=== PATIENT | female | born 1990 | race Caucasian/White ===

== ENCOUNTER 2017-12-31 00:40 | Emergency (ER) | payer MEDICARE, OTHER ==
[~2017-12-31] VITALS: Ht 160 cm; Wt 108.9 kg
[2017-12-31] MEDS ORDERED: birthcontrol PO (00:51)
[2017-12-31] MEDS ORDERED: ZOFRAN ODT4 MG PO (03:52)
== END 2017-12-31 04:09 | disposition home or self-care (01) ==
LOC: ED 00:40
DX: R10.9 Unspecified abdominal pain (principal); Z91.018 Allergy to other foods; Z91.038 Other insect allergy status; Z88.0 Allergy status to penicillin; Z88.5 Allergy status to narcotic agent; Z88.8 Allergy status to other drugs, medicaments and biological substances; Z91.030 Bee allergy status
CPT/HCPCS: 74177; 80053; 81001; 83690; 84703; 85025; 96374; 96375; 96376; 99284; J1170; J2405; J2550; J7030; Q9967

== ENCOUNTER 2018-06-17 20:59 | Emergency (ER) | payer OTHER, MEDICARE ==
[~2018-06-17] VITALS: Ht 160 cm; Wt 108.9 kg
[~2018-06-17 20:59] MED LIST: ZOFRAN ODT4 MG PO; birthcontrol PO
--- OUTSIDE RECORDS SUMMARY | 2018-06-17 21:02 | XMS ---
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 Care History Medical/Surgical 12/31/2017 [facility] - CHW HELPED PATIENT ESTABLISH WITH PCP DR SMITH APT IS 01/04/2018 @ 11:30. - Patient is currently established with [facility]. If patient is seen in the ED during business hours. Please contact CHWs at [facility]. - Care Recommendation: This patient has had 5 or more Emergency Department visits in the last 12 months.\T\nbsp; Patient requires education on the scope and purpose of the ED as an acute care provider not a Primary Care Provider and should not be utilized for chronic conditions.\T\nbsp; These are guidelines and the provider should exercise clinical judgment when providing care. E.D. VISIT COUNT (12 MO.) 3 K[facility] Buchanan TOTAL 3 NOTE: Visits indicate total known visits. ED/UCC VISIT TRACKING (12 MO.) 06/17/2018 20:59 [facility] Marcial [place] TYPE: Emergency COMPLAINT: - [facility] Urgent Care DIAGNOSES: - Lower abdominal pain, unspecified - Nausea - Overweight - Other fatigue 12/31/2017 00:41 [facility]cial [place] TYPE: Emergency COMPLAINT: - ABD PAIN DIAGNOSES: - Allergy status to other drugs, medicaments and biological substances status - Allergy status to penicillin - Bee allergy status - Allergy to other foods - Unspecified abdominal pain - Allergy status to narcotic agent status - Other insect allergy status 12/10/2017 09:40 [facility]cial [place] TYPE: Emergency COMPLAINT: - R KNEE PAIN/NO INJURY DIAGNOSES: - Pain in right knee INPATIENT VISIT TRACKING (12 MO.) No inpatient visits to display in this time frame [email or web address]
[2018-06-17] MEDS ORDERED: METFORMIN HCL1000 MG PO (21:11)
[2018-06-17] MEDS ORDERED: NORCO 5-325 TA1 EACH PO (22:23)
== END 2018-06-17 22:40 | disposition home or self-care (01) ==
LOC: ED 20:59
DX: F07.81 Postconcussional syndrome (principal); S16.1XXA Strain of muscle, fascia and tendon at neck level, initial encounter; E04.1 Nontoxic single thyroid nodule; J45.909 Unspecified asthma, uncomplicated; F43.10 Post-traumatic stress disorder, unspecified; F41.9 Anxiety disorder, unspecified; Z91.018 Allergy to other foods; Z88.0 Allergy status to penicillin; Z88.5 Allergy status to narcotic agent; Z91.038 Other insect allergy status; Z88.8 Allergy status to other drugs, medicaments and biological substances; Z79.899 Other long term (current) drug therapy; V47.5XXA Car driver injured in collision with fixed or stationary object in traffic accident, initial encounter
CPT/HCPCS: 70450; 72125; 90471; 90715; 99284-25

== ENCOUNTER 2019-02-10 18:27 | Emergency (ER) | payer MEDICARE, OTHER ==
[~2019-02-10] VITALS: Ht 160 cm; Wt 108.9 kg
--- OUTSIDE RECORDS SUMMARY | ~2019-02-10 | XMS | Encounter Summary ---
Demographics + + + | Address | [address] | | | [place] [address] | + + + | Home Phone | | + + + | Preferred Language | Unknown | + + + | Marital Status | Single | + + + | Mandaeism Affiliation | 1013 | + + + | Race | Unknown | + + + | Ethnic Group | Unknown | + + + Author + + + | Author | [facility] | | | and Attilaana | + + + | Organization | [facility] | [...] Team Providers + +------+ + | Care Quarry Supervisor Name | Role | Phone | + +------+ + | Hari Garcia MD | PCP | | + +------+ + Reason for Visit + + + | Reason | Comments | + + + | Blurred Vision | | + + + Encounter Details +--------+ + + + + | Date | Type | Department | Care Team | Description | +--------+ + + + + | 11/28/ | Telephone | [facility] | Hari Garcia MD | Blurred Vision | | 2019 | | MEDICINE [place] | [address] | | | | | [address] | [place] | | | | | [place] | [address] | | | | | [address] | | | | | | [phone] | | | +--------+ + + + [...] [place]AB[place] | | | | | | [id number] | | | | | | | | +--------+---------+ + + + documented as of this encounter Visit Diagnoses Not on filedocumented in this encounter"
--- OUTSIDE RECORDS SUMMARY | ~2019-02-10 | XMS | Encounter Summary ---
Demographics + + + | Address | [address] | | | [place] [address] | + + + | Home Phone | | + + + | Preferred Language | Unknown | + + + | Marital Status | Single | + + + | Mu-Ism Affiliation | 1013 | + + + | Race | Unknown | + + + | Ethnic Group | Unknown | + + + Author + + + | Author | [facility] | | | and Attilaana | + + + | Organization | [facility] | | | and Attilaana [...] Team Providers + +------+ + | Care Programmer Business Name | Role | Phone | + [...] | 01/10/ | Office | [facility] [place] [facility] | Hari Garcia MD | Psoriasis (Primary | | 2019 | Visit | MEDICINE [place] | [address] | Dx); Migraine | | | | [address] | [place] | without aura and | | | | [place] | [address] | without status | | | | [address] | | migrainosus, not | | | | [phone] | | intractable; Stress; | | | [...] Blood Pressure | - | - | + + + + | Pulse | 74 | 01/10/20191636 PDT | + + + [...] 110 kg (242 lb 8.1 | 01/10/2019 1637 PDT | | | oz) | | + + + + | Height | 162.6 cm (5' 4") | 01/10/2019 1637 PDT | + + + + | Body Mass Index | 41.63 | 01/10/2019 1637 PDT | + + + + documented in this encounter Patient Instructions Patient Instructions Hari Garcia MD - 01/10/2019 16:00 PDT Managing Psoriasis Take baths in warm water [...] unaffected s kin, but avoid sunburns. Use frcc-tyx-bwjaqdm hydrocortisone cream for itching to reduce scaling [...] symptoms can be managed. Date Last Reviewed: 06/10/201619992406-3824 [employer]. [address] [place] [address]. All righ ts reserved. This information is not intended as a substitute for professional medical care. Always follow your healthcare professional's instructions. documented in this encounter Progress Notes Hari Garcia MD - 01/10/2019 1600 PDT Chief Complaint: Migraine (Blurry vision, ) [...] obesity with BMI of 40.0-44.9, adult (HCC) Follow-up: Return in about 1 month (around 02/09/2019) for FP - f/u psoriasis. Hari Garcia MD 01/10/2019 Total time today is 25 minutes, >75% of which is in counseling and coordination of care reg arding the above issue(s). This note is dictated using [employer] voice recognition software. This note was dictated but not proofread. It may contain some grammatical errors. documented in this encoun ter Plan of Treatment +--------+---------+ + + + | Date | Type | Specialty | Care Team | Description | +--------+---------+ + + + | 02/24/ | Office | Family Medicine | Hari Garcia MD | | | 2018 | Visit | | [address] | | | | | | [place] | | | | | | [address] | | | | | | | | +--------+---------+ + + + documented as of this encounter Results Hemoglobin A1C (01/10/2019 17:22 PDT) + +-------+ [...] [address] | [place] | [phone] | | [facility] | | [address] | | | - LABORATORY | | [...] + + + | [facility] | [address] | Jenae Emanuel [place] | [phone] | | [facility] | | [address] | | | [facility] | | [...] | mL/min/1.73m2 | [facility] | | | MAURITIAN | RATE,ESTIMATED mL/min | | MEDICAL | | | | /1.78v8Rvjo than 60 | | PARK | | [address] | [place] | [phone] | | [facility] | | [address] | | | [facility] | | [...]
--- OUTSIDE RECORDS SUMMARY | ~2019-02-10 | XMS | Encounter Summary ---
Demographics + + + | Address | [address] | | | [place] [address] | + + + | Home Phone [...] + + + | Author | [facility] | | | and Attilaana | + + + | Organization | [facility] | | | and [...] Team Providers + +------+ + | Care Channel Executive Name | Role | Phone | + [...] obesity with | [address] [place] | [address] | | | | | body mass | [place], [place] | [place], | | | | | index (BMI) | [address] | [place] [address] | | | | | of 40.0 to | Phone: | Phone: | | | | | 44.9 in | [phone] | [phone] | | | | | adult, | Fax: | Fax: | | | | | unspecified | [phone] | [phone] | | | | | obesity | [...] + + | 12/13/ | Hospital | [facility] | Hari Garcia MD | Morbid obesity with | | 2019 | Encounter | MED CTR NUTRITION | [address] | BMI of 40.0-44.9, | | | | SERVICES [address] | [place] | adult (HCC) (Primary | | | | [address], | [id number] | Dx) | | | | [place] [address] | | | | | | [phone] | Yasmin Hernandez | | | | [...] 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 She is working on [employer] easing her smoking and increasing her activity. [...] 233#. BMI: 40.15 Estimated needs (wt. 106.1kg) 9352-3928 kcals/day (MSJ - 20/kg) 54-84 gm pro/day [...] [place]AB[place] | | | | | | [id number] | | | | | | | [...]
--- OUTSIDE RECORDS SUMMARY | ~2019-02-10 | XMS | Encounter Summary ---
Demographics + + + | Address | [address] | | | [place] [address] | + + + | Home Phone | | + + + | Preferred Language | Unknown | + + + | Marital Status | Single | + + + | Christianity Affiliation | 1013 | + + + | Race | Unknown | + + + | Ethnic Group | Unknown | + + + Author + + + | Author | [facility] | | | and Attilaana | + + + | Organization | [facility] | | [...] Team Providers + +------+ + | Care Data Miner Name | Role | Phone | + [...] | | | 2019 | | MEDICINE [place] | [address] | | | | | [address] | [place] | | | | | [place] | [address] | | | | | [address] | | | | | | [phone] | | | +--------+ + + + [...] 2019 | Visit | | [address] | | | | | | [place] | | | | | | [address] | | | | | | | | +--------+---------+ + + + documented as of this encounter Procedures + +--------+ + + + | Procedure Name | Priori | Date/Time | Associated Diagnosis | Comments | | | ty | | | | + +--------+ + + + | EXTERNAL LAB: PAP | Routin | 08/25/2018 | | Results [...]
--- OUTSIDE RECORDS SUMMARY | ~2019-02-10 | XMS | Encounter Summary ---
Demographics + + + | Address | [address] | | | [place] [address] | + + + | Home Phone [...] + | Organization | [facility] | | | and Attilaana [...] Team Providers + +------+ + | Care Seo Engineer Name | Role | Phone | + +------+ + | Hari Garcia MD | PCP | | + +------+ + Encounter Details +--------+ + + + + | Date | Type | Department | Care Team | Description | +--------+ + + + + | 02/09/ | Hospital | [facility] | Hari Garcia MD | Thyroid nodule | | 2019 | Encounter | MED CTR ULTRASOUND | [address] | | | | | [address] [place] | [place] | | | | | [place] | [address] | | | | | [address] | | | | | | [phone] | | | +--------+ + + + [...] [place] | | | | | | [address] | | | | | | | [...]
--- OUTSIDE RECORDS SUMMARY | ~2019-02-10 | XMS | Encounter Summary ---
Demographics + + + | Address | [address] | | | [place] [address] | + + + | Home Phone [...] | Organization | [facility] | | | and Attilaana [...] Team Providers + +------+ + | Care Water Taxi Captain Name | Role | Phone | + [...] | 11/28/ | Telephone | [facility] [place] [facility] | Hari Garcia MD | Blurred Vision | | 2019 | | MEDICINE [place] | [address] | | | | | [address] | [place] | | | | | [place] | [address] | | | | | [address] | | | | | | [phone] | | | +--------+ + + + [...] [place] | | | | | | [address] | | | | | | | | +--------+---------+ + + + documented as of this encounter Visit Diagnoses Not on filedocumented in this encounter"
--- OUTSIDE RECORDS SUMMARY | ~2019-02-10 | XMS | Encounter Summary ---
Demographics + + + | Address | [address] | | | [place] [address] | + + + | Home Phone | | + + + | Preferred Language | Unknown | + + + | Marital Status | Single | + + + | Jainism Affiliation | 1013 | + + + | Race | Unknown | + + + | Ethnic Group | Unknown | + + + Author + + + | Author | [facility] | | | and Attilaana | + + + | Organization | [facility] | | | and Attilaana [...] Team Providers + +------+ + | Care Kettle Loader Name | Role | Phone | + +------+ + | Hari Garcia MD | PCP | | + +------+ + Encounter Details +--------+ + + + + | Date | Type | Department | Care Team | Description | +--------+ + + + + | 02/09/ | Hospital | [facility] | Hari Garcia MD | Thyroid nodule | | 2019 | Encounter | MED CTR ULTRASOUND | [address] | | | | | [address] [place] | [place] | | | | | [place] | [address] | | | | | [address] | | | | | | [phone] | | | +--------+ + + + [...] [place]AB[place] | | | | | | [address] | | | | | | | [...]
--- OUTSIDE RECORDS SUMMARY | ~2019-02-10 | XMS | Encounter Summary ---
Demographics + + + | Address | [address] | | | [place] [address] | + + + | Home Phone | | + + + | Preferred Language | Unknown | + + + | Marital Status | Single | + + + | Nondenominational Affiliation | 1013 | + + + | Race | Unknown | + + + | Ethnic Group | Unknown | + + + Author + + + | Author | [facility] | | | and Attilaana | + + + | Organization | [facility] | | [...] Team Providers + +------+ + | Care Au Pair Name | Role | Phone | + [...] + | 09// | Telephone | [facility] | Hari Garcia MD | Medication | | 2019 | | MEDICINE [place] | [address] | Management | | | | [address] | [place] | | | | | [place] | [address] | | | | | [address] | | | | | | [phone] | | | +--------+ + + + [...] [place] | | | | | | [address] | | | | | | | | +--------+---------+ + + + documented as of this encounter Visit Diagnoses Not on filedocumented in this encounter"
--- OUTSIDE RECORDS SUMMARY | ~2019-02-10 | XMS | Clinical Summary ---
Demographics + + + | Address | [address] | | | [place] [address] | + + + | Home Phone | | + + + | Preferred Language | Unknown | + + + | Marital Status | Single | + + + | Hinduism Affiliation | 1013 | + + + | Race | Unknown | + + + | Ethnic Group | Unknown | + + + Author + + + | Author | [facility] | | | and Attilaana | + + + | Organization | [facility] | | | and [...] Team Providers + +------+ + | Care Stage Technician Name | Role | Phone | [...] + + + + + + | Meno | Hives | Low | 04/11/20 | [...] + + | 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 [place] | + + + [...] adult | | | | | | ([facility]) | +--------+ + + + + | 12/13/ | Hospital | Nutrition | Hari Garcia MD | Morbid obesity with | | 2018 | Encounter | | David, | BMI of 40.0-44.9, | | | | | Yasmin Branch RDN | adult ([facility]) (Primary | | | | | | [...] [place] | | | | | | [address] | | | | | | | [...] + + | [facility] | [address] | [place] | [phone] | | [facility] | | [address] | | | [facility] | | [...] + + + | [facility] | [address] | [place] | [phone] | | [facility] | | [address] | | | [facility] | | [...] [address] | [place] | [phone] | | [facility] | | [address] | | | - LABORATORY | | [...] | | | | | mg/dL | [facility] | | | | | | MEDICAL | | | | | | [facility]ARK | | | | | | LABORATORY | | + + + + + + | eGFR if not | >60Comment: GLOMERULAR | >=60 | [facility] | | | | FILTRATION | mL/min/1.73m2 | [facility] | | | TRINIDADIAN | RATE,ESTIMATED mL/min | | MEDICAL | | | | /1.95r7Nzph than 60 | | PARK | | [...] | | | | | mg/dL | [facility] | | | | | | [...] + + + | [facility] | [address] | [place] | [phone] | | [facility] | | [address] | | | [facility] CONTRERAS | | [...] +--------+ +---------+--------+ | MEDICARE | [employer] | [id number] | 05/10/19 | [phone] | | Medica | | | RE | | 16-Pre | 5 | | re | | | PART A | | sent | | | | | | AND B | | | | | | + +--------+ +--------+ +---------+--------+ | [employer] | MODA | [id number] | | [phone] | | Medica | [...] | 1990 | [id number] | [place] [address] | | | flaca | | | 1 (Home) | | + +--------+ +--------+ + + Advance Directives Patient has advance care planning documents on file. For more information, please contact:[facility] [place] [address]
--- OUTSIDE RECORDS SUMMARY | ~2019-02-10 | XMS | Encounter Summary ---
Demographics + + + | Address | [address] | | | [place] [address] | + + + | Home Phone [...] + + + | Author | [facility] | | | and Attilaana | + + + | Organization | [facility] | | | and [...] Team Providers + +------+ + | Care Counselor Supervisor Name | Role | Phone | [...] | 01/10/ | Office | [facility] | Hari Garcia MD | Psoriasis (Primary | | 2019 | Visit | MEDICINE [place] | [address] | Dx); Migraine | | | | [address] | [place] | without aura and | | | | [place] | [address] | without status | | | | [address] | | migrainosus, not | | | | [phone] | | intractable; Stress; | | | [...] unaffected s kin, but avoid sunburns. Use svho-poi-hlxxntc hydrocortisone cream for itching to reduce scaling [...] symptoms can be managed. Date Last Reviewed: 06/10/201619995638-4569 [employer]. [address] [place] [address]. All righ ts reserved. This information is [...] above issue(s). This note is dictated using [employer] voice recognition software. This note was dictated [...] [place]AB[place] | | | | | | [address] | | | | | | | [...] [address] | [place] | [phone] | | [facility] | | [address] | | | - LABORATORY | | [...] + + + | [facility] | [address] | Jenae Emanuel [place] | [phone] | | [facility] | | [address] | | | [facility] | | [...] | mL/min/1.73m2 | [facility] | | | BHUTANESE | RATE,ESTIMATED mL/min | | MEDICAL | | | | /1.03y8Nbzd than 60 | | PARK | | [address] | [place] | [phone] | | [facility] | | [address] | | | [facility] | | [...]
--- OUTSIDE RECORDS SUMMARY | ~2019-02-10 | XMS | Clinical Summary ---
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 [place] | + + + [...] | | | | | ([facility]) | +--------+ + + + + | 12/13/ | Hospital | Nutrition | Hari Garcia MD | Morbid obesity with | | 2018 | Encounter | | David, | BMI of 40.0-44.9, | | | | | Yasmin Branch RDN | adult ([facility]) (Primary | | | | | | [...] [place] | | | | | | [address] | | | | | | | [...] + + | [facility] | [address] | [place] | [phone] | | [facility] | | [address] | | | [facility] | | [...] + + + | [facility] | [address] | [place] | [phone] | | [facility] | | [address] | | | [facility] | | [...] [address] | [place] | [phone] | | [facility] | | [address] | | | - LABORATORY | | [...] | | | | | mg/dL | [facility] | | | | | | MEDICAL | | | | | | PARK | | | | | | LABORATORY | | + + + + + + | eGFR if not | >60Comment: GLOMERULAR | >=60 | [facility] | | | | FILTRATION | mL/min/1.73m2 | [facility] | | | URUGUAYAN | RATE,ESTIMATED mL/min | | MEDICAL | | | | /1.69p6Rbyk than 60 | | PARK | | [...] | | | | | mg/dL | [facility] | | | | | | [...] + + + | [facility] | [address] | [place] | [phone] | | [facility] | | [address] | | | [facility] | | [...] +--------+ +---------+--------+ | MEDICARE | MEDICA | [id number] | 05/10/19 | [phone] | | Medica | | | RE | | 16-Pre | 5 | | re | | | PART A | | sent | | | | | | AND B | | | | | | + +--------+ +--------+ +---------+--------+ | [employer] | MODA | [id number] | | [phone] | | Medica | [...] | 1990 | [id number] | [place] [address] | | | flaca | | | 1 (Home) | | + +--------+ +--------+ + + Advance Directives Patient has advance care planning documents on file. For more information, please contact:[facility] [place] [address]
--- OUTSIDE RECORDS SUMMARY | ~2019-02-10 | XMS | Encounter Summary ---
Demographics + + + | Address | [address] | | | [place] [address] | + + + | Home Phone [...] + + | Author | [facility] | | | and Attilaana | + + + | Organization | [facility] | | [...] Team Providers + +------+ + | Care Hot Car Charger Name | Role | Phone | + [...] | | | 2019 | | MEDICINE [place] | [address] | | | | | [address] | [place] | | | | | [place] | [address] | | | | | [address] | | | | | | [phone] | | | +--------+ + + + [...] 2019 | Visit | | [address] | | | | | | [place] | | | | | | [address] | | | | | | | [...]
--- OUTSIDE RECORDS SUMMARY | ~2019-02-10 | XMS | Encounter Summary ---
Demographics + + + | Address | [address] | | | [place] [address] | + + + | Home Phone [...] + + | Author | [facility] | | | and Attilaana | + + + | Organization | [facility] [...] Team Providers + +------+ + | Care Communication Center Coordinator Name | Role | Phone | [...] + | 09// | Telephone | [facility] | Hari Garcia MD | Medication | | 2019 | | [facility]IC[facility] [place] | [address] | Management | | | | [address] | [place] | | | | | [place] | [address] | | | | | [address] | | | | | | [phone] | | | +--------+ + + + [...] [place] | | | | | | [address] | | | | | | | | +--------+---------+ + + + documented as of this encounter Visit Diagnoses Not on filedocumented in this encounter"
--- OUTSIDE RECORDS SUMMARY | ~2019-02-10 | XMS | Encounter Summary ---
Demographics + + + | Address | [address] | | | [place] [address] | + + + | Home Phone [...] | Author | [facility] | | | and Attilaana | + + + | Organization | [facility] | [...] Team Providers + +------+ + | Care Procurement Engineer Name | Role | Phone | [...] obesity with | [address] [place] | [address] | | | | | body mass | [place], [place] | [place], | | | | | index (BMI) | [address] | [place] [address] | | | | | of 40.0 to | Phone: | Phone: | | | | | 44.9 in | [phone] | [phone] | | | | | adult, | Fax: | Fax: | | | | | unspecified | [phone] | [phone] | | | | | obesity | [...] + + | 12/13/ | Hospital | [facility] | Hari Garcia MD | Morbid obesity with | | 2019 | Encounter | MED CTR NUTRITION | [address] | BMI of 40.0-44.9, | | | | SERVICES [address] | [place] | adult (HCC) (Primary | | | | [address] [place], | [phone] | Dx) | | | | [place] [address] | | | | | | [phone] | Yasmin Hernandez | | | | [...] 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 She is working on [employer] easing her smoking and increasing her activity. [...] 233#. BMI: 40.15 Estimated needs (wt. 106.1kg) 6703-6013 kcals/day (MSJ - 20/kg) 54-84 gm pro/day [...] [place]AB[place] | | | | | | [id number] | | | | | | | [...]
[~2019-02-10 18:27] MED LIST changes: +CITALOPRAM HBR20 MG PO; +MAXALT10 MG PO; +METFORMIN HCL1000 MG PO; +NORCO 5-325 TA1 EACH PO; +ZOFRAN4 MG PO
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
[2019-02-10] MEDS ORDERED: VENTOLIN HFA18 GM INH (18:40)
[2019-02-10] MEDS ORDERED: IPRAT-ALBUT 0.5-3 ML INH (19:58)
[2019-02-10] MEDS ORDERED: TRUNEB NEBULIZ1 EACH INH (19:59)
== END 2019-02-10 20:27 | disposition home or self-care (01) ==
LOC: ED 18:27
DX: J98.8 Other specified respiratory disorders (principal); B97.89 Other viral agents as the cause of diseases classified elsewhere; J45.909 Unspecified asthma, uncomplicated; F43.10 Post-traumatic stress disorder, unspecified; F41.9 Anxiety disorder, unspecified; F17.200 Nicotine dependence, unspecified, uncomplicated; Z91.018 Allergy to other foods; Z91.030 Bee allergy status; Z88.5 Allergy status to narcotic agent; Z79.899 Other long term (current) drug therapy; Z79.84 Long term (current) use of oral hypoglycemic drugs
CPT/HCPCS: 94664; 99283

== ENCOUNTER 2019-02-14 12:57 | Emergency (ER) | payer MEDICARE, OTHER ==
[~2019-02-14] VITALS: Ht 160 cm; Wt 108.9 kg
--- OUTSIDE RECORDS SUMMARY | ~2019-02-14 | XMS | Encounter Summary ---
Demographics + + + | Address | [address] | | | [place] [address] | + + + | Home Phone | | + + + | Preferred Language | Unknown | + + + | Marital Status | Single | + + + | Congregation Affiliation | 1013 | + + + | Race | Unknown | + + + | Ethnic Group | Unknown | + + + Author + + + | Author | [facility] | | | and Attilaana | + + + | Organization | [facility] | | | and Attilaana | [...] Team Providers + +------+ + | Care Salesperson Sewing Machines Name | Role | Phone | + +------+ + | Hari Garcia MD | PCP | | + +------+ + Encounter Details +--------+ + + + + | Date | Type | Department | Care Team | Description | +--------+ + + + + | 02/09/ | Hospital | [facility] | Hari Garcia MD | Thyroid nodule | | 2019 | Encounter | MED CTR ULTRASOUND | [address] | | | | | [address] [place] | [place] | | | | | [place] | [address] | | | | | [address] | | | | | | [phone] | | | +--------+ + + + [...] + +---------+ + | Alcohol Use | Drinks/We | oz/Week | Comments | | | ek | | | + + +---------+ + | No | | | | + + +---------+ + + + + | Sex Assigned at | Date Recorded | | | | + + + | Female | 09/16/2018 1119 PDT | + + + + + [...] tablet by | 30 | 5 | 07/26/19 | | | (CELEXA) 20 mg | mouth Daily. | tablet | | 19 | | | tabletIndications: | | | [...] TABLET BY | 90 | 1 | 08/05/19 | | | (GLUCOPHAGE-XR) 500 | MOUTH ONCE DAILY | tablet | | 19 | | | mg 24 hr tablet | | | | | | + + + +---------+ + + | vitamin | Take 1 tablet by | | 0 | 09/22/19 | | | w/ferrous | mouth Daily. | | | 19 | | | fumarate-folic acid | | | | | | | ( PLUS) 27-1 | | | | | | | mg | | | | | | | tabletIndications: | | | | | | | , | | | | | | | unspecified | | | | | | | gestational age | | | | | | + + + +---------+ + + | topiramate | Take 1 tablet by | 60 | 0 | 01/11/20 | | | (TOPAMAX) 25 mg | mouth 2 times daily. | tablet | | 19 | | | tablet | | | | [...] Description | +--------+---------+ + + + | 02/24/ | Office | Family Medicine | Hari Garcia MD | | | 2018 | Visit | | [address] | | | | | | [place] | | | | | | [address] | | | | | | | | +--------+---------+ + + + documented as of this encounter Procedures + +--------+ + + + | Procedure Name | Priori | Date/Time | Associated Diagnosis | Comments | | | ty | | | | + +--------+ + + + | US HEAD NECK SOFT | Routin | 02/09/2019 | Thyroid nodule | Results for this | | TISSUE | e | 15:22 PDT | | procedure are in the | | | | | | results section. | + +--------+ + + + documented in this encounter Results US Head Neck Soft Tissue (02/09/2019 15:22 PDT) + + | Specimen | + [...] x 2.2 cm. No significant change in | | | size or morphology of the right thyroid nodule. It measures about | | | 3 x 2 x 1.8 cm. There are hyperechoic foci within. These may be | | | calcifications or colloid particles. Left: 4.1 x 1.1 x 0.9 | | | cm. No mass or significant hypervascularity. Isthmus: | | | Unremarkable. IMPRESSION - Stable right thyroid nodule. | | | TI-RADS Level = TR4 Recommendations: Moderately Suspicious: FNA | | | if ? 1.5 cm; Follow if ? 1 cm. In the setting of a negative FNA | | | consider follow-up. Dictated and Signed by: Alfredo Hagen MD | | | Electronically signed: 02/09/2019 5:55 PM | | + + + + + | Procedure Note | + + | Nash, Rad Results In - 02/09/2019 1758 PDT EXAM:US HEAD NECK SOFT TISSUE dated [...]
--- OUTSIDE RECORDS SUMMARY | ~2019-02-14 | XMS | Clinical Summary ---
Demographics + + + | Address | [address] | | | [place] [address] | + + + | Home Phone | | + + + | Preferred Language | Unknown | + + + | Marital Status | Single | + + + | Pentecostalism Affiliation | 1013 | + + + | Race | Unknown | + + + | Ethnic Group | Unknown | + + + Author + + + | Author | [facility] | | | and Attilaana | + + + | Organization | [facility] | | | and [...] Team Providers + +------+ + | Care Magnetic Tape Winder Name | Role | Phone | + [...] + + + + + + | [place] | Hives | Low | 04/11/20 | [...] | 30 | 5 | 03/1 | | Activ | | (CELEXA) 20 mg | mouth Daily. | tablet | | 8/20 | | e | | tabletIndications: | | | | 19 | | | | Acute stress | [...] | 90 | 1 | 03/2 | | Activ | | (GLUCOPHAGE-XR) 500 | MOUTH ONCE DAILY | tablet | | 8/20 | | e | | mg 24 hr tablet | | | | 19 | | | + + + +---------+------+------+-------+ | albuterol 90 | Inhale 2 puffs into | 1 | 0 | 04/1 | | Activ | | mcg/puff | the lungs every 6 | Inhaler | | 1/20 | | e | | inhalerIndications: | [...] w/ferrous | mouth Daily. | | | 09/26 | | e | | fumarate-folic acid [...] | | + + + +---------+------+------+-------+ | topiramate | Take 1 tablet by | 60 | 0 | 09/0 | | Activ | | (TOPAMAX) 25 mg | mouth 2 times daily. 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 [place] | + + + [...] adult | | | | | | ([facility]) | +--------+ + + + + | 12/13/ | Hospital | Nutrition | Hari Garcia MD | Morbid obesity with | | 2018 | Encounter | | David, | BMI of 40.0-44.9, | | | | | Yasmin Branch RDN | adult ([facility]) (Primary | | | | | | Dx) | +--------+ + + + + | 12/09/ | Abstract | Family Medicine | Hari Garcia MD | | | 2018 | | | | | +--------+ + + + + | 11/28/ | Telephone | Family Medicine | Hari Garcia MD | Blurred Vision | | 2018 | | | | | +--------+ + + + + from [...] Filed Vital Signs + + + + | Vital Sign | Reading | Time Taken | + + + + | Blood Pressure | 110/76 | 08/18/2018 1407 PDT | + + + + | Pulse | 74 | 01/10/2019 1637 PDT | + + + + | Temperature | 36.3 C (97.3 F) | 01/10/20191636 PDT | + + + + | Respiratory Rate | 16 | 01/10/20191636 PDT | + + + + | Oxygen Saturation | 98% | 01/10/20191636 PDT | + + + + | Inhaled Oxygen | - | - | | Concentration | | | + + + + | Weight | 110 kg (242 lb 8.1 | 01/10/20191636 PDT | | | oz) | | + + + + | Height | 162.6 cm (5' 4") | 01/10/20191636 PDT | + + + + | Body Mass Index | 41.63 | 01/10/2019 1637 PDT | + + + + Plan of Treatment +--------+---------+ + + + | Date | Type | Specialty | Care Team | Description | +--------+---------+ + + + | 02/24/ | Office | Family Medicine | Hari Garcia MD | | | 2018 | Visit | | [address] | | | | | | [place] | | | | | | [address] | | | | | | | | +--------+---------+ + + + + + + + + | Health Maintenance | Due Date | Last Done | Comments | + + + + + | Vaccine: | | | | | Pneumococcal 19-64 | 9 | | | | (PPSV23 only) Medium | | | | | Risk (1 of 1 - | | | | | PPSV23) | | | | + + [...] for this | | | e | 17:22 PDT | | procedure are in the | | | | | | results section. | + +--------+ + + + | CBC NO DIFFERENTIAL | Routin | 01/10/2019 | Fatigue, | Results for this | | | e | 17:22 PDT | unspecified type | procedure are in the | | | | | | results section. | + +--------+ + + + | COMPREHENSIVE | Routin | 01/10/2019 | PCOS (polycystic | Results for this | | METABOLIC PANEL | e | 17:22 PDT | ovarian syndrome) | procedure are in the | | | | | Prediabetes | results section. | | | | | Fatigue, unspecified | | | | | | type | | + +--------+ + + + | LIPID PANEL | Routin | 01/10/2019 | Class 3 severe | Results for this | | | e | 17:22 PDT | obesity with body | procedure are in the | | | | | mass index (BMI) of | results [...] + +---------+ + + Lipid Panel (01/10/2019 17:22 PDT) + +---------+ + + + | [...] + + | [facility] | [address] | [place] | [phone] | | [facility] | | [address] | | | [facility] | | | | + + + + + CBC no Differential (01/10/2019 17:22 PDT) + + + + + + [...] + + + | [facility] | [address] | [place] | [phone] | | [facility] | | [address] | | | [facility] | | | | + + + + + Hemoglobin A1C (01/10/2019 17:22 PDT) + +-------+ + + + | [...] + | [address] [facility] | [address] | [place] | [phone] | | [facility] | | [address] | | | - LABORATORY | | | | + + + + + Comprehensive Metabolic Panel (01/10/2019 17:22 PDT) + + + + + + [...] | | | | | mg/dL | [facility] | | | | | | MEDICAL | | | | | | [facility] | | | | | | LABORATORY | | + + + + + + | eGFR if not | >60Comment: GLOMERULAR | >=60 | [facility] | | | | FILTRATION | mL/min/1.73m2 | [facility] | | | [place] | RATE,ESTIMATED mL/min | | MEDICAL | | | | /1.06e5Hsrq than 60 | | PARK | | | | Chronic kidney | | LABORATORY | | | | disease,if found over a | | | | | | 3-month period.Less than | | | | | | 15 Kidney | | | | | | failureFor | | | | | | Americans,multiply the | | | | | | calculated GFR by 1.21. | | | | | | | | | | + + + + + + | Calcium | 9.0 | 8.5 - 10.1 | [facility] | | | | | mg/dL | [facility] | | | | | | MEDICAL [...] + + + | [facility] | [address] | [place] | [phone] | | [facility] | | [address] | | | [facility] | | | | + + [...] +--------+ +---------+--------+ | MEDICARE | MEDICA | [id number] | 05/10/19 | [phone] | | Medica | | | RE | | 16-Pre | 5 | | re | | | PART A | | sent | | | | | | AND B | | | | | | + +--------+ +--------+ +---------+--------+ | [employer] | MODA | [id number] | | [phone] | | Medica | | MEDICAID HMO [...] | Self | [birth year] | | [address] | | | al/Fam | | 1990 | [id number] | [place] [address] | | | flaca | | | 1 (Home) | | + +--------+ +--------+ + + Advance Directives Patient has advance care planning documents on file. For more information, please contact:[facility] [place] [address]
--- OUTSIDE RECORDS SUMMARY | ~2019-02-14 | XMS | Encounter Summary ---
Demographics + + + | Address | [address] | | | [place] [address] | + + + | Home Phone | | + + + | Preferred Language | Unknown | + + + | Marital Status | Single | + + + | Bahai Affiliation | 1013 | + + + | Race | Unknown | + + + | Ethnic Group | Unknown | + + + Author + + + | Author | [facility] | | | and Attilaana | + + + | Organization | [facility] | | | and [...] Team Providers + +------+ + | Care Doctor Of Optometry Name | Role | Phone | + +------+ + | Hari Garcia MD | PCP | | + +------+ + Reason for Visit + + + | Reason | Comments | + + + | Nutrition Counseling | | + + + Evaluate & Treat (Routine) +--------+ + + + + + | Status | Reason | Specialty | Diagnoses / | Referred By | Referred To | | | | | Procedures | Contact | Contact | +--------+ + + + + + | Closed | Specialty | Nutrition | Diagnoses | [place], | [facility] | | | Services | | Class 3 | MD Hari | Nutrition | | | Required | | severe | [address] | [address] | | | | | obesity with | [address] [place] | [address] | | | | | body mass | [place], [place] | [place], | | | | | index (BMI) | [address] | [place] [address] | | | | | of 40.0 to | Phone: | Phone: | | | | | 44.9 in | [phone] | [phone] | | | | | adult, | Fax: | Fax: | | | | | unspecified | [phone] | [phone] | | | | | obesity | | | | | | | type, | | | | | | | unspecified | | | | | | | whether | | | | | | | serious | | | | | | | comorbidity | | | | | | | present | | | | | | | (HCC) | | | +--------+ + + + + + Encounter Details +--------+ + + + + | Date | Type | Department | Care Team | Description | +--------+ + + + + | 12/13/ | Hospital | [facility] | Hari Garcia MD | Morbid obesity with | | 2019 | Encounter | MED CTR NUTRITION | [address] | BMI of 40.0-44.9, | | | | SERVICES [address] | [place] | adult (HCC) (Primary | | | | [place], | [id number] | Dx) | | | | [place] [address] | | | | | | [phone] | Yasmin Hernandez | | | | | | N, RDN | | +--------+ + + + + [...] 1 tablet by | | 0 | / | | | w/ferrous | mouth Daily. [...] documented as of this encounter Progress Notes Yasmin Hernandez, RDN - 12/13/2018 1609 PDT Medical Nutrition Note SUBJECTIVE: Patient states she has PCOS and would like to have another baby. She states she lost weight and got in the past. Her lifestyle is different now and she is trying to lose weight again. 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 She is working on [employer] easing her smoking and increasing her activity. She would like to meal prep and take lunches to work. Encouraged patient to eat consistent meals that include protein, energy, and plant s. Patient plans to take leftovers from supper for meal at work the next day on most days to save money and eat healthier food that fast food for lunch. She is going to work on increas ing vegetable/fruit intake and choosing lean proteins as well. Patient is very busy and feel overwhelmed with her personal goals. So we broke her goals down into realistic steps. She i s going to reevaluate her goals and update as needed with tips from handouts when she is joselin dy for taking another step to take care of herself. OBJECTIVE: Diet: General Wt Readings from Last 3 Encounters: 08/18/18 106.1 kg (233 lb 14.5 oz) 06/29/18 106.1 kg (233 lb 14.5 oz) 06/22/18 104.3 kg (230 lb) Ht Readings from Last 1 Encounters: 08/18/18 1.626 m (5' 4") There is no height or weight on file to calculate BMI. No height and weight on file for th is encounter. Labs: No results found for: POCGLU, Lab Results Component Value Date HBA1C 5.7 06/15/2018 , Lab Results Component Value Date HBA1C 5.7 06/15/2018 HBA1C 5.8 (A) 01/31/2018 No results found for: GLUF, CREATININE, Ht: 1/626 m (5'4"). Wt: 233#. BMI: 40.15 Estimated needs (wt. 106.1kg) 1214-1636 kcals/day (MSJ - 20/kg) 54-84 gm pro/day (1/kg IBW-.8/kg) Medications: metformin ASSESSMENT/PLAN: Nutrition Diagnosis: Nutrition knowledge deficit related to weight management as evidenced by elevated BMI of 40.15, questions from patient. Interventions: 1. Provided nutrition therapy related to weight management for patient with PCOS and elevat ed BMI> 2. Provided education and handouts: What is pre-diabetes/tips, Steve food guide, weight ma nagement, Healthy breakfasts/lunches/dinners/Snacks, Eat right with MyPlate, Weight manageme nt cooking tips, weight loss tips. Nutrition guide for women, Eating well during pr egnancy. Nutrition Goals: 1. Continue to drink adequate fluids (8 cups water/day) 2. Increase daily activity to 60 minutes per day as tolerated. 3. Choose 3 meals per day with protein, energy, and plants. Monitor: 1. Further patient questions related to balanced diet for weight management, PCOS, pre-martha l Time spent: 60 minutes Thank you for the referral, Yasmin Hernandez RDN 12/13/2018 16:16 documented in thi s encounter Plan of Treatment +--------+---------+ + + + | Date | Type | Specialty | Care Team | Description | +--------+---------+ + + + | 02/24/ | Office | Family Medicine | Hari Garcia MD | | | 2019 | Visit | | [address] | | | | | | [place] | | | | | | [id number] | | | | | | | | +--------+---------+ + + + documented as of this encounter Procedures + +--------+ + + + | Procedure Name | Priori | Date/Time | Associated Diagnosis | Comments | | | ty | | | | + +--------+ + + + | PATHOLOGY - EXTERNAL | | 08/25/2018 | | Results for this | | SCAN | | 0:00 PDT | | procedure are in the | | | | | | results section. | + +--------+ + + + documented in this encounter Results PATHOLOGY - EXTERNAL SCAN (08/25/2018 0:00 PDT) + + + | Narrative | Performed At | + + + | Ordered by an | | | unspecified provider. | | + + + documented in this encounter Visit Diagnoses + + | Diagnosis | + + | Morbid obesity with BMI of 40.0-44.9, adult (HCC) - Primary | + + documented in this encounter
--- OUTSIDE RECORDS SUMMARY | ~2019-02-14 | XMS | Encounter Summary ---
Demographics + + + | Address | [address] | | | [place] [address] | + + + | Home Phone | | + + + | Preferred Language | Unknown | + + + | Marital Status | Single | + + + | Congregation Affiliation | 1013 | + + + | Race | Unknown | + + + | Ethnic Group | Unknown | + + + Author + + + | Author | [facility] | | | and Attilaana | + + + | Organization | [facility] [...] Team Providers + +------+ + | Care Helminthologist Name | Role | Phone | + [...] | 01/10/ | Office | [facility] | Hari Garcia MD | Psoriasis (Primary | | 2019 | Visit | MEDICINE BREWSTER | [address] | Dx); Migraine | | | | [address] | [place] | without aura and | | | | [place] | [address] | without status | | | | [address] | | migrainosus, not | | | | [phone] | | intractable; Stress; | | | [...] unaffected s kin, but avoid sunburns. Use xbch-pym-bxyqanx hydrocortisone cream for itching to reduce scaling [...] symptoms can be managed. Date Last Reviewed: 06/10/201619995272-4176 [employer]. [address] [place] [address]. All righ ts reserved. This information is [...] above issue(s). This note is dictated using [employer] voice recognition software. This note was dictated [...] [place] | | | | | | [address] | | | | | | | [...] [address] | [place] | [phone] | | [facility] | | [address] | | | - LABORATORY | | [...] + + + | [facility] | [address] | [place] | [phone] | | [facility] | | [address] | | | [facility] | | [...] | mL/min/1.73m2 | [facility] | | | SAO TOMEAN | RATE,ESTIMATED mL/min | | MEDICAL | | | | /1.00r7Nxor than 60 | | PARK | | [address] | [place] | [phone] | | [facility] | | [address] | | | [facility] | | [...]
--- OUTSIDE RECORDS SUMMARY | ~2019-02-14 | XMS | Encounter Summary ---
Demographics + + + | Address | [address] | | | [place] [address] | + + + | Home Phone [...] + | Organization | [facility] | | | and [...] Team Providers + +------+ + | Care Frozen Food Department Manager Name | Role | Phone | [...] | 01/10/ | Office | [facility] | Hari Garcia MD | Psoriasis (Primary | | 2019 | Visit | MEDICINE [place] | [address] | Dx); Migraine | | | | [address] | [place] | without aura and | | | | [place] | [address] | without status | | | | [address] | | migrainosus, not | | | | [phone] | | intractable; Stress; | | | [...] unaffected s kin, but avoid sunburns. Use nhoa-fbv-jxdwazg hydrocortisone cream for itching to reduce scaling [...] symptoms can be managed. Date Last Reviewed: 06/10/201619991269-2859 [employer]. [address] [place] [id number]. All righ ts reserved. This information is [...] above issue(s). This note is dictated using [employer] voice recognition software. This note was dictated [...] [place] | | | | | | [address] | | | | | | | [...] [address] | [place] | [phone] | | [facility] | | [address] | | | - LABORATORY | | [...] + + + | [facility] | [address] | [place] | [phone] | | [facility] | | [address] | | | [facility] | | [...] | mL/min/1.73m2 | [facility] | | | [place] | RATE,ESTIMATED mL/min | | MEDICAL | | | | /1.74w7Ndxk than 60 | | PARK | | [address] | [place] | [phone] | | [facility] | | [address] | | | [facility] | | [...]
--- OUTSIDE RECORDS SUMMARY | ~2019-02-14 | XMS | Encounter Summary ---
Demographics + + + | Address | [address] | | | [place] [address] | + + + | Home Phone [...] | [facility] | | | and [...] Team Providers + +------+ + | Care Research Lab Assistant Name | Role | Phone | [...] | 11/28/ | Telephone | [facility] [place] [facility] | Hari Garcia MD | Blurred Vision | | 2019 | | MEDICINE [place] | [address] | | | | | [address] | [place] | | | | | [place] | [address] | | | | | [address] | | | | | | [phone] | | | +--------+ + + + [...] [place] | | | | | | [id number] | | | | | | | | +--------+---------+ + + + documented as of this encounter Visit Diagnoses Not on filedocumented in this encounter"
--- OUTSIDE RECORDS SUMMARY | ~2019-02-14 | XMS | Encounter Summary ---
Demographics + + + | Address | [address] | | | [place] [address] | + + + | Home Phone [...] Author + + + | Author | [facility] | | | and [place] | + + + | Organization | [facility] | | | and [...] Team Providers + +------+ + | Care Insurance Loss Assessor Name | Role | Phone | + [...] + | 09// | Telephone | [facility] | Hari Garcia MD | Medication | | 2019 | | MEDICINE [place] | [address] | Management | | | | [address] | [place] | | | | | [place] | [address] | | | | | [address] | | | | | | [phone] | | | +--------+ + + + [...] [place] | | | | | | [address] | | | | | | | | +--------+---------+ + + + documented as of this encounter Visit Diagnoses Not on filedocumented in this encounter"
--- OUTSIDE RECORDS SUMMARY | ~2019-02-14 | XMS | Encounter Summary ---
Demographics + + + | Address | [address] | | | [place] [address] | + + + | Home Phone [...] + | Author | [facility] | | | and Attilaana | + + + | Organization | [facility] | | [...] Team Providers + +------+ + | Care Warehouse Distribution Specialist Name | Role | Phone | [...] + | 09// | Telephone | [facility] | Hari Garcia MD | Medication | | 2019 | | MEDICINE [place] | [address] | Management | | | | [address] | [place] | | | | | [place] | [address] | | | | | [address] | | | | | | [phone] | | | +--------+ + + + [...] [place] | | | | | | [address] | | | | | | | | +--------+---------+ + + + documented as of this encounter Visit Diagnoses Not on filedocumented in this encounter"
--- OUTSIDE RECORDS SUMMARY | ~2019-02-14 | XMS | Encounter Summary ---
Demographics + + + | Address | [address] | | | [place] [address] | + + + | Home Phone | | + + + | Preferred Language | Unknown | + + + | Marital Status | Single | + + + | Advent Affiliation | 1013 | + + + | Race | Unknown | + + + | Ethnic Group | Unknown | + + + Author + + + | Author | [facility] | | | and [place] | + + + | Organization | [facility] | | | [...] Team Providers + +------+ + | Care Chucking Lathe Operator Name | Role | Phone | [...] | | | 2019 | | MEDICINE [place] | [address] | | | | | [address] | [place] | | | | | [place] | [address] | | | | | [address] | | | | | | [phone] | | | +--------+ + + + [...] 2019 | Visit | | [address] | | | | | | [place] | | | | | | [address] | | | | | | | [...]
--- OUTSIDE RECORDS SUMMARY | ~2019-02-14 | XMS | Clinical Summary ---
Demographics + + + | Address | [address] | | | [place] [address] | + + + | Home Phone | | + + + | Preferred Language | Unknown | + + + | Marital Status | Single | + + + | Muslim Affiliation | 1013 | + + + | Race | Unknown | + + + | Ethnic Group | Unknown | + + + Author + + + | Author | [facility] | | | and Attilaana | + + + | Organization | 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) | +--------+ + + + + | 12/13/ | Hospital | Nutrition | Hari Garcia MD | Morbid obesity with | | 2018 | Encounter | | David, | BMI of 40.0-44.9, | | | | | Yasmin Branch RDN | adult ([facility]) (Primary | | | | | | [...] [place] | | | | | | [address] | | | | | | | [...] + + | [facility] | [address] | [place] | [phone] | | [facility] | | [address] | | | [facility] | | [...] + + + | [facility] | [address] | [place] | [phone] | | [facility] | | [address] | | | [facility] | | [...] [address] | [place] | [phone] | | [facility] | | [address] | | | - LABORATORY | | [...] | | | | | mg/dL | [facility] | | | | | | MEDICAL | | | | | | PARK | | | | | | LABORATORY | | + + + + + + | eGFR if not | >60Comment: GLOMERULAR | >=60 | [facility] | | | | FILTRATION | mL/min/1.73m2 | [facility] | | | [place] | RATE,ESTIMATED mL/min | | MEDICAL | | | | /1.40w8Arif than 60 | | PARK | | [...] | | | | | mg/dL | [facility] | | | | | | MEDICAL [...] + + + | [facility] | [address] | [place] | [phone] | | [facility] | | [address] | | | VICKEY CONTRERAS | | [...] +--------+ +---------+--------+ | MEDICARE | MEDICA | [id number] | 05/10/19 | [phone] | | Medica | | | RE | | 16-Pre | 5 | | re | | | PART A | | sent | | | | | | AND B | | | | | | + +--------+ +--------+ +---------+--------+ | [employer] | MODA | [id number] | | [phone] | | Medica | [...] | 1990 | [id number] | [place] [address] | | | flaca | | | 1 (Home) | | + +--------+ +--------+ + + Advance Directives Patient has advance care planning documents on file. For more information, please contact:[facility] [place] [address]
--- OUTSIDE RECORDS SUMMARY | ~2019-02-14 | XMS | Encounter Summary ---
Demographics + + + | Address | [address] | | | [place] [address] | + + + | Home Phone [...] [facility] | | | and At[place]aana | + + + | Organization | [facility] | | [...] Providers + +------+ + | Care Radiology Tech Name | Role | Phone | [...] Vision | | 2019 | | MEDICINE [place] | [address] | | | | | [address] | [place] | | | | | [place] | [address] | | | | | [address] | | | | | | [phone] | | | +--------+ + + + [...] [place] | | | | | | [address] | | | | | | | | +--------+---------+ + + + documented as of this encounter Visit Diagnoses Not on filedocumented in this encounter"
--- OUTSIDE RECORDS SUMMARY | ~2019-02-14 | XMS | Encounter Summary ---
Demographics + + + | Address | [address] | | | [place] [address] | + + + | Home Phone | | + + + | Preferred Language | Unknown | + + + | Marital Status | Single | + + + | Sabianism Affiliation | 1013 | + + + | Race | Unknown | + + + | Ethnic Group | Unknown | + + + Author + + + | Author | [facility] | | | and Attilaana | + + + | Organization | [facility] | [...] Team Providers + +------+ + | Care Blueprint Duplicator Name | Role | Phone | + +------+ + | Hari Garcia MD | PCP | | + +------+ + Encounter Details +--------+ + + + + | Date | Type | Department | Care Team | Description | +--------+ + + + + | 02/09/ | Hospital | [facility] | Hari Garcia MD | Thyroid nodule | | 2019 | Encounter | MED CTR ULTRASOUND | [address] | | | | | [address] | [place] | | | | | [place] | [address] | | | | | [address] | | | | | | [phone] | | | +--------+ + + + [...] [place] | | | | | | [address] | | | | | | | [...]
--- OUTSIDE RECORDS SUMMARY | ~2019-02-14 | XMS | Encounter Summary ---
Demographics + + + | Address | [address] | | | [place] [address] | + + + | Home Phone [...] | [facility] | [...] Providers + +------+ + | Care Electrical Design Technologist Name | Role | Phone | [...] | | | 2019 | | MEDICINE [place] | [address] | | | | | [address] | [place] | | | | | [place] | [address] | | | | | [address] | | | | | | [phone] | | | +--------+ + + + [...] 2019 | Visit | | [address] | | | | | | [place] | | | | | | [id number] | | | | | | | [...]
--- OUTSIDE RECORDS SUMMARY | ~2019-02-14 | XMS | Encounter Summary ---
Demographics + + + | Address | [address] | | | [place] [address] | + + + | Home Phone [...] | [facility] | | | and [...] Team Providers + +------+ + | Care Wedding Cake Designer Name | Role | Phone | + [...] obesity with | AVE [place] | [address] | | | | | body mass | [place], [place] | [place], | | | | | index (BMI) | [address] | [place] [address] | | | | | of 40.0 to | Phone: | Phone: | | | | | 44.9 in | [phone] | [phone] | | | | | adult, | Fax: | Fax: | | | | | unspecified | [phone] | [phone] | | | | | obesity | [...] + + | 12/13/ | Hospital | [facility] | Hari Garcia MD | Morbid obesity with | | 2019 | Encounter | MED CTR NUTRITION | [address] | BMI of 40.0-44.9, | | | | SERVICES [address] | [place] | adult (HCC) (Primary | | | | [place], | [id number] | Dx) | | | | [place] [address] | | | | | | [phone] | Yasmin Hernandez | | | | [...] has 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 She is working on [employer] easing her smoking and increasing her activity. [...] 233#. BMI: 40.15 Estimated needs (wt. 106.1kg) 2419-4774 kcals/day (MSJ - 20/kg) 54-84 gm pro/day [...] [place] | | | | | | [id number] | | | | | | | [...]
[~2019-02-14 12:57] MED LIST changes: +IPRAT-ALBUT 0.5-3 ML INH; +TRUNEB NEBULIZ1 EACH INH; +VENTOLIN HFA18 GM INH
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
[2019-02-14] MEDS ORDERED: TESSALON PERLE100 MG PO (14:05)
== END 2019-02-14 14:40 | disposition home or self-care (01) ==
LOC: ED 12:57
DX: J45.909 Unspecified asthma, uncomplicated (principal); J06.9 Acute upper respiratory infection, unspecified; F17.200 Nicotine dependence, unspecified, uncomplicated; F41.9 Anxiety disorder, unspecified; Z91.018 Allergy to other foods; Z91.030 Bee allergy status; Z88.0 Allergy status to penicillin; Z88.5 Allergy status to narcotic agent; Z88.8 Allergy status to other drugs, medicaments and biological substances; Z79.899 Other long term (current) drug therapy
CPT/HCPCS: 99283; 99406; J1100

== ENCOUNTER 2019-03-21 11:38 | Emergency (ER) | payer MEDICARE, OTHER ==
[~2019-03-21] VITALS: Ht 160 cm; Wt 108.9 kg
--- OUTSIDE RECORDS SUMMARY | ~2019-03-21 | XMS | Encounter Summary ---
Demographics + + + | Address | [address] | | | [place] [address] | + + + | Home Phone | | + + + | Preferred Language | Unknown | + + + | Marital Status | Single | + + + | Latter Day Affiliation | 1013 | + + + | Race | Unknown | + + + | Ethnic Group | Unknown | + + + Author + + + | Author | [facility] | | | and Attilaana | + + + | Organization | [facility] | | | and [...] Team Providers + +------+ + | Care Proofreader Name | Role | Phone | + +------+ + | Colton Singer DO | PCP | | + +------+ + Reason for Visit +--------+ + | Reason | Comments | +--------+ + | Other | Patient states she was talking with someone to schedule her | | | ultrasound and she was disconnected, please advise. | +--------+ + Encounter Details +--------+ + + + + | Date | Type | Department | Care Team | Description | +--------+ + + + + | 01/20/ | Telephone | [facility] [place] [facility] | Promise Cerna | Other (Patient | | 2018 | | CARE [address] | Chi Odonnell MD | states she was | | | | [place] | [address] | talking with someone | | | | [address] | [place] | to schedule her | | | | [phone] | [address] | ultrasound and she | | | | | | was disconnected, | | | | | | please advise.) | +--------+ + + + + Social History + + + +--------+ + | Tobacco Use | Types | Packs/Day | Years | Date | | | | | Used | | + + + +--------+ + | Former Smoker | Cigarettes | | 14 | Quit: 11/07/2016 | + + + +--------+ + + +---+---+---+ | Smokeless Tobacco: | | | | | Never Used | | | | + +---+---+---+ + + +---------+ + | Alcohol Use | Drinks/Week | oz/Week | Comments | + + +---------+ + | Yes | 2 Glasses of wine | 2.0 | | + + +---------+ + + + + | Sex Assigned at | Date Recorded | | | | + + + | Female | | + + + + + + + | Job Start Date | Occupation | Industry | + + + + | Not on file | Not on file | Not on file | + + + + + + + + | Travel History | Travel Start | Travel End | + + + + + + | No recent travel history available. | + + documented as of this encounter Plan of Treatment +--------+---------+ + + + | Date | Type | Specialty | Care Team | Description | +--------+---------+ + + + | 03/27/ | Office | Family Medicine | Sonia Lozoya, | | | 2018 | Visit | | FEDERAL JUDICIAL LAW CLERK [address] | | | | | | [place] | | | | | | [id number] | | | | | | | | +--------+---------+ + + + | 03/30/ | Office | Otolaryngology | Hari Garcia MD | | | 2018 | Visit | | [address] | | | | | | [place] | | | | | | [id number] | | | | | | | | | | | | Matthias Wiley MD | | | | | | [address] | | | | | | [address] [place] | | | | | | [address] | | | | | | | | +--------+---------+ + + + documented as of this encounter Visit Diagnoses Not on filedocumented in this encounter"
--- OUTSIDE RECORDS SUMMARY | ~2019-03-21 | XMS | Encounter Summary ---
Demographics + + + | Address | [address] | | | [place] [address] | + + + | Home Phone | | + + + | Preferred Language | Unknown | + + + | Marital Status | Single | + + + | Restorationism Affiliation | 1013 | + + + | Race | Unknown | + + + | Ethnic Group | Unknown | + + + Author + + + | Author | [facility] | | | and Attilaana | + + + | Organization | [facility] | | | and [...] Team Providers + +------+ + | Care Online Journalist Name | Role | Phone | + +------+ + | Hari Garcia MD | PCP | | + +------+ + Reason for Visit + + + | Reason | Comments | + + + | Medication Question | | + + + Encounter Details +--------+ + + + + | Date | Type | Department | Care Team | Description | +--------+ + + + + | 07/18/ | Telephone | [facility] | Hari Garcia MD | Medication Question | | 2019 | | MEDICINE [place] | [address] | | | | | [address] | [place] | | | | | [place] | [address] | | | | | [address] | | | | | | [phone] | | | +--------+ + + + [...] Medicine | Sonia Lozoya, | | | 2019 | Visit | | [place] [address] | | | | | | [place] | | | | | | [address] | | | | | | | | +--------+---------+ + + + | 03/30/ | Office | Otolaryngology | Hari Garcia MD | | | 2019 | Visit | | [address] | | | | | | [place] | | | | | | [address] | | | | | | | | | | | | Matthias Wiley MD | | | | | | [address] [place] | | | | | | [address] [place] | | | | | | [id number] | | | | | | | | +--------+---------+ + + + documented as of this encounter Visit Diagnoses + + | Diagnosis | + + | 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
--- OUTSIDE RECORDS SUMMARY | ~2019-03-21 | XMS | Encounter Summary ---
Demographics + + + | Address | [address] | | | [place] [address] | + + + | Home Phone | | + + + | Preferred Language | Unknown | + + + | Marital Status | Single | + + + | Jehovah'S Witness Affiliation | 1013 | + + + | Race | Unknown | + + + | Ethnic Group | Unknown | + + + Author + + + | Author | [facility] | | | and Attilaana | + + + | Organization | [facility] | | | and Attilaana | [...] Team Providers + +------+ + | Care Enterprise Mobility Architect Name | Role | Phone | + +------+ + | Hari Garcia MD | PCP | | + +------+ + Reason for Visit + + + | Reason | Comments | + + + | Female Problem | | + + + Encounter Details +--------+ + + + + | Date | Type | Department | Care Team | Description | +--------+ + + + + | 04/29/ | Telephone | [facility] [place] [facility] | Hari Garcia MD | Female Problem | | 2018 | | MEDICINE [place] | [address] | | | | | [address] | [place] | | | | | [place] | [address] | | | | | [address] | | | | | | [phone] | | | +--------+ + + + [...] [place]AB[place] | | | | | | [address] | | | | | | | [...]
--- OUTSIDE RECORDS SUMMARY | ~2019-03-21 | XMS | Encounter Summary ---
Demographics + + + | Address | [address] | | | [place] [address] | + + + | Home Phone | | + + + | Preferred Language | Unknown | + + + | Marital Status | Single | + + + | Anglican Affiliation | 1013 | + + + | Race | Unknown | + + + | Ethnic Group | Unknown | + + + Author + + + | Author | [facility] | | | and Attilaana | + + + | Organization | [facility] | | | and Attilaana [...] Team Providers + +------+ + | Care Enamel Machine Operator Name | Role | Phone | + +------+ + | Hari Garcia MD | PCP | | + +------+ + Reason for Visit + + + | Reason | Comments | + + + | Medication | | | Management | | + + + Encounter Details +--------+ + + + + | Date | Type | Department | Care Team | Description | +--------+ + + + + | 09// | Telephone | [facility] | Hari Garcia MD | Medication | | 2019 | | MEDICINE [place] | [address] | Management | | | | [address] | [place] | | | | | [place] | [address] | | | | | [address] | | | | | | [phone] | | | +--------+ + + + [...] 11:19 AM PDT | + + + + + + [...] [place]AB[place] | | | | | | [id number] | | | | | | | | +--------+---------+ + + + | 03/30/ | Office | Otolaryngology | Hari Garcia MD | | | 2019 | Visit | | [address] | | | | | | [place] | | | | | | [id number] | | | | | | | [...]
--- OUTSIDE RECORDS SUMMARY | ~2019-03-21 | XMS | Encounter Summary ---
Demographics + + + | Address | [address] | | | [place] [address] | + + + | Home Phone | | + + + | Preferred Language | Unknown | + + + | Marital Status | Single | + + + | Scientologist Affiliation | [id number] | + + + | Race | Unknown | + + + | Ethnic Group | Unknown | + + + Author + + + | Author | [facility] | | | and [place] | + + + | Organization | [facility] | | | and [place] [...] Team Providers + +------+ + | Care Mobility Engineer Name | Role | Phone | + +------+ + | Hari Garcia MD | PCP | | + +------+ + Reason for Visit +--------+ + | Reason | Comments | +--------+ + | Nausea | Follow Up | +--------+ + Encounter Details +--------+---------+ + + + | Date | Type | Department | Care Team | Description | +--------+---------+ + + + | 02/15/ | Office | [facility] | Hari Garcia MD | PCOS (polycystic | | 2018 | Visit | [facility] | [address] | ovarian syndrome) | | | | [address] | [place] | (Primary Dx); | | | | [place] | [id number] | Non-intractable | | | | [phone] | | cyclical vomiting | | | | [phone] | | with nausea; | | | | | | Prediabetes | +--------+---------+ + + + Social History [...] + + + | Blood Pressure | 110/68 | 02/15/2018 1:32 PM | | | | | PDT | | + + + + + | Pulse | 81 | 02/15/2018 1:32 PM | | | | | PDT | | + + + + + | Temperature | 36.9 C (98.4 F) | 02/15/2018 1:32 PM | | | | | PDT | | + + + + + | Respiratory Rate | - | - | | + + + + + | Oxygen Saturation | 98% | 02/15/2018 1:32 PM | | | | | PDT | | + + + + + | Inhaled Oxygen | - | - | | | Concentration | | | | + + + + + | Weight | 108 kg (238 lb) | 02/15/2018 1:32 PM | | | | | PDT | | + + + + + | Height | - | - | | + + + + + | Body Mass Index | 42.16 | 01/31/2018 2:08 PM | | | | | PDT | | + + + + + documented in this encounter Patient Instructions Patient Instructions Hari Garcia MD - 02/15/2018 2:08 PM PDTFormatting of this note mi ght be different from the original. Prediabetes You have been diagnosed with prediabetes. This means that the level of sugar (glucose) in y our blood is too high. If you have prediabetes, you are at risk for developing type 2 diabet es. Type 2 diabetes is diagnosed when the level of glucose in the blood reaches a certain hi gh level. With prediabetes, it hasn t reached this point yet, but it is higher than normal . It is vital to make lifestyle changes to lower your blood sugar, improve your health, and prevent diabetes. This sheet will tell you more. Why worry about prediabetes? Prediabetes is a disease where the body s cells have trouble using glucose in the blood f or energy. As a result, too much glucose stays in the blood and can affect how your heart an d blood vessels work. Without changes in diet and lifestyle, the problem can get worse. Once you have type 2 diabetes, it is chronic (ongoing) and needs to be managed for the rest of y our life. Diabetes can harm the body and your health by damaging organs, such as your eyes a nd kidneys. It makes you more likely to have heart disease. And it can damage nerves and blo od vessels. Who is a risk forprediabetes? The exact cause of prediabetes is not clear. But certain risk factors make a person more li rony to have it. These include: A family history of type 2 diabetes Being overweight Being over age 45 Have hypertension or elevated cholesterol Having had gestational diabetes Not being physically active Being , [place], , , , or [facility] Diagnosing prediabetes Prediabetes may have no symptoms or you may have some of the symptoms of diabetes. The diag nosis is made with a blood test. You may have one or more of these blood tests: Fasting glucose test. Blood is taken and tested after you have fasted (not eaten) for at least 8 hours. A normal test result is 99 milligrams per deciliter (mg/dL) or lower. Predia betes is 100 mg/dL to 125 mg/dL. Diabetes is 126 mg/dLor higher. Glucose tolerance test. Your blood sugar is measured before and after you drink a very s ugary liquid. A normal test result is 139 milligrams per deciliter (mg/dL) or lower. Prediab etes is 140 mg/dL to 199 mg/dL. Diabetes is 200 mg/dLor higher. Hemoglobin A1c (HbA1c). Your HbA1c is normal if it is below 5.7%. Prediabetes is 5.7%t o 6.4%. Diabetes is 6.5% or higher. Treating prediabetes The best way to treat prediabetes is to loseat least 5% to 7% of your current weight and be more physically active by getting at least 150 minutes a week of physical activity. When sitting for long periods of time, get up for short sessions of light activity every 30 minut es. These changes help the body s cells use blood sugar better. Even a small amount of stephan ght loss can help. Work with your healthcare provider to make a plan to eat well and be more active. Keep in mind that small changes can add up. Other changes in your lifestyle (or osmin n taking certain medicines, such as metformin) may make you less likely to develop diabetes. Your healthcare provider can talk with you about these. Follow-up If it is untreated, prediabetes can turn into diabetes. This is a serious health condition. Take steps to stop this from happening. Follow the treatment plan you have been given. You may have your blood glucose tested again in about 12 to 18 months. Symptoms of diabetes Let your healthcare provider know if you have any of the following: Always feel very tired Feel very thirsty or hungry much of the time Have to urinate often Lose weight for no reason Feel numbness or tingling in your fingers or toes Have cuts or bruises that don t seem to heal Have blurry vision Date Last Reviewed: 09/08/201519999141-6374 [employer]. [address] [place] [address], [place] [address]. All righ ts reserved. This information is not intended as a substitute for professional medical care. Always follow your healthcare professional's instructions. documented in this encounter Progress Notes Hari Garcia MD - 02/15/2018 1:30 PM PDT Chief Complaint: Nausea (Follow Up) History: Rashmi Holcomb is a 27 y.o. female Who is here for follow up of recent history of nausea. Has 2 month history of severe stomach pain, vomiting and nausea up to twice daily without s ignificant hematemesis in the quality of yellow bile. It is associated with hot and cold ch ills while she is vomiting. Patient was previously given a gastroenterology referral [facility] and was evaluated last week with scheduled endoscopy for tomorrow. With patient' s history of polycystic ovarian syndrome they were also on board with trial of metformin. P atmelissa has been trying pattie as well as peppermint tea in the Pattie caps she was recommend ed previously and this has helped somewhat with her nausea. Following visit with GI last we ek she reported decrease in her overall nausea vomiting symptoms. Anxiety regarding her y sical health has decreased knowing its being addressed. Patient with no vomiting 48 hours . Patient with consideration for gallbladder dyskinesia per GI consult. Reviewed the results of her hemoglobin A1c from the last visit with prediabetes. Patient r eports that she has not ever checked her glucose and is unaware of prior elevated A1c. She is however per prior visit and reiterated today having very irregular periods. Last LMP was end of December. Patient Active Problem List Diagnosis Abdominal pain, unspecified abdominal location Nausea Anxiety BMI 40.0-44.9, adult PCOS (polycystic ovarian syndrome) H/O section H/O Anesthesia Modification - Required Higher Dose Nausea with vomiting Esophagitis determined by biopsy Outpatient Medications Prior to Visit Medication Sig Dispense Refill Pattie 500 MG CAPS Take 500 mg by mouth 3 times daily as needed (nausea). (Patient not taking: Reported on 02/16/2018) 30 each 1 levonorgestrel-ethinyl estradiol (AVIANE) 0.1-20 MG-MCG per tablet Take 1 tablet by breanna th Daily. 28 tablet 11 pantoprazole (PROTONIX) 40 mg tablet Take 1 tablet by mouth every morning (before break fast). 90 tablet 3 No facility-administered medications prior to visit. Review of Systems Constitutional: Positive for fatigue and unexpected weight change. HENT: Negative for congestion. Respiratory: Negative for cough and shortness of breath. Cardiovascular: Negative for chest pain and palpitations. Gastrointestinal: Positive for abdominal distention, abdominal pain, constipation and nause a. Negative for blood in stool and vomiting. Genitourinary: Negative for dysuria. Musculoskeletal: Positive for back pain. Negative for arthralgias and myalgias. Neurological: Negative for headaches. Psychiatric/Behavioral: Positive for dysphoric mood. The patient is nervous/anxious. Results for orders placed or performed in visit on 02/09/18 , Urine, Qual Result Value Ref Range HCG SCREEN, URINE Negative Negative Health Maintenance Topics with due status: Overdue Topic Date Due Vaccine: Dtap/Tdap/Td 2008 Cervical Cancer Screening (Pap) 2010 Vaccine: Influenza 01/08/2018 Physical Examination: BP 110/68 | Pulse 81 | Temp 36.9 C (98.4 F) (Temporal) | Wt 108 kg (238 lb) | SpO2 98% | BMI 42.16 kg/m Physical Exam Constitutional: She is oriented to person, place, and time. She appears well-developed and well-nourished. HENT: Head: Normocephalic and atraumatic. Nose: Nose normal. Mouth/Throat: Oropharynx is clear and moist. Eyes: Conjunctivae are normal. Right eye exhibits no discharge. Left eye exhibits no discha rge. Neck: Neck supple. Cardiovascular: Normal rate, regular rhythm and intact distal pulses. No murmur heard. Pulmonary/Chest: Effort normal and breath sounds normal. No respiratory distress. Abdominal: Soft. Bowel sounds are normal. She exhibits no distension. There is tenderness ( Epigastric). Neurological: She is alert and oriented to person, place, and time. Skin: Skin is warm and dry. Psychiatric: She has a normal mood and affect. Vitals reviewed. Assessment/Plan: 1. PCOS (polycystic ovarian syndrome) In the setting of both PCOS and prediabetes, patient would benefit from trial of metformin. I discussed with the patient the likelihood that if her periods become more regular and we treat her PCOS and as her insulin resistance improves she may become for a trial again. We discussed the implications for possibility of becoming . Additionally, we discusse d side effects of metformin as well as hypoglycemia management and symptoms to look out for. - metFORMIN (GLUCOPHAGE-XR) 500 mg 24 hr tablet; Take 1 tablet by mouth Daily. Dispense: 3 0 tablet; Refill: 2 2. Non-intractable cyclical vomiting with nausea Patient with improvement in her nausea and vomiting is currently being managed by GI with e ndoscopy planned for tomorrow. 3. Prediabetes - metFORMIN (GLUCOPHAGE-XR) 500 mg 24 hr tablet; Take 1 tablet by mouth Daily. Dispense: 3 0 tablet; Refill: 2 Follow-up: Return in about 2 months (around 04/17/2018). Hari Garcia MD 02/16/2018 This note is dictated using [employer] voice recognition software. This note was dictated but not proofread. It may contain some grammatical errors. documented in this enc ounter Plan of Treatment +--------+---------+ + + + | Date | Type | Specialty | Care Team | Description | +--------+---------+ + + + | 03/27/ | Office | Family Medicine | Darell Sonia Adams, | | | 2018 | Visit | | [facility] [address] | | | | | | [place] | | | | | | [id number] | | | | | | | | +--------+---------+ + + + | 03/30/ | Office | Otolaryngology | Hari Garcia MD | | | 2018 | Visit | | [address] | | | | | | [place] | | | | | | [address] | | | | | | | | | | | | Matthias Wiley MD | | | | | | [address] [place] | | | | | | [address] [place] | | | | | | [address] | | | | | | | | +--------+---------+ + + + documented as of this encounter Visit Diagnoses + + | Diagnosis | + + | PCOS (polycystic ovarian syndrome) - Primary Polycystic ovaries | + + | Non-intractable cyclical vomiting with nausea | + + | Prediabetes Other abnormal glucose | + + documented in this encounter"
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
--- OUTSIDE RECORDS SUMMARY | ~2019-03-21 | XMS | Encounter Summary ---
Demographics + + + | Address | [address] | | | [place] [address] | + + + | Home Phone | | + + + | Preferred Language | Unknown | + + + | Marital Status | Single | + + + | Temple Affiliation | 1013 | + + + | Race | Unknown | + + + | Ethnic Group | Unknown | + + + Author + + + | Author | Merged With [facility] | | | and [place] | + + + | Organization | Merged With [facility] | | | and [place] [...] Team Providers + +------+ + | Care Car Rental Agency Manager Name | Role | Phone | + +------+ + | Hari Garcia MD | PCP | | + +------+ + Reason for Visit +---------+ + | Reason | Comments | +---------+ + | Results | | +---------+ + Encounter Details +--------+ + + + + | Date | Type | Department | Care Team | Description | +--------+ + + + + | 07/28/ | Telephone | [facility] [place] [facility] | Hari Garcia MD | Results | | 2019 | | [facility] [place] | [address] | | | | | [address] | [place] | | | | | [place] | [address] | | | | | [address] | | | | | | [phone] | | | +--------+ + + + [...] [place] | | | | | | [id number] | | | | | | | | +--------+---------+ + + + | 03/30/ | Office | Otolaryngology | Hari Garcia MD | | | 2018 | Visit | | [address] | | | | | | [place] | | | | | | [address] | | | | | | | | | | | | Matthias Wiley MD | | | | | | [address] [place] | | | | | | [address] [place] | | | | | | [address] | | | | | | | | +--------+---------+ + + + documented as of this encounter Results US Head Neck Soft Tissue (02/09/2019 3:22 PM PDT) + + | Specimen | + + | | + + + + + | Narrative | Performed At | + + + | EXAM:US HEAD NECK SOFT TISSUE dated 02/09/2019 2:49 PM. | [facility] | | HISTORY:Follow up on thyroid nodule. Comparison: 07/13/2018 | | | TECHNIQUE: Ultrasound imaging of the thyroid was performed. | | | FINDINGS: Right: 5 x 2 x 2.2 cm. No significant change in size | | | or morphology of the right thyroid nodule. It measures about 3 x 2 | | | x 1.8 cm. There are hyperechoic foci within. These may be | | | calcifications or colloid particles. Left: 4.1 x 1.1 x 0.9 cm. | | | No mass or significant hypervascularity. Isthmus: Unremarkable. | | | IMPRESSION - Stable right thyroid nodule. TI-RADS Level | | | = TR4 Recommendations: Moderately Suspicious: FNA if ? 1.5 cm; | | | Follow if ? 1 cm. In the setting of a negative FNA consider | | | follow-up. Dictated and Signed by: Alfredo Hagen MD | | | Electronically signed: 02/09/2019 5:55 PM | | + + + + + | Procedure Note | + + | Nash, Rad Results In - 02/09/2019 5:58 PM PDT EXAM:US HEAD NECK SOFT TISSUE dated | | 02/09/2019 2:49 PM.HISTORY:Follow up on thyroid nodule.Comparison: 07/13/2018TECHNIQUE: | | Ultrasound imaging of the thyroid was performed.FINDINGS:Right: 5 x 2 x 2.2 cm. No | | significant change in size or morphology of theright thyroid nodule. It measures about | | 3 x 2 x 1.8 cm. There are hyperechoicfoci within. These may be calcifications or | | colloid particles.Left: 4.1 x 1.1 x 0.9 cm. No mass or significant | | hypervascularity.Isthmus: Unremarkable. IMPRESSION -Stable right thyroid nodule.TI-RADS | | Level = TR4 Recommendations: Moderately Suspicious: FNA if ? 1.5 cm; Follow if ? 1 cm. | | Inthe setting of a negative FNA consider follow-up.Dictated and Signed by: Alfredo Adams | | MD Xiao Electronically signed: 02/09/2019 5:55 PM | |Right: 5 x 2 x 2.2 cm. No significant change in size or morphology of the | |right thyroid nodule. It measures about 3 x 2 x 1.8 cm. There are hyperechoic | |foci within. These may be calcifications or colloid particles. | | | |Left: 4.1 x 1.1 x 0.9 cm. No mass or significant hypervascularity. | | | |Isthmus: Unremarkable. | | | |IMPRESSION - | | | |Stable right thyroid nodule. | | | |TI-RADS Level = TR4 | | | |Recommendations: Moderately Suspicious: FNA if ? 1.5 cm; Follow if ? 1 cm. In | |the setting of a negative FNA consider follow-up. | | | |Dictated and Signed by: Alfredo Hagen MD | | Electronically signed: 02/09/2019 5:55 PM | + + + +---------+ + [...]
--- OUTSIDE RECORDS SUMMARY | ~2019-03-21 | XMS | Encounter Summary ---
Demographics + + + | Address | [address] | | | [place] [address] | + + + | Home Phone | | + + + | Preferred Language | Unknown | + + + | Marital Status | Single | + + + | Quaker Affiliation | 1013 | + + + | Race | Unknown | + + + | Ethnic Group | Unknown | + + + Author + + + | Author | and [facility] | | | and [place] | + + + | Organization | and [facility] | | | and [...] Team Providers + +------+ + | Care Pad Assembler Name | Role | Phone | + +------+ + | Hari Garcia MD | PCP | | + +------+ + Encounter Details +--------+ + + + + | Date | Type | Department | Care Team | Description | +--------+ + + + + | 02/10/ | Episode | [facility] [place] | Elsa Lai, | | | 2017 | Changes | GASTROENTEROLOGY | RN | | | | | [address] [place] | | | | | | [address] [place] | | | | | | [address] | | | | | | [phone] | | | +--------+ + + + [...] | | 2018 | Visit | | TOLL SERVICE OBSERVER [address] | | | | | | [place] | | | | | | [id number] | | | | | | | | +--------+---------+ + + + | 03/30/ | Office | Otolaryngology | Hari Garcia MD | | | 2018 | Visit | | [address] | | | | | | [place] | | | | | | [address] | | | | | | | | | | | | Matthias Wiley MD | | | | | | [address] [place] | | | | | | [address] [place] | | | | | | [address] | | | | | | | | +--------+---------+ + + + documented as of this encounter Visit Diagnoses Not on filedocumented in this encounter"
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
--- OUTSIDE RECORDS SUMMARY | ~2019-03-21 | XMS | Encounter Summary ---
Demographics + + + | Address | [address] | | | [place] [address] | + + + | Home Phone | | + + + | Preferred Language | Unknown | + + + | Marital Status | Single | + + + | Restorationist Affiliation | 1013 | + + + | Race | Unknown | + + + | Ethnic Group | Unknown | + + + Author + + + | Author | [facility] | | | and [place] | + + + | Organization | [facility] | | | and [...] Team Providers + +------+ + | Care Electronic News Gathering Camera Person Name | Role | Phone | + [...] + + | Closed | Specialty | Gastroenterol | Diagnoses | Nehemiah, | Alexsandra, | | | Services | ogy | Abdominal | Lysle | Alfredo Anand MD | | | Required | | pain, | Chi Odonnell, | [address], | | | | | unspecified | [address] | | | | | abdominal | [address] | [place], | | | | | location | [place], | [place] [address] | | | | | | [place] [address] | Phone: | | | | | | Phone: | [phone] | | | | | | [phone] | Fax: | | | | | | Fax: | [phone] | | | | | | [phone] | | +--------+ + + + + + Reason for Visit +---------+ + | Reason | Comments | +---------+ + | Results | | +---------+ + Encounter Details +--------+ + + + + | Date | Type | Department | Care Team | Description | +--------+ + + + + | 01/24/ | Telephone | [facility] | Promise Cerna | Results | | 2018 | | CARE [address] | Chi Odonnell MD | | | | | [place], [place] | [address] | | | | | [address] | [place] | | | | | [phone] | [address] | | | | | | | | +--------+ + + + [...] | | 2019 | Visit | | NITRIC ACID CONCENTRATOR OPERATOR [address] | | | | | | [place] | | | | | | [address] | | | | | | | | +--------+---------+ + + + | 03/30/ | Office | Otolaryngology | Hari Garcia MD | | | 2019 | Visit | | [address] | | | | | | [place] | | | | | | [address] | | | | | | | | | | | | Matthias Wiley MD | | | | | | [address] [place] | | | | | | [address] [place] | | | | | | [address] | | | | | | | | +--------+---------+ + + + + + +--------+ + + | Name | Type | Priori | Associated Diagnoses | Order Schedule | | | | ty | | | + + +--------+ + + | cynthia anthony | Outpatient | Routin | Abdominal pain, | Ordered: 01/27/2018 | | | Referral | e | unspecified | | | | | | abdominal location | | + + +--------+ + + documented as of this encounter Visit Diagnoses + + | Diagnosis | + + | Abdominal pain, unspecified abdominal location - Primary | + + documented in this encounter"
--- OUTSIDE RECORDS SUMMARY | ~2019-03-21 | XMS | Encounter Summary ---
Demographics + + + | Address | [address] | | | [place] [address] | + + + | Home Phone | | + + + | Preferred Language | Unknown | + + + | Marital Status | Single | + + + | Pentecostal Affiliation | 1013 | + + + | Race | Unknown | + + + | Ethnic Group | Unknown | + + + Author + + + | Author | [facility] | | | and [place] | + + + | Organization | [facility] | | | and [place] | [...] Team Providers + +------+ + | Care Moisture Machine Tender Name | Role | Phone | + +------+ + | Hari Garcia MD | PCP | | + +------+ + Reason for Visit + + + | Reason | Comments | + + + | Appointment | Needle Biopsy | + + + Encounter Details +--------+ + + + + | Date | Type | Department | Care Team | Description | +--------+ + + + + | 07/15/ | Telephone | [facility] | Hari Garcia MD | Appointment (Needle | | 2019 | | [facility] [place] | [address] | Biopsy) | | | | [address] | [place] | | | | | [place] | [address] | | | | | [address] | | | | | | [phone] | | | +--------+ + + + [...] [place] | | | | | | [id number] | | | | | | | | +--------+---------+ + + + | 03/30/ | Office | Otolaryngology | Hari Garcia MD | | | 2019 | Visit | | [address] | | | | | | [place] | | | | | | [phone] | | | | | | | [...]
--- OUTSIDE RECORDS SUMMARY | ~2019-03-21 | XMS | Encounter Summary ---
Demographics + + + | Address | [address] | | | [place] [address] | + + + | Home Phone | | + + + | Preferred Language | Unknown | + + + | Marital Status | Single | + + + | Sabianism Affiliation | 1013 | + + + | Race | Unknown | + + + | Ethnic Group | Unknown | + + + Author + + + | Author | [facility] | | | and [place] | + + + | Organization | [facility] | | | and [...] Team Providers + +------+ + | Care Munitions Handler Name | Role | Phone | + +------+ + | Hari Garcia MD | PCP | | + +------+ + Encounter Details +--------+ + + + + | Date | Type | Department | Care Team | Description | +--------+ + + + + | 12/09/ | Abstract | [facility] [place] [facility] | Hari Garcia MD | | | 2019 | | MEDICINE [place] | [address] | | | | | [address] | [place] | | | | | [place] | [address] | | | | | [address] | | | | | | [phone] | | | +--------+ + + + [...] | | 2018 | Visit | | [place] [address] | | | | | | [place] | | | | | | [address] | | | | | | | | +--------+---------+ + + + | 03/30/ | Office | Otolaryngology | Hari Garcia MD | | | 2019 | Visit | | [address] | | | | | | [place] | | | | | | [address] | | | | | | | | | | | | Matthias Wiley MD | | | | | | [address] [place] | | | | | | [address] [place] | | | | | | [address] | | | | | | | | +--------+---------+ + + + documented as of this encounter Procedures + +--------+ + + + | Procedure Name | Priori | Date/Time | Associated Diagnosis | Comments | | | ty | | | | + +--------+ + + + | EXTERNAL LAB: [facility] | Routin | 08/25/2018 | | Results for this | | SMEAR | e | | | procedure are in the | | | | | | results section. | + +--------+ + + + documented in this encounter Results External Lab: PAP Smear (08/25/2018) + + + + + + | Component | Value | Ref Range | Performed | Pathologist | | | | | At | Signature | + + + + + + | Pap Smear, | No evidence of | | | | | External | intraepithelial lesion | | | | | | or malignancy | | | | + + + + + + documented in this encounter Visit Diagnoses Not on filedocumented in this encounter"
--- OUTSIDE RECORDS SUMMARY | ~2019-03-21 | XMS | Encounter Summary ---
Demographics + + + | Address | [address] | | | [place] [address] | + + + | Home Phone | | + + + | Preferred Language | Unknown | + + + | Marital Status | Single | + + + | Muslim Affiliation | 1013 | + + + | Race | Unknown | + + + | Ethnic Group | Unknown | + + + Author + + + | Author | [facility] | | | and [place] | + + + | Organization | [facility] | | | and [place]aana [...] Team Providers + +------+ + | Care Head Start Coordinator Name | Role | Phone | + [...] | | | | | encounter | [address] | [place] | | | | | | Phone: | [address] Phone: | | | | | | [phone] | [phone] | | | | | | Fax: | Fax: | | | | | | [phone] | [phone] | +--------+ + + + + + [...] obesity with | [address] | [address] | | | | | body mass | [place], [place] | [place], | | | | | index (BMI) | [address] | [place] [address] | | | | | of 40.0 to | Phone: | Phone: | | | | | 44.9 in | [phone] | [phone] | | | | | adult, | Fax: | Fax: | | | | | unspecified | [phone] | [phone] | | | | | obesity | | | | | | | type, | | | | | | | unspecified | | | | | | | whether | | | | | | | serious | | | | | | | comorbidity | | | | | | | present | | | | | | | ([facility]) | | | +--------+ + + + + + Reason for Visit + + + | Reason | Comments | + + + | Contraception | Ready to try | + + + Encounter Details +--------+---------+ + + + | Date | Type | Department | Care Team | Description | +--------+---------+ + + + | 08/18/ | Office | [facility] | Hari Garcia MD | PCOS (polycystic | | 2019 | Visit | [facility] [place] | [address] | ovarian syndrome) | | | | [address] | [place] | (Primary Dx); | | | | [place] | [address] | Tobacco use; Strain | | | | [address] | | of lumbar region, | | | | [phone] | | subsequent | | | | [...] - 1-2 cups coffee/caffeine limit daily - General Sales Manager visit with your casting and locker room servicer re: pelvic/papElectronically signed by Hari Garcia MD [...] is to transition out of her job [employer] at [employer] over next month and a half. In [...] encounter - * [facility] [place] [facility] Physical Therapy- AMB Referral 4. Anxiety 5. Prediabetes - Lipid Panel; Future 6. Class 3 severe obesity with body mass index (BMI) of 40.0 to 44.9 in adult, unspecified obesity type, unspecified whether serious comorbidity present (HCC) - * [facility] Nutrition Services - AMB Referral - Lipid [...] - 1-2 cups coffee/caffeine limit daily - General Sales Manager visit with your casting and locker room servicer re: pelvic/pap Follow-up: Return in about 6 weeks (around 09/29/2018) for FP- f/u lumbar pain, smoking cess ation. Hari Garcia MD 08/18/2018 Total time today is 35 minutes, >75% of which is in counseling and coordination of care reg arding the above issue(s). This note is dictated using Easy[employer]asa voice recognition software. This note was dictated but not proofread. It may contain some grammatical errors. documented in this enc ounter Plan of Treatment +--------+---------+ + + + | Date | Type | Specialty | Care Team | Description | +--------+---------+ + + + | 03/27/ | Office | Family Medicine | Sonia Lozoya, | | | 2018 | Visit | | CEMENT TRUCK DRIVER [address] | | | [...] [place] | | | | | | [address] | | | | | | | [...] + + + | [facility] | [address] | [place], [place] | [phone] | | [facility] | | [address] | | | [facility] | | [...]
--- OUTSIDE RECORDS SUMMARY | ~2019-03-21 | XMS | Encounter Summary ---
Demographics + + + | Address | [address] | | | [place] [address] | + + + | Home Phone [...] + | Author | [facility] | | | and [place] | + + + | Organization | [facility] | | | and [...] Team Providers + +------+ + | Care Python Engineer Name | Role | Phone | + +------+ + | Colton Singer DO | PCP | | + +------+ + Encounter Details +--------+ + + + + | Date | Type | Department | Care Team | Description | +--------+ + + + + | 01/25/ | [facility] | [facility] | Promise Cerna | | | 2018 | Encounter | MED CTR ULTRASOUND | Chi Odonnell MD | | | | | [address] | [address] | | | | | [place] | [place] | | | | | [address] | [address] | | | | | [phone] | | | +--------+ + + + [...] 03/27/ | Office | Family Medicine | Sharifana Sonia Adams, | | | 2018 | Visit | | [facility] [address] | | | | | | [place] | | | | | | [address] | | | | | | | | +--------+---------+ + + + | 03/30/ | Office | Otolaryngology | Hari Garcia MD | | | 2018 | Visit | | [address] | | | | | | [place] | | | | | | [address] | | | | | | | | | | | | Matthias Wiley MD | | | | | | [address] [place] | | | | | | [address] [place] | | | | | | [address] | | | | | | | | +--------+---------+ + + + documented as of this encounter Procedures + +--------+ + + + | Procedure Name | Priori | Date/Time | Associated Diagnosis | Comments | | | ty | | | | + +--------+ + + + | US PELVIS W | Routin | 01/25/2018 | Continuous | Results for this | | TRANSVAGINAL | e | 9:57 AM | hypogastric pain | procedure are in the | | | | PDT | | results section. | + +--------+ + + + documented in this encounter Results US Pelvis W Transvaginal (01/25/2018 9:57 AM PDT) + + | Specimen | + + | | + + + + + | Narrative | Performed At | + + + | US PELVIS W TRANSVAGINAL 01/25/2018 9:02 AM HISTORY: Pelvic | [facility] | | pain. COMPARISON: Multiple priors. PROTOCOL: Maradiaga scale and | | | Doppler images of the pelvis with transabdominal and transvaginal | | | imaging. FINDINGS: Uterus: There are no focal lesions. Size of | | | the uterus is 10.1 x 3.9 x 3.3 cm. Endometrium is 3.5 mm, which is | | | normal. Small simple fluid is noted within the endometrial canal. | | | Right ovary: The parenchyma is normal. The size of the ovary is 3.1 x | | | 1.9 x 3.3 cm. There is normal Doppler flow. Left ovary: The | | | parenchyma is normal. The size of the ovary is 2.8 x 2.8 x 2.1 cm. | | | There is normal Doppler flow. Adnexa: Normal. Cul-de-sac: | | | Normal. IMPRESSION - No acute findings. Dictated and Signed | | | by: Jamin Bentley MD Electronically signed: 01/25/2018 12:21 PM | | + + + + + | Procedure Note | + + | Nash, Rad Results In - 01/25/2018 12:24 PM PDT US PELVIS W TRANSVAGINAL 01/25/2018 9:02 | | AM HISTORY: Pelvic pain.COMPARISON: Multiple priors.PROTOCOL: Maradiaga scale and Doppler | | images of the pelvis with transabdominal andtransvaginal imaging.FINDINGS:Uterus: There | | are no focal lesions. Size of the uterus is 10.1 x 3.9 x 3.3 cm.Endometrium is 3.5 mm, | | which is normal. Small simple fluid is noted within theendometrial canal.Right ovary: | | The parenchyma is normal. The size of the ovary is 3.1 x 1.9 x 3.3cm. There is normal | | Doppler flow.Left ovary: The parenchyma is normal. The size of the ovary is 2.8 x 2.8 x | | 2.1cm. There is normal Doppler flow.Adnexa: Normal.Cul-de-sac: Normal.IMPRESSION -No | | acute findings.Dictated and Signed by: Jamin Bentley MD Electronically signed: 01/25/2018 | | 12:21 PM | |Uterus: There are no focal lesions. Size of the uterus is 10.1 x 3.9 x 3.3 cm. | |Endometrium is 3.5 mm, which is normal. Small simple fluid is noted within the | |endometrial canal. | | | |Right ovary: The parenchyma is normal. The size of the ovary is 3.1 x 1.9 x 3.3 | |cm. There is normal Doppler flow. | | | |Left ovary: The parenchyma is normal. The size of the ovary is 2.8 x 2.8 x 2.1 | |cm. There is normal Doppler flow. | | | |Adnexa: Normal. | | | |Cul-de-sac: Normal. | | | |IMPRESSION - | |No acute findings. | | | |Dictated and Signed by: Jamin Bentley MD | | Electronically signed: 01/25/2018 12:21 PM | + + + +---------+ + + | Performing | Address | City/State/Zipcode | Phone Number | | Organization | | | | + +---------+ + + | [facility] | | | | + +---------+ + + documented in this encounter Visit Diagnoses Not on filedocumented in this encounter
--- OUTSIDE RECORDS SUMMARY | ~2019-03-21 | XMS | Encounter Summary ---
Demographics + + + | Address | [address] | | | [place] [address] | + + + | Home Phone | | + + + | Preferred Language | Unknown | + + + | Marital Status | Single | + + + | Sikh Affiliation | 1013 | + + + | Race | Unknown | + + + | Ethnic Group | Unknown | + + + Author + + + | Author | [facility] | | | and [place] | + + + | Organization | [facility] | | | and [place] [...] Team Providers + +------+ + | Care Technology Applications Consultant Name | Role | Phone | + +------+ + | Colton Singer DO | PCP | | + +------+ + Encounter Details +--------+---------+ + + + | Date | Type | Department | Care Team | Description | +--------+---------+ + + + | 04/16/ | Office | [facility] | Promise Cerna | Patient left after | | 2017 | Visit | CARE [address] | Chi Odonnell MD | triage (Primary Dx) | | | | [place] | [address] | | | | | [address] | [place] | | | | | [phone] | [address] | | | | | | | [...] + + documented as of this encounter Progress Kayleigh Sevilla RN - 04/16/2017 4:15 PM PSTPatient triaged to ER per Dr. Amezcua's re quest. See triage form. P M PSTdocumented in this encounter Plan of Treatment +--------+---------+ + + + | Date | Type | Specialty | Care Team | Description | +--------+---------+ + + + | 03/27/ | Office | Family Medicine | Sonia Lozoya, | | | 2018 | Visit | | [facility] [address] | | | [...] [place] | | | | | | [address] | | | | | | | | | | | | Matthias Wiley MD | | | | | | [address] [place] | | | | | | [address] [place] | | | | | | [address] | | | | | | | | +--------+---------+ + + + documented as of this encounter Visit Diagnoses + + | Diagnosis | + + | Patient left after triage - Primary | + + documented in this encounter"
--- OUTSIDE RECORDS SUMMARY | ~2019-03-21 | XMS | Encounter Summary ---
Demographics + + + | Address | [address] | | | [place] [address] | + + + | Home Phone | | + + + | Preferred Language | Unknown | + + + | Marital Status | Single | + + + | Methodist Affiliation | 1013 | + + + | Race | Unknown | + + + | Ethnic Group | Unknown | + + + Author + + + | Author | [facility] | | | and Attilaana | + + + | Organization | [facility] | | | and [...] Team Providers + +------+ + | Care Rn Acls Name | Role | Phone | + +------+ + | Hari Garcia MD | PCP | | + +------+ + Encounter Details +--------+---------+ + + + | Date | Type | Department | Care Team | Description | +--------+---------+ + + + | 02/16/ | Surgery | [facility] | Horace Carlos MD | EGD | | 2018 | | [facility] | [address] | | | | | [address] | [place] | | | | | [place] | [address] | | | | | [address] | [phone] | | | | | [phone] | | | +--------+---------+ + + + [...] + + + | Blood Pressure | 95/69 | 02/16/2018 4:15 PM | | | | | PDT | | + + + + + | Pulse | 61 | 02/16/2018 4:15 PM | | | | | PDT | | + + + + + | Temperature | 36.4 C (97.5 F) | 02/16/2018 3:50 PM | | | | | PDT | | + + + + + | Respiratory Rate | 16 | 02/16/2018 4:15 PM | | | | | PDT | | + + + + + | Oxygen Saturation | 100% | 02/16/2018 4:15 PM | | | | | PDT | | + + + + + | Inhaled Oxygen | - | - | | | Concentration | | | | + + + + + | Weight | 109.7 kg (241 lb | 02/16/2018 2:20 PM | | | | 13.5 oz) | PDT | | + + + + + | Height | 162.6 cm (5' 4") | 02/16/2018 2:20 PM | | | | | PDT | | + + + + + | Body Mass Index | 41.51 | 02/16/2018 2:20 PM | | | | | PDT | | + + + + + documented in this encounter Discharge Instructions Instructions Adamaris Pavon RN - 02/16/2018Formatting of this note might be different fro m the original. Upper GI Endoscopy During endoscopy, a long, flexible tube is used to view the inside of your upper GI tract. Upper GI endoscopy allows your healthcare provider to look directly into the beginning of y our gastrointestinal (GI) tract. The esophagus, stomach, and duodenum (the first part of the small intestine) make up the upper GI tract. Before the exam Follow these and any other instructions you are given before your endoscopy. If you don t follow the healthcare provider s instructions carefully, the test may need to be canceled or done over: Don't eat or drink anything after midnight the night before your exam. If your exam is i n the afternoon, drink only clear liquids in the morning. Don't eat or drink anything for8 hours before the exam. In some cases, you may be able to take medicines with sips of water until 2 hours before the procedure. Speak with your healthcare provider about this. Bring your X-rays and any other test results you have. Because you will be sedated, arrange for an adult to drive you home after the exam. Tell your healthcare provider before the exam if you are taking any medicines or have an y medical problems. The procedure Here is what to expect: You will lie on the endoscopy table. Usually patients lie on the left side. You will be monitored and given oxygen. Your throat may be numbed with a spray or gargle. You are given medicine through an intr avenous (IV) line that will help you relax and remain comfortable. You may be awake or aslee p during the procedure. The healthcare provider will put the endoscope in your mouth and down your esophagus.I tis thinner than most pieces of food that you swallow. It will not affect your breathing. The medicine helps keep you from gagging. Air is put into your GI tract to expand it. It can make you burp. During the procedure, the healthcare provider can take biopsies (tissue samples), remove abnormalities, such as polyps, or treat abnormalities through a variety of devices placed t hrough the endoscope. You will not feel this. The endoscope carries images of your upper GI tract to a video screen. If you are awake, you may be able to look at the images. After the procedure is done, you will rest for a time. An adult must drive you home. When to call your healthcare provider Contact your healthcare provider if you have: Black or tarry stools, or blood in your stool Fever Pain in your belly that does not go away Nausea and vomiting, or vomiting blood Date Last Reviewed: 11/08/201519996022-8488 [employer]. [address] [place] [address]. All righ ts reserved. This information is not intended as a substitute for professional medical care. Always follow your healthcare professional's instructions. documented in this encounter Medications at Time of Discharge + + + +---------+ + + | Medication | Sig | Dispensed | Refills | Start | End Date | | | | | | Date | | + + + +---------+ + + | Aparna 500 MG | Take 500 mg by mouth | 30 each | 1 | 02/01/20 | | | CAPSIndications: | 3 times daily as | | | 18 | 8 | | Non-intractable | needed (nausea). | | | | | | cyclical vomiting | | | | | | | with nausea | | | | | | + [...] metFORMIN | Take 1 tablet by | 30 | 2 | 02/16/20 | | | (GLUCOPHAGE-XR) 500 | mouth Daily. | tablet | | 18 | 8 | | mg 24 hr | | | | | | | tabletIndications: | | | | | | | PCOS (polycystic | | | | | | | ovarian syndrome), | | | | | | | Prediabetes | | | | | | + + + +---------+ + + | pantoprazole | Take 1 tablet by | 90 | 3 | 02/10/20 | | | (PROTONIX) 40 mg | mouth every morning | tablet | | 18 | 8 | | tabletIndications: | (before breakfast). | | | | | | Esophagitis, [...] | | 2019 | Visit | | [facility] [address] | | | | | | [place] | | | | | | [address] | | | | | | | | +--------+---------+ + + + | 03/30/ | Office | Otolaryngology | Hari Garcia MD | | | 2019 | Visit | | [address] | | | | | | [place] | | | | | | [address] | | | | | | | | | | | | Matthias Wiley MD | | | | | | [address] [place] | | | | | | [address] [place] | | | | | | [address] | | | | | | | | +--------+---------+ + + + documented as of this encounter Procedures + +--------+ + + + | Procedure Name | Priori | Date/Time | Associated Diagnosis | Comments | | | ty | | | | + +--------+ + + + | EGD | Routin | 02/16/2018 | | Results for this | | | e | 3:30 PM | | procedure are in the | | | | PDT | | results section. | + +--------+ + + + | EGD | | 02/16/2018 | Esophagitis | | | | | 3:27 PM | (K20.9), Morbid | | | | | PDT | obesity with BMI of | | | | | | 40.0-44.9, adult | | | | | | ([facility]) (E66.01, | | | | | | Z68.41), Nausea and | | | | | | vomiting, | | | | | | intractability of | | | | | | vomiting not | | | | | | specified, | | | | | | unspecified vomiting | | | | | | type (R11.2) | | + +--------+ + + + | POCT TEST, | Routin | 02/16/2018 | | Results for this | | URINE, QUAL | e | 2:30 PM | | procedure are in the | | | | PDT | | results section. | + +--------+ + + + | SURGICAL PATHOLOGY | Routin | 02/16/2018 | | Results for this | | EXAM | e | 12:00 AM | | procedure are in the | | | | PDT | | results section. | + +--------+ + + + documented in this encounter Results EGD (02/16/2018 3:30 PM PDT) + + | Specimen | + + | | + + + + -+ | Narrative | Performed At | + + -+ | | [facility] | | GastroenterologyPatient Name: Rashmi Lebron Date: 02/16/2018 | [facility] | | 3:30 PMMRN: [id number] #: [id number] of : | | | 1990Admit Type: AmbulatoryAge: 27Room: [facility]Gender: FemaleNote | | | Status: FinalizedAttending MD: Horace Carlos MDProcedure: | | | Upper GI endoscopyIndications: Abdominal pain, | | | Functional Dyspepsia, Heartburn, Suspected | | | esophageal refluxProviders: Horace Carlos MD, Joanne | | | Justin, RN, Serena Pena, South Asian History Professor, | | | Mark Glynn MD (Anesthesia Staff)Referring MD: Chong | | | Alfredo Garcia (Referring MD)Medicines: Monitored | | | Anesthesia CareComplications: No immediate | | | [...] the anesthesiologist and the | | | bench technician in the pre-procedure area in the [...] patient was re-assessed after the procedure. After obtaining | | | informed consent, the endoscope was passed under direct vision. | | | Throughout the procedure, the patient's blood pressure, pulse, | | | and oxygen saturations were monitored continuously. The Endoscope was | | | introduced through the mouth, and advanced to the third part | | | of duodenum. The upper GI endoscopy was accomplished without | | | difficulty. The patient tolerated the procedure well.Findings: | | | The Z-line was irregular and was found 35 cm from the incisors. | | | Biopsies were taken with a cold forceps for histology. | | | Verification of patient identification for the specimen was | | | done by the physician and nurse using the patient's name and | | | date. Estimated blood loss was minimal. No other | | | significant abnormalities were identified in a careful | | | examination of the esophagus. Diffuse mildly erythematous mucosa | | | without bleeding was found in the stomach. Biopsies were taken | | | with a cold forceps for histology. Verification of patient | | | identification for the specimen was done by the physician and | | | nurse using the patient's name and date. Estimated blood | | | loss was minimal. Multiple 4 mm sessile polyps with no bleeding | | | and no stigmata of recent bleeding were found in the gastric | | | fundus and in the gastric body. Biopsies were taken with a cold | | | forceps for histology. Verification of patient identification | | | for the specimen was done by the physician and nurse using the | | | patient's name and date. Estimated blood loss was | | | minimal. No other significant abnormalities were identified in a | | | careful examination of the stomach. The cardia and | | | gastric fundus were normal on retroflexion. The examined | | | duodenum was normal. Biopsies were taken with a cold forceps | | | for histology. Verification of patient identification for the | | | specimen was done by the physician and nurse using the patient's name | | | and date. Estimated blood loss was minimal.Impression: | | | - Z-line irregular, 35 cm from the incisors. Biopsied. - | | | Erythematous mucosa in the stomach. Biopsied. - Multiple gastric | | | polyps. Biopsied. - Normal examined duodenum. | | | Biopsied.Recommendation: - Patient has a contact number | | | available for emergencies. The signs and symptoms of potential | | | delayed complications were discussed with the patient. Return | | | to normal activities tomorrow. Written discharge instructions | | | were provided to the patient. - Resume previous diet. - | | | Continue present medications. - Await pathology results. - | | | Repeat upper endoscopy for surveillance based on pathology results. | | | - Return to GI clinic PRN. - Follow an antireflux regimen. | | | - No aspirin, ibuprofen, naproxen, or other non-steroidal | | | anti-inflammatory drugs. - The findings and recommendations | | | were discussed with the patient.Horace Carlos MD02/16/2018 3:50:53 | | | PMThis report has been signed electronically.Number of Addenda: 0Note | | | Initiated On: 02/16/2018 3:30 PMTotal Procedure Duration: 0 hours 7 | | | minutes 52 seconds Scope In: 3:36:04 PMScope Out: 3:43:56 PM | | | [facility], [address] [place] [address] | | | [id number] | | | - Continue present medications. | | | - Await pathology results. | | | - Repeat upper endoscopy for surveillance based on pathology results. | | | - Return to GI clinic PRN. | | | - Follow an antireflux regimen. | | | - No aspirin, ibuprofen, naproxen, or other non-steroidal | | | anti-inflammatory drugs. | | | - The findings and recommendations were discussed with the patient. | | |Horace Carlos MD | | |02/16/2018 3:50:53 PM | | |This report has been signed electronically. | | |Number of Addenda: 0 | | |Note Initiated On: 02/16/2018 3:30 PM | | |Total Procedure Duration: 0 hours 7 minutes 52 seconds | | |Scope In: 3:36:04 PM | | |Scope Out: 3:43:56 PM | | | [facility], [facility] [address] [place], [place] | | | [address] | | + + -+ + +---------+ + + | Performing | Address | City/State/Zipcode | Phone Number | | Organization | | | | + +---------+ + + | [facility] | | | | + +---------+ + + POCT Test, Urine, QUAL (02/16/2018 2:30 PM PDT) + + + + + [...] + + + | Specific | | 1.010, 1.015, | | | | [place], | | 1.020, 1.025 | | | | POC | | | | | + + + + + + | Lot Number | [id number] | | | | + + + + + + | Expiration | 2019-07-19 | | | | | Date | | | | | + + + + + + + + | Specimen | + + | Urine | + + Surgical Pathology Exam (02/16/2018 12:00 AM PDT) + + | Specimen | + + | | + + + + + | Narrative | Performed At | + + + | SPECIMEN(S): A GASTRIC SPECIMEN(S): B GASTRIC POLYP SPECIMEN(S): C | [facility] | | DUODENAL SPECIMEN(S): D GE JUNCTION SPECIMEN SOURCE: A. GASTRIC | [facility] | | B. GASTRIC POLYP C. DUODENAL D. GE JUNCTION CLINICAL HISTORY: | | | Esophagitis, (K20.9): Morbid obesity with BMI of 40.0-44.9, adult, | | | ([facility]), (E66.01)( Z68.41); Nausea and vomiting, intractability of | | | vomiting not specified, unspecified vomiting type, (R11.2). Comments: | | | (A) R/o H pylori, (C) R/o celiac, (D) R/o Downs's, r/o | | | esophagitis. MICROSCOPIC DESCRIPTION: Histologic sections of all | | | submitted blocks are examined by light microscopy. These findings, | | | together with the gross examination, support the pathologic diagnosis. | | | FINAL PATHOLOGIC DIAGNOSIS: A. Gastric biopsy: - Benign | | | gastric type mucosa with focal slight chronic inflammation. - | | | Negative for evidence of Helicobacter organisms on routine | | | HE-stained sections. B. Gastric polyp, biopsy: - Benign | | | fundic gland polyps (two fragments). C. Duodenum, biopsy: - | | | Benign duodenal mucosa; negative for specific diagnostic | | | abnormality. D. Gastroesophageal junction, biopsy: - | | | Gastroesophageal junction with reactive epithelial features and mild | | | chronic inflammation. - Negative for specialized intestinal | | | metaplasia or dysplasia. JVR:[facility]:C2NR GROSS DESCRIPTION: Four | | | specimens are received in four containers: A. The specimen is | | | received in formalin labeled "Aicha Rashmi Rosanne", designated "gastric | | | biopsy per the requisition" and consists of 3 pink-rutledge tissue | | | fragments which range in size from 0.1 to 0.3 cm in diameter, all in | | | A1. B. The specimen is received in formalin labeled "Aicha, Rashmi | | | Rosanne", designated "gastric polyp" and consists of 2 pink-rutledge tissue | | | fragments. They measure 0.3 cm in diameter each. The entire specimen | | | is submitted in single cassette B1. C. The specimen is received | | | in formalin labeled "Aicha Rashmi Rosanne", designated "duodenal biopsy" | | | and consists of 4 pink-rutledge tissue fragments which range in size from | | | 0.2 to 0.3 cm in diameter. The entire specimen is submitted in single | | | cassette C1. D. The specimen is received in formalin labeled | | | "Aicha, Rashmi Rosanne", designated "GE junction" and consists of 3 | | | yellow-rutledge tissue fragments that range in size from 0.2 to 0.3 cm in | | | diameter. The entire specimen is submitted in single cassette D1. | | | js:AMB:emb PERFORMING LABORATORY: The technical component was | | | performed by [email or web address] [address] | | | (Quilting Machine Operator: Gabby [place] MD; IA# [id number]). Professional | | | [email or web address] | | [facility], [address] [place] [address] | | | [phone] (Quilting Machine Operator: Syd Mosley. Diagnostician: | | | Brandon Blackwell MD Pathologist Electronically Signed 02/18/2018 | | | | | + + + + +---------+ + + | Performing | Address | City/State/Zipcode | Phone Number | | Organization | | | | + +---------+ + + | [facility] | | | | | [facility] | | | | + +---------+ + + documented in this encounter Visit Diagnoses Not on filedocumented in this encounter Administered Medications + +--------+---------+------+------+------+ | Medication Order | MAR | Action | Dose | Rate | Site | | | Action | Date | | | | + +--------+---------+------+------+------+ + +---+ | albuterol 2.5 mg/3 mL nebulizer | | | solution 2.5 mg 2.5 mg, | | | Nebulization, ONCE PRN, Wheezing, | | | Starting Wed02/16/18 at 1420, | | | For 1 dose, RT will administer., | | | Pre-op | | + +---+ | | [...] glucose < 50, | | | Starting Wed02/16/18 at 1420, | | | Repeat in 15 min if blood glucose | | | remains < 70 mg/dL. Repeat | | | blood glucose in 30 min once | | | blood glucose > 70., Pre-op | | + +---+ | | | + +---+ + +---------+ +---+---+---+ | lactated ringers (LR) infusion | New Bag | 02/17/20 | | | | | at 100 mL/hr, Intravenous, | | 18 2:43 | | | | | CONTINUOUS, Starting 02/16/18 | | PM PDT | | | | | at 1445, Pre-op | | | | | | + +---------+ +---+---+---+ +---+---+ | | | +---+---+ + +---------+ +---+-------+---+ | lactated ringers (LR) infusion | New Bag | 02/17/20 | | 100 | | | at 10-100 mL/hr, Intravenous, | | 18 2:48 | | mL/hr | | | CONTINUOUS, Starting 02/16/18 | | PM PDT | | | | | at 1445, TKO., Pre-op | | | | | | + +---------+ +---+-------+---+ + +---+ | | | + +---+ | ondansetron (ZOFRAN ODT) | | | disintegrating tablet 4 mg 4 mg, | | | Oral, EVERY 6 HOURS PRN, Nausea, | | | Vomiting, Starting 02/16/18 | | | at 1558, First line agent, | | | Post-op/Phase II | | + +---+ | | | + +---+ + +-------+ +------+---+---+ | ondansetron (ZOFRAN) injection | Given | 02/17/20 | 4 mg | | | | 4 mg 4 mg, Intravenous, ONCE | | 18 3:55 | | | | | PRN, Nausea, Starting Wed | | PM PDT | | | | | 02/16/18 at 1420, For 1 dose, | | | | | | | Pre-op | | | | | | + +-------+ +------+---+---+ + +---+ | | | + +---+ | ondansetron (ZOFRAN) injection | | | 4 mg 4 mg, Intravenous, EVERY 6 | | | HOURS PRN, Nausea, Vomiting, | | | Starting 02/16/18 at 1558, | | | First line agent. Use PO option | | | unless NPO status or unable to | | | tolerate., Post-op/Phase II | | + +---+ | | | + +---+ documented in this encounter
--- OUTSIDE RECORDS SUMMARY | ~2019-03-21 | XMS | Encounter Summary ---
Demographics + + + | Address | [address] | | | [place] [address] | + + + | Home Phone | | + + + | Preferred Language | Unknown | + + + | Marital Status | Single | + + + | Cheondoism Affiliation | 1013 | + + + | Race | Unknown | + + + | Ethnic Group | Unknown | + + + Author + + + | Author | [facility] | | | and [place] | + + + | Organization | [facility] | | | and [place] | [...] Team Providers + +------+ + | Care Cyber Intel Planner Name | Role | Phone | + +------+ + | Hari Garcia MD | PCP | | + +------+ + Reason for Visit + + + | Reason | Comments | + + + | Follow-up | | + + + Encounter Details +--------+---------+ + + + | Date | Type | Department | Care Team | Description | +--------+---------+ + + + | 04/12/ | Office | [facility] | Hari Garcia MD | Acute stress | | 2018 | Visit | [facility] [place] | [address] | disorder (Primary | | | | [address] | [place] | Dx); Social anxiety | | | | [place] | [address] | disorder; Chronic | | | | [address] | | post-traumatic | | | | [phone] | | stress disorder | | | | | | (PTSD); Panic | | | | | | attack; | | | | | | Costochondritis; | | | | | | | | | | | | examination or test, | | | | | | negative result; | | | | | | Grief reaction | +--------+---------+ + + + Social History [...] + + + + | Pulse | - | - | | + + + + + | Temperature | - | - | | + + + + + | Respiratory Rate | - | - | | + + + + + | Oxygen Saturation | 96% | 04/12/2018 1:52 PM | | | | | PST | | + + + + + | Inhaled Oxygen | - | - | | | Concentration | | | | + + + + + | Weight | 108.9 kg (240 lb) | 04/12/2018 1:52 PM | | | | | PST | | + + + + + | Height | 162.6 cm (5' 4") | 04/12/2018 1:52 PM | | | | | PST | | + + + + + | Body Mass Index | 41.2 | 04/12/2018 1:52 PM | | | | | PST | | + + + + + documented in this encounter Patient Instructions Patient Instructions Hari Garcia MD - 04/12/2018 1:30 PM PST Complementary Care for Pain/Anxiety You may find pain relief with complementary care. Look for a licensed or certified professi onal. And always tell your healthcare professional that you are using complementary care. Massage Massage can increase circulation and relaxation. This can help relieve stress and pain. Biofeedback Biofeedback uses instruments to measure the body's physiological activity, like heart rate and muscle activity. This information is used to help you learn to control certain functions , such as relaxing muscles and helping reduce pain. Chiropractic Chiropractic adjusts the spine and joints. It may help reduce back, neck, or joint pain. Ch iropractic may also use mild electrical stimulation, massage, heat, or ultrasound (sound wav es). Acupuncture Acupuncture uses thin needles to help treat pain. The treatment may release the body s ow n painkillers. Distraction Distraction helps you focus on something besides pain. Try reading a book, watching a movie , or talking with family. Or visit a local attraction. Meditation Meditation helps you focus on words, objects, or ideas. Doing this can calm you and decreas e stress. Relaxation Relaxation includes methods like listening to soothing music or relaxation tapes. You might try slow, deep breathing. Imagine a calm scene, like an ocean or mountain, as you breathe. Date Last Reviewed: 09/07/[id number] [employer] [address] [place] [address], [place] [address]. All righ ts reserved. This information is not intended as a substitute for professional medical care. Always follow your healthcare professional's instructions. Aleve for costochondritis. P M PST documented in this encounter Progress Notes Hari Garcia MD - 04/12/2018 1:30 PM PST Chief Complaint: Follow-up History: Rashmi is here for follow-up of anxiety and depression in the setting of 2 significant losses in her small social [place] over the last month or 2. She lost her grandparent that basical ly raised her as well as the next boyfriend created significant amount of trauma in her life . Patient has had multiple panic attacks both at work and at home that were discussed at he r last visit. With the acute onset of more significant stress and anxiety with the holiday season at work as well as dealing with her 2 losses she is now seen spike in her severity of anxiety symptoms. She is tolerating the citalopram well started at her previous visit and was titrated up at her last follow-up. She believes that this may be working but overall is nervous about the panic attack type symptoms particularly at work. Denies suicidality at t his time. She's continued to remain "relatively functional" without her boyfriend. Patient feels like she is unable to relax. PHQ9 SCORE Office Visit from 03/30/2018 in [facility] Office Visit from 03/16/2018 in [facility] Office Visit from 01/31/2018 in [facility] PHQ-9 Total Score (Patient Health Questionnaire) 15 13 3 ANXIETY/STRESS SCORE Office Visit from 03/30/2018 in [facility] Office Visit from 03[facility]16/2018 in [facility] Office Visit from 01/31/2018 in [facility] SAURABH-7 Score (General Anxiety Disorder) 17 12 0 Finally, patient has had some chest pain particularly on the left side parasternally but is worse with palpation and with certain movements particularly with crossing her arms. This is worse when lying on her side with certain lifting activities but is not significant assoc iated with exertion. This has not happened before. Did not come on suddenly or traumatical ly. Patient Active Problem List Diagnosis Abdominal pain, unspecified abdominal location Nausea Anxiety BMI 40.0-44.9, adult PCOS (polycystic ovarian syndrome) H/O section H/O Anesthesia Modification - Required Higher Dose Nausea with vomiting Esophagitis determined by biopsy Outpatient Medications Prior to Visit Medication Sig Dispense Refill citalopram (CELEXA) 10 mg tablet Take 1 tablet by mouth Daily. 30 tablet 2 levonorgestrel-ethinyl estradiol (AVIANE) 0.1-20 MG-MCG per tablet Take 1 tablet by breanna th Daily. 28 tablet 11 LORazepam (ATIVAN) 0.5 mg tablet Take 1 tablet by mouth Twice daily as needed for Anxi ety or Insomnia. 30 tablet 0 metFORMIN (GLUCOPHAGE-XR) 500 mg 24 hr tablet Take 1 tablet by mouth Daily. 30 tablet 2 pantoprazole (PROTONIX) 40 mg tablet Take 1 tablet by mouth daily (before dinner). 90 t ablet 3 No facility-administered medications prior to visit. Review of Systems Constitutional: Positive for fatigue. Negative for activity change and fever. HENT: Negative for congestion and rhinorrhea. Respiratory: Negative for cough. Gastrointestinal: Positive for abdominal pain. Negative for nausea and vomiting. Musculoskeletal: Positive for back pain and neck pain. Negative for arthralgias. Skin: Negative for rash. Neurological: Positive for headaches. Negative for dizziness, weakness and numbness. Psychiatric/Behavioral: Positive for decreased concentration, dysphoric mood and sleep dist urbance. Negative for self-injury and suicidal ideas. The patient is nervous/anxious. Results for orders placed or performed during the hospital encounter of 02/16/18 POCT Test, Urine, QUAL Result Value Ref Range Test, Urine, POC Negative Negative Internal QC Acceptable Acceptable Specific [place], POC 1.010, 1.015, 1.020, 1.025 Lot Number [id number] Expiration Date 2019-07-19 Health Maintenance Topics with due status: Overdue Topic Date Due Cervical Cancer Screening (Pap) 2010 Adult Annual Wellness Visit 04/11/2017 Physical Examination: Ht 1.626 m (5' 4") | Wt 108.9 kg (240 lb) | SpO2 96% | BMI 41.20 kg/m Physical Exam Constitutional: [...] Skin: Skin is warm and dry. Psychiatric: Improve mood but significant anxious appearing Vitals reviewed. Assessment/Plan: 1. Acute stress disorder Patient with acute stress disorder related to multiple recent losses as well as the trauma of losing a previous ex-boyfriend. Patient has had multiple panic attack like episodes over the last week including one that made it difficult for her to work. With the stress of the holiday season and her work being more busy, she has had more difficulty handling stress an d large crowds. Patient is willing to try a controller medication in addition to a [facility] medicine for panic. We discussed the risks and benefits of lorazepam and that it is a short-term therapy until her SSRI can kick in. We also discussed the role of behavioral h ealt counseling, but the patient believes that she does not have the time with currently wo rking extra due to the holiday season. We will reconvene on counseling services at her foll ow-up visit. - LORazepam (ATIVAN) 0.5 mg tablet; Take 1 tablet by mouth Twice daily as needed for Anxie ty or Insomnia. Dispense: 30 tablet; Refill: 0 - citalopram (CELEXA) 20 mg tablet; Take 1 tablet by mouth Daily. Dispense: 30 tablet; Ref ill: 2 2. Social anxiety disorder - LORazepam (ATIVAN) 0.5 mg tablet; Take 1 tablet by mouth Twice daily as needed for Anxie ty or Insomnia. Dispense: 30 tablet; Refill: 0 3. Chronic post-traumatic stress disorder (PTSD) - citalopram (CELEXA) 20 mg tablet; Take 1 tablet by mouth Daily. Dispense: 30 tablet; Ref ill: 2 4. Panic attack - LORazepam (ATIVAN) 0.5 mg tablet; Take 1 tablet by mouth Twice daily as needed for Anxie ty or Insomnia. Dispense: 30 tablet; Refill: 0 5. Costochondritis Provided reassurance and discussion of oral NSAIDs for left-sided costochondritis symptoms. In his low likelihood of cardiac etiology as it is palpable and worse with movement and ce rtain positions unrelated to level of exertion. 6. examination or test, negative result - POCT Test, Urine, QUAL 7. Grief reaction - LORazepam (ATIVAN) 0.5 mg tablet; Take 1 tablet by mouth Twice daily as needed for Anxie ty or Insomnia. Dispense: 30 tablet; Refill: 0 Follow-up: Return in about 6 weeks (around 05/24/2018) for FP - . Hari Garcia MD 04/12/18 This note is dictated using [employer] voice recognition software. This note was dictated but not proofread. It may contain some grammatical errors. documented in this enc ounter Plan of Treatment +--------+---------+ + + + | Date | Type | Specialty | Care Team | Description | +--------+---------+ + + + | 03/27/ | Office | Family Medicine | Sonia Lozoya, | | | 2018 | Visit | | U[employer] ARCHITECT [address] | | | | | | [place] | | | | | | [address] | | | | | | | | +--------+---------+ + + + | 03/30/ | Office | Otolaryngology | Hari Garcia MD | | | 2018 | Visit | | [address] | | | | | | [place] | | | | | | [address] | | | | | | | | | | | | Matthias Wiley MD | | | | | | [address] [place] | | | | | | [address] [place] | | | | | | [address] | | | | | | | | +--------+---------+ + + + documented as of this encounter Procedures + +--------+ + + + | Procedure Name | Priori | Date/Time | Associated Diagnosis | Comments | | | ty | | | | + +--------+ + + + | POCT TEST, | Routin | 04/12/2018 | | Results for this | | URINE, QUAL | e | 4:59 PM | examination or test, | procedure are in the | | | | PST | negative result | results section. | + +--------+ + + + documented in this encounter Results POCT Test, Urine, QUAL (04/12/2018 4:59 PM PST) + + + + + + | Component | Value | Ref Range | Performed | Pathologist | | | | | At | Signature | + + + + + + | | Negative | Negative | [facility] | | | Test, | | | [facility] | | | Urine, POC | | | CORE | | | | | | LABORATORY | | + + + + + + | Internal QC | Acceptable | Acceptable, Not | [facility] | | | | | Performed | [facility] | | | | | | CORE | | | | | | LABORATORY | | + + + + + + | Specific | | 1.010, 1.015, | [facility] | | | [place], | | 1.020, 1.025 | [facility] | | | POC | | | CORE | | | | | | LABORATORY | | + + + + + + | Lot Number | [id number] | | [facility] | | | | | | [facility] | | | | | | CORE | | | | | | LABORATORY | | + + + + + + | Expiration | 02/16/19 | | [facility] | | | Date | | | [facility] | | | | | | CORE | | | | | | LABORATORY | | + + + + + + + + | Specimen | + + | Urine | + + + + + + + | Performing | Address | City/State/Zipcode | Phone Number | | Organization | | | | + + + + + | [facility] | [address] [place] [address] [place] | [place] [address] | [phone] | | [facility] | | | | | LABORATORY | | | | + + + + + documented in this encounter Visit Diagnoses + + | Diagnosis | + + | Acute stress disorder - Primary Other acute reactions to stress | + + | Social anxiety disorder Social phobia | + + | Chronic post-traumatic stress disorder (PTSD) | + + | Panic attack Panic disorder without agoraphobia | + + | Costochondritis Tietze's disease | + + | examination or test, negative result | + + | Grief reaction Adjustment disorder with depressed mood | + + documented in this encounter
--- OUTSIDE RECORDS SUMMARY | ~2019-03-21 | XMS | Encounter Summary ---
Demographics + + + | Address | [address] | | | [place] [address] | + + + | Home Phone | | + + + | Preferred Language | Unknown | + + + | Marital Status | Single | + + + | Muslim Affiliation | 1013 | + + + | Race | Unknown | + + + | Ethnic Group | Unknown | + + + Author + + + | Author | [facility] | | | and [place] | + + + | Organization | [facility] | | | and [place] | [...] Team Providers + +------+ + | Care Drilling Engineering Manager Name | Role | Phone | [...] | +--------+ + + + + | 02/12/ | Telephone | [facility] | Hari Garcia MD | Follow-up | | 2019 | | [facility] [place] | [address] | | | | | [address] | [place] | | | | | [place] | [address] | | | | | [address] | | | | | | [phone] | | | +--------+ + + + [...] | 2019 | Visit | | [address] | | | | | | [place] | | | | | | [address] | | | | | | | [...]
--- OUTSIDE RECORDS SUMMARY | ~2019-03-21 | XMS | Encounter Summary ---
Demographics + + + | Address | [address] | | | [place] [address] | + + + | Home Phone | | + + + | Preferred Language | Unknown | + + + | Marital Status | Single | + + + | Restorationist Affiliation | 1013 | + + + | Race | Unknown | + + + | Ethnic Group | Unknown | + + + Author + + + | Author | [facility] | | | and [place] | + + + | Organization | [facility] | | | and [...] Team Providers + +------+ + | Care Clinical Services Manager Name | Role | Phone | + +------+ + | Hari Garcia MD | PCP | | + +------+ + Reason for Visit + + + | Reason | Comments | + + + | Dizziness | | + + + Encounter Details +--------+ + + + + | Date | Type | Department | Care Team | Description | +--------+ + + + + | 03/09/ | Telephone | [facility] | Hari Garcia MD | Dizziness | | 2018 | | [facility] [place] | [address] | | | | | [address] | [place] | | | | | [place] | [address] | | | | | [address] | | | | | | [phone] | | | +--------+ + + + [...] | | 2019 | Visit | | 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
--- OUTSIDE RECORDS SUMMARY | ~2019-03-21 | XMS | Encounter Summary ---
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 Garcia | + + + | GI Problem | nausea/vomiting | + + + Encounter Details +--------+---------+ + + + | Date | Type | Department | Care Team | Description | +--------+---------+ + + + | 01/31/ | Office | [facility] | Hari Garcia MD | Non-intractable | | 2018 | Visit | [facility] [place] | [address] | cyclical vomiting | | | | [address] | [place] | with nausea (Primary | | | | [place] | [id number] | Dx); PCOS | | | | [id number] | | (polycystic ovarian | | | | [phone] | | syndrome); | | | | | | Prediabetes; Other | | | | | | polyglandular | | | | | | dysfunction ([facility]) ; | | | | | | Anxiety | +--------+---------+ + + + Social History [...] + + + | Blood Pressure | 124/66 | 01/31/2018 2:08 PM | | | | | PDT | | + + + + + | Pulse | 80 | 01/31/2018 2:08 PM | | | | | PDT | | + + + + + | Temperature | 37.6 C (99.7 F) | 01/31/2018 2:08 PM | | | | | PDT | | + + + + + | Respiratory Rate | - | - | | + + + + + | Oxygen Saturation | 98% | 01/31/2018 2:08 PM | | | | | PDT | | + + + + + | Inhaled Oxygen | - | - | | | Concentration | | | | + + + + + | Weight | 108 kg (238 lb) | 01/31/2018 2:08 PM | | | | | PDT | | + + + + + | Height | 160 cm (5' 3") | 01/31/2018 2:08 PM | | | | | PDT | | + + + + + | Body Mass Index | 42.16 | 01/31/2018 2:08 PM | | | | | PDT | | + + + + + documented in this encounter Patient Instructions Patient Instructions Hari Garcia MD - 01/31/2018 2:42 PM PDTFormatting of this note mi ght be different from the original. Polycystic Ovary Syndrome Polycystic ovary syndrome (PCOS) causes harmless, smallcysts in the ovaries and other sym ptoms. PCOS is caused by certain hormones being out of balance. The word syndrome mean s a group of symptoms. Women with PCOS may have no periods, irregular periods, or very long periods. Your ovaries Women store their eggs in their ovaries. Each egg is in a capsule called a follicle. Normal ly during the reproductive years, one follicle grows to produce a mature egg each month. Thi s egg is released during ovulation and the follicle dissolves. Hormones out of balance With polycystic ovary syndrome (PCOS), the hormones that control ovulation are out of fransico ce. These include estrogen, progesterone, and androgen.As a result, ovulation may not occu r. Instead, thefollicle stays enlarged. This is a fluid-filled sac called a cyst. Over christopher e, the ovaries fill with many small cysts. This is why they are called poly or many cystic ovaries. In some women, the ovaries also make toomuch androgen. PCOS symptoms Women with PCOS may also have one or more of these symptoms: Acne Hair growth on the face and other parts of the body Patches of thickened, velvety, darkened skin called acanthosis nigricans Trouble getting (fertility problems) Weight gain, especially around the waist Women with PCOS are also at increased risk of developing cancer of the uterine lining,jairo betes, and heart disease. Date Last Reviewed: 10/08/201619998052-9720 [employer]. [address] [place] [address]. All righ ts reserved. This information is not intended as a substitute for professional medical care. Always follow your healthcare professional's instructions. Metformin documented in this encounter Progress Notes Hari Garcia MD - 01/31/2018 1:30 PM PDT CC: New patient establishing primary care. HPI Patient is a 27-year-old female who is presenting to establish care following multiple urge nt care visits for cyclical nausea vomiting that has only partially responded to anti-emetic s. Patient has a known history of environmental allergies, remote history of iron deficienc y anemia related to blood loss, polycystic ovarian syndrome, asthma, generalized anxiety wit hout a formal diagnosis of anxiety, heart murmur in childhood that has resolved in adulthood . She is a with one living child. Patient is currently in a monogamous relationship with her boyfriend. Pertinent recent history includes a 2 month history of severe stomach pain, vomiting and na usea up to twice daily without significant hematemesis in the quality of yellow bile. It is associated with hot and cold chills while she is vomiting. She has been able to eat signif icant amounts of food but has not had significant weight changes over the last 2 months. Thea neri presented to urgent care most recently approximately one week ago and was given hydration as well as Zofran for the nausea. This only partially helped her nausea and vomiting. She was however stable to be discharged. Additionally, patient had a negative pelvic ultrasound . ESR CRP were elevated. She was given a gastroenterology referral that is yet to be sched uled. She reports that she had a negative colonoscopy in May 2017. Patient quit smoking in November 2016 and smoked about a half to a full pack a day for 14 years . Patient currently uses no marijuana but has a history of intermittent use. Patient's family history reviewed with the patient that included a significant amount of li festyle diseases. We discussed her ongoing weight management that she reports has gotten wo rse with the management of her polycystic ovarian syndrome. She reports that she was placed on control pills last year following quitting smoking by a women's clinic Dr. She had a negative Pap smear at that time. Since that time she has not followed up relating to her PCOS. Patient has a large medication diversion and allergy list that includes 3 medications have caused anaphylaxis in the past. Patient declines to carry an EpiPen. Past Medical History: Diagnosis Date Abdominal pain Anxiety Asthma Heart murmur Nausea and vomiting Neutrophilic leukocytosis PCOS (polycystic ovarian syndrome) No current outpatient prescriptions on file prior to visit. No current facility-administered medications on file prior to visit. Allergies Allergen Reactions Banana Anaphylaxis Rashid [Phaseolus] Anaphylaxis All legumes (peanuts are OK) Bee Venom Anaphylaxis Blue Dyes (Parenteral) Hives and Itching Blue dye #3 Rich Hives and Itching Red Dye Hives and Itching Red Dye #40 Amoxicillin Hives and Nausea And Vomiting Codeine Hives and Nausea And Vomiting [place] Hives Past Surgical History: Procedure Laterality Date SECTION COLONOSCOPY N/A 05/19/2017 Procedure: COLONOSCOPY; Surgeon: Horace Carlos MD; Location: [facility] TONSILLECTOMY UPPER GASTROINTESTINAL ENDOSCOPY N/A 05/19/2017 Procedure: EGD; Surgeon: Horace Carlos MD; Location: [facility] Social History Social History Marital status: Single Spouse name: N/A Number of children: N/A Years of education: N/A Occupational History Not on file. Social History Main Topics Smoking status: Former Smoker Years: 14.00 Types: Cigarettes Quit date: 11/07/2016 Smokeless tobacco: Never Used Alcohol use No Drug use: No Comment: Twice a month Sexual activity: Not on file Other Topics Concern Not on file Social History Narrative No narrative on file OB History Para Term AB Living 3 1 2 SAB TAB Ectopic Molar Multiple Live Births # Outcome Date GA Lbr Raheem/2nd Weight Sex Delivery Anes PTL Lv 3 AB 2 AB 1 Para Family History Problem Relation Age of Onset Depression Mother Mental illness Mother Substance abuse Mother Depression Father Mental illness Father Substance abuse Father Asthma Sister Colon cancer Other Depression Maternal Grandmother Asthma Maternal Grandmother Cancer Maternal Grandmother Cancer Paternal Grandfather There is no immunization history on file for this patient. Review of Systems Constitutional: Positive for fatigue and fever (Subjective). Negative for diaphoresis and u nexpected weight change. HENT: Negative for hearing loss. Eyes: Negative for visual disturbance. Respiratory: Negative for cough and shortness of breath. Cardiovascular: Positive for chest pain and palpitations. Gastrointestinal: Positive for nausea and vomiting. Negative for blood in stool, constipati on and diarrhea. Endocrine: Negative for cold intolerance and heat intolerance. Genitourinary: Positive for frequency. Negative for enuresis and genital sores. Musculoskeletal: Negative for arthralgias and joint swelling. Skin: Negative for wound. Neurological: Positive for headaches. Psychiatric/Behavioral: Negative for dysphoric mood. The patient is nervous/anxious. Physical Examination: BP 124/66 | Pulse 80 | Temp 37.6 C (99.7 F) (Temporal) | Ht 1.6 m (5' 3") | Wt 108 kg (238 lb) | SpO2 98% | BMI 42.16 kg/m Physical Exam Constitutional: She is oriented to person, place, and time. She appears well-developed and well-nourished. HENT: Head: Normocephalic and atraumatic. Nose: Nose normal. Mouth/Throat: Oropharynx is clear and moist. Eyes: Conjunctivae are normal. Right eye exhibits no discharge. Left eye exhibits no discha rge. Neck: Normal range of motion. Neck supple. No thyromegaly present. Cardiovascular: Normal rate, regular rhythm and intact distal pulses. No murmur heard. Pulmonary/Chest: Effort normal and breath sounds normal. No respiratory distress. Abdominal: Soft. Bowel sounds are normal. She exhibits no distension and no mass. There is tenderness (Epigastric). There is no rebound and no guarding. No hepatosplenomegaly Neurological: She is alert and oriented to person, place, and time. Skin: Skin is warm and dry. Psychiatric: She has a normal mood and affect. Positive anxious mood Vitals reviewed. Assessment and Plan: 1. Non-intractable cyclical vomiting with nausea Patient with a two-month history of severe stomach pain, nausea vomiting that is likely mul tifactorial without a clear etiology. Patient has not had significant weight change but has had significant by mouth intolerance over the last month specifically. After not feeling l ashley Zofran and other antinausea medications were helpful when she went to [facility] this month we will do a trial of Aparna as patient has significant list of medication all ergies. Patient to contact us over the next week if this does not significantly improve her nausea and vomiting enough to maintain hydration. ED precautions regarding hematemesis pro vided. - Aparna 500 MG CAPS; Take 500 mg by mouth 3 times daily as needed (nausea). Dispense: 30 each; Refill: 1 2. PCOS (polycystic ovarian syndrome) test negative. Compliance with oral contraceptives with probably to missed pills on average monthly. Regular cycles 12 this year. 4-5 days of heavier bleeding with 2 mi lder days appropriate for her. A1c positive for prediabetes. We discussed the possibility of adding metformin to improve her PCOS and the risks benefits related to infertility. Patient not interested in having a child at this time due to medical problems. Will discuss adding metformin at the next visit if nausea vomiting begins to get better control. - POCT Test, Urine, QUAL - levonorgestrel-ethinyl estradiol (AVIANE) 0.1-20 MG-MCG per tablet; Take 1 tablet by mout h Daily. Dispense: 28 tablet; Refill: 11 - POCT Hemoglobin A1c 3. Prediabetes A1c 5.8%. Repeat in 3 months. 4. Other polyglandular dysfunction (HCC) Note above - Hemoglobin A1C - POCT Hemoglobin A1c 5. 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 Social support is her boyfriend. They're looking to buy a house which is also scary. Quitting smoking last November is eliminated one of the things that helped her manage her anxiety. She is currently not interested in medication or counseling interventions. We discussed deep breathing exercises and daily journaling and will follow-u p on this at her next visit. Followup: Return in about 2 weeks (around 02/14/2018) for nausea/vomiting f/u. Hari Garcia MD 01/31/18 Total time today is 30 minutes minutes, 50-79% of which is in counseling and coordination o f care regarding the above issue(s). This note was dictated using [employer] voice recognition software. It may contain some grammat ical errors. documented in this encounter Plan of Treatment +--------+---------+ + + + | Date | Type | Specialty | Care Team | Description | +--------+---------+ + + + | 03/27/ | Office | Family Medicine | Sonia Lozoya, | | | 2018 | Visit | | [facility] [address] | | | | | | [place] | | | | | | [id number] | | | | | | | | +--------+---------+ + + + | 03/30/ | Office | Otolaryngology | Hari Garcia MD | | | 2019 | Visit | | [address] | | | | | | [place] | | | | | | [address] | | | | | | | | | | | | Matthias Wiley MD | | | | | | [address] [place] | | | | | | [address] [place] | | | | | | [address] | | | | | | | | +--------+---------+ + + + documented as of this encounter Procedures + +--------+ + + + | Procedure Name | Priori | Date/Time | Associated Diagnosis | Comments | | | ty | | | | + +--------+ + + + | HEMOGLOBIN A1C | Routin | 06/15/2018 | Other | Results for this | | | e | 9:39 AM | polyglandular | procedure are in the | | | | PST | dysfunction (HCC) | results section. | | | | | PCOS (polycystic | | | | | | ovarian syndrome) | | + +--------+ + + + | POCT HEMOGLOBIN A1C | Routin | 01/31/2018 | PCOS (polycystic | Results for this | | | e | 3:52 PM | ovarian syndrome) | procedure are in the | | | | PDT | Other polyglandular | results section. | | | | | dysfunction (HCC) | | + +--------+ + + + | POCT TEST, | Routin | 01/31/2018 | PCOS (polycystic | Results for this | | URINE, QUAL | e | 3:00 PM | ovarian syndrome) | procedure are in the | | | | PDT | | results section. | + +--------+ + + + documented in this encounter Results Hemoglobin A1C (06/15/2018 9:39 AM PST) + +-------+ + + + | Component | Value | Ref Range | Performed | Pathologist | | | | | At | Signature | + +-------+ + + + | Hemoglobin | 5.7 | 4.3 - 6.0 % | [facility] | | | A1c | | | [facility] | | | | | | [facility] | | | | | [facility] - | | | | | | [facility]ATORY | | + +-------+ + + + | Estimated | 117 | mg/dL | [facility] | | | Average | | | [facility] | | | Glucose | | | MEDICAL | | | [...] [address] | [place] | [phone] | | [facility] | | [address] | | | - LABORATORY | | | | + + + + + POCT Hemoglobin A1c (01/31/2018 3:52 PM PDT) + +---------+ + + + | Component | Value | Ref Range | Performed | Pathologist | | | | | At | Signature | + +---------+ + + + | Hemoglobin | 5.8 (A) | 0.0 - 5.6 % | | | | A1C, POC | | | | | + +---------+ + + + + + | Specimen | + + | | + + POCT Test, Urine, QUAL (01/31/2018 3:00 PM PDT) + + + + + [...] | 1.010, 1.015, | | | | [place], | | 1.020, 1.025 | | | | POC | | | | | + + + + + + | Lot Number | | | | | + + + + + + | Expiration | | | | | | Date | | | | | + + + + + + + + | Specimen | + + | Urine | + + documented in this encounter Visit Diagnoses + + | Diagnosis | + + | Non-intractable cyclical vomiting with nausea - Primary | + + | PCOS (polycystic ovarian syndrome) Polycystic ovaries | + + | Prediabetes Other abnormal glucose | + + | Other polyglandular dysfunction (HCC) | + + | Anxiety Anxiety state, unspecified | + + documented in this encounter
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
--- OUTSIDE RECORDS SUMMARY | ~2019-03-21 | XMS | Encounter Summary ---
Demographics + + + | Address | [address] | | | [place] [address] | + + + | Home Phone | | + + + | Preferred Language | Unknown | + + + | Marital Status | Single | + + + | Congregation Affiliation | 1013 | + + + | Race | Unknown | + + + | Ethnic Group | Unknown | + + + Author + + + | Author | [facility] | | | and [place] | + + + | Organization | [facility] | | | and [...] Team Providers + +------+ + | Care Dry Cleaning Machine Operator Helper Name | Role | Phone | + [...] + | 07/18/ | Telephone | [facility] | Hari Garcia MD | Medication Question | | 2019 | | [facility] [place] | [address] | | | | | [address] | [place] | | | | | [place] | [id number] | | | | | [id number] | | | | | | [phone] | | | +--------+ + + + [...] [place] | | | | | | [address] | | | | | | | | | | | | Matthias Wiley MD | | | | | | [address] [place] | | | | | | [address] [place] | | | | | | [phone] | | | | | | | | +--------+---------+ + + + documented as of this encounter Visit Diagnoses + + | Diagnosis | + + | 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
--- OUTSIDE RECORDS SUMMARY | ~2019-03-21 | XMS | Encounter Summary ---
Demographics + + + | Address | [address] | | | [place] [address] | + + + | Home Phone | | + + + | Preferred Language | Unknown | + + + | Marital Status | Single | + + + | Tenriism Affiliation | 1013 | + + + | Race | Unknown | + + + | Ethnic Group | Unknown | + + + Author + + + | Author | [facility] | | | and [place] | + + + | Organization | [facility] | | | and [place] [...] Team Providers + +------+ + | Care Hatchery Helper Name | Role | Phone | + +------+ + | Colton Singer DO | PCP | | + +------+ + Encounter Details +--------+---------+ + + + | Date | Type | Department | Care Team | Description | +--------+---------+ + + + | 04/16/ | Office | [facility] | Promise Cerna | Patient left after | | 2017 | Visit | CARE [address] | Chi Odonnell MD | triage (Primary Dx) | | | | [place] | [address] | | | | | [address] | [place] | | | | | [phone] | [address] | | | | | | | [...] | | 2018 | Visit | | [facility] [address] | | | [...] [place] | | | | | | [address] | | | | | | | | | | | | Matthias Wiley MD | | | | | | [address] [place] | | | | | | [address] [place] | | | | | | [address] | | | | | | | | +--------+---------+ + + + documented as of this encounter Visit Diagnoses + + | Diagnosis | + + | Patient left after triage - Primary | + + documented in this encounter"
--- OUTSIDE RECORDS SUMMARY | ~2019-03-21 | XMS | Encounter Summary ---
Demographics + + + | Address | [address] | | | [place] [address] | + + + | Home Phone | | + + + | Preferred Language | Unknown | + + + | Marital Status | Single | + + + | Zoroastrian Affiliation | 1013 | + + + | Race | Unknown | + + + | Ethnic Group | Unknown | + + + Author + + + | Author | [facility] | | | and [place] | + + + | Organization | [facility] | | | and [...] Team Providers + +------+ + | Care Logging Supervisor Name | Role | Phone | + [...] + + + + | 07/13/ | Telephone | [facility] | Hari Garcia MD | Results | | 2019 | | MEDIC[facility] [place] | [address] | | | | | [address] | [place] | | | | | [place] | [address] | | | | | [address] | | | | | | [phone] | | | +--------+ + + + [...] [place] | | | | | | [address] | | | | | | | | +--------+---------+ + + + | 03/30/ | Office | Otolaryngology | Hari Garcia MD | | | 2018 | Visit | | [address] | | | | | | [place] | | | | | | [address] | | | | | | | | | | | | Matthias Wiley MD | | | | | | [address] [place] | | | | | | [address] [place] | | | | | | [address] | | | | | | | | +--------+---------+ + + + documented as of this encounter Results US Guided Thyroid FNA (07/21/2018 3:31 PM PDT) + + | Specimen | + + | | + + + + + | Narrative | Performed At | + + + | EXAM: Ultrasound Guided FNA Thyroid Biopsy CLINICAL | [facility] | | INFORMATION: [id number] nodule on thyroid ultrasound PT TO CHECK IN AT | | | 1400 FOR CONSENT PRIOR TO TAKING MEDS & SHE WILL HAVE A CONCESSION ATTENDANT. | | | COMPARISON: Sonogram dated 07/13/2017. PROCEDURE: After explaining | | | the risks and benefits of the procedure to the patient which included | | | bleeding, infection, injury to adjacent structures and insufficient | | | tissue, an informed consent was obtained. A final timeout was | | | preformed. Patient was placed in supine position. The right | | | thyroid lobe nodule was identified under ultrasound guidance. The | | | overlying skin was prepped and draped in sterile technique. 8 ml of | | | 1% lidocaine was used for local anesthetic. Under ultrasound guidance | | | a 25 gauge needle was advanced into the nodule and a fine needle | | | aspirate obtained. A total of 4 passes were obtained under ultrasound | | | guidance. The specimens were given to the transmitter chief | | | present during the exam. After the last pass, the needle was removed | | | and hemostasis was obtained. No immediate complications. | | | IMPRESSION - Successful FNA of the right thyroid lobe nodule. | | | Dictated and Signed by: Adam Dodd MD Electronically signed: | | | 07/21/2018 5:14 PM | | + + + + + | Procedure Note | + + | Nash, Rad Results In - 07/21/2018 5:17 PM PDT | | EXAM: Ultrasound Guided FNA Thyroid Biopsy | | | | CLINICAL INFORMATION: [id number] nodule on thyroid ultrasound | | PT TO CHECK IN AT 1400 FOR CONSENT PRIOR TO TAKING MEDS & SHE WILL HAVE A | | CONCESSION ATTENDANT. | | | | COMPARISON: Sonogram dated 07/13/2017. | | | | PROCEDURE: | | After explaining the risks and benefits of the procedure to the patient which | | included bleeding, infection, injury to adjacent structures and insufficient | | tissue, an informed consent was obtained. A final timeout was preformed. | | | | Patient was placed in supine position. The right thyroid lobe nodule was | | identified under ultrasound guidance. The overlying skin was prepped and draped | | in sterile technique. 8 ml of 1% lidocaine was used for local anesthetic. Under | | ultrasound guidance a 25 gauge needle was advanced into the nodule and a fine | | needle aspirate obtained. A total of 4 passes were obtained under ultrasound | | guidance. | | | | The specimens were given to the transmitter chief present during the exam. After | | the last pass, the needle was removed and hemostasis was obtained. | | | | No immediate complications. | | | | IMPRESSION - Successful FNA of the right thyroid lobe nodule. | | | | Dictated and Signed by: Adam Dodd MD | | Electronically signed: 07/21/2018 5:14 PM | + + + +---------+ + [...]
--- OUTSIDE RECORDS SUMMARY | ~2019-03-21 | XMS | Encounter Summary ---
Demographics + + + | Address | [address] | | | [place] [address] | + + + | Home Phone | | + + + | Preferred Language | Unknown | + + + | Marital Status | Single | + + + | Anabaptism Affiliation | 1013 | + + + | Race | Unknown | + + + | Ethnic Group | Unknown | + + + Author + + + | Author | [facility] | | | and [place] | + + + | Organization | [facility] | | | and [place] [...] Team Providers + +------+ + | Care Mechanical Developer Prover Name | Role | Phone | + +------+ + | Colton Singer DO | PCP | | + +------+ + Encounter Details +--------+ + + + + | Date | Type | Department | Care Team | Description | +--------+ + + + + | 01/25/ | [facility] | [facility] | Promise Cerna | | | 2018 | Encounter | MED CTR ULTRASOUND | Chi Odonnell MD | | | | | [address] | [address] | | | | | [place] | [place] | | | | | [address] | [address] | | | | | [phone] | | | +--------+ + + + [...] | | 2018 | Visit | | [facility] [address] | | | | | | [place] | | | | | | [address] | | | | | | | | +--------+---------+ + + + | 03/30/ | Office | Otolaryngology | Hari Garcia MD | | | 2018 | Visit | | [address] | | | | | | [place] | | | | | | [address] | | | | | | | | | | | | Matthias Wiley MD | | | | | | [address] [place] | | | | | | [address] [place] | | | | | | [address] | | | | | | | [...]
--- OUTSIDE RECORDS SUMMARY | ~2019-03-21 | XMS | Encounter Summary ---
Demographics + + + | Address | [address] | | | [place] [address] | + + + | Home Phone | | + + + | Preferred Language | Unknown | + + + | Marital Status | Single | + + + | Jewish Affiliation | 1013 | + + + | Race | Unknown | + + + | Ethnic Group | Unknown | + + + Author + + + | Author | [facility] | | | and [place] | + + + | Organization | [facility] | | | and [place] [...] Team Providers + +------+ + | Care Match Maker Name | Role | Phone | [...] Description | +--------+--------+ + + + | 07/01/ | Refill | [facility] | Hari Garcia MD | Medication Refill | | 2019 | | MEDICINE [place] | [address] | | | | | [address] | [place] | | | | | [place] | [address] | | | | | [address] | | | | | | [phone] | | | +--------+--------+ + + + [...] [place] | | | | | | [address] | | | | | | | | +--------+---------+ + + + | 03/30/ | Office | Otolaryngology | Hari Garcia MD | | | 2019 | Visit | | [address] | | | | | | [place] | | | | | | [address] | | | | | | | | | | | | Matthias Wiley MD | | | | | | [address] [place] | | | | | | [address] [place] | | | | | | [address] | | | | | | | | +--------+---------+ + + + documented as of this encounter Visit Diagnoses + + | Diagnosis | + + | Acute stress disorder Other acute reactions to stress | + + | Chronic post-traumatic stress disorder (PTSD) | + + documented in this encounter"
--- OUTSIDE RECORDS SUMMARY | ~2019-03-21 | XMS | Encounter Summary ---
Demographics + + + | Address | [address] | | | [place] [address] | + + + | Home Phone | | + + + | Preferred Language | Unknown | + + + | Marital Status | Single | + + + | Congregational Affiliation | 1013 | + + + | Race | Unknown | + + + | Ethnic Group | Unknown | + + + Author + + + | Author | [facility] | | | and [place] | + + + | Organization | [facility] | | | and [place] [...] Team Providers + +------+ + | Care Molder Feeder Name | Role | Phone | + [...] Results | | 2019 | | MEDICINE [place] | [address] | | | | | [address] | [place] | | | | | [place] | [address] | | | | | [address] | | | | | | [phone] | | | +--------+ + + + [...] [place] | | | | | | [address] | | | | | | | | +--------+---------+ + + + | 03/30/ | Office | Otolaryngology | Hari Garcia MD | | | 2018 | Visit | | [address] | | | | | | [place] | | | | | | [address] | | | | | | | | | | | | Matthias Wiley MD | | | | | | [address] [place] | | | | | | [address] [place] | | | | | | [address] | | | | | [...]
--- OUTSIDE RECORDS SUMMARY | ~2019-03-21 | XMS | Encounter Summary ---
Demographics + + + | Address | [address] | | | [place] [address] | + + + | Home Phone | | + + + | Preferred Language | Unknown | + + + | Marital Status | Single | + + + | Orthodoxy Affiliation | 1013 | + + + | Race | Unknown | + + + | Ethnic Group | Unknown | + + + Author + + + | Author | [facility] | | | and [place] | + + + | Organization | [facility] | | | and [place] [...] Team Providers + +------+ + | Care Electrical Controls Engineer Name | Role | Phone | + +------+ + | Hari Garcia MD | PCP | | + +------+ + Reason for Visit + + + | Reason | Comments | + + + | Lab Results | | + + + Encounter Details +--------+ + + + + | Date | Type | Department | Care Team | Description | +--------+ + + + + | 08/01/ | Telephone | [facility] | Hari Garcia MD | Lab Results | | 2019 | | MEDICINE [place] | [address] | | | | | [address] | [place] | | | | | [place] | [address] | | | | | [address] | | | | | | [phone] | | | +--------+ + + + [...] | Visit | | [facility] [address] | | | | | | [place] | | | | | | [id number] | | | | | | | [...]
--- OUTSIDE RECORDS SUMMARY | ~2019-03-21 | XMS | Encounter Summary ---
Demographics + + + | Address | [address] | | | [place] [address] | + + + | Home Phone | | + + + | Preferred Language | Unknown | + + + | Marital Status | Single | + + + | Gnosticism Affiliation | 1013 | + + + | Race | Unknown | + + + | Ethnic Group | Unknown | + + + Author + + + | Author | [facility] | | | and [place] | + + + | Organization | [facility] | | | and [...] Team Providers + +------+ + | Care Plan Coordinator Name | Role | Phone | + +------+ + | Hari Garcia MD | PCP | | + +------+ + Encounter Details +--------+ + + + + | Date | Type | Department | Care Team | Description | +--------+ + + + + | 02/09/ | Hospital | [facility] | Hari Garcia MD | Thyroid nodule | | 2019 | Encounter | MED CTR ULTRASOUND | [address] | | | | | [address] | [place] | | | | | [place] | [address] | | | | | [address] | | | | | | [phone] | | | +--------+ + + + [...] DAILY | tablet | | 19 | 9 | | mg 24 hr tablet | | | | | | + + + +---------+ + + | topiramate | Take 1 tablet by | 60 | 0 | 01/11/20 | | | (TOPAMAX) 25 mg | mouth 2 times daily. | tablet | | 19 | 9 | | tablet | | | | | | + + + +---------+ + + documented as of this encounter Plan of Treatment +--------+---------+ + + + | Date | Type | Specialty | Care Team | Description | +--------+---------+ + + + | 03/27/ | Office | Family Medicine | Sonia Lozoya, | | | 2018 | Visit | | LOT WORKER [address] | | | | | | [place] | | | | | | [id number] | | | | | | | | +--------+---------+ + + + | 03/30/ | Office | Otolaryngology | Hari Garcia MD | | | 2018 | Visit | | [address] | | | | | | [place] | | | | | | [address] | | | | | | | | | | | | Matthias Wiley MD | | | | | | [address] | | | | | | [address] [place] | | | | | | [address] | | | | | | | [...]
--- OUTSIDE RECORDS SUMMARY | ~2019-03-21 | XMS | Encounter Summary ---
Demographics + + + | Address | [address] | | | [place] [address] | + + + | Home Phone | | + + + | Preferred Language | Unknown | + + + | Marital Status | Single | + + + | Confucianist Affiliation | 1013 | + + + | Race | Unknown | + + + | Ethnic Group | Unknown | + + + Author + + + | Author | [facility] | | | and [place] | + + + | Organization | [facility] | | | and [place] [...] Team Providers + +------+ + | Care Turntable Engineer Name | Role | Phone | [...] Results | | 2019 | | [facility]ICINE [place] | [address] | | | | | [address] | [place] | | | | | [place] | [address] | | | | | [address] | | | | | | [phone] | | | +--------+ + + + [...] [place] | | | | | | [address] | | | | | | | | +--------+---------+ + + + | 03/30/ | Office | Otolaryngology | Hari Garcia MD | | | 2018 | Visit | | [address] | | | | | | [place] | | | | | | [address] | | | | | | | | | | | | Matthias Wiley MD | | | | | | [address] [place] | | | | | | [address] [place] | | | | | | [address] | | | | | | | | +--------+---------+ + + + documented as of this encounter Results US Guided Thyroid FNA (07/21/2018 3:31 PM PDT) + + | Specimen | + + | | + + + + + | Narrative | Performed At | + + + | EXAM: Ultrasound Guided FNA Thyroid Biopsy CLINICAL | [facility] | | INFORMATION: [id number] nodule on thyroid ultrasound PT TO CHECK IN AT | | | 1400 FOR CONSENT PRIOR TO TAKING MEDS & SHE WILL HAVE A REPORTER ANCHOR. | | | COMPARISON: Sonogram dated 07/13/2017. [...] guidance. The specimens were given to the construction job cost estimator | | | present during the exam. [...] Biopsy | | | | CLINICAL INFORMATION: [id number] nodule on thyroid ultrasound | | PT TO CHECK IN AT 1400 FOR CONSENT PRIOR TO TAKING MEDS & SHE WILL HAVE A | | REPORTER ANCHOR. | | | | COMPARISON: Sonogram dated [...] | The specimens were given to the construction job cost estimator present during the exam. After | | [...]
--- OUTSIDE RECORDS SUMMARY | ~2019-03-21 | XMS | Encounter Summary ---
Demographics + + + | Address | [address] | | | [place] [address] | + + + | Home Phone [...] | Author | [facility] | | | and [place] | + + + | Organization | [facility] | | | and [...] Team Providers + +------+ + | Care Concrete Saw Operator Name | Role | Phone | [...] + + | 03/16/ | Office | [facility] | Hari Garcia MD | Acute stress | | 2018 | Visit | [facility] [place] | [address] | disorder (Primary | | | | [address] | [place] | Dx); Chronic | | | | [place] | [address] | post-traumatic | | | | [address] | | stress disorder | | | | [phone] | | (PTSD); Social | | | [...] information carefully each time. Talk to your architecture consultant regarding the use of this medicine in children. Special care may be needed. Patients over 60 years old may have a stronger reaction and need a smaller dose. What side effects may I notice from receiving this medicine? Side effects that you should report to your doctor or health care mgr as soon as p ossible: allergic reactions [...] attention (report to your doctor or health care mgr if they continue or are bothersome): change [...] abnormal heart rhythm) procarbazine rasagiline supplements like Stafford's wort, kava kava, valerian tramadol tryptophan What [...] get worse. Visit your doctor or health care mgr for regular checks on your progress. Because [...] a change in dose, call your health care mgr. You may get drowsy or dizzy. Do [...] pharmacist, or health care provider. Copyright 2018 [email or web address] documented in this encounter Progress Notes Hari Garcia MD - 03/16/2018 9:30 AM PST Chief Complaint: Follow-up (Medication) and Referral (Follow up) (Grief counseling) History: Rashmi Holcomb is a 27 y.o. female who presents for follow-up after I spoke with the jessi lopes over the phone last week in the midst of what sounded like a panic attack while at work. Patient reports that she just lost her grandmother who acted as mom to her through her child hubbard. Grandmother passed way from an [place] she was 69 years old. Patient reports [...] Negative Negative Internal QC Acceptable Acceptable Specific [place], POC 1.010, 1.015, 1.020, 1.025 Lot Number [id number] Expiration Date 2019-07-19 Health Maintenance Topics with [...] to the patient. Because she works in [employer] and comes out to [place] both locations were offered. Patient is amenable [...] FP - f/u anxiety, SSRI, ok for w . Hari Garcia MD 03/16/2018 Total time today is 40 minutes, 80-99% of which is in counseling and coordination of care r egarding the above issue(s). This note is dictated using [employer] voice recognition software. This note was dictated but not proofread. It may contain some grammatical errors. documented in this enc ounter Plan of Treatment +--------+---------+ + + + | Date | Type | Specialty | Care Team | Description | +--------+---------+ + + + | 03/27/ | Office | Family Medicine | Darell Sonia Angie, | | | 2018 | Visit | | [employer] [address] | | | | | | [place] | | | | | | [address] | | | | | | | | +--------+---------+ + + + | 03/30/ | Office | Otolaryngology | Hari Garcia MD | | | 2018 | Visit | | [address] | | | | | | [place] | | | | | | [address] | | | | | | | | | | | | Matthias Wiley MD | | | | | | [address] [place] | | | | | | [address] [place] | | | | | | [address] | | | | | | | [...]
--- OUTSIDE RECORDS SUMMARY | ~2019-03-21 | XMS | Encounter Summary ---
Demographics + + + | Address | [address] | | | [place] [address] | + + + | Home Phone [...] | Author | [facility] | | | and [place] | + + + | Organization | [facility] | | | and Attilaana [...] Team Providers + +------+ + | Care Senior Marketing Analyst Name | Role | Phone | + +------+ + | Colton Singer DO | PCP | | + +------+ + Reason for Visit + + + | Reason | Comments | + + + | Abdominal Pain | | + + + Encounter Details +--------+ + + + + | Date | Type | Department | Care Team | Description | +--------+ + + + + | 04/16/ | Emergency | [facility] | Kaveh Karimi, | Abdominal pain, | | 2017 | | [facility] | MD [address] | unspecified | | | | CENTER [address] | [place], [place] | abdominal location | | | | [place], [place] | [address] | (Primary Dx) | | | | [address] | | | | | | [phone] | | | +--------+ + + + [...] + + + | Blood Pressure | 112/56 | 04/16/2017 7:31 PM | | | | | PST | | + + + + + | Pulse | 83 | 04/16/2017 7:31 PM | | | | | PST | | + + + + + | Temperature | 37.3 C (99.1 F) | 04/16/2017 4:51 PM | | | | | PST | | + + + + + | Respiratory Rate | 16 | 04/16/2017 4:51 PM | | | | | PST | | + + + + + | Oxygen Saturation | 100% | 04/16/2017 7:31 PM | | | | | PST | | + + + + + | Inhaled Oxygen | - | - | | | Concentration | | | | + + + + + | Weight | 90.7 kg (200 lb) | 04/16/2017 4:51 PM | | | | | PST | | + + + + + | Height | 160 cm (5' 3") | 04/16/2017 4:51 PM | | | | | PST | | + + + + + | Body Mass Index | 35.43 | 04/16/2017 4:51 PM | | | | | PST | | + + + + + documented in this encounter Discharge Instructions AttachmentsThe following attachments cannot be sent through Care Everywhere.Abdominal Pain, Adult (Ivorian)documented in this encounter Medications at Time of Discharge + + + +---------+ + + | Medication | Sig | Dispensed | Refills | Start | End Date | | | | | | Date | | + + + +---------+ + + | omeprazole | Take 1 capsule by | 30 | 0 | 04/11/20 | | | (PRILOSEC) 40 MG | mouth every morning | capsule | | 17 | 8 | | capsule | (before breakfast). | | | | | + + + +---------+ + + | sucralfate | Take 1 tablet by | 60 | 0 | 04/11/20 | | | (CARAFATE) 1 g | mouth 4 times daily. | tablet | | 17 | 8 | | tablet | | | | [...] | | 2018 | Visit | | [facility] [address] | | | | | | [place] | | | | | | [address] | | | | | | | | +--------+---------+ + + + | 03/30/ | Office | Otolaryngology | Hari Garcia MD | | | 2018 | Visit | | [address] | | | | | | [place] | | | | | | [address] | | | | | | | | | | | | Matthias Wiley MD | | | | | | [address] | | | | | | [address] [place] | | | | | | [phone] | | | | | | | | +--------+---------+ + + + + +------+--------+ + + | Name | Type | Priori | Associated Diagnoses | Date/Time | | | | ty | | | + +------+--------+ + + | ED INFORMATION | SITA | Routin | | 04/16/2017 4:30 PM | | EXCHANGE | | e | | PST | + +------+--------+ + + documented as of this encounter Procedures + +--------+ + + + | Procedure Name | Priori | Date/Time | Associated Diagnosis | Comments | | | ty | | | | + +--------+ + + + | US ABDOMEN LIMITED | STAT | 04/16/2017 | | Results for this | | | | 6:20 PM | | procedure are in the | | | | PST | | results section. | + +--------+ + + + | EXTRA GREEN TOP TUBE | STAT | 04/16/2017 | | Results for this | | | | 5:53 PM | | procedure are in the | | | | PST | | results section. | + +--------+ + + + | EXTRA GOLD TOP TUBE | STAT | 04/16/2017 | | Results for this | | | | 5:53 PM | | procedure are in the | | | | PST | | results section. | + +--------+ + + + | EXTRA BLUE TOP TUBE | STAT | 04/16/2017 | | Results for this | | | | 5:53 PM | | procedure are in the | | | | PST | | results section. | + +--------+ + + + | CBC NO DIFFERENTIAL | STAT | 04/16/2017 | | Results for this | | | | 5:53 PM | | procedure are in the | | | | PST | | results section. | + +--------+ + + + | LIPASE | STAT | 04/16/2017 | | Results for this | | | | 5:53 PM | | procedure are in the | | | | PST | | results section. | + +--------+ + + + | COMPREHENSIVE | STAT | 04/16/2017 | | Results for this | | METABOLIC PANEL | | 5:53 PM | | procedure are in the | | | | PST | | results section. | + +--------+ + + + documented in this encounter Results US Abdomen Limited (04/16/2017 6:20 PM PST) + + | Specimen | + + | | + + + + + | Narrative | Performed At | + + + | LIMITED ULTRASOUND ABDOMEN 04/16/2017 5:47 PM CLINICAL HISTORY: | [facility] | | ABDOMINAL PAIN COMPARISON: CT April 11 FINDINGS: The | | | pancreas is unremarkable. The liver measures 17.8 cm in | | | craniocaudal dimension. Hepatic echotexture is slightly increased, | | | favoring fatty infiltration. The gallbladder demonstrates no | | | evidence of gallstones, wall thickening or pericholecystic fluid. | | | Sonographic Beth sign is reportedly negative. The common duct | | | measures up to 4 mm in diameter. The right kidney measures 11.5 x | | | 4.7 x 4.9 cm and is unremarkable, without hydronephrosis. No | | | ascites is visible. The portal and hepatic veins are patent and | | | demonstrate appropriately directed flow. IMPRESSION - 1. | | | HEPATOMEGALY AND INCREASED HEPATIC ECHOTEXTURE FAVORING FATTY | | | INFILTRATION. 2. OTHERWISE UNREMARKABLE RIGHT UPPER QUADRANT | | | ULTRASOUND. Dictated and Signed by: Edward Sargent MD | | | Electronically signed: 04/16/2017 8:44 PM | | + + + + + | Procedure Note | + + | Nash, Rad Results In - 04/16/2017 8:47 PM PST LIMITED ULTRASOUND ABDOMEN 04/16/2017 | | 5:47 PMCLINICAL HISTORY: ABDOMINAL PAINCOMPARISON: CT AprilINDINGS: The pancreas | | is unremarkable. The liver measures 17.8 cm incraniocaudal dimension. Hepatic | | echotexture is slightly increased, favoringfatty infiltration. The gallbladder | | demonstrates no evidence of gallstones,wall thickening or pericholecystic fluid. | | Sonographic Beth sign is reportedlynegative. The common duct measures up to 4 mm in | | diameter. The right kidneymeasures 11.5 x 4.7 x 4.9 cm and is unremarkable, without | | hydronephrosis. Noascites is visible. The portal and hepatic veins are patent and | | demonstrateappropriately directed flow.IMPRESSION -1. HEPATOMEGALY AND INCREASED | | HEPATIC ECHOTEXTURE FAVORING FATTY INFILTRATION.2. OTHERWISE UNREMARKABLE RIGHT UPPER | | QUADRANT ULTRASOUND.Dictated and Signed by: Edward Sargent MD Electronically signed: | | 04/16/2017 8:44 PM | |ascites is visible. The portal and hepatic veins are patent and demonstrate | |appropriately directed flow. | | | |IMPRESSION - | | | |1. HEPATOMEGALY AND INCREASED HEPATIC ECHOTEXTURE FAVORING FATTY INFILTRATION. | | | |2. OTHERWISE UNREMARKABLE RIGHT UPPER QUADRANT ULTRASOUND. | | | |Dictated and Signed by: Edward Sargent MD | | Electronically signed: 04/16/2017 8:44 PM | + + + +---------+ + + | Performing | Address | City/State/Zipcode | Phone Number | | Organization | | | | + +---------+ + + | [facility] | | | | + +---------+ + + Extra Green Top Tube (04/16/2017 5:53 PM PST) + +-------+ + + + | Component | Value | Ref Range | Performed | Pathologist | | | | | At | Signature | + +-------+ + + + | Extra Green | Done | | [facility] | | | Top Tube | | | [facility] | | [...] + | [facility] | [address] | [place] | [phone] | | [facility] | | [address] | | | - LABORATORY | | | | + + + + + Extra Gold Top Tube (04/16/2017 5:53 PM PST) + +-------+ + + + | Component | Value | Ref Range | Performed | Pathologist | | | | | At | Signature | + +-------+ + + + | Extra Gold | Done | | [facility] | | | Top Tube | | | [facility] | | [...] + + + + + | [facility] | [address] | [place] | [phone] | | [facility] | | [address] | | | - LABORATORY | | | | + + + + + Extra Blue Top Tube (04/16/2017 5:53 PM PST) + +-------+ + + + | Component | Value | Ref Range | Performed | Pathologist | | | | | At | Signature | + +-------+ + + + | Extra Blue | Done | | [facility] | | | Top Tube | | | [facility] | | [...] + + + + + | [facility] | [address] | [place], [place] | [phone] | | [facility] | | [address] | | | - LABORATORY | | | | + + + + + Lipase (04/16/2017 5:53 PM PST) + +-------+ + + + | Component | Value | Ref Range | Performed | Pathologist | | | | | At | Signature | + +-------+ + + + | Lipase | 16 | 0 - 60 U/L | [facility] | | | | [address] | [place] | [phone] | | [facility] | | [address] | | | - LABORATORY | | | | + + + + + Comprehensive Metabolic Panel (04/16/2017 5:53 PM PST) + + + + + + | Component | Value | Ref Range | Performed | Pathologist | | | | | At | Signature | + + + + + + | Na | 139 | 136 - 149 | [facility] | | | | | mmol/L | [facility] | | | | | | MEDICAL | | | | | | CENTER - | | | | | | LABORATORY | | + + + + + + | K | 4.1 | 3.5 - 5.1 | [facility] | | | | | mmol/L | [facility] | | | | | | MEDICAL | | | | | | CENTER - | | | | | | LABORATORY | | + + + + + + | Cl | 107 | 98 - 109 mmol/L | [facility] | | | | | | [facility] | | | | | | MEDICAL | | | | | | CENTER - | | | | | | LABORATORY | | + + + + + + | CO2 | 26 | 24 - 31 mmol/L | [facility] | | | | | | [facility] | | | | | | MEDICAL | | | | | | CENTER - | | | | | | LABORATORY | | + + + + + + | Anion Gap | 6 | 3 - 16 mmol/L | [facility] | | | | | | [facility] | | | | | | [facility] | | | | | | CENTER - | | | | | | LABORATORY | | + + + + + + | Glucose | 90 | 70 - 109 mg/dL | [facility] | | | | | | [facility] | | | | | | MEDICAL | | | | | | CENTER - | | | | | | LABORATORY | | + + + + + + | BUN | 9 | 7 - 18 mg/dL | [facility] | | | | | | [facility] | | | | | | MEDICAL | | | | | | CENTER - | | | | | | LABORATORY | | + + + + + + | Creatinine | 0.72 | 0.60 - 1.30 | [facility] | | | | | mg/dL | [facility] | | [facility] | [facility] | | | | | | CENTER - | | | | | | LABORATORY | | + + + + + + | eGFR if not | >60Comment: GLOMERULAR | >=60 | [facility] | | | | FILTRATION | mL/min/1.73m2 | [facility] | | | [place] | RATE,ESTIMATED | | MEDICAL | | | | mL/min/1.96w4Psku than | | CENTER - | | | | 60 Chronic kidney [...] + + | Calcium | 9.0 | 8.3 - 10.5 | [facility] | | | | | mg/dL | [facility] | | | | | | [facility] | | | | | | CENTER - | | | | | | LABORATORY | | + + + + + + | Albumin | 3.5 | 3.2 - 5.0 g/dL | [facility] | | | | | | [facility] | | | | | | MEDICAL | | | | | | CENTER - | | | | | | LABORATORY | | + + + + + + | Bilirubin | 0.5 | 0.1 - 1.5 mg/dL | [facility] | | | Total | | | [facility] | | | | | | MEDICAL | | | | | | CENTER - | | | | | | LABORATORY | | + + + + + + | Total | 6.4 | 6.0 - 7.8 g/dL | [facility] | | | Protein | | | [facility] | | | | | | MEDICAL | | | | | | CENTER - | | | | | | LABORATORY | | + + + + + + | AST | 13 | 10 - 42 U/L | [facility] | | | | | | [facility] | | | | | | MEDICAL | | | | | | CENTER - | | | | | | LABORATORY | | + + + + + + | ALT | 11 | 6 - 45 U/L | [facility] | | | | | | [facility] | | | | | | MEDICAL | | | | | | CENTER - | | | | | | LABORATORY | | + + + + + + | Alkaline | 54 | 40 - 110 U/L | [facility] | | | Phosphatase | | | [facility] | | | | | | MEDICAL | | | | | | CENTER - | | | | | | LABORATORY | | + + + + + + | Globulin | 2.9 | 2.1 - 3.8 g/dL | [facility] | | | | | | [facility] | | | | | | MEDICAL | | | | | | CENTER - | | | | | | LABORATORY | | + + + + + + | Albumin/Diane | 1.2 | 0.8 - 2.0 | [facility] | | | bulin Ratio | | | [facility] | | | | | | MEDICAL | | | | | | CENTER - | | | | | | LABORATORY | | + + + + + + | BUN/Creatin | 12.5 | | [facility] | | | ine Ratio | | | [facility] | | [...] + + + + + | [facility] | [address] | [place] | [phone] | | [facility] | | [address] | | | - LABORATORY | | | | + + + + + CBC no Differential (04/16/2017 5:53 PM PST) + + + + + + | Component | Value | Ref Range | Performed | Pathologist | | | | | At | Signature | + + + + + + | WBC | 11.1 (H) | 4.0 - 11.0 K/uL | [facility] | | | | | | [facility] | | | | | | MEDICAL | | | | | | CENTER - | | | | | | LABORATORY | | + + + + + + | RBC | 4.36 | 3.70 - 5.20 | [facility] | | | | | M/uL | [facility] | | | | | | MEDICAL | | | | | | CENTER - | | | | | | LABORATORY | | + + + + + + | Hemoglobin | 12.8 | 11.5 - 16.0 | [facility] | | | | | g/dL | [facility] | | | | | | MEDICAL | | | | | | CENTER - | | | | | | LABORATORY | | + + + + + + | Hematocrit | 38.2 | 34.0 - 47.0 % | [facility] [...] + + + + | MCH | 29.3 | 28.0 - 35.0 pg | [facility] | | | | | | [facility] | | | | | | MEDICAL | | | | | | CENTER - | | | | | | LABORATORY | | + + + + + + | MCHC | 33.4 | 32.0 - 36.0 | [facility] | | | | | g/dL | [facility] | | | | | | MEDICAL | | | | | | CENTER - | | | | | | LABORATORY | | + + + + + + | RDW-CV | 13.5 | <15.0 % | [facility] | | | | | | [facility] | | | | | | MEDICAL | | | | | | CENTER - | | | | | | LABORATORY | | + + + + + + | Platelet | 299 | 140 - 440 K/uL | [facility] | | | Count | | | [facility] | | | | | | MEDICAL | | | | | | CENTER - | | | | | | LABORATORY | | + + + + + + | MPV | 7.9 | fL | [facility] | | | [...] ST. | [address] | [place] | [phone] | | [facility] | | [address] | | | - LABORATORY | | | | + + + + + documented in this encounter Visit Diagnoses + + | Diagnosis | + + | Abdominal pain, unspecified abdominal location - Primary | + + documented in this encounter Administered Medications + +---------+ +--------+-------+------+ | Medication Order | MAR | Action | Dose | Rate | Site | | | Action | Date | | | | + +---------+ +--------+-------+------+ | sodium chloride 0.9% (NS) bolus | New Bag | 04/16/20 | 1,000 | 2000 | | | 1,000 mL 1,000 mL, Intravenous, | | 17 6:01 | mLs | mL/hr | | | Administer over 30 Minutes, | | PM PST | | | | | ONCE, 04/16/17 at 1705, For 1 | | | | | | | dose | | | | | | + +---------+ +--------+-------+------+ +---+---+ | | | +---+---+ documented in this encounter
--- OUTSIDE RECORDS SUMMARY | ~2019-03-21 | XMS | Encounter Summary ---
Demographics + + + | Address | [address] | | | [place] [address] | + + + | Home Phone | | + + + | Preferred Language | Unknown | + + + | Marital Status | Single | + + + | Baptist Affiliation | 1013 | + + + | Race | Unknown | + + + | Ethnic Group | Unknown | + + + Author + + + | Author | [facility] | | | and [place] | + + + | Organization | [facility] | | | and [...] Team Providers + +------+ + | Care [place] Historian Name | Role | Phone | + +------+ + | Hari Garcia MD | PCP | | + +------+ + Reason for Visit + + + | Reason | Comments | + + + | Test | positive | + + + Encounter Details +--------+ + + + + | Date | Type | Department | Care Team | Description | +--------+ + + + + | 09/21/ | Telephone | [facility] | Hari Garcia MD | Test | | 2019 | | [facility] [place] | [address] | (positive) | | | | [address] | [place] | | | | | [place] | [address] | | | | | [address] | | | | | | [phone] | | | +--------+ + + + [...] [place] | | | | | | [address] | | | | | | | | +--------+---------+ + + + | 03/30/ | Office | Otolaryngology | Hari Garcia MD | | | 2019 | Visit | | [address] | | | | | | [place] | | | | | | [address] | | | | | | | | | | | | Matthias Wiley MD | | | | | | [address] [place] | | | | | | [address] [place] | | | | | | [address] | | | | | | | | +--------+---------+ + + + documented as of this encounter Visit Diagnoses + + | Diagnosis | + + | , unspecified gestational age - Primary | + + | Supervision of with history of abortive outcome, first trimester | + + documented in this encounter"
--- OUTSIDE RECORDS SUMMARY | ~2019-03-21 | XMS | Encounter Summary ---
Demographics + + + | Address | [address] | | | [place] [address] | + + + | Home Phone | | + + + | Preferred Language | Unknown | + + + | Marital Status | Single | + + + | Episcopalian Affiliation | 1013 | + + + | Race | Unknown | + + + | Ethnic Group | Unknown | + + + Author + + + | Author | [facility] | | | and [place] | + + + | Organization | [facility] | | | and [place] [...] Providers + +------+ + | Care Chief Contract Officer Name | Role | Phone | + +------+ + | Colton Singer DO | PCP | | + +------+ + Encounter Details +--------+ + + + + | Date | Type | Department | Care Team | Description | +--------+ + + + + | 05/19/ | Anesthesia | [facility] | [facility] | | | 2018 | Event | [facility] | [facility] [address] | | | | | [address] | [address] [place] | | | | | [place] | [address] | | | | | [address] | [phone] | | | | | [phone] | | | +--------+ + + + + Anesthesia Record + + + + + | Procedure Name | Responsible | Anesthesia Start | Anesthesia Stop Time | | | Anesthesiologist | Time | | + + + + + | FARHAD (N/A Mel) | [facility]io [facility]ora, | 05/19/17 1207 | 05/19/17 4844 | | | MD | | | + + + + + +----+---+ + + | Da | T | Event | Comment | | te | i | | | | | m | | | | | e | | | +----+---+ + + | 01 | 1 | An Checkout | Pre-use anesthesia machine/equipment checkout. | | /1 | 1 | | | | 0/ | 4 | | | | 20 | 5 | | | | 18 | | | | +----+---+ + + | | 1 | an amy now | Anesthesia Ready | | | 1 | | | | | 4 | | | | | 6 | | | +----+---+ + + | | 1 | An Start | Reassessment prior to anesthesia induction/procedure. | | | 2 | | | | | 0 | | | | | 7 | | | +----+---+ + + | | 1 | an amy now | | | | 2 | | | | | 1 | | | | | 0 | | | +----+---+ + + | | 1 | AN | Per surgeon request | | | 2 | Antibiotic | | | | 1 | declined | | | | 1 | | | +----+---+ + + | | 1 | First | | | | 2 | Inc/Proc St | | | | 1 | | | | | 4 | | | +----+---+ + + | | 1 | an amy now | EGD | | | 2 | | | | | 1 | | | | | 8 | | | +----+---+ + + | | 1 | Quick Note | Requiring larger doses of propofol than expected. Periodic limb | | | 2 | | movement unrelated to events of procedure. | | | 1 | | | | | 9 | | | +----+---+ + + | | 1 | an amy now | Colon | | | 2 | | | | | 3 | | | | | 0 | | | +----+---+ + + | | 1 | | | | | 2 | | | | | 3 | | | | | 6 | | | +----+---+ + + | | 1 | an amy now | | | | 2 | | | | | 5 | | | | | 0 | | | +----+---+ + + | | 1 | an stop | | | | 2 | data | | | | 5 | | | | | 0 | | | +----+---+ + + | | 1 | An Stop | Patient handed off to recovery nurse. | | | 5 | | | | | 4 | | | +----+---+ + + +------+ | Meds | +------+ + + + | Name | Total | + + + | propofol | 425 mg | + + + | propofol (DIPRIVAN) injection | 366.1 mg | | (bolus) (20 mL) | | + + + | midazolam | 2 mg | + + + | glycopyrrolate (ROBINUL) | 0.2 mg | | injection (5 mL vial) | | + + + | lactated ringers (LR) infusion | 700 mL | + + + | lactated ringers (LR) infusion | 0 mL | + + + + + | Name | + + | O2 Flow Rate (L/Min) | + + + + | No blood administrations on file. | + + +--------+ + + + | Type | Details | Placement | Removal | +--------+ + + + | Periph | 04/16/17; 1755; Left; | 04/16/17 1755 by | 05/19/17 1216 by | | eral | Antecubital; [id number] | Yu Law, | Alaina [place], | | IV | catheter system; 1 1/2 in length; | RN | RN | | | Hematology, Chemistry, | | | | | Coagulation; distraction; | | | | | 05/19/17; 1216 | | | +--------+ + + + | Periph | 05/19/17; 1210; Right; Forearm; | 05/19/17 1210 by | 05/19/17 1355 by | | eral | [id number] catheter system; | Alaina [place], | Paige E | | IV | 20 gauge, 1 1/4 in length; | RN | Shiraz, RN | | | distraction, intradermal | | | | | injection; no longer indicated, | | | | | removed per policy/procedure, | | | | | catheter/device intact; healing | | | | | within expectations; 05/19/17; | | | | | 1355 | | | +--------+ + + + documented in this encounter Social History + + + +--------+ + [...] | | 2018 | Visit | | [facility] [address] | | | | | | [place] | | | | | | [phone] | | | | | | | | +--------+---------+ + + + | 03/30/ | Office | Otolaryngology | Hari Garcia MD | | | 2019 | Visit | | [address] | | | | | | [place] | | | | | | [address] | | | | | | | | | | | | Matthias Wiley MD | | | | | | [address] [facility] | | | | | | [address] [place] | | | | | | [address] | | | | | | | | +--------+---------+ + + + documented as of this encounter Visit Diagnoses Not on filedocumented in this encounter Administered Medications + +--------+ +--------+------+------+ | Medication Order | MAR | Action | Dose | Rate | Site | | | Action | Date | | | | + +--------+ +--------+------+------+ | glycopyrrolate (ANDREW) | Given | 05/19/19 | 0.2 mg | | | | injection Intravenous, PRN, | | 18 12:18 | | | | | Secretions, Starting 05/19/17 | | PM PST | | | | | at 1218, Anesthesia Intra-op | | | | | | + +--------+ +--------+------+------+ +---+---+ | | | +---+---+ + +---------+ +---+---+---+ | lactated ringers (LR) infusion | New Bag | 05/19/19 | | | | | at 100 mL/hr, Intravenous, | | 18 11:30 | | | | | CONTINUOUS, Starting 05/19/17 | | AM PST | | | | | at 1230, Pre-op | | | | | | + +---------+ +---+---+---+ +---+---+ | | | +---+---+ + +-------+ +------+---+---+ | midazolam (VERSED) 1 mg/mL | Given | 05/19/19 | 2 mg | | | | injection Intravenous, PRN, | | 18 12:11 | | | | | Anxiety, Starting 05/19/17 at | | PM PST | | | | | 1211, Anesthesia Intra-op | | | | | | + +-------+ +------+---+---+ +---+---+ | | | +---+---+ + +-------+ +-------+---+---+ | propofol (DIPRIVAN) injection | Given | 05/19/19 | 25 mg | | | | Intravenous, PRN, Starting Wed | | 18 12:39 | | | | | 05/19/17 at 1211, Anesthesia | | PM PST | | | | | Intra-op | | | | | | + +-------+ +-------+---+---+ +-------+ +-------+---+---+ | Given | 05/19/19 | 25 mg | | | | | 18 12:34 | | | | | | PM PST | | | | +-------+ +-------+---+---+ | Given | 05/19/19 | 25 mg | | | | | 18 12:29 | | | | | | PM PST | | | | +-------+ +-------+---+---+ +---+---+ | | | +---+---+ + + + + +-------+---+ | propofol (DIPRIVAN) injection | Rate/Dos | 05/19/19 | 150 | 90.3 | | | Intravenous, CONTINUOUS PRN, | e Change | 18 12:32 | mcg/kg/m | mL/hr | | | Starting 05/19/17 at 1218, | | PM PST | in | | | | Anesthesia Intra-op | | | | | | + + + + +-------+---+ + + + +-------+---+ | Rate/Dose Change | 05/19/19 | 125 | 75.2 | | | | 18 12:28 | mcg/kg/m | mL/hr | | | | PM PST | in | | | + + + +-------+---+ | New Bag | 05/19/19 | 150 | 90.3 | | | | 18 12:18 | mcg/kg/m | mL/hr | | | | PM PST | in | | | + + + +-------+---+ +---+---+ | | | +---+---+ documented in this encounter"
--- OUTSIDE RECORDS SUMMARY | ~2019-03-21 | XMS | Encounter Summary ---
Demographics + + + | Address | [address] | | | [place] [address] | + + + | Home Phone | | + + + | Preferred Language | Unknown | + + + | Marital Status | Single | + + + | Yarsanism Affiliation | 1013 | + + + | Race | Unknown | + + + | Ethnic Group | Unknown | + + + Author + + + | Author | [facility] | | | and Attilaana | + + + | Organization | 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 Date Last Reviewed: 10/08/201619993709-3434 [employer]. [address] [place] [address]. All righ ts reserved. This information is [...] Vomiting Codeine Hives and Nausea And Vomiting [place] Hives Past Surgical History: Procedure Laterality Date SECTION COLONOSCOPY N/A 05/19/2017 Procedure: COLONOSCOPY; Surgeon: Horace Carlos MD; Location: [facility] MEDICAL PROCEDURE UNIT TONSILLECTOMY UPPER GASTROINTESTINAL ENDOSCOPY N/A 05/19/2017 Procedure: EGD; Surgeon: Horace Carlos MD; Location: [facility] MEDICAL PROCEDURE UNIT Social History Social History [...] were helpful when she went to the [facility] this month we will do [...] above issue(s). This note was dictated using [employer] voice recognition software. It may contain some grammat ical errors. documented in this encounter Plan of Treatment +--------+---------+ + + + | Date | Type | Specialty | Care Team | Description | +--------+---------+ + + + | 03/27/ | Office | Family Medicine | Sonia Lozoya, | | | 2018 | Visit | | PAINTER RAILROAD CAR [address] | | | | | | [place] | | | | | | [id number] | | | | | | | | +--------+---------+ + + + | 03/30/ | Office | Otolaryngology | Hari Garcia MD | | | 2019 | Visit | | [address] | | | | | | [place] | | | | | | [address] | | | | | | | | | | | | Matthias Wiley MD | | | | | | [address] [place] | | | | | | [address] [place] | | | | | | [address] | | | | | | | [...] [address] | Jenae Emanuel MD | [phone] | | [facility] | | [address] | | | - LABORATORY | | [...] | 1.010, 1.015, | | | | [place], | | 1.020, 1.025 | | | [...]
--- OUTSIDE RECORDS SUMMARY | ~2019-03-21 | XMS | Encounter Summary ---
Demographics + + + | Address | [address] | | | [place] [address] | + + + | Home Phone | | + + + | Preferred Language | Unknown | + + + | Marital Status | Single | + + + | Quaker Affiliation | 1013 | + + + | Race | Unknown | + + + | Ethnic Group | Unknown | + + + Author + + + | Author | [facility] | | | and Attilaana | + + + | Organization | [facility] [...] Team Providers + +------+ + | Care Automobile Body Repair Chief Name | Role | Phone | + [...] pain, | Chi Odonnell, | [address], | | | | | unspecified | [address] | [address] | | | | | abdominal | [address] | [place], | | | | | location | [place], | [place] [address] | | | | | | [place] [address] | Phone: | | | | | | Phone: | [phone] | | | | | | [phone] | Fax: | | | | | | Fax: | [phone] | | | | | | [phone] | | +--------+ + + + + + Encounter Details +--------+---------+ + + + | Date | Type | Department | Care Team | Description | +--------+---------+ + + + | 02/09/ | Office | [facility] | Promise Cerna | Esophagitis (Primary | | 2018 | Visit | GASTROENTEROLOGY | Chi Odonnell MD | Dx); Morbid obesity | | | | [address] [place] | [address] | with BMI of | | | | [address] [place], [place] | [place], [place] | 40.0-44.9, adult | | | | [address] | [address] | ([facility]); Nausea and | | | | [phone] | | vomiting, | | | | | Horace Carlos MD | intractability of | | | | | [address] | vomiting not | | | | | [place], [place] | specified, | | | | | [address] | unspecified vomiting | | | | | [phone] | type; Abdominal | | | | [...] qAM #90 with 3 refills ordered at [facility] in [place]; advised Samantha baxter after meals and at bedtime; HCG urine ordered per Dr. Carlos request d/t persistent n/v. documented in this enc ounter Plan of Treatment +--------+---------+ + + + | Date | Type | Specialty | Care Team | Description | +--------+---------+ + + + | 03/27/ | Office | Family Medicine | Sonia Lozoya, | | | 2018 | Visit | | CRAWLER CRANE OPERATOR [address] | | | | | | [place] | | | | | | [id number] | | | | | | | | +--------+---------+ + + + | 03/30/ | Office | Otolaryngology | Hari Garcia MD | | | 2018 | Visit | | [address] | | | | | | [place] | | | | | | [id number] | | | | | | | | | | | | Matthias Wiley MD | | | | | | [address] [place] | | | | | | [address] [place] | | | | | | [id number] | | | | | | | | +--------+---------+ + + + documented as of this encounter Results , Urine, Qual (02/09/2018 5:02 PM PDT) + + + + + + | Component | Value | Ref Range | Performed | Pathologist | | | | | At | Signature | + + + + + + | HCG SCREEN, | Negative | Negative | [facility] | | | URINE | | | [facility] | | [...] ST. | [address] | [place], [place] | [phone] | | [facility] | | [address] | | | - LABORATORY | | [...]
--- OUTSIDE RECORDS SUMMARY | ~2019-03-21 | XMS | Encounter Summary ---
Demographics + + + | Address | [address] | | | [place] [address] | + + + | Home Phone [...] Author | [facility] | | | and Attilaana | + + + | Organization | [facility] | | | and [...] Team Providers + +------+ + | Care Wearing Apparel Presser Name | Role | Phone | + [...] | | Gastroenterol | Diagnoses | | Harri, | | | | ogy | Abdominal | | Alfredo Anand MD | | | | | pain | | [address], | | | | | Procedures | | [address] | | | | | Office Visit | | [place], | | | | | | | [place] [address] | | | | | | | Phone: | | | | | | | [phone] | | | | | | | Fax: | | | | | | | [phone] | +--------+--------+ + + + + Encounter Details +--------+---------+ + + + | Date | Type | Department | Care Team | Description | +--------+---------+ + + + | 04/26/ | Office | [facility] [place] | Horace Carlos MD | Abdominal pain, | | 2017 | Visit | GASTROENTEROLOGY | [address] | unspecified | | | | [address] [place] | [place] | abdominal location | | | | [address] [place] | [address] | (Primary Dx); | | | | [address] | [phone] | Nausea; Change in | | | | [phone] | | bowel habits; | | | [...] Wednesday with results, recall placed; 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 documented in this encounter Plan of Treatment +--------+---------+ + + + | Date | Type | Specialty | Care Team | Description | +--------+---------+ + + + | 03/27/ | Office | Family Medicine | Sonia Lozoya, | | | 2018 | Visit | | CIVIL ENGINEERING TECHNICIAN [address] | | | | | | [place] | | | | | | [address] | | | | | | | | +--------+---------+ + + + | 03/30/ | Office | Otolaryngology | Hari Garcia MD | | | 2018 | Visit | | [address] | | | | | | [place] | | | | | | [address] | | | | | | | | | | | | Matthias Wiley MD | | | | | | [address] [place] | | | | | | [address] [place] | | | | | | [address] | | | | | | | | +--------+---------+ + + + documented as of this encounter Results Urinalysis with Microscopic with Culture if Indicated (04/26/2017 10:14 AM PST) + + + + + + | Component | Value | Ref Range | Performed | Pathologist | | | | | At | Signature | + + + + + + | Color | Yellow | Light Yellow, | [facility] | | | | | Yellow, Straw | [facility] | | | | | | MEDICAL | | | | | | CENTER - | | | | | | LABORATORY | | + + + + + + | Clarity | Clear | Clear | [facility] | | | | | [...] - 1.030 | [facility] | | | [place] | | | [facility] | | [...] + + + + + | WBC UA | 2-5 (A) | 0 - 2 /HPF | [facility] | | | | | | [facility] | | | | | | MEDICAL | | | | | | CENTER - | | | | | | LABORATORY | | + + + + + + | RBC UA | 2-5 (A) | 0 - 2 /HPF | [facility] | | | | | | [facility] | | | | | | MEDICAL | | | | | | CENTER - | | | | | | LABORATORY | | + + + + + + | SQUAMOUS | 50-100 (A) | 0 - 2 /LPF | [facility] | | | EPITHELIAL | | | [facility] | | | UA | | | MEDICAL | | | | | | CENTER - | | | | | | LABORATORY | | + + + + + + | BACTERIA UA | Negative | Negative /HPF | [facility] | | | | | | [facility] | | | | | | MEDICAL | | | | | | CENTER - | | | | | | LABORATORY | | + + + + + + | MUCUS UA | Present (A) | Negative /LPF | [facility] | | | | | [...] ST. | [address] | [place] | [phone] | | [facility] | | [address] | | | - LABORATORY | | [...]
--- OUTSIDE RECORDS SUMMARY | ~2019-03-21 | XMS | Encounter Summary ---
Demographics + + + | Address | [address] | | | [place] [address] | + + + | Home Phone | | + + + | Preferred Language | Unknown | + + + | Marital Status | Single | + + + | Sabianist Affiliation | 1013 | + + + | Race | Unknown | + + + | Ethnic Group | Unknown | + + + Author + + + | Author | [facility] | | | and Attilaana | + + + | Organization | [facility] | | | and [...] Team Providers + +------+ + | Care Sock Turner Name | Role | Phone | + +------+ + | Hari Garcia MD | PCP | | + +------+ + Reason for Referral Evaluate & Treat (Routine) + + + + + + + | Status | Reason | Specialty | Diagnoses / | Referred By | Referred To | | | | | Procedures | Contact | Contact | + + + + + + + | Authorized | Specialty | Otolaryngolog | Diagnoses | Jose | [place] | | | Services | y | Thyroid | MD Hari | Otolaryngolog | | | Required | | nodule | [address] | y [address] | | | | [address] [place] [address] [place] | | | | | | [place], [place] | [address] [place] | | | | | | [address] | [place], [place] | | | | | | Phone: | [phone] | | | | | | [phone] | Phone: | | | | | | Fax: | [phone] | | | | | | [phone] | Fax: | | | | | | | [phone] | + + + + + + + Reason for Visit + + + | Reason | Comments | + + + | Referral Question | MRI | + + + | Medication Reaction | Topamax | + + + Encounter Details +--------+---------+ + + + | Date | Type | Department | Care Team | Description | +--------+---------+ + + + | 02/24/ | Office | [facility] | Hari Garcia MD | Thyroid nodule | | 2019 | Visit | [facility] [place] | [address] | (Primary Dx); | | | | [address] | [place], [place] | Migraine with aura | | | | [place], [place] | [address] | and without status | | | | [address] | | migrainosus, not | | | | [phone] | | intractable; Chronic | | | | | | tension-type | | | | | | headache, not | | | | | | intractable; PCOS | | | | | | (polycystic ovarian | | | | | | syndrome); Secondary | | | | | | amenorrhea | +--------+---------+ + + + Social History [...] + + + documented in this encounter Plan of Treatment +--------+---------+ + + + | Date | Type | Specialty | Care Team | Description | +--------+---------+ + + + | 03/27/ | Office | Family Medicine | Sonia Lozoya, | | | 2018 | Visit | | TIN ASSORTER [address] | | | | | | [place] | | | | | | [id number] | | | | | | | | +--------+---------+ + + + | 03/30/ | Office | Otolaryngology | Hari Garcia MD | | | 2018 | Visit | | [address] | | | | | | [place] | | | | | | [phone] | | | | | | | | | | | | Matthias Wiley MD | | | | | | [address] [place] | | | | | | [address] [place] | | | | | | [phone] | | | | | | | | +--------+---------+ + + + + + +--------+ + + | Name | Type | Priori | Associated Diagnoses | Order Schedule | | | | ty | | | + + +--------+ + + | * [facility] [place] | Outpatient | Routin | Thyroid nodule | Ordered: 02/24/2019 | | Otolaryngology - [facility]B | Referral | e | | | | Referral | | | | | + + +--------+ + + documented as of this encounter Visit Diagnoses + + | Diagnosis | + + | Thyroid nodule - Primary Nontoxic uninodular goiter | + + | Migraine with aura and without status migrainosus, not intractable Migraine with | | aura, without mention of intractable migraine without mention of status migrainosus | + + | Chronic tension-type headache, not intractable Chronic tension type headache | + + | PCOS (polycystic ovarian syndrome) Polycystic ovaries | + + | Secondary amenorrhea Absence of menstruation | + + documented in this encounter"
--- OUTSIDE RECORDS SUMMARY | ~2019-03-21 | XMS | Encounter Summary ---
Demographics + + + | Address | [address] | | | [place] [address] | + + + | Home Phone | | + + + | Preferred Language | Unknown | + + + | Marital Status | Single | + + + | Alevism Affiliation | 1013 | + + + | Race | Unknown | + + + | Ethnic Group | Unknown | + + + Author + + + | Author | [facility] | | | and Attilaana | + + + | Organization | [facility] | | | and [...] Team Providers + +------+ + | Care Metals Analyst Name | Role | Phone | [...] [place] | | | | | | [address] | [place], [place] | | | | | | Phone: | [phone] | | | | | | [phone] | Phone: | | | | | | Fax: | [phone] | | | | | | [phone] | Fax: | | | | | | | [phone] | + + + + + + [...] + + | 02/24/ | Office | [facility] | Hari Garcia MD | Thyroid nodule | | 2019 | Visit | [facility] [place] | [address] | (Primary Dx); | | | | [address] | [place], [place] | Migraine with aura | | | | [place], [place] | [address] | and without status | | | | [address] | | migrainosus, not | | | | [phone] | | intractable; Chronic | | | [...] | | 2018 | Visit | | [facility] [address] | | | | | | [place] | | | | | | [phone] | | | | | | | | +--------+---------+ + + + | 03/30/ | Office | Otolaryngology | Hari Garcia MD | | | 2018 | Visit | | [address] | | | | | | [place] | | | | | | [id number] | | | | | | | | | | | | Matthias Wiley MD | | | | | | [address] [place] | | | | | | [address] [place] | | | | | | [phone] | | | | | | | [...]
--- OUTSIDE RECORDS SUMMARY | ~2019-03-21 | XMS | Encounter Summary ---
Demographics + + + | Address | [address] | | | [place] [address] | + + + | Home Phone | | + + + | Preferred Language | Unknown | + + + | Marital Status | Single | + + + | Congregation Affiliation | 1013 | + + + | Race | Unknown | + + + | Ethnic Group | Unknown | + + + Author + + + | Author | [facility] | | | and Attilaana | + + + | Organization | [facility] | | | and [...] Team Providers + +------+ + | Care Industrial Roofer Helper Name | Role | Phone | [...] + | 06/16/ | Telephone | [facility] [place] [facility] | Hari Garcia MD | Results | | 2019 | | [facility] [place] | [address] | | | | | [address] | [place] | | | | | [place] | [address] | | | | | [address] | | | | | | [phone] | | | +--------+ + + + [...] | 2019 | Visit | | [address] | | | | | | [place] | | | | | | [address] | | | | | | | [...]
--- OUTSIDE RECORDS SUMMARY | ~2019-03-21 | XMS | Encounter Summary ---
Demographics + + + | Address | [address] | | | [place] [address] | + + + | Home Phone [...] Author + + + | Author | [facility] | | | and Attilaana | + + + | Organization | [facility] | | | [...] Team Providers + +------+ + | Care Braid Folder Name | Role | Phone | + +------+ + | Hari Garcia MD | PCP | | + +------+ + Encounter Details +--------+ + + + + | Date | Type | Department | Care Team | Description | +--------+ + + + + | 02/16/ | Anesthesia | [facility] | Mark Glynn | | | 2018 | Event | [facility] | MD Niki [address] | | | | | [address] | [address] [place] | | | | | [place] | [address] | | | | | [address] | | | | | | [phone] | | | +--------+ + + + + Anesthesia Record + + + + + | Procedure Name | Responsible | Anesthesia Start | Anesthesia Stop Time | | | Anesthesiologist | Time | | + + + + + | FARHAD (N/A Mel) | Mark Glynn, | 02/16/18 2907 | 02/16/18 5489 | | | MD | | | + + + + + +----+---+ + + | Da | T | Event | Comment | | te | i | | | | | m | | | | | e | | | +----+---+ + + | 10 | 1 | | | | /1 | 4 | | | | 0/ | 5 | | | | 20 | 8 | | | | 18 | | | | +----+---+ + + | | 1 | An Checkout | Pre-use anesthesia machine/equipment checkout. | | | 5 | | | | | 2 | | | | | 7 | | | +----+---+ + + | | 1 | An Start | Reassessment prior to anesthesia induction/procedure. | | | 5 | | | | | 2 | | | | | 8 | | | +----+---+ + + | | 1 | AN | Per surgeon request | | | 5 | Antibiotic | | | | 3 | declined | | | | 0 | | | +----+---+ + + | | 1 | Pre-Procedu | | | | 5 | ral Timeout | | | | 3 | Completed | | | | 0 | | | +----+---+ + + | | 1 | An | | | | 5 | Induction | | | | 3 | | | | | 1 | | | +----+---+ + + | | 1 | Breathing | | | | 5 | Spontaneous | | | | 3 | ly | | | | 2 | | | +----+---+ + + | | 1 | First | | | | 5 | Inc/Proc St | | | | 3 | | | | | 3 | | | +----+---+ + + | | 1 | An Stop | Patient handed off to recovery nurse. | | | 5 | | | | | 3 | | | +----+---+ + + +------+ | Meds | +------+ + + + | Name | Total | + + + | lidocaine 2% | 60 mg | + + + | propofol | 400 mg | + + + | propofol | 279.74 mg | + + + | lactated ringers (LR) infusion | 550 mL | + + + + + | Name | + + | O2 Flow Rate (L/Min) | + + + + | No blood administrations on file. | + + +--------+ + + + | Type | Details | Placement | Removal | +--------+ + + + | Periph | 02/16/18; 1447; Left; | 02/16/18 1447 by | 02/16/18 1627 by | | eral | Antecubital; [id number] | Adamaris Pavon RN | Adamaris Pavon RN | | IV | catheter system; 20 gauge; | | | | | distraction, tolerated well, | | | | | appears comfortable; no longer | | | | | indicated, removed per | | | | | policy/procedure, catheter/device | | | | | intact; short term use; | | | | | 02/16/18; 1627 | | | +--------+ + + + [...] [place] | | | | | | [id number] | | | | | | | | +--------+---------+ + + + | 03/30/ | Office | Otolaryngology | Hari Garcia MD | | | 2019 | Visit | | [address] | | | | | | [place] | | | | | | [address] | | | | | | | | | | | | Matthias Wiley MD | | | | | | [address] [place] | | | | | | [address] [place] | | | | | | [address] | | | | | | | | +--------+---------+ + + + documented as of this encounter Visit Diagnoses Not on filedocumented in this encounter Administered Medications + +---------+ +------+------+------+ | Medication Order | MAR | Action | Dose | Rate | Site | | | Action | Date | | | | + +---------+ +------+------+------+ | lactated ringers (LR) infusion | New Bag | 02/17/20 | | | | | at 100 mL/hr, Intravenous, | | 18 2:43 | | | | | CONTINUOUS, Starting 02/16/18 | | PM PDT | | | | | at 1445, Pre-op | | | | | | + +---------+ +------+------+------+ +---+---+ | | | +---+---+ + +-------+ +-------+---+---+ | lidocaine (PF) 2% injection | Given | 20 | 60 mg | | | | Intravenous, PRN, Starting Wed | | 18 3:33 | | | | | 02/16/18 at 1533, Anesthesia | | PM PDT | | | | | Intra-op | | | | | | + +-------+ +-------+---+---+ +---+---+ | | | +---+---+ + +-------+ +--------+---+---+ | propofol (DIPRIVAN) injection | Given | 02/16/20 | 100 mg | | | | Intravenous, PRN, Starting Wed | | 18 3:34 | | | | | 02/16/18 at 1530, Anesthesia | | PM PDT | | | | | Intra-op | | | | | | + +-------+ +--------+---+---+ +-------+ +--------+---+---+ | Given | 02/17/20 | 200 mg | | | | | 18 3:32 | | | | | | PM PDT | | | | +-------+ +--------+---+---+ | Given | 02/17/20 | 100 mg | | | | | 18 3:30 | | | | | | PM PDT | | | | +-------+ +--------+---+---+ +---+---+ | | | +---+---+ + +---------+ + +-------+---+ | propofol (DIPRIVAN) injection | New Bag | 02/17/20 | 150 | 98.7 | | | Intravenous, CONTINUOUS PRN, | | 18 3:36 | mcg/kg/m | mL/hr | | | Starting 02/16/18 at 1536, | | PM PDT | in | | | | Anesthesia Intra-op | | | | | | + +---------+ + +-------+---+ +---+---+ | | | +---+---+ documented in this encounter"
--- OUTSIDE RECORDS SUMMARY | ~2019-03-21 | XMS | Encounter Summary ---
Demographics + + + | Address | [address] | | | [place] [address] | + + + | Home Phone | | + + + | Preferred Language | Unknown | + + + | Marital Status | Single | + + + | Moravian Affiliation | 1013 | + + + | Race | Unknown | + + + | Ethnic Group | Unknown | + + + Author + + + | Author | [facility] | | | and Attilaana | + + + | Organization | [facility] | | [...] Team Providers + +------+ + | Care Emergency Medical Technician/Driver Name | Role | Phone | + [...] Description | +--------+--------+ + + + | 02/27/ | Refill | [facility] [place] [facility] | Hari Garcia MD | Medication Refill | | 2019 | | [facility] [place] | [address] | | | | | [address] | [place] | | | | | [place] | [address] | | | | | [address] | | | | | | [phone] | | | +--------+--------+ + + + [...] [place] | | | | | | [address] | | | | | | | | +--------+---------+ + + + | 03/30/ | Office | Otolaryngology | Hari Garcia MD | | | 2019 | Visit | | [address] | | | | | | [place] | | | | | | [address] | | | | | | | [...]
--- OUTSIDE RECORDS SUMMARY | ~2019-03-21 | XMS | Encounter Summary ---
Demographics + + + | Address | [address] | | | [place] [address] | + + + | Home Phone [...] + + + | Author | [facility] | | | and Attilaana | + + + | Organization | [facility] | | | [...] Team Providers + +------+ + | Care Junior Paralegal Name | Role | Phone | + [...] | 02/20/ | Refill | [facility] [place] [facility] | Hari Garcia MD | Medication Refill | | 2019 | | [facility] [place] | [address] | | | | | [address] | [place] | | | | | [place] | [address] | | | | | [address] | | | | | | [phone] | | | +--------+--------+ + + + [...] [place] | | | | | | [address] | | | | | | | | +--------+---------+ + + + | 03/30/ | Office | Otolaryngology | Hari Garcia MD | | | 2019 | Visit | | [address] | | | | | | [place] | | | | | | [address] | | | | | | | [...]
--- OUTSIDE RECORDS SUMMARY | ~2019-03-21 | XMS | Encounter Summary ---
Demographics + + + | Address | [address] | | | [place] [address] | + + + | Home Phone | | + + + | Preferred Language | Unknown | + + + | Marital Status | Single | + + + | Roman Catholic Affiliation | 1013 | + + + | Race | Unknown | + + + | Ethnic Group | Unknown | + + + Author + + + | Author | [facility] | | | and Attilaana | + + + | Organization | [facility] | | | and [...] Team Providers + +------+ + | Care Milk Route Deliverer Name | Role | Phone | + +------+ + | Hari Garcia MD | PCP | | + +------+ + Reason for Visit + + + | Reason | Comments | + + + | Migraine | Blurry vision, | + + + Encounter Details +--------+---------+ + + + | Date | Type | Department | Care Team | Description | +--------+---------+ + + + | 01/10/ | Office | [facility] | Hari Garcia MD | Psoriasis (Primary | | 2019 | Visit | [facility] | [address] | Dx); Migraine | | | | [address] | [place] | without aura and | | | | [place] | [address] | without status | | | | [address] | | migrainosus, not | | | | [phone] | | intractable; Stress; | | | [...] | | | | | (HCC) | +--------+---------+ + + + Social History [...] + | Pulse | 74 | 01/10/2019 4:37 PM | | | | | PDT | | + + + + + | Temperature | 36.3 C (97.3 F) | 01/10/2019 4:37 PM | | | | | PDT | | + + + + + | Respiratory Rate | 16 | 01/10/2019 4:37 PM | | | | | PDT | | + + + + + | Oxygen Saturation | 98% | 01/10/2019 4:37 PM | | | | | PDT | | + + + + + | Inhaled Oxygen | - | - | | | Concentration | | | | + + + + + | Weight | 110 kg (242 lb 8.1 | 01/10/2019 4:37 PM | | | | oz) | PDT | | + + + + + | Height | 162.6 cm (5' 4") | 01/10/2019 4:37 PM | | | | | PDT | | + + + + + | Body Mass Index | 41.63 | 01/10/2019 4:37 PM | | | | | PDT | | + + + + + documented in this encounter Patient Instructions Patient Instructions Hari Garcia MD - 01/10/2019 4:00 PM PDTFormatting of this note mi ght be different from the original. Managing Psoriasis Take baths in warm water to help soften scales. The success of your medical treatment depends on you. When your healthcare provider gives y ou a treatment plan, ask when you should expect to see results. Then, follow your plan. If y our treatment does not work in the expected time, let your healthcare provider know. Psorias is margot common disease, and it canrespond to many differenttreatments. It depends on th e location, size, and symptomseach person experiences.Some treatments are simple (tar-ba sed therapies or topical steroids). Other treatments are complex (new biologic medicines or light therapy). Your healthcare provider will need to personalize your treatment. Psoriasis will often get better with treatment. But it can get worse later if you stop treatment or if a new illness occurs. In most cases, you can get control of your psoriasis again. You will likely need to see yourhealthcare provider regularly about treatment options. Psoriasis self-care Follow these steps to help manage your symptoms: Take baths to help soften scales. Use warm water, not hot water. To avoid drying out you r skin, limit each bath to about 15 minutes. Add bath oil or Sea salts. After you bathe, apply lotion right away, while your skin is damp. Dry skin can make sym ptoms worse. Use ascalp treatment as prescribed by your healthcare provider. There are different so lutions and dosages based on your symptoms. Seek treatment right away for any illnesses or skin injuries because they can cause flar e-ups. Manage your stress, and use relaxation techniques. Expose your psoriatic skin to sunlight for 5 minutes a day. But don t do this if you f eel that sun exposure makes your psoriasis worse.Use sunscreen on the normal, unaffected s kin, but avoid sunburns. Use okjq-erx-kpvmsyi hydrocortisone cream for itching to reduce scaling for active outbr eaks.Ask your healthcare provider about long-term use. Stick with treatment that your healthcare provider has recommended for you, especially i f it's controlling your psoriasis. Avoid abrasive cleansers, harsh detergents, and household chemicals. Getting good results Now that you know more about psoriasis, the next step is up to you. Follow your healthcare provider's treatment plan and self-care routine. Doing so can help you control your symptoms . If your symptoms don t improve or they get worse, call your healthcare provider. Psorias is can t be cured. But its symptoms can be managed. Date Last Reviewed: 06/10/201619994322-1109 [employer] [place] [address], [place] [address]. All righ ts reserved. This information is not intended as a substitute for professional medical care. Always follow your healthcare professional's instructions. documented in this encounter Progress Notes Hari Garcia MD - 01/10/2019 4:00 PM PDT Chief Complaint: Migraine (Blurry vision, ) History: Rashmi Holcomb is a 28 y.o. female who presents with flareup of known plaque psoriasis. Prince chaney has symptoms over the bilateral shins, forearms and elbows and between the mammary fol ds. Patient has significant pruritus associated with these plaques not been applying anythi ng to them over the last month. 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 Patient has weight gain upwards of 10 pounds over the last month. Patient has not had a period in over 4 months. Continues to want to be pregnan t. Reports that when she has her migraine she has some blurred vision associated balance pr oblem. No specific aura noted. She has significant fatigue when headaches have occurred an d they have been ongoing for upwards of 10 to 12 hours at a time. Patient has had more than 10 headaches in the last month. Patient with known prediabetes with interrupted A1c. Patient on thyroid nodule without any change in her thyroid related symptoms with needed 6-month ultrasound surveillance. Patient Active Problem List Diagnosis Abdominal pain, unspecified abdominal location Nausea Anxiety Morbid obesity with BMI of 40.0-44.9, adult PCOS (polycystic ovarian syndrome) H/O section H/O Anesthesia Modification - Required Higher Dose Nausea with vomiting Esophagitis determined by biopsy Prediabetes Outpatient Medications Prior to Visit Medication Sig Dispense Refill albuterol 90 mcg/puff inhaler Inhale 2 puffs into the lungs every 6 hours as needed for Wheezing. 1 Inhaler 0 citalopram (CELEXA) 20 mg tablet Take 1 tablet by mouth Daily. 30 tablet 5 metFORMIN (GLUCOPHAGE-XR) 500 mg 24 hr tablet TAKE 1 TABLET BY MOUTH ONCE DAILY 90 tabl et 1 vitamin w/ferrous fumarate-folic acid ( PLUS) 27-1 mg tablet Take 1 ta blet by mouth Daily. No facility-administered medications prior to visit. Review of Systems Constitutional: Positive for appetite change, fatigue and unexpected weight change. Negativ e for diaphoresis and fever. HENT: Negative for hearing loss. Eyes: Positive for pain and visual disturbance. Respiratory: Negative for cough and shortness of breath. Cardiovascular: Negative for chest pain and palpitations. Gastrointestinal: Positive for nausea and vomiting. Negative for blood in stool, constipati on and diarrhea. Endocrine: Negative for cold intolerance and heat intolerance. Genitourinary: Positive for menstrual problem. Negative for enuresis, frequency and genital sores. Musculoskeletal: Negative for arthralgias and joint swelling. Skin: Negative for wound. Neurological: Positive for headaches. Psychiatric/Behavioral: Negative for dysphoric mood. The patient is nervous/anxious. Results for orders placed or performed in visit on 12/09/18 External Lab: PAP Smear Result Value Ref Range Pap Smear, External No evidence of intraepithelial lesion or malignancy Health Maintenance Topics with due status: Overdue Topic Date Due Vaccine: Pneumococcal 19-64 (PPSV23 only) Medium Risk 2008 Adult Annual Wellness Visit 04/11/2017 Vaccine: Influenza 01/08/2019 Physical Examination: Pulse 74 | Temp 36.3 C (97.3 F) (Temporal) | Resp 16 | Ht 1.626 m (5' 4") | Wt 110 kg (242 lb 8.1 oz) | SpO2 98% | BMI 41.63 kg/m Physical Exam Constitutional: She is oriented [...] time. Skin: Skin is warm and dry. Rash (Bilateral mancini, elbows and forearms, between the breasts with scaling, raised plaque lesions with surrounding erythema consistent with psoriasis. Ap proximately 10 to 12% body surface area) noted. Psychiatric: She has a normal mood and affect. Vitals reviewed. Negative urine 01/10/2019 Assessment/Plan: 1. Psoriasis - triamcinolone (KENALOG) 0.1% ointment; Apply thin film to affected area(s) two to four ti mes daily as needed: avoid face and groin areas Dispense: 80 g; Refill: 0 Trial of twice daily Kenalog ointment with patient to check in in 1 to 2 weeks regarding pr ogress and need for escalation of potency. Will consider oral therapy if completely ineffec tive after titration. Answered patient's questions on Humira and indications for Biologics. 2. Migraine without aura and without status migrainosus, not intractable Trial of Topamax for prevention of migraine headaches as well as stress management and Tyle nol plus NSAIDs for as needed use. 3. Stress See above 4. PCOS (polycystic ovarian syndrome) - Comprehensive Metabolic Panel; Future Labs updated for PCOS with A1c and CMP. Patient again declined OCPs for management of the PCOS due to her desire to have a baby. Provided education but patient would like to continu e with this patient centered plan. 5. Anxiety 6. Balance problem 7. Prediabetes - Comprehensive Metabolic Panel; Future - Hemoglobin A1C; Future 8. Fatigue, unspecified type - Comprehensive Metabolic Panel; Future - CBC no Differential; Future 9. Thyroid nodule Thyroid ultrasound ordered. Educated patient on how to obtain. 10. Morbid obesity with BMI of 40.0-44.9, adult ([facility]) Follow-up: Return in about 1 month (around 02/09/2019) for FP - f/u psoriasis. Hari Garcia MD 01/10/2019 Total time today is 25 minutes, >75% of which is in counseling and coordination of care reg arding the above issue(s). This note is dictated using [employer] voice recognition software. This note was dictated but not proofread. It may contain some grammatical errors. documented in this enc ounter Plan of Treatment +--------+---------+ + + + | Date | Type | Specialty | Care Team | Description | +--------+---------+ + + + | 03/27/ | Office | Family Medicine | Sonia Lozoya, | | | 2018 | Visit | | WELLHEAD PUMPER [address] | | | | | | [place] | | | | | | [phone] | | | | | | | | +--------+---------+ + + + | 03/30/ | Office | Otolaryngology | Hari Garcia MD | | | 2018 | Visit | | [address] | | | | | | [place] | | | | | | [address] | | | | | | | | | | | | Matthias Wiley MD | | | | | | [address] [place] | | | | | | [address] [place] | | | | | | [address] | | | | | | | | +--------+---------+ + + + documented as of this encounter Results Hemoglobin A1C (01/10/2019 5:22 PM PDT) + +-------+ + + + | Component | Value | Ref Range | Performed | Pathologist | | | | | At | Signature | + +-------+ + + + | Hemoglobin | 5.5 | 4.3 - 6.0 % | [facility] | | | A1c | | | . [facility] | | | | | | [...] + | [facility] | [address] | [place] | [phone] | | [facility] | | [address] | | | - LABORATORY | | [...] + + | [facility] | [address] | [place] | [phone] | | [facility] | | [address] | | | [facility] | | [...] | | | FILTRATION | mL/min/1.73m2 | [facility] | | | LITHUANIAN | RATE,ESTIMATED | | MEDICAL | | | | mL/min/1.33d1Kyhl than | | [facility] | | | [address] | [place] | [phone] | | [facility] | | [address] | | | [facility] | | | | + + + + + documented in this encounter Visit Diagnoses + + | Diagnosis | + + | Psoriasis - Primary Other psoriasis | + + | Migraine without aura and without status migrainosus, not intractable Migraine | | without aura, without mention of intractable migraine without mention of status | | migrainosus | + + | Stress Other psychological or physical stress, not elsewhere classified | + + | PCOS (polycystic ovarian syndrome) Polycystic ovaries | + + | Anxiety Anxiety state, unspecified | + + | Balance problem Other symptoms involving nervous and musculoskeletal systems | + + | Prediabetes Other abnormal glucose | + + | Fatigue, unspecified type | + + | Thyroid nodule Nontoxic uninodular goiter | + + | Morbid obesity with BMI of 40.0-44.9, adult (HCC) | + + documented in this encounter
--- OUTSIDE RECORDS SUMMARY | ~2019-03-21 | XMS | Encounter Summary ---
Demographics + + + | Address | [address] | | | [place] [address] | + + + | Home Phone [...] + + | Author | [facility] | | | and Attilaana | + + + | Organization | [facility] | | | and [...] Providers + +------+ + | Care Sales Inspector Name | Role | Phone | + [...] | | | | CENTER [address] | [place], [place] | abdominal location | | | | [place], [place] | [address] | (Primary Dx) | | | | [address] | | | | | | [phone] | | | +--------+ + + + [...] be sent through Care Everywhere.Abdominal Pain, Adult (Beninese)documented in this encounter Medications at Time of [...] | | 2018 | Visit | | 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 | [address] | [place] | [phone] | | [facility] | | [address] | | | - LABORATORY | | [...] [address] | [place] | [phone] | | [facility] | | [address] | | | - LABORATORY | | [...] + | [facility] | [address] | [place], [place] | [phone] | | [facility] | | [address] | | | - LABORATORY | | [...] [address] | [place] | [phone] | | [facility] | | [address] | | | - LABORATORY | | [...] | | | FILTRATION | mL/min/1.73m2 | [facility] | | | BHUTANESE | RATE,ESTIMATED | | MEDICAL | | | | mL/min/1.58c6Hfbb than | | CENTER - | | [...] + | [facility] | [address] | [place] | [phone] | | [facility] | | [address] | | | - LABORATORY | | [...] ST. | [address] | [place] | [phone] | | [facility] | | [address] | | | - LABORATORY | | [...]
--- OUTSIDE RECORDS SUMMARY | ~2019-03-21 | XMS | Encounter Summary ---
Demographics + + + | Address | [address] | | | [place] [address] | + + + | Home Phone [...] Author | [facility] | | | and Attilaana | + + + | Organization | [facility] | | | and [...] Team Providers + +------+ + | Care Supervisor Core Drilling Name | Role | Phone | + +------+ + | Hari Garcia MD | PCP | | + +------+ + Encounter Details +--------+ + + + + | Date | Type | Department | Care Team | Description | +--------+ + + + + | 02/16/ | [facility] | [facility] | Horace Carlos MD | Abdominal pain, | | 2018 | Encounter | [facility] | [address] | unspecified | | | | [address] | [place] | abdominal location; | | | | [place], [place] | [address] | Esophagitis | | | | [address] | [phone] | determined by | | | | [phone] | | biopsy; | | | | [...] vomiting, or vomiting blood Date Last Reviewed: 11/08/201519994247-4750 [employer]. [address] [place] [address]. All righ ts reserved. This information is [...] 03/27/ | Office | Family Medicine | SharifanaSonia, | | | 2018 | Visit | | LUMBER SALVAGER [address] | | | | | | [place] | | | | | | [address] | | | | | | | | +--------+---------+ + + + | 03/30/ | Office | Otolaryngology | Hari Garcia MD | | | 2018 | Visit | | [address] | | | | | | [place] | | | | | | [address] | | | | | | | | | | | | Matthias Wiley MD | | | | | | [address] [place] | | | | | | [address] [place] | | | | | | [address] | | | | | | | [...] adult | | | | | | ([facility]) (E66.01, | | | | | | [...] | | GastroenterologyPatient Name: Rashmi Burnscedteresa Date: 02/16/2018 | PROVATION | | 3:30 PMMRN: [id number] #: [id number] of : | | | 1990Admit Type: AmbulatoryAge: 27[facility]: [facility]Gender: FemaleNote | | | Status: FinalizedAttending MD: Horace Carlos , [facility]ENTERrocedure: | | | Upper GI endoscopyIndications: Abdominal pain, | | | Functional Dyspepsia, Heartburn, Suspected | | | esophageal refluxProviders: Horace Carlos MD, Joanne | | | Justin RN, Serena Pena, Crm Business Analyst, | | | Mark Glynn MD (Anesthesia [...] the anesthesiologist and the | | | home service technician in the pre-procedure area in the [...] PMScope Out: 3:43:56 PM | | | [facility], [facility] [address] [place], [place] | | | [address] | | | - Continue present medications. [...] |Scope Out: 3:43:56 PM | | | [facility], [address] [place], [place] | | | [address] | | + + -+ + +---------+ [...] | 1.010, 1.015, | | | | [place], | | 1.020, 1.025 | | | | POC | | | | | + + + + + + | Lot Number | [id number] | | | | + + + [...] intestinal | | | metaplasia or dysplasia. [facility]:C[facility] GROSS DESCRIPTION: Four | | | specimens are received in four containers: A. The specimen is | | | received in formalin labeled "AichaAna Paulaa Rosanne", designated "gastric | | | biopsy [...] received | | | in formalin labeled "Aicha, Rashmi Rosanne", designated "duodenal biopsy" | | [...] component was | | | performed by [employer], [address] [place] [address] | | | (Superintendent Oil Field Drilling: Gabby Noble MD; CLIA# [id number]). Professional | | | interpretation was performed by [facility] | | | [facility], [address] [place] [address] | | | [id number] (Superintendent Oil Field Drilling: Brandon Blackwell M.D.). Diagnostician: | | | Brandon Blackwell MD Pathologist Electronically Signed 02/18/2018 | | | | | + + + + +---------+ + + | Performing | Address | City/State/Zipcode | Phone Number | | Organization | | | | + +---------+ + + | [facility] | | | | | [facility] | | | | + +---------+ + [...]
--- OUTSIDE RECORDS SUMMARY | ~2019-03-21 | XMS | Encounter Summary ---
Demographics + + + | Address | [address] | | | [place] [address] | + + + | Home Phone | | + + + | Preferred Language | Unknown | + + + | Marital Status | Single | + + + | Shinto Affiliation | 1013 | + + + | Race | Unknown | + + + | Ethnic Group | Unknown | + + + Author + + + | Author | [facility] | | | and Attilaana | + + + | Organization | [facility] | | | and Attilaana [...] Team Providers + +------+ + | Care Acute Care Assistant Name | Role | Phone | + +------+ + | Hari Garcia MD | PCP | | + +------+ + Encounter Details +--------+ + + + + | Date | Type | Department | Care Team | Description | +--------+ + + + + | 07/21/ | Hospital | [facility] | Hari Garcia MD | Thyroid nodule | | 2019 | Encounter | MED CTR ULTRASOUND | [address] | | | | | [address] | [place] | | | | | [place] | [address] | | | | | [address] | | | | | | [phone] | [place] | | +--------+ + + + + [...] | | 2018 | Visit | | [facility] [address] | | | | | | [place] | | | | | | [address] | | | | | | | | +--------+---------+ + + + | 03/30/ | Office | Otolaryngology | Hari Garcia MD | | | 2018 | Visit | | [address] | | | | | | [place] | | | | | | [address] | | | | | | | | | | | | Matthias Wiley MD | | | | | | [address] [place] | | | | | | [address] [place] | | | | | | [address] | | | | | | | | +--------+---------+ + + + documented as of this encounter Procedures + +--------+ + + + | Procedure Name | Priori | Date/Time | Associated Diagnosis | Comments | | | ty | | | | + +--------+ + + + | US GUIDED THYROID | Routin | 07/21/2018 | Thyroid nodule | Results for this | | FNA | e | 3:31 PM | | procedure are in the | | | | PDT | | results section. | + +--------+ + + + | MEDICAL CYTOLOGY | Routin | 07/21/2018 | | Results for this | | | e | 12:00 AM | | procedure are in the | | | | PDT | | results section. | + +--------+ + + + documented in this encounter Results US Guided Thyroid FNA (07/21/2018 3:31 PM PDT) + + | Specimen | + + | | + + + + + | Narrative | Performed At | + + + | EXAM: Ultrasound Guided FNA Thyroid Biopsy CLINICAL | [facility] | | INFORMATION: [id number] nodule on thyroid ultrasound PT TO CHECK IN AT | | | 1400 FOR CONSENT PRIOR TO TAKING MEDS & SHE WILL HAVE A MAGISTRATE JUDGE. | | | COMPARISON: Sonogram dated 07/13/2017. [...] guidance. The specimens were given to the heeler | | | present during the exam. [...] Biopsy | | | | CLINICAL INFORMATION: 3x4o3ek nodule on thyroid ultrasound | | PT TO CHECK IN AT 1400 FOR CONSENT PRIOR TO TAKING MEDS & SHE WILL HAVE A | | MAGISTRATE JUDGE. | | | | COMPARISON: Sonogram dated [...] | The specimens were given to the heeler present during the exam. After | | [...] | | | + +---------+ + + Medical Cytology (07/21/2018 12:00 AM PDT) + + | Specimen | + + | Tissue - Entire | | right lobe of | | thyroid gland (body | | structure) | + + + + + | Narrative | Performed At | + + + | ORDERING PHYSICIAN: Adam Dodd MD PATIENT NAME: FOSTER, | [facility] | | ADAM MARSHALL GENDER: Sylvia : 1990 SPECIMEN(S): A NBX, | [employer] | | RIGHT THYROID GROSS DESCRIPTION: 10 ML OF CLEAR, RED FLUID | | | CLINICAL HISTORY: NO CLINICAL DATA PROVIDED LABORATORY | | | PREPARATIONS: 1 MONOLAYER , 1 CYTOLOGY CELL BLOCK CYTOLOGIC | | | INTERPRETATION: Thyroid needle sampling: Benign - Other (may be used | | | for colloid or cystic material) ([place] category 2) SPECIMEN | | | ADEQUACY: Satisfactory for Evaluation PERFORMING LABORATORY: | | | Technical preparation was performed by [employer], [address] | | | [place] [address]. Professional interpretation | | | was performed by [employer] - "[facility] | | | [facility]" - [address] [place] [address] (Medical | | | Director: Brandon Blackwell M.D. Diagnostician: Javier Kirkland | | | CT([facility]) Credit Office Manager Diagnostician: Brandon Blackwell MD | | | Pathologist Electronically Signed 07/27/2018 | | + + + + +---------+ [...]
--- OUTSIDE RECORDS SUMMARY | ~2019-03-21 | XMS | Encounter Summary ---
Demographics + + + | Address | [address] | | | [place] [address] | + + + | Home Phone [...] Author | [facility] | | | and Attilaana | + + + | Organization | [facility] | | | and Attilaana [...] Team Providers + +------+ + | Care Contemporary Or Modern Dancer Name | Role | Phone | + [...] + | 09// | Telephone | [facility] | Hari Garcia MD | Medication | | 2019 | | [facility] [place] | [address] | Management | | | | [address] | [place] | | | | | [place] | [address] | | | | | [address] | | | | | | [phone] | | | +--------+ + + + [...] [place] | | | | | | [phone] | | | | | | | | +--------+---------+ + + + | 03/30/ | Office | Otolaryngology | Hari Garcia MD | | | 2019 | Visit | | [address] | | | | | | [place] | | | | | | [phone] | | | | | | | [...]
--- OUTSIDE RECORDS SUMMARY | ~2019-03-21 | XMS | Encounter Summary ---
Demographics + + + | Address | [address] | | | [place] [address] | + + + | Home Phone [...] | Author | [facility] | | | and Attilaana | + + + | Organization | [facility] | | | and Attilaana | [...] Team Providers + +------+ + | Care Diagnostic Imaging Manager Name | Role | Phone | [...] | | pain | | [address], | | | | | Procedures | | [address] | | | | | Office Visit | | [place], | | | | | | | [place] [address] | | | | | | | Phone: | | | | | | | [phone] | | | | | | | Fax: | | | | | | | [phone] | +--------+--------+ + + + + Encounter [...] | | | [address] | [address] | (Primary Dx); | | | | [address] | [phone] | Nausea; Change in | | | | [phone] | | bowel habits; | | | [...] Carlos request, she wi ll go to [facility] now and have done and we will call by Wednesday with results, recall placed; 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 documented in this encounter Plan of Treatment +--------+---------+ + + + | Date | Type | Specialty | Care Team | Description | +--------+---------+ + + + | 03/27/ | Office | Family Medicine | Sonia Lozoya, | | | 2018 | Visit | | GUNSTOCK REPAIRER [address] | | | | | | [place] | | | | | | [address] | | | | | | | | +--------+---------+ + + + | 03/30/ | Office | Otolaryngology | Hari Garcia MD | | | 2018 | Visit | | [address] | | | | | | [place] | | | | | | [address] | | | | | | | | | | | | Matthias Wiley MD | | | | | | [address] [place] | | | | | | [address] [place] | | | | | | [address] | | | | | | | [...] - 1.030 | [facility] | | | [place] | | | [facility] | | [...] [address] | [place] | [phone] | | [facility] | | [address] | | | - LABORATORY | | [...]
--- OUTSIDE RECORDS SUMMARY | ~2019-03-21 | XMS | Encounter Summary ---
Demographics + + + | Address | [address] | | | [place] [address] | + + + | Home Phone | | + + + | Preferred Language | Unknown | + + + | Marital Status | Single | + + + | Quaker Affiliation | 1013 | + + + | Race | Unknown | + + + | Ethnic Group | Unknown | + + + Author + + + | Author | [facility] | | | and Attilaana | + + + | Organization | [facility] | | | and Attilaana [...] Team Providers + +------+ + | Care Bereavement Coordinator Name | Role | Phone | + +------+ + | Hari Garcia MD | PCP | | + +------+ + Reason for Visit + + + | Reason | Comments | + + + | Records Request | | + + + Encounter Details +--------+ + + + + | Date | Type | Department | Care Team | Description | +--------+ + + + + | 04/04/ | Telephone | [facility] | Hari Garcia MD | Records Request | | 2018 | | [facility] | [address] | | | | | [address] | [place] | | | | | [place] | [address] | | | | | [address] | | | | | | [phone] | | | +--------+ + + + [...] | | 2018 | Visit | | REVENUE MANAGER [address] | | | | | | [place] | | | | | | [id number] | | | | | | | | +--------+---------+ + + + | 03/30/ | Office | Otolaryngology | Hari Garcia MD | | | 2019 | Visit | | [address] | | | | | | [place] | | | | | | [address] | | | | | | | [...]
--- OUTSIDE RECORDS SUMMARY | ~2019-03-21 | XMS | Encounter Summary ---
Demographics + + + | Address | [address] | | | [place] [address] | + + + | Home Phone | | + + + | Preferred Language | Unknown | + + + | Marital Status | Single | + + + | Uatsdin Affiliation | 1013 | + + + | Race | Unknown | + + + | Ethnic Group | Unknown | + + + Author + + + | Author | [facility] | | | and [place]tilaana | + + + | Organization | [facility] | | | and Attilaana [...] Team Providers + +------+ + | Care Miniature Model Maker Name | Role | Phone | [...] Refill | | 2019 | | [facility] [place] [place] | [address] | | | | | [address] | [place] | | | | | [place] | [address] | | | | | [address] | | | | | | [phone] | | | +--------+--------+ + + + [...] [place] | | | | | | [address] | | | | | | | | +--------+---------+ + + + | 03/30/ | Office | Otolaryngology | Hari Garcia MD | | | 2019 | Visit | | [address] | | | | | | [place] | | | | | | [address] | | | | | | | | | | | | Matthias Wiley MD | | | | | | [address] [place] | | | | | | [address] [place] | | | | | | [address] | | | | | | | | +--------+---------+ + + + documented as of this encounter Visit Diagnoses + + | Diagnosis | + + | Acute stress disorder Other acute reactions to stress | + + | Chronic post-traumatic stress disorder (PTSD) | + + documented in this encounter"
--- OUTSIDE RECORDS SUMMARY | ~2019-03-21 | XMS | Encounter Summary ---
Demographics + + + | Address | [address] | | | [place] [address] | + + + | Home Phone | | + + + | Preferred Language | Unknown | + + + | Marital Status | Single | + + + | Confucianism Affiliation | 1013 | + + + | Race | Unknown | + + + | Ethnic Group | Unknown | + + + Author + + + | Author | [facility] | | | and [place]tila[place] | + + + | Organization | [facility] | | [...] Team Providers + +------+ + | Care Emissions Inspector Name | Role | Phone | [...] pain, | Chi Odonnell, | [address], | | | | | unspecified | [address] | [address] | | | | | abdominal | [address] | [place], | | | | | location | [place], | [place] [address] | | | | | | [place] [address] | Phone: | | | | | | Phone: | [phone] | | | | | | [phone] | Fax: | | | | | | Fax: | [phone] | | | | | | [phone] | | +--------+ + + + + [...] BMI of | | | | [address], [place] | [place], [place] | 40.0-44.9, adult | | | | [address] | [address] | ([facility]); Nausea and | | | | [phone] | | vomiting, | | | | | Horace Carlos MD | intractability of | | | | | [address] | vomiting not | | | | | [place], [place] | specified, | | | | | [address] | unspecified vomiting | | | | | [phone] | type; Abdominal | | | | [...] qAM #90 with 3 refills ordered at [facility] in [place]; advised Samantha baxter after meals and at [...] | | 2018 | Visit | | INOCULATOR [address] | | | | | | [place] | | | | | | [id number] | | | | | | | | +--------+---------+ + + + | 03/30/ | Office | Otolaryngology | Hari Garcia MD | | | 2018 | Visit | | [address] | | | | | | [place] | | | | | | [id number] | | | | | | | | | | | | Matthias Wiley MD | | | | | | [address] [place] | | | | | | [address] [place] | | | | | | [id number] | | | | | | | [...] ST. | [address] | [place], [place] | [phone] | | [facility] | | [address] | | | - LABORATORY | | [...]
--- OUTSIDE RECORDS SUMMARY | ~2019-03-21 | XMS | Encounter Summary ---
Demographics + + + | Address | [address] | | | [place] [address] | + + + | Home Phone [...] + + + | Author | [facility] | | | and [place] | + + + | Organization | [facility] [...] Team Providers + +------+ + | Care Hat Binder Name | Role | Phone | + +------+ + | Colton Singer DO | PCP | | + +------+ + Encounter Details +--------+---------+ + + + | Date | Type | Department | Care Team | Description | +--------+---------+ + + + | 01/18/ | Office | [facility] | Promise Cerna | Continuous | | 2018 | Visit | CARE [address] | Chi Odonnell MD | hypogastric pain | | | | [place] | [address] | (Primary Dx); | | | | [address] | [place], [place] | Nausea; Overweight; | | | | [phone] | [address] | Fatigue, unspecified | | | | [...] to existing specimen in lab.Sakina Costello RN Promise Moreno MD - 01/18/2018 1:00 PM PDTFormatting of this note might be different from the origi nal. Rashmi Holcomb Chief Complaint: Hypogastric abdominal pain for 3 weeks HPI: Patient presents with a three-week history of hypogastric abdominal pain which is fracisco chicho in character and associated with nausea. She had one episode of vomiting with the initi al onset. She was seen in [place] emergency room with an elevated white blood count of 12 ,300, normal chem profile, negative qualitative blood test and a negative abdomina l CT scan with contrast. She has had a prior without other abdominal surgery. Thea neri has fatigue. She has had multiple similar [...] UA, POC Negative Negative, 100 mg/dL Specific [place], UA, POC 1.015 1.001 - 1.030 Blood, [...] dictated with Oscar and was not proofread. urrmarino, Lisa Chahal RN - 01/18/2018 1:00 PM [id number]: Triaged. [facility] contacted for wilfred rds. Shetty in medical records states pt has been in ER twice in past month and will fax all records from both visits upon conclusion of call to [phone]. Lisa Roldan RN. [id number]: Records received. Delivered to Dr. Cerna who states he will look over them and dec jan on triage from there. Lisa Roldan RN 8862: Pt checked in to room [address] Cerna. Lisa Roldan, RN documented in this en counter Plan of Treatment +--------+---------+ + + + | Date | Type | Specialty | Care Team | Description | +--------+---------+ + + + | 03/27/ | Office | Family Medicine | Sonia Lozoya, | | | 2018 | Visit | | MAIL WEIGHER [address] | | | | | | [place] | | | | | | [id number] | | | | | | | | +--------+---------+ + + + | 03/30/ | Office | Otolaryngology | Hari Garcia MD | | | 2018 | Visit | | [address] | | | | | | [place] | | | | | | [address] | | | | | | | | | | | | Matthias Wiley MD | | | | | | [address] [place] | | | | | | [address] [place] | | | | | | [address] | | | | | | | [...] + + | [facility] | [address] | [place] | [phone] | | [facility] | | [address] | | | [facility] | | [...] | | | URINE | | | [facility] | | | [...] + + + | [facility] | [address] [place] | [place] | [phone] | | [facility] | | [address] | | | [facility] | | [...] 1.001 - 1.030 | | | | [place], | | | | | | UA, [...] + + + + + + | Ictotest | | Negative | | | + + + + [...] | + + + + + | [facility] | [address] | [place] | [phone] | | [facility] | | [address] | | | [facility] | | [...] + + | [facility] | [address] | [place] | [phone] | | [facility] | | [address] | | | [facility] | | [...] + + | [facility] | [address] | [place] | [phone] | | [facility] | | [address] | | | [facility] | | | | + + + + + Sedimentation Rate (01/18/2018 2:26 PM PDT) + +--------+ + + + | Component | Value | Ref Range | Performed | Pathologist | | | | | At | Signature | + +--------+ + + + | ESR | 26 (H) | <20 mm/hr | [...] + + | [facility] | [address] | [place] | [phone] | | [facility] | | [address] | | | [facility] | | [...] | | | | | uIU/mL | [facility] | | | | | [...] + + + | [facility] | [address] | [place] | [phone] | | [facility] | | [address] | | | [facility] | | [...] | | | | | mg/dL | [facility] | | | | | | [facility]ICAL | | | | | | [facility] | | | | | | LABORATORY | | + + + + + + | eGFR if not | >60Comment: GLOMERULAR | >=60 | [facility] | | | | FILTRATION | mL/min/1.73m2 | [facility] | | | MALDIVIAN | RATE,ESTIMATED | | MEDICAL | | | | mL/min/1.51b3Whqt than | | PARK | | | [...] + + | [facility] | [address] | [place], [place] | [phone] | | [facility] | | [address] | | | [facility] | | | | + + + + + CBC with Differential (01/18/2018 2:26 PM PDT) + + + + + + | Component | Value | Ref Range | Performed | Pathologist | | | | | At | Signature | + + + + + + | WBC | 11.0 | 4.0 - 11.0 K/uL | [facility] | | | | | | [facility] | | | | | | [facility] | | | | | | [facility] | | | | | | [facility]ORAT[facility] | | + + + + + + | RBC | 4.69 | 3.70 - 5.20 | [...] + + | [facility] | [address] | [place] | [phone] | | [facility] | | [address] | | | [facility] | | [...] | | | | | d by [facility]. It has not | | | | [...] + + | Performed at: 01 - [facility] [address], | REFERENCE LAB | | [place], [place] [id number] Director Of Sustainability: Seven Davalos MD, Phone: | DELLA - SARAH | | [phone] | | + + + + + + + + | Performing | Address | City/State/Zipcode | Phone Number | | Organization | | | | + + + + + | REFERENCE LAB | [address] | [place] [address] | [phone] | | [facility] | [address] | | | + + + + + Culture, Urine (01/18/2018 2:20 PM PDT) + + + + + + | Component | Value | Ref Range | Performed | Pathologist | | | | | At | Signature | + + + + + + | Culture | No Growth | | [facility] | | | | | | ST. [...] + + + + + | [facility] | [address] | [place] | [phone] | | [facility] | | [address] | | | - LABORATORY | | [...]
--- OUTSIDE RECORDS SUMMARY | ~2019-03-21 | XMS | Encounter Summary ---
Demographics + + + | Address | [address] | | | [place] [address] | + + + | Home Phone | | + + + | Preferred Language | Unknown | + + + | Marital Status | Single | + + + | Church Affiliation | 1013 | + + + | Race | Unknown | + + + | Ethnic Group | Unknown | + + + Author + + + | Author | [facility] | | | and [place]tilaana | + + + | Organization | [facility] | | | and [...] Team Providers + +------+ + | Care Target Protection Specialist Name | Role | Phone | + +------+ + | Colton Singer DO | PCP | | + +------+ + Encounter Details +--------+ + + + + | Date | Type | Department | Care Team | Description | +--------+ + + + + | 04/26/ | Episode | [facility] [place] | Elsa Lai, | | | 2017 | Changes | GASTROENTEROLOGY | RN | | | | | [address] [place] | | | | | | [address] [place] | | | | | | [address] | | | | | | [phone] | | | +--------+ + + + [...] | | 2018 | Visit | | PULLMAN CONDUCTOR [address] | | | | | | [place] | | | | | | [id number] | | | | | | | | +--------+---------+ + + + | 03/30/ | Office | Otolaryngology | Hari Garcia MD | | | 2018 | Visit | | [address] | | | | | | [place] | | | | | | [address] | | | | | | | | | | | | Matthias Wiley MD | | | | | | [address] [facility] | | | | | | [address] [place] | | | | | | [phone] | | | | | | | | +--------+---------+ + + + documented as of this encounter Visit Diagnoses Not on filedocumented in this encounter"
--- OUTSIDE RECORDS SUMMARY | ~2019-03-21 | XMS | Encounter Summary ---
Demographics + + + | Address | [address] | | | [place] [address] | + + + | Home Phone | | + + + | Preferred Language | Unknown | + + + | Marital Status | Single | + + + | Rastafari Affiliation | 1013 | + + + | Race | Unknown | + + + | Ethnic Group | Unknown | + + + Author + + + | Author | [facility] | | | and Attilaana | + + + | Organization | [facility] | | | and Attilaana | [...] Team Providers + +------+ + | Care Diamond Powder Mixer Name | Role | Phone | + [...] + | 03/09/ | Telephone | [facility] | Hari Garcia MD | Dizziness | | 2018 | | [facility] [place] | [address] | | | | | [address] | [place] | | | | | [place] | [address] | | | | | [address] | | | | | | [phone] | | | +--------+ + + + [...] | | 2019 | Visit | | SECONDARY CONNECTOR ARMATURE [address] | | | | | | [place] | | | | | | [address] | | | | | | | [...]
--- OUTSIDE RECORDS SUMMARY | ~2019-03-21 | XMS | Encounter Summary ---
Demographics + + + | Address | [address] | | | [place] [address] | + + + | Home Phone [...] + | Author | [facility] | | | and Attilaana | + + + | Organization | [facility] | | | and Attilaana [...] Team Providers + +------+ + | Care Bobbin Hauler Name | Role | Phone | + +------+ + | Hari Garcia MD | PCP | | + +------+ + Encounter Details +--------+ + + + + | Date | Type | Department | Care Team | Description | +--------+ + + + + | 02/09/ | Hospital | [facility] | Hari Garcia MD | Thyroid nodule | | 2019 | Encounter | MED CTR ULTR[facility] | [address] | | | | | [address] | [place] | | | | | [place] | [address] | | | | | [address] | | | | | | [phone] | | | +--------+ + + + [...] | | 2018 | Visit | | BRAILLE TYPIST [address] | | | | | | [place] | | | | | | [id number] | | | | | | | | +--------+---------+ + + + | 03/30/ | Office | Otolaryngology | Hari Garcia MD | | | 2018 | Visit | | [address] | | | | | | [place] | | | | | | [address] | | | | | | | | | | | | Matthias Wiley MD | | | | | | [address] [facility] | | | | | | [address] [place] | | | | | | [address] | | | | | | | [...]
--- OUTSIDE RECORDS SUMMARY | ~2019-03-21 | XMS | Encounter Summary ---
Demographics + + + | Address | [address] | | | [place] [address] | + + + | Home Phone [...] | Author | [facility] | | | and [place]tilaana | + + + | Organization | [facility] [...] Team Providers + +------+ + | Care Counter Tacker Name | Role | Phone | + [...] | | | | [place] | [address] | | | | | [address] | | | | | | [phone] | | | +--------+ + + + [...] [place] | | | | | | [id number] | | | | | | | | +--------+---------+ + + + | 03/30/ | Office | Otolaryngology | Hari Garcia MD | | | 2019 | Visit | | [address] | | | | | | [place] | | | | | | [id number] | | | | | | | [...]
--- OUTSIDE RECORDS SUMMARY | ~2019-03-21 | XMS | Encounter Summary ---
Demographics + + + | Address | [address] | | | [place] [address] | + + + | Home Phone [...] Author | [facility] | | | and Attilaana | + + + | Organization | [facility] | | | and [...] Team Providers + +------+ + | Care Lumber Salvager Name | Role | Phone | + +------+ + | Colton Singer DO | PCP | | + +------+ + Reason for Visit + + + | Reason | Comments | + + + | Appointment | | + + + Encounter Details +--------+ + + + + | Date | Type | Department | Care Team | Description | +--------+ + + + + | 06/08/ | Telephone | [facility] | Horace Carlos MD | Appointment | | 2018 | | GASTROENTEROLOGY | [address] | | | | | [address] [facility] | [place], [place] | | | | | [address] [place], [place] | [address] | | | | | [address] | [phone] | | | | | [phone] | | | +--------+ + + + [...] Visit | | [address] | | | | | | [place] | | | | | | [address] | | | | | | | [...]
--- OUTSIDE RECORDS SUMMARY | ~2019-03-21 | XMS | Encounter Summary ---
Demographics + + + | Address | [address] | | | [place] [address] | + + + | Home Phone | | + + + | Preferred Language | Unknown | + + + | Marital Status | Single | + + + | Anabaptist Affiliation | 1013 | + + + | Race | Unknown | + + + | Ethnic Group | Unknown | + + + Author + + + | Author | [facility] | | | and [place] | + + + | Organization | [facility] | | | [...] Team Providers + +------+ + | Care Manager Drug Safety Name | Role | Phone | + [...] + | 08/01/ | Telephone | [facility] | Hari Garcia MD | Lab Results | | 2019 | | [facility] [place] | [address] | | | | | [address] | [place] | | | | | [place] | [address] | | | | | [address] | | | | | | [phone] | | | +--------+ + + + [...] [place] | | | | | | [id number] | | | | | | | [...]
--- OUTSIDE RECORDS SUMMARY | ~2019-03-21 | XMS | Encounter Summary ---
Demographics + + + | Address | [address] | | | [place] [address] | + + + | Home Phone | | + + + | Preferred Language | Unknown | + + + | Marital Status | Single | + + + | Faith Affiliation | 1013 | + + + | Race | Unknown | + + + | Ethnic Group | Unknown | + + + Author + + + | Author | [facility] | | | and [place]tila[place] | + + + | Organization | [facility] | | | and [...] Team Providers + +------+ + | Care Customer Support Advisor Name | Role | Phone | + +------+ + | Colton Singer DO | PCP | | + +------+ + Reason for Visit +---------+ + | Reason | Comments | +---------+ + | Results | UA | +---------+ + Encounter Details +--------+ + + + + | Date | Type | Department | Care Team | Description | +--------+ + + + + | 04/30/ | Telephone | [facility] | Horace Carlos MD | Results () | | 2017 | | GASTROENTEROLOGY | [address] | | | | | [address] [facility] | [place], [place] | | | | | [address] [place] | [address] | | | | | [address] | [phone] | | | | | [phone] | | | +--------+ + + + [...] [place] | | | | | | [id number] | | | | | | | [...]
--- OUTSIDE RECORDS SUMMARY | ~2019-03-21 | XMS | Encounter Summary ---
Demographics + + + | Address | [address] | | | [place] [address] | + + + | Home Phone | | + + + | Preferred Language | Unknown | + + + | Marital Status | Single | + + + | Rastafarian Affiliation | 1013 | + + + | Race | Unknown | + + + | Ethnic Group | Unknown | + + + Author + + + | Author | [facility] | | | and Attilaana | + + + | Organization | [facility] | | | and Attilaana [...] Team Providers + +------+ + | Care Pain Management Specialist Name | Role | Phone | + +------+ + | Colton Singer DO | PCP | | + +------+ + Reason for Visit +--------+ + | Reason | Comments | +--------+ + | Other | | +--------+ + Encounter Details +--------+ + + + + | Date | Type | Department | Care Team | Description | +--------+ + + + + | 12/19/ | Telephone | [facility] [place] | Horace Carlos MD | Other | | 2017 | | GASTROENTEROLOGY | [address] [facility] | | | | | [address] [facility] | [place], [place] | | | | | [address] [place] | [address] | | | | | [address] | [phone] | | | | | [phone] | | | +--------+ + + + [...] | | 2018 | Visit | | PEDIGREE TRACER [address] | | | [...] [place] | | | | | | [id number] | | | | | | | | | | | | Matthias Wiley MD | | | | | | [address] [place] | | | | | | [address] [place] | | | | | | [address] | | | | | | | | +--------+---------+ + + + documented as of this encounter Visit Diagnoses Not on filedocumented in this encounter"
--- OUTSIDE RECORDS SUMMARY | ~2019-03-21 | XMS | Encounter Summary ---
Demographics + + + | Address | [address] | | | [place] [address] | + + + | Home Phone [...] Author | [facility] | | | and [place] | + + + | Organization | [facility] | | | and [place]tila[place] | [...] Team Providers + +------+ + | Care Leather Carver Name | Role | Phone | + [...] [place] | | | | | | [address] | | | | | | [phone] | | | +--------+ + + + [...] | | 2018 | Visit | | [facility] [address] | | | | | | [place] | | | | | | [phone] | | | | | | | | +--------+---------+ + + + | 03/30/ | Office | Otolaryngology | Hari Garcia MD | | | 2018 | Visit | | [address] | | | | | | [place] | | | | | | [address] | | | | | | | | | | | | Matthias Wiley MD | | | | | | [address] [place] | | | | | | [address] [place] | | | | | | [address] | | | | | | | | +--------+---------+ + + + documented as of this encounter Visit Diagnoses Not on filedocumented in this encounter"
--- OUTSIDE RECORDS SUMMARY | ~2019-03-21 | XMS | Encounter Summary ---
Demographics + + + | Address | [address] | | | [place] [address] | + + + | Home Phone [...] Author | [facility] [...] Providers + +------+ + | Care Supervisor Composing Room Name | Role | Phone | + +------+ + | Hari Garcia MD | PCP | | + +------+ + Encounter Details +--------+ + + + + | Date | Type | Department | Care Team | Description | +--------+ + + + + | 07/21/ | Hospital | [facility] | Hari Garcia MD | Thyroid nodule | | 2019 | Encounter | [facility] | [address] | | | | | [address] | [place] | | | | | [place] | [address] | | | | | [address] | | | | | | [phone] | Elie Juárez [place] | | +--------+ [...] | | 2018 | Visit | | [facility] [address] | | | | | | [place] | | | | | | [address] | | | | | | | | +--------+---------+ + + + | 03/30/ | Office | Otolaryngology | Hari Garcia MD | | | 2018 | Visit | | [address] | | | | | | [place] | | | | | | [address] | | | | | | | | | | | | Matthias Wiley MD | | | | | | [address] [place] | | | | | | [address] [place] | | | | | | [address] | | | | | | | [...] CLINICAL | [facility] | | INFORMATION: [id number] nodule on thyroid ultrasound PT TO CHECK IN AT | | | 1400 FOR CONSENT PRIOR TO TAKING MEDS & SHE WILL HAVE A SAFETY DEPOSIT CLERK. | | | COMPARISON: Sonogram dated 07/13/2017. [...] guidance. The specimens were given to the bobbin winder tender | | | present during the exam. [...] Biopsy | | | | CLINICAL INFORMATION: [id number] nodule on thyroid ultrasound | | PT TO CHECK IN AT 1400 FOR CONSENT PRIOR TO TAKING MEDS & SHE WILL HAVE A | | SAFETY DEPOSIT CLERK. | | | | COMPARISON: Sonogram dated [...] | The specimens were given to the bobbin winder tender present during the exam. After | | [...] Adam Dodd MD PATIENT NAME: FOSTER, | [facility] | | ADAM MARSHALL GENDER: Sylvia : 1990 SPECIMEN(S): A NBX, | INCBesstech | | RIGHT THYROID GROSS DESCRIPTION: 10 ML OF CLEAR, RED FLUID | | | CLINICAL HISTORY: NO CLINICAL DATA PROVIDED LABORATORY | | | PREPARATIONS: 1 MONOLAYER , 1 CYTOLOGY CELL BLOCK CYTOLOGIC | | | INTERPRETATION: Thyroid needle sampling: Benign - Other (may be used | | | for colloid or cystic material) ([place] category 2) SPECIMEN | | | ADEQUACY: Satisfactory for Evaluation PERFORMING LABORATORY: | | | Technical preparation was performed by [facility], [id number] | | | [place] [address]. Professional interpretation | | | was performed by [facility] - "[facility] | | | [facility]" - [address] [place] [address] (Medical | | | Director: Brandon Blackwell M.D. Diagnostician: Javier Kirkland | | | CT([facility]) Logging Crew Supervisor Diagnostician: Brandon Blackwell MD | | | [...]
--- OUTSIDE RECORDS SUMMARY | ~2019-03-21 | XMS | Encounter Summary ---
Demographics + + + | Address | [address] | | | [place] [address] | + + + | Home Phone | | + + + | Preferred Language | Unknown | + + + | Marital Status | Single | + + + | Zoroastrianism Affiliation | 1013 | + + + | Race | Unknown | + + + | Ethnic Group | Unknown | + + + Author + + + | Author | [facility] | | | and [place] | + + + | Organization | [facility] | | | and [place] [...] Team Providers + +------+ + | Care Visual Basic .Net Developer Name | Role | Phone | + +------+ + | Hari Garcia MD | PCP | | + +------+ + Reason for Visit + + + | Reason | Comments | + + + | Coughing Up Blood | | + + + | Hematemesis | | + + + Encounter Details +--------+ + + + + | Date | Type | Department | Care Team | Description | +--------+ + + + + | 03/21/ | Telephone | [facility] | Hari Garcia MD | Coughing Up Blood; | | 2018 | | [facility]ICINE [facility] | [address] | Hematemesis | | | | [address] | [place], [place] | | | | | [place], [place] | [address] | | | | | [address] | | | | | | [phone] | | | +--------+ + + + [...] | 2018 | Visit | | C[facility] FINISHER APPRENTICE [address] | | | | | | [place] | | | | | | [address] | | | | | | | | +--------+---------+ + + + | 03/30/ | Office | Otolaryngology | Hari Garcia MD | | | 2018 | Visit | | [address] | | | | | | [place] | | | | | | [address] | | | | | | | | | | | | Matthias Wiley MD | | | | | | [address] [place] | | | | | | [address] [place] | | | | | | [address] | | | | | | | | +--------+---------+ + + + documented as of this encounter Visit Diagnoses Not on filedocumented in this encounter"
--- OUTSIDE RECORDS SUMMARY | ~2019-03-21 | XMS | Encounter Summary ---
Demographics + + + | Address | [address] | | | [place] [address] | + + + | Home Phone [...] | [facility] | | | and [place] | + + + | Organization | [facility] [...] Team Providers + +------+ + | Care Store Associate Name | Role | Phone | + +------+ + | Hari Garcia MD | PCP | | + +------+ + Reason for Visit + + + | Reason | Comments | + + + | Imaging Only | | + + + Encounter Details +--------+ + + + + | Date | Type | Department | Care Team | Description | +--------+ + + + + | 03/04/ | Telephone | [facility] | Hari Garcia MD | Imaging Only | | 2019 | | MEDIC[facility] [place] | [address] | | | | | [address] | [place] | | | | | [place] | [address] | | | | | [address] | | | | | | [phone] | | | +--------+ + + + [...] [place] | | | | | | [address] | | | | | | | | +--------+---------+ + + + | 03/30/ | Office | Otolaryngology | Hari Garcia MD | | | 2018 | Visit | | [address] | | | | | | [place] | | | | | | [address] | | | | | | | | | | | | Matthias Wiley MD | | | | | | [address] [place] | | | | | | [address] [place] | | | | | | [address] | | | | | | | [...]
--- OUTSIDE RECORDS SUMMARY | ~2019-03-21 | XMS | Encounter Summary ---
Demographics + + + | Address | [address] | | | [place] [address] | + + + | Home Phone | | + + + | Preferred Language | Unknown | + + + | Marital Status | Single | + + + | Bahai Affiliation | 1013 | + + + | Race | Unknown | + + + | Ethnic Group | Unknown | + + + Author + + + | Author | [facility] | | | and [place] | + + + | Organization | [facility] | | | and [...] Team Providers + +------+ + | Care Fibrous Wallboard Inspector Name | Role | Phone | [...] + + | 03/16/ | Office | [facility] | Hari Garcia MD | Acute stress | | 2018 | Visit | [facility] [place] | [address] | disorder (Primary | | | | [address] | [place] | Dx); Chronic | | | | [place] | [address] | post-traumatic | | | | [address] | | stress disorder | | | | [phone] | | (PTSD); Social | | | [...] information carefully each time. Talk to your hairspring truing inspector regarding the use of this medicine in children. Special care may be needed. Patients over 60 years old may have a stronger reaction and need a smaller dose. What side effects may I notice from receiving this medicine? Side effects that you should report to your doctor or health weekend caregiver as soon as p ossible: allergic reactions [...] attention (report to your doctor or health weekend caregiver if they continue or are bothersome): change [...] abnormal heart rhythm) procarbazine rasagiline supplements like Kirby's wort, kava kava, valerian tramadol tryptophan What [...] get worse. Visit your doctor or health weekend caregiver for regular checks on your progress. Because [...] a change in dose, call your health weekend caregiver. You may get drowsy or dizzy. Do [...] pharmacist, or health care provider. Copyright 2018 [employer] documented in this encounter Progress Notes Hari [...] child hubbard. Grandmother passed way from an [place] she was 69 years old. Patient reports [...] Negative Negative Internal QC Acceptable Acceptable Specific [place], POC 1.010, 1.015, 1.020, 1.025 Lot Number [id number] Expiration Date 2019-07-19 Health Maintenance Topics with [...] to the patient. Because she works in [employer] and comes out to [place] both locations were offered. Patient is amenable [...] above issue(s). This note is dictated using [employer] voice recognition software. This note was dictated but not proofread. It may contain some grammatical errors. documented in this enc ounter Plan of Treatment +--------+---------+ + + + | Date | Type | Specialty | Care Team | Description | +--------+---------+ + + + | 03/27/ | Office | Family Medicine | Darell Sonia Angie, | | | 2018 | Visit | | [facility]ACTITION[facility] [address] | | | | | | [place] | | | | | | [address] | | | | | | | | +--------+---------+ + + + | 03/30/ | Office | Otolaryngology | Hari Garcia MD | | | 2018 | Visit | | [address] | | | | | | [place] | | | | | | [address] | | | | | | | | | | | | Matthias Wiley MD | | | | | | [address] [place] | | | | | | [address] [place] | | | | | | [address] | | | | | | | [...]
--- OUTSIDE RECORDS SUMMARY | ~2019-03-21 | XMS | Encounter Summary ---
Demographics + + + | Address | [address] | | | [place] [address] | + + + | Home Phone | | + + + | Preferred Language | Unknown | + + + | Marital Status | Single | + + + | Yarsani Affiliation | 1013 | + + + | Race | Unknown | + + + | Ethnic Group | Unknown | + + + Author + + + | Author | [facility] | | | and [place] | + + + | Organization | [facility] | | | and [...] Team Providers + +------+ + | Care Coin Machine Collector Name | Role | Phone | + [...] Refill | | 2019 | | MEDICINE [place] | [address] | | | | | [address] | [place] | | | | | [place] | [address] | | | | | [address] | | | | | | [phone] | | | +--------+--------+ + + + [...] [place] | | | | | | [address] | | | | | | | | +--------+---------+ + + + | 03/30/ | Office | Otolaryngology | Hari Garcia MD | | | 2019 | Visit | | [address] | | | | | | [place] | | | | | | [address] | | | | | | | | | | | | Matthias Wiley MD | | | | | | [address] [place] | | | | | | [address] [place] | | | | | | [address] | | | | | | | | +--------+---------+ + + + documented as of this encounter Visit Diagnoses + + | Diagnosis | + + | Acute stress disorder Other acute reactions to stress | + + | Chronic post-traumatic stress disorder (PTSD) | + + documented in this encounter"
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
--- OUTSIDE RECORDS SUMMARY | ~2019-03-21 | XMS | Encounter Summary ---
Demographics + + + | Address | [address] | | | [place] [address] | + + + | Home Phone [...] Author | [facility] | | | and [place] | + + + | Organization | [facility] | | | and [...] Team Providers + +------+ + | Care Board Certified Orthodontist Name | Role | Phone | + [...] | 01/19/ | Telephone | [facility] [place] [facility] | Promise Cerna | Imaging Only | | 2018 | | CARE [address] | Chi Odonnell MD | | | | | [place] | [address] | | | | | [address] | [place] | | | | | [phone] | [address] | | | | | | | [...] [place] | | | | | | [address] | | | | | | | [...]
--- OUTSIDE RECORDS SUMMARY | ~2019-03-21 | XMS | Encounter Summary ---
Demographics + + + | Address | [address] | | | [place] [address] | + + + | Home Phone [...] [facility] | | | and [place] | + + + | Organization | [facility] | | | and [place]tilaana [...] Providers + +------+ + | Care Senior Dentist Name | Role | Phone | + [...] + | 06/08/ | Telephone | [facility] | Horace Carlos MD | Appointment | | 2018 | | GASTROENTEROLOGY | [address] | | | | | [address] | [place], [place] | | | | | [address] [place], [place] | [address] | | | | | [address] | [phone] | | | | | [phone] | | | +--------+ + + + [...] [place] | | | | | | [address] | | | | | | | [...]
--- OUTSIDE RECORDS SUMMARY | ~2019-03-21 | XMS | Encounter Summary ---
Demographics + + + | Address | [address] | | | [place] [address] | + + + | Home Phone [...] + + + | Author | [facility] | | | and [place] | + + + | Organization | [facility] | [...] Team Providers + +------+ + | Care Regulatory Law Specialist Name | Role | Phone | [...] + + | 06/13/ | Office | [facility] | Hari Garcia MD | Nausea (Primary Dx); | | 2019 | Visit | [facility] [place] | [address] | Fatigue, | | | | [address] | [place] | unspecified type; | | | | [place] | [address] | Encounter for | | | | [address] | | confirmation of | | | | [phone] | | test | | | | [...] can see your family provider, a specialist (roving department supervisor), or a primary care cli david. When [...] changes or blurred vision Date Last Reviewed: 02/08/201619996218-0107 [employer]. [address] [place] [address]. All [facility] reserved. This information is not intended [...] to nausea and some vomiting over the st 5 days. Vomiting was x2 earlier [...] per tablet Take 1 tablet by breanna Daily. 28 tablet 11 LORazepam (ATIVAN) 0.5 [...] Internal QC Acceptable Acceptable, Not Performed Specific [place], POC 1.010, 1.015, 1.020, 1.025 Lot Number [...] the past and will continue to try [id number] pattie with Zofran as a backup. She [...] MD 06/13/2018 This note is dictated using [employer] voice recognition software. This note was dictated but not proofread. It may contain some grammatical errors. documented in this enc ounter Plan of Treatment +--------+---------+ + + + | Date | Type | Specialty | Care Team | Description | +--------+---------+ + + + | 03/27/ | Office | Family Medicine | Sonia Lozoya, | | | 2018 | Visit | | [facility] [address] | | | | | | [place] | | | | | | [id number] | | | | | | | | +--------+---------+ + + + | 03/30/ | Office | Otolaryngology | Hari Garcia MD | | | 2018 | Visit | | [address] | | | | | | [place] | | | | | | [address] | | | | | | | | | | | | Matthias Wiley MD | | | | | | [address] | | | | | | [address] [place] | | | | | | [address] | | | | | | | [...] [address] | [place] | [phone] | | [facility] | | [address] | | | [facility] | | [...] | | Test, | | | [facility] | | | Urine, POC | | [...] 1.010, 1.015, | [facility] | | | [place], | | 1.020, 1.025 | [facility] | | | POC | | | CORE | | | | | | LABORATORY | | + + + + + + | Lot Number | | | [facility] | | | | | | [facility] | | | | | | CORE | | | | | | LABORATORY | | + + + + + + | Expiration | | | [facility] | | | Date | | | [facility] | | | | | | CORE | | | | | | LABORATORY | | + + + + + + + + | Specimen | + + | Urine | + + + + + + + | Performing | Address | City/State/Zipcode | Phone Number | | Organization | | | | + + + + + | [address] | [address] | [place] [address] | [phone] | | [facility] | | | [...]
--- OUTSIDE RECORDS SUMMARY | ~2019-03-21 | XMS | Encounter Summary ---
Demographics + + + | Address | [address] | | | [place] [address] | + + + | Home Phone [...] | Author | [facility] | | | and [place] | + + + | Organization | [facility] | | | and [place] | [...] Team Providers + +------+ + | Care Lunch Wagon Operator Name | Role | Phone | [...] | | | 2019 | | MEDICINE [place] | [address] | | | | | [address] | [place] | | | | | [place] | [address] | | | | | [address] | | | | | | [phone] | | | +--------+ + + + [...] | Visit | | [place] [address] | | | | | | [place] | | | | | | [address] | | | | | | | | +--------+---------+ + + + | 03/30/ | Office | Otolaryngology | Hari Garcia MD | | | 2019 | Visit | | [address] | | | | | | [place] | | | | | | [address] | | | | | | | | | | | | Matthias Wiley MD | | | | | | [address] [place] | | | | | | [address] [place] | | | | | | [address] | | | | | | | [...]
--- OUTSIDE RECORDS SUMMARY | ~2019-03-21 | XMS | Encounter Summary ---
Demographics + + + | Address | [address] | | | [place] [address] | + + + | Home Phone [...] + | Author | [facility] | | | and Attilaana | + + + | Organization | [facility] | | [...] Team Providers + +------+ + | Care Headstart Teacher Name | Role | Phone | + +------+ + | Colton Singer DO | PCP | | + +------+ + Encounter Details +--------+---------+ + + + | Date | Type | Department | Care Team | Description | +--------+---------+ + + + | 05/19/ | [facility] | [facility] | Horcae Carlos MD | EGD | | 2018 | | MED CTR MP INTRA OP | [address] | | | | | [address] | [place] | | | | | [place] | [address] | | | | | [address] | [phone] | | | | | [phone] | | | +--------+---------+ + + + [...] the physician who did your procedure at [phone] if you have any questions or experience any of the following: ? Increasing abdominal pain, nausea, or vomiting. ? Chills and fever over 101F. ? New abdominal swelling or bloating. ? Signs of rectal bleeding (black or red stool). If you cannot get a hold of your physician, then call the [facility] [phone] . If necessary, report to the Emergency Department at [facility]. Quit smoking: If you smoke or [...] | | 2019 | Visit | | FLEXO PRESS OPERATOR [address] | | | | | | [place] | | | | | | [phone] | | | | | | | | +--------+---------+ + + + | 03/30/ | Office | Otolaryngology | Hari Garcia MD | | | 2019 | Visit | | [address] | | | | | | [place] | | | | | | [address] | | | | | | | | | | | | Matthias Wiley MD | | | | | | [address] [place] | | | | | | [address] [place] | | | | | | [address] | | | | | | | [...] 05/19/2017 | PROVATION | | 11:47 AMMRN: [id number] #: [id number] of : | | | 1990Admit Type: AmbulatoryAge: 26Room: [facility] 02Gender: FemaleNote | | | Status: FinalizedAttending MD: Horace Carlos , [facility] | | | Upper GI endoscopyIndications: Epigastric abdominal | | | pain, Generalized abdominal pain, | | | Suspected esophageal reflux, Exclusion of peptic ulcer, | | | Follow-up of peptic ulcerProviders: Horace | | | Maddie Carlos MD, Christine Anderson RN, Xena Glynn | | | Neftali, Threading Machine Feeder Automatic, Caio Vora MD (Anesthesia | | | [...] | | | the anesthesiologist and the electroencephalograph technician in the pre-procedure | | | [...] PMScope Out: 12:26:29 PM | | | [facility], [address] [place] [address] | | | [address] | | | - Continue present medications. [...] |Scope Out: 12:26:29 PM | | | [facility], [address] [place] [address] | | | [address] | | + + -+ + +---------+ [...] | | [facility] | | GastroenterologyPatient Name: Rashmimorris Lebron Date: 05/19/2017 | PROVATION | | 11:46 AMMRN: [id number] #: [id number] of : | | | 1990Admit Type: AmbulatoryAge: 26Room: [facility] 02Gender: FemaleNote | | | Status: FinalizedAttending MD: Horace Carlos MDProcedure: | | | ColonoscopyIndications: Abdominal pain, Chronic | | | diarrheaProviders: Horace Carlos MD, Christine Anderson RN, | | | Xena Lindsay, Threading Machine Feeder Automatic, Caio | | | Sue Vora MD [...] the anesthesiologist and the | | | electroencephalograph technician in the pre-procedure area in the [...] | | | PMScope Out: 12:43:54 PM [facility], [address] | | | [place] [address] | | | instructions were provided to [...] |Scope Out: 12:43:54 PM | | | [facility], [address] [place], [place] | | | [address] | | + + -+ + +---------+ [...] Clinical correlation is | | | requested. JVR:[facility]:C2NR GROSS DESCRIPTION: Received in five | | [...] submitted, all in (E1). | | | ka:JVR:[facility] PERFORMING LABORATORY: Tissue processing and slide | | | preparation were performed by [employer], [address] | | | [address], [place] [address] (Leadership Program Internship: Brandon Blackwell M.D. | | | CLIA#: [id number]). Professional interpretation was performed by | | | [employer], [facility], [address] | | [address] [place] [address] (Leadership Program Internship: Brandon Blackwell, | | | Aníbal; CLIA#: [id number]). Diagnostician: Brandon Blackwell MD | | | Pathologist Electronically Signed 05/20/2017 | | + + + + +---------+ + + | Performing | Address | City/State/[facility] Centercode | Phone Number | | Organization | [...] ONCE PRN, Wheezing, | | | Starting Wed05/19/17 at 1300, | | | For 1 [...] PRN, Nausea, Vomiting, | | | Starting Wed05/19/17 at 1315, | | | First line agent. Use PO option | | | unless NPO status or unable to | | | tolerate., Post-op/Phase II | | + +---+ | | | + +---+ documented in this encounter
--- OUTSIDE RECORDS SUMMARY | ~2019-03-21 | XMS | Encounter Summary ---
Demographics + + + | Address | [address] | | | [place] [address] | + + + | Home Phone [...] + + + | Author | [facility] | | | and Attilaana | + + + | Organization | [facility] | | | and Attilaana [...] Team Providers + +------+ + | Care Territory Business Manager Name | Role | Phone | [...] | 01/19/ | Telephone | [facility] | Promise Cerna | Imaging Only | | 2018 | | CARE [address] | Chi Odonnell MD | | | | | [place] | [address] | | | | | [address] | [place] | | | | | [phone] | [address] | | | | | | | [...] [place] | | | | | | [address] | | | | | | | [...]
--- OUTSIDE RECORDS SUMMARY | ~2019-03-21 | XMS | Encounter Summary ---
Demographics + + + | Address | [address] | | | [place] [address] | + + + | Home Phone [...] Author | [facility] | | | and Attilaana | + + + | Organization | [facility] | | | and Attilaana [...] Team Providers + +------+ + | Care Ice Cream Chef Name | Role | Phone | + +------+ + | Colton Singer DO | PCP | | + +------+ + Encounter Details +--------+---------+ + + + | Date | Type | Department | Care Team | Description | +--------+---------+ + + + | 05/19/ | Surgery | [facility] | Horace Carlos MD | EGD | | 2018 | | MED CTR MP INTRA OP | [address] | | | | | [address] | [place] | | | | | [place] | [address] | | | | | [address] | [phone] | | | | | [phone] | | | +--------+---------+ + + + [...] the physician who did your procedure at [phone] if you have any questions or experience any of the following: ? Increasing abdominal pain, nausea, or vomiting. ? Chills and fever over 101F. ? New abdominal swelling or bloating. ? Signs of rectal bleeding (black or red stool). If you cannot get a hold of your physician, then call the [facility] [phone] . If necessary, report to the Emergency Department at [facility]. Quit smoking: If you smoke or have [...] | | 2019 | Visit | | EMBEDDER [address] | | | | | | [place] | | | | | | [phone] | | | | | | | | +--------+---------+ + + + | 03/30/ | Office | Otolaryngology | Hari Garcia MD | | | 2019 | Visit | | [address] | | | | | | [place] | | | | | | [address] | | | | | | | | | | | | Matthias Wiley MD | | | | | | [address] [place] | | | | | | [address] [place] | | | | | | [address] | | | | | | | [...] 05/19/2017 | PROVATION | | 11:47 AMMRN: [id number] #: [id number] of : | | | 1990Admit Type: AmbulatoryAge: 26Room: [facility] 02Gender: FemaleNote | | | Status: FinalizedAttending MD: Horace Carlos , [facility]: | | | Upper GI endoscopyIndications: Epigastric abdominal | | | pain, Generalized abdominal pain, | | | Suspected esophageal reflux, Exclusion of peptic ulcer, | | | Follow-up of peptic ulcerProviders: Horace | | | Maddie Carlos MD, Christine Anderson RN, Xena Glynn | | | Neftali, Carbon Brusher Assembler, Caio Vora MD (Anesthesia | | | [...] | | | the anesthesiologist and the tv technician in the pre-procedure | | | [...] PMScope Out: 12:26:29 PM | | | [facility], [address] [place] [address] | | | [address] | | | - Continue present medications. [...] |Scope Out: 12:26:29 PM | | | [facility], [address] [place] [address] | | | [address] | | + + -+ + +---------+ [...] 05/19/2017 | PROVATION | | 11:46 AMMRN: [id number] #: [id number] of : | | | 1990Admit Type: AmbulatoryAge: 26Room: [facility] 02Gender: FemaleNote | | | Status: FinalizedAttending MD: Horace Carlos MDProcedure: | | | ColonoscopyIndications: Abdominal pain, Chronic | | | diarrheaProviders: Horace Carlos MD, Christine Anderson RN, | | | Xena Lindsay, Carbon Brusher Assembler, Caio | | | Sue Vora MD [...] the anesthesiologist and the | | | tv technician in the pre-procedure area in the [...] | | | PMScope Out: 12:43:[address] [facility], [address] | | | [place] [address] | | | instructions were provided to [...] |Scope Out: 12:43:54 PM | | | [facility], [address] [place], [place] | | | [address] | | + + -+ + +---------+ [...] Clinical correlation is | | | requested. JVR:[facility]:C2NR GROSS DESCRIPTION: Received in five | [...] submitted, all in (E1). | | | ka:JVR:[facility] PERFORMING LABORATORY: Tissue processing and slide | | | preparation were performed by [employer], [address] | | | [address], [place] [address] (Machine Stacker: Brandon Blackwell M.D. | | | CLIA#: [id number]). Professional interpretation was performed by | | | [employer], [facility], [address] | [address] [place] [address] (Machine Stacker: Brandon Blackwell, | | | Aníbal; CLIA#: [id number]). Diagnostician: Brandon Blackwell MD | | | Pathologist Electronically Signed 05/20/2017 | | + + + + +---------+ + + | Performing | Address | City/State/[facility] Centercode | Phone Number | [...]
--- OUTSIDE RECORDS SUMMARY | ~2019-03-21 | XMS | Encounter Summary ---
Demographics + + + | Address | [address] | | | [place] [address] | + + + | Home Phone | | + + + | Preferred Language | Unknown | + + + | Marital Status | Single | + + + | Baptism Affiliation | 1013 | + + + | Race | Unknown | + + + | Ethnic Group | Unknown | + + + Author + + + | Author | [facility] | | | and Attilaana | + + + | Organization | [facility] | | [...] Providers + +------+ + | Care Senior Analyst Market Intelligence Name | Role | Phone | + [...] Follow-up | | 2019 | | MEDICINE [facility] | [address] | | | | | [address] | [place] | | | | | [place] | [address] | | | | | [address] | | | | | | [phone] | | | +--------+ + + + [...] [place] | | | | | | [address] | | | | | | | [...]
--- OUTSIDE RECORDS SUMMARY | ~2019-03-21 | XMS | Encounter Summary ---
Demographics + + + | Address | [address] | | | [place] [address] | + + + | Home Phone [...] + | Author | [facility] | | | and Attilaana | + + + | Organization | [facility] | | [...] Team Providers + +------+ + | Care Color Card Maker Name | Role | Phone | [...] Results | | 2019 | | [facility] [place] | [address] | | | | | [address] | [place] | | | | | [place] | [address] | | | | | [address] | | | | | | [phone] | | | +--------+ + + + [...] [place] | | | | | | [address] | | | | | | | [...]
--- OUTSIDE RECORDS SUMMARY | ~2019-03-21 | XMS | Encounter Summary ---
Demographics + + + | Address | [address] | | | [place] [address] | + + + | Home Phone | | + + + | Preferred Language | Unknown | + + + | Marital Status | Single | + + + | Spiritism Affiliation | 1013 | + + + | Race | Unknown | + + + | Ethnic Group | Unknown | + + + Author + + + | Author | [facility] | | | and Attilaana | + + + | Organization | [facility] [...] Team Providers + +------+ + | Care Tree Surgeon Helper Name | Role | Phone | + +------+ + | Colton Singer DO | PCP | | + +------+ + Encounter Details +--------+ + + + + | Date | Type | Department | Care Team | Description | +--------+ + + + + | 04/23/ | Abstract | [facility] | Horace Carlos MD | | | 2017 | | GASTROENTEROLOGY | [address] | | | | | [address] | [place], [place] | | | | | [address] [place] | [address] | | | | | [address] | [phone] | | | | | [phone] | | | +--------+ + + + [...] | | 2018 | Visit | | TAKE OUT WAITER/WAITRESS [address] | | | | | | [place] | | | | | | [phone] | | | | | | | | +--------+---------+ + + + | 03/30/ | Office | Otolaryngology | Hari Garcia MD | | | 2018 | Visit | | [address] | | | | | | [place] | | | | | | [phone] | | | | | | | | | | | | Matthias Wiley MD | | | | | | [address] [place] | | | | | | [address] [place] | | | | | | [phone] | | | | | | | | +--------+---------+ + + + documented as of this encounter Visit Diagnoses Not on filedocumented in this encounter"
--- OUTSIDE RECORDS SUMMARY | ~2019-03-21 | XMS | Encounter Summary ---
Demographics + + + | Address | [address] | | | [place] [address] | + + + | Home Phone [...] + | Author | [facility] | | | and Attilaana | + + + | Organization | [facility] | | | and Attilaana [...] Team Providers + +------+ + | Care Kitchen Assistant Name | Role | Phone | [...] + + | 04/11/ | Emergency | [facility] | Thai Pool, | Abdominal pain, | | 2017 | | [facility] | MD [address] | acute, epigastric | | | | CENTER [address] | [place], [place] | (Primary Dx); Nausea | | | | [place], [place] | [address] | and vomiting in | | | | [address] | | adult patient; | | | | [phone] | | Neutrophilic | | | | [...] documented in this encounter Discharge Instructions Instructions Thai Pool MD - 04/11/2017Please return in 12-24 hours for reevaluatio n of your abdominal pain, immediately if worse. AttachmentsThe following attachments cannot be sent through Care Everywhere.Vomiting (Adult ) (Gambian)Epigastric Pain (Uncertain Cause) (Gambian)Controlling Nausea and Vomiting, Oncol ogy (Gambian)Cooking, Quick and Healthy (Gambian)Cooking, Low-Fat Tips (Gambian)documented i n this encounter Medications at Time [...] | | 2018 | Visit | | AUDIT ASSOCIATE [address] | | | | | | [place] | | | | | | [address] | | | | | | | | +--------+---------+ + + + | 03/30/ | Office | Otolaryngology | Hari Garcia MD | | | 2018 | Visit | | [address] | | | | | | [place] | | | | | | [address] | | | | | | | | | | | | Matthias Wiley MD | | | | | | [address] | | | | | | [address] [place] | | | | | | [phone] | | | | | | | [...] + + documented in this encounter Results CT Abdomen [...] | | | report was sent by [facility] with no significant discrepancy on | | | 04/11/2017 8:45:02 PM. Dictated and Signed by: Jamin Bentley MD | | | Electronically signed: 04/12/2017 8:03 AM | | + + + + + | Procedure Note | + + | Nash, Rad Results In - 04/12/2017 8:06 AM [...] preliminary report was sent by | | [facility] with no significant discrepancyon 04/11/2017 8:45:02 PM.Dictated [...] | |A preliminary report was sent by [employer] with no significant discrepancy | |on 04/11/2017 [...] ST. | [address] | [place] | [phone] | | [facility] | | [address] | | | - LABORATORY | | [...] + + + + | Clarity | Cloudy (A) | Clear | [facility] [...] - 1.030 | [facility] | | | [place] | | | [facility] | | [...] + + + | WBC UA | 25-50 (A) | 0 - 2 [...] + + + + | SQUAMOUS | >100 (A) | 0 - 2 /LPF | [facility] | | | EPITHELIAL | | | [facility] | | | UA | | | MEDICAL | | | | | | CENTER - | | | | | | LABORATORY | | + + + + + + | BACTERIA UA | 1+ (A) | Negative /HPF | [...] + + + + + + | URINE | Urine Culture Set Up | | [facility] | | | COMMENT | | | [facility] | | [...] + + | [facility] | [address] | [place] | [phone] | | [facility] | | [address] | | | - LABORATORY | | [...] | Serum | RANGE: | | [facility] | | | | B-hCG | | [...] [address] | [place] | [phone] | | [facility] | | [address] | | | - LABORATORY | | [...] | | | | | mmol/L | [facility] | | | | [...] 12 | 7 - 18 mg/dL | [facility] | | | | | | [facility] | | | | | | MEDICAL | | | | | | CENTER - | | | | | | LABORATORY | | + + + + + + | Creatinine | 0.66 | 0.60 - 1.30 | [place] | | | | | mg/dL | [facility] | | | | | | MEDICAL | | | | | | CENTER - | | | | | | LABORATORY | | + + + + + + | eGFR if not | >60Comment: GLOMERULAR | >=60 | [facility] | | | | FILTRATION | mL/min/1.73m2 | [facility] | | | [place] | RATE,ESTIMATED | | MEDICAL | | | | mL/min/1.61r3Ophg than | | CENTER - | | [...] | | | | mg/dL | [facility] | | | | [...] ST. | [address] | [place] | [phone] | | [facility] | | [address] | | | - LABORATORY | | | | + + + + + CBC w/ Auto Differential (04/11/2017 7:08 PM PST) + + + + + + | Component | Value | Ref Range | Performed | Pathologist | | | | | At | Signature | + + + + + + | WBC | 15.0 (H) | 4.0 - 11.0 K/uL | [facility] | | | | | | [facility] | | | | | | MEDICAL | | | | | | CENTER - | | | | | | LABORATORY | | + + + + + + | RBC | 4.48 | 3.70 - 5.20 | [...] | | Neutrophils | | | [facility] | | | | | | MEDICAL | | | | | | CENTER - | | | | | | LABORATORY | | + + + + + + | % | 25.2 | 20.0 - 45.0 % | [facility] | | | Lymphocytes | | | [facility] | | [...] | | | Eosinophils | | | [facility] | | [...] | Neutrophils | | K/uL | [facility] | | | | | | MEDICAL | | | | | | CENTER - | | | | | | LABORATORY | | + + + + + + | Absolute | 3.80 (H) | 0.60 - 3.20 | [facility] | | | Lymphocytes | | K/uL | [facility] | | | | | | MEDICAL | | | | | | CENTER - | | | | | | LABORATORY | | + + + + + + | Absolute | 0.60 | 0.00 - 1.00 | [facility] | | | Monocytes | | K/uL | [facility] | | | | | | MEDICAL | | | | | | CENTER - | | | | | | LABORATORY | | + + + + + + | Absolute | 0.60 (H) | 0.00 - 0.40 | [facility] | | | Eosinophils | | K/uL | [facility] | | | | | | MEDICAL | | | | | | CENTER - | | | | | | LABORATORY | | + + + + + + | Absolute | 0.20 (H) | 0.00 - 0.10 | [facility] | | | Basophils | | K/uL | [facility] | | | | [...] + | [facility] | [address] | [place] | [phone] | | [facility] | | [address] | | | - LABORATORY | | [...] [address] | [place] | [phone] | | [facility] | | [address] | | | - LABORATORY | | [...]
--- OUTSIDE RECORDS SUMMARY | ~2019-03-21 | XMS | Encounter Summary ---
Demographics + + + | Address | [address] | | | [place] [address] | + + + | Home Phone [...] | [facility] | | | and Attilaana | + + + | Organization | [facility] | | | and Attilaana [...] Team Providers + +------+ + | Care Juice Mixer Name | Role | Phone | [...] | | | | [address] | [place], [place] | | | | | [address] [place] | [address] | | | | | [address] | [phone] | | | | | [phone] | | | +--------+ + + + [...] | | 2018 | Visit | | MOHS SURGEON [address] | | | | | | [place] | | | | | | [phone] | | | | | | | | +--------+---------+ + + + | 03/30/ | Office | Otolaryngology | Hari Garcia MD | | | 2018 | Visit | | [address] | | | | | | [place] | | | | | | [phone] | | | | | | | | | | | | Matthias Wiley MD | | | | | | [address] [place] | | | | | | [address] [place] | | | | | | [phone] | | | | | | | | +--------+---------+ + + + documented as of this encounter Visit Diagnoses Not on filedocumented in this encounter"
--- OUTSIDE RECORDS SUMMARY | ~2019-03-21 | XMS | Encounter Summary ---
Demographics + + + | Address | [address] | | | [place] [address] | + + + | Home Phone | | + + + | Preferred Language | Unknown | + + + | Marital Status | Single | + + + | Orthodox Affiliation | 1013 | + + + | Race | Unknown | + + + | Ethnic Group | Unknown | + + + Author + + + | Author | [facility] | | | and Attilaana | + + + | Organization | [facility] | | | and [...] Team Providers + +------+ + | Care Building Associate Name | Role | Phone | [...] [place] | | | | | | [address] | | | | | | [phone] | | | +--------+ + + + [...] | | 2018 | Visit | | SENIOR COUNSEL [address] | | | | | | [place] | | | | | | [phone] | | | | | | | | +--------+---------+ + + + | 03/30/ | Office | Otolaryngology | Hari Garcia MD | | | 2018 | Visit | | [address] | | | | | | [place] | | | | | | [address] | | | | | | | | | | | | Matthias Wiley MD | | | | | | [address] [place] | | | | | | [address] [place] | | | | | | [address] | | | | | | | | +--------+---------+ + + + documented as of this encounter Visit Diagnoses Not on filedocumented in this encounter"
--- OUTSIDE RECORDS SUMMARY | ~2019-03-21 | XMS | Encounter Summary ---
Demographics + + + | Address | [address] | | | [place] [address] | + + + | Home Phone [...] | Author | [facility] | | | and Attilaana | + + + | Organization | [facility] | | [...] Team Providers + +------+ + | Care Multifocal Button Inspector Name | Role | Phone | + +------+ + | Hari Garcia MD | PCP | | + +------+ + Reason for Visit +---------+ + | Reason | Comments | +---------+ + | No Show | 1st no show initial eval | +---------+ + Encounter Details +--------+ + + + + | Date | Type | Department | Care Team | Description | +--------+ + + + + | 09/13/ | Telephone | [facility] [place] | Becca Dial, | No Show (1st no show | | 2019 | | [facility] | Aide | initial eval) | | | | THERAPY [address] | | | | | [address] [place] | | | | | | [address] | | | | | | [phone] | | | +--------+ + + + [...] [place] | | | | | | [phone] | | | | | | | | +--------+---------+ + + + | 03/30/ | Office | Otolaryngology | Hari Garcia MD | | | 2019 | Visit | | [address] | | | | | | [place] | | | | | | [phone] | | | | | | | [...]
--- OUTSIDE RECORDS SUMMARY | ~2019-03-21 | XMS | Encounter Summary ---
Demographics + + + | Address | [address] | | | [place] [address] | + + + | Home Phone [...] | [facility] | | | and [place] | + + + | Organization | [facility] | [...] Team Providers + +------+ + | Care Life Skills Coordinator Name | Role | Phone | [...] Medication Refill | | 2018 | | MEDIC[facility] [place] | [address] | | | | | [address] | [place] | | | | | [place] | [address] | | | | | [address] | | | | | | [phone] | | | +--------+--------+ + + + [...] [place] | | | | | | [address] | | | | | | | | +--------+---------+ + + + | 03/30/ | Office | Otolaryngology | Hari Garcia MD | | | 2019 | Visit | | [address] | | | | | | [place] | | | | | | [address] | | | | | | | | | | | | Matthias Wiley MD | | | | | | [address] [place] | | | | | | [address] [place] | | | | | | [address] | | | | | | | | +--------+---------+ + + + documented as of this encounter Visit Diagnoses + + | Diagnosis | + + | PCOS (polycystic ovarian syndrome) Polycystic ovaries | + + | Prediabetes Other abnormal glucose | + + documented in this encounter"
--- OUTSIDE RECORDS SUMMARY | ~2019-03-21 | XMS | Encounter Summary ---
Demographics + + + | Address | [address] | | | [place] [address] | + + + | Home Phone | | + + + | Preferred Language | Unknown | + + + | Marital Status | Single | + + + | Cheondoism Affiliation | 1013 | + + + | Race | Unknown | + + + | Ethnic Group | Unknown | + + + Author + + + | Author | [facility] | | | and Attilaana | + + + | Organization | [facility] | | | and [...] Team Providers + +------+ + | Care Hospitality Internship Name | Role | Phone | + [...] + + | 06/13/ | Office | [facility] | Hari Garcia MD | Nausea (Primary Dx); | | 2019 | Visit | MEDICINE [place] | [address] | Fatigue, | | | | [address] | [place] | unspecified type; | | | | [place] | [address] | Encounter for | | | | [address] | | confirmation of | | | | [phone] | | test | | | | [...] can see your family provider, a specialist (supervisor broadloom), or a primary care cli david. When [...] changes or blurred vision Date Last Reviewed: 02/08/201619991976-7140 [employer]. [address] [place] [address]. All [facility] ts reserved. This information is not [...] Internal QC Acceptable Acceptable, Not Performed Specific [place], POC 1.010, 1.015, 1.020, 1.025 Lot Number [...] the past and will continue to try [id number] pattie with Zofran as a backup. She [...] MD 06/13/2018 This note is dictated using [employer] voice recognition software. This note was dictated but not proofread. It may contain some grammatical errors. documented in this enc ounter Plan of Treatment +--------+---------+ + + + | Date | Type | Specialty | Care Team | Description | +--------+---------+ + + + | 03/27/ | Office | Family Medicine | Sonia Lozoya, | | | 2018 | Visit | | MARKETING AND DEVELOPMENT COORDINATOR [address] | | | | | | [place] | | | | | | [phone] | | | | | | | | +--------+---------+ + + + | 03/30/ | Office | Otolaryngology | Hari Garcia MD | | | 2018 | Visit | | [address] | | | | | | [place] | | | | | | [address] | | | | | | | | | | | | Matthias Wiley MD | | | | | | [address] [facility] | | | | | | [address] [place] | | | | | | [id number] | | | | | | | [...] [address] | [place] Emanuel[place]DR[place] | [phone] | | [facility] | | [address] | | | [facility] | | [...] 1.010, 1.015, | [place] | | | [place], | | 1.020, 1.025 | [address] [facility] [...] + + | [address] | [address] [facility] | [place] [address] | [phone] | | [facility] | | | [...]
--- OUTSIDE RECORDS SUMMARY | ~2019-03-21 | XMS | Encounter Summary ---
Demographics + + + | Address | [address] | | | [place] [address] | + + + | Home Phone [...] + | Author | [facility] | | | and [place] | + + + | Organization | [facility] | | | and Attilaana [...] Team Providers + +------+ + | Care Sourcing Consultant Name | Role | Phone | [...] Records Request | | 2018 | | [facility] | [address] | | | | | [address] | [place] | | | | | [place] | [address] | | | | | [address] | | | | | | [phone] | | | +--------+ + + + [...] | | 2018 | Visit | | RELATIONS SPECIALIST [address] | | | | | | [place] | | | | | | [address] | | | | | | | | +--------+---------+ + + + | 03/30/ | Office | Otolaryngology | Hari Garcia MD | | | 2019 | Visit | | [address] | | | | | | [place] | | | | | | [address] | | | | | | | [...]
--- OUTSIDE RECORDS SUMMARY | ~2019-03-21 | XMS | Encounter Summary ---
Demographics + + + | Address | [address] | | | [place] [address] | + + + | Home Phone [...] + + + | Author | and [facility] | | | and [place]tila[place] | + + + | Organization | and [facility] | | [...] Team Providers + +------+ + | Care Professor Of Psychiatry Name | Role | Phone | + [...] + | 11/28/ | Telephone | [facility] | Hari Garcia MD | Blurred Vision | | 2019 | | MEDICINE [place] | [address] | | | | | [address] | [place] | | | | | [place] | [address] | | | | | [address] | | | | | | [phone] | | | +--------+ + + + [...] | | 2018 | Visit | | GLOBAL LOGISTICS ANALYST [address] | | | | | | [place] | | | | | | [address] | | | | | | | [...] | | | | | [address] | | | | | | [address] [place] | | | | | | [address] | | | | | | | | +--------+---------+ + + + documented as of this encounter Visit Diagnoses Not on filedocumented in this encounter"
--- OUTSIDE RECORDS SUMMARY | ~2019-03-21 | XMS | Encounter Summary ---
Demographics + + + | Address | [address] | | | [place] [address] | + + + | Home Phone | | + + + | Preferred Language | Unknown | + + + | Marital Status | Single | + + + | Islam Affiliation | 1013 | + + + | Race | Unknown | + + + | Ethnic Group | Unknown | + + + Author + + + | Author | [facility] | | | and [place] | + + + | Organization | [facility] | | | and Attilaana [...] Providers + +------+ + | Care Insurance Underwriter Name | Role | Phone | + +------+ + | Hari Garcia MD | PCP | | + +------+ + Reason for Visit + + + | Reason | Comments | + + + | Follow-up | Depression/anxiety | + + + Encounter Details +--------+---------+ + + + | Date | Type | Department | Care Team | Description | +--------+---------+ + + + | 03/30/ | Office | [facility] | Hari Garcia MD | Grief reaction | | 2018 | Visit | MEDICINE [place] | [address] | (Primary Dx); Acute | | | | [address] | [place] | stress disorder; | | | | [place] | [address] | Social anxiety | | | | [address] | | disorder; Chronic | | | | [phone] | | post-traumatic | | | | | | stress disorder | | | | | | (PTSD); Panic attack | +--------+---------+ + + + Social History [...] + + + | Blood Pressure | 122/82 | 03/30/2018 1:04 PM | | | | | PST | | + + + + + | Pulse | 80 | 03/30/2018 1:04 PM | | | | | PST | | + + + + + | Temperature | 37.1 C (98.7 F) | 03/30/2018 1:04 PM | | | | | PST | | + + + + + | Respiratory Rate | - | - | | + + + + + | Oxygen Saturation | 95% | 03/30/2018 1:04 PM | | | | | PST | | + + + + + | Inhaled Oxygen | - | - | | | Concentration | | | | + + + + + | Weight | 108.9 kg (240 lb) | 03/30/2018 1:04 PM | | | | | PST | | + + + + + | Height | 162.6 cm (5' 4") | 03/30/2018 1:04 PM | | | | | PST | | + + + + + | Body Mass Index | 41.2 | 03/30/2018 1:04 PM | | | | | PST | | + + + + + documented in this encounter Patient Instructions Patient Instructions Alivia Alvarez LPN - 03/30/2018 1:00 PM PSTFormatting of this not e might be different from the original. Deep Breathing Deep breathing helps keep your lungs clear. If you ve had surgery, this will help you get better faster. Deep breathing also helps you breathe easier and may prevent a lung infectio n. Home care Follow these steps to dodeep breathing: Sit on the edge of a bed or a chair. You can also lie on your back with your knees sligh tly bent. If you've had surgery, hold a pillow or rolled-up towel firmly against your incision wit h both hands. Hug the pillow. Breathe out normally. Breathe in deeply through your nose. Feel your stomach push out as you breathe in. Pucker your lips as you would to blow out a candle. With your lips puckered, breathe out slowly through your mouth. You should feel your robetr st go down as you breathe out. Rest for a few seconds. Repeat the above steps as many times as directed. Follow-up Make a follow-up appointment as directed by our staff. When to seek medical care Call your healthcare provider right away if you have any of the following: Fever of 100.4F (38C) or higher, or as directed by your healthcare provider Signs of infection, if you've had surgery. These include redness, swelling, or warmth at your incision site, or pus or fluid draining from the site. Brownish or bloody sputum Nausea or vomiting Increasing pain Dizziness or weakness Fast or irregular heartbeat Call 911 Shortness of breath may be a sign of a serious health problem. Call 911 if you have shortne ss of breath that gets worse or have trouble breathing, especially with any of the symptoms below: Confusion or difficulty staying awake Loss of consciousness or fainting Chest pain or tightness Difficulty breathing or wheezing Bluish skin Coughing up blood Severe pain Date Last Reviewed: 05/10/201619999687-2187 [employer] [address] [place] [address]. All righ ts reserved. This information is not intended as a substitute for professional medical care. Always follow your healthcare professional's instructions. documented in this encounter Progress Notes Hari Garcia MD - 03/30/2018 1:00 PM PST Chief Complaint: Follow-up (Depression/anxiety) History: Rashmi Holcomb is a 27 y.o. female who is here for follow-up of anxiety and depression. Prince chaney was started on citalopram 2 weeks ago and has tolerated the onset of her new medicatio n but does not feel any significant effect. Last night she found out that her ex-boyfriend overdosed on medications. In combination with her losing her grandfather 2 weeks ago jessi lopes is experiencing significant grief. She reports that she is "near the end of her rope" and doesn't feel like she has any safe space to relax, rejuvenate, let down. She feels like martha neri is working all the time and when she is not working she has having to dealing with life st uff at home with her boyfriend as well as not being able to process her loss. She's having difficulty sleeping with significant prolonged onset of sleep despite significant fatigue an d tiredness. Patient reports her anxiety is now at 11 out of 10 and she has had multiple pa david attacks over the last 3-4 days. She denies suicidality. She has continued to go to [employer] and do what she needs to at home. Patient Active Problem List Diagnosis Abdominal pain, unspecified abdominal location Nausea Anxiety BMI 40.0-44.9, adult PCOS (polycystic ovarian syndrome) H/O section H/O Anesthesia Modification - Required Higher Dose Nausea with vomiting Esophagitis determined by biopsy Outpatient Medications Prior to Visit Medication Sig Dispense Refill citalopram (CELEXA) 10 mg tablet Take 1 tablet by mouth Daily. 30 tablet 2 Aparna 500 MG CAPS Take 500 mg by mouth 3 times daily as needed (nausea). 30 each 1 levonorgestrel-ethinyl estradiol (AVIANE) 0.1-20 [...] Negative Negative Internal QC Acceptable Acceptable Specific [place], POC 1.010, 1.015, 1.020, 1.025 Lot Number [id number] Expiration Date 2019-07-19 Health Maintenance Topics with due status: Overdue Topic Date Due Cervical Cancer Screening (Pap) 2010 Adult Annual Wellness Visit 04/11/2017 Physical Examination: BP 122/82 | Pulse 80 | Temp 37.1 C (98.7 F) (Temporal) | Ht 1.626 m (5' 4") | Wt 10 8.9 kg (240 lb) | SpO2 95% | BMI 41.20 kg/m Physical Exam Constitutional: [...] Skin: Skin is warm and dry. Psychiatric: Patient with depressed mood with significant crying during the visit. Vitals reviewed. Assessment/Plan: 1. Grief reaction Patient with acute grief reaction in the setting of acute stress disorder with known histor y of PTSD and social anxiety. I recommend a short-term course of benzodiazepine as needed f or sleep as well as panic attack symptoms. We discussed treating a "safe space" at home jessica t she can take at least once daily 15-20 minute "break from life". We discussed the value o f having a day each week where she can set aside the ongoing stressors in her life and be ab le to process the loss that she's experienced over the last month. Patient was challenged t o engage with her boyfriend regarding her recent loss and I encouraged the 2 of them to disc uss things that think will for related to their life together as well as the patient's grand pa. Patient is encouraged with this thought. Therapeutic listening was performed during e visit and after patient's consent obtained prayer was provided. - LORazepam (ATIVAN) 0.5 mg tablet; Take 1 tablet by mouth Twice daily as needed for Anxie ty or Insomnia. Dispense: 30 tablet; Refill: 0 2. Acute stress disorder - LORazepam (ATIVAN) 0.5 mg tablet; Take 1 tablet by mouth Twice daily as needed for Anxie ty or Insomnia. Dispense: 30 tablet; Refill: 0 3. Social anxiety disorder - LORazepam (ATIVAN) 0.5 mg tablet; Take 1 tablet by mouth Twice daily as needed for Anxie ty or Insomnia. Dispense: 30 tablet; Refill: 0 4. Chronic post-traumatic stress disorder (PTSD) 5. Panic attack Patient declined psychotherapy referral at this time as she is seeking out where she could receive treatment closer to home. - LORazepam (ATIVAN) 0.5 mg tablet; Take 1 tablet by mouth Twice daily as needed for Anxie ty or Insomnia. Dispense: 30 tablet; Refill: 0 Follow-up: Return in about 2 weeks (around 04/13/2018) for FP - Ok to schedule on (f/ u depression). Hari Garcia MD 03/30/2018 I spent 25 minutes face to face with the patient, with over 50% spent in counseling and/or coordination of care regarding education on self-care, meditation, proper medication managem ent, short-term nature of benzodiazepine therapy and anticipatory guidance on appropriatenes s of administration and safety profile. This note is dictated using [employer] voice recognition software. This note was dictated but not proofread. It may contain some grammatical errors. documented in this enc ounter Plan of Treatment +--------+---------+ + + + | Date | Type | Specialty | Care Team | Description | +--------+---------+ + + + | 03/27/ | Office | Family Medicine | Sonia Lozoya, | | | 2018 | Visit | | GRADING MACHINE OPERATOR [address] | | | | | | [place] | | | | | | [address] | | | | | | | | +--------+---------+ + + + | 03/30/ | Office | Otolaryngology | Hari Garcia MD | | | 2018 | Visit | | [address] | | | | | | [place] | | | | | | [address] | | | | | | | | | | | | Matthias Wiley MD | | | | | | [address] [place] | | | | | | [address] [place] | | | | | | [address] | | | | | | | | +--------+---------+ + + + documented as of this encounter Visit Diagnoses + + | Diagnosis | + + | Grief reaction - Primary Adjustment disorder with depressed mood | + + | Acute stress disorder Other acute reactions to stress | + + | Social anxiety disorder Social phobia | + + | Chronic post-traumatic stress disorder (PTSD) | + + | Panic attack Panic disorder without agoraphobia | + + documented in this encounter
--- OUTSIDE RECORDS SUMMARY | ~2019-03-21 | XMS | Encounter Summary ---
Demographics + + + | Address | [address] | | | [place] [address] | + + + | Home Phone | | + + + | Preferred Language | Unknown | + + + | Marital Status | Single | + + + | Mormon Affiliation | 1013 | + + + | Race | Unknown | + + + | Ethnic Group | Unknown | + + + Author + + + | Author | [facility] | | | and [place] | + + + | Organization | [facility] | | [...] Team Providers + +------+ + | Care Orthotic Practitioner Name | Role | Phone | + [...] Results | | 2019 | | MEDICINE [place] | [address] | | | | | [address] | [place] | | | | | [place] | [address] | | | | | [address] | | | | | | [phone] | | | +--------+ + + + [...] [place] | | | | | | [address] | | | | | | | [...]
--- OUTSIDE RECORDS SUMMARY | ~2019-03-21 | XMS | Encounter Summary ---
Demographics + + + | Address | [address] | | | [place] [address] | + + + | Home Phone [...] | Author | [facility] | | | and [place] | + + + | Organization | [facility] | | | and [...] Team Providers + +------+ + | Care Presidential Helicopter Crew Chief Name | Role | Phone | + +------+ + | Hari Garcia MD | PCP | | + +------+ + Encounter Details +--------+ + + + + | Date | Type | Department | Care Team | Description | +--------+ + + + + | 02/16/ | [facility] | [facility] | Horace Carlos MD | Abdominal pain, | | 2018 | Encounter | [facility] | [address] | unspecified | | | | [address] | [place] | abdominal location; | | | | [place] | [address] | Esophagitis | | | | [address] | [phone] | determined by | | | | [phone] | | biopsy; | | | | [...] vomiting, or vomiting blood Date Last Reviewed: 11/08/201519994490-6275 [employer]. [address] [place] [address]. All righ ts reserved. This information is [...] | | 2018 | Visit | | INFRASTRUCTURE TECHNICIAN [address] | | | | | | [place] | | | | | | [address] | | | | | | | | +--------+---------+ + + + | 03/30/ | Office | Otolaryngology | Hari Garcia MD | | | 2018 | Visit | | [address] | | | | | | [place] | | | | | | [address] | | | | | | | | | | | | Matthias Wiley MD | | | | | | [address] [place] | | | | | | [address] [place] | | | | | | [address] | | | | | | | [...] | | | | | | ([facility]LY [facility]) (E66.01, | | | | | | [...] 02/16/2018 | PROVATION | | 3:30 PMMRN: [id number] #: [id number] of : | | | 1990Admit Type: AmbulatoryAge: 27Room: [facility] 01Gender: FemaleNote | | | Status: FinalizedAttending MD: Horace Carlos , [facility] HOMErocedure: | | | Upper GI endoscopyIndications: Abdominal pain, | | | Functional Dyspepsia, Heartburn, Suspected | | | esophageal refluxProviders: Horace Carlos MD, Joanne | | | Justin RN, Serena Pena, Legal Specialist, | | | Mark Glynn MD (Anesthesia [...] the anesthesiologist and the | | | glass technician in the pre-procedure area in the [...] PMScope Out: 3:43:56 PM | | | [facility] [place], [place] | | | [address] | | | - Continue present medications. [...] |Scope Out: 3:43:56 PM | | | [facility], [address] [place], [place] | | | [address] | | + + -+ + +---------+ [...] | 1.010, 1.015, | | | | [place], | | 1.020, 1.025 | | | | POC | | | | | + + + + + + | Lot Number | [id number] | | | | + + + [...] intestinal | | | metaplasia or dysplasia. [facility] GROSS DESCRIPTION: Four | | | [...] component was | | | performed by [facility], [address] [place] [id number] | | | (Ward Helper: Gabby Noble MD; CLIA# [id number]). Professional | | | interpretation was performed by [facility] | | | [facility], [address] [place] [address] | | | [id number] (Ward Helper: Brandon Blackwell M.D.). Diagnostician: | | [...]
--- OUTSIDE RECORDS SUMMARY | ~2019-03-21 | XMS | Encounter Summary ---
Demographics + + + | Address | [address] | | | [place] [address] | + + + | Home Phone [...] | Author | [facility] | | | and Attilaana | + + + | Organization | [facility] | | | and [...] Team Providers + +------+ + | Care Zipper Cutter Name | Role | Phone | + [...] | | | | | | [place] | | | | | | [address] | | | | | | [phone] | | | +--------+ + + + [...] [place] | | | | | | [id number] | | | | | | | | +--------+---------+ + + + | 03/30/ | Office | Otolaryngology | Hari Garcia MD | | | 2019 | Visit | | [address] | | | | | | [place] | | | | | | [id number] | | | | | | | [...]
--- OUTSIDE RECORDS SUMMARY | ~2019-03-21 | XMS | Encounter Summary ---
Demographics + + + | Address | [address] | | | [place] [address] | + + + | Home Phone [...] | [facility] | | | and [place] | + + + | Organization | [facility] | | | [...] Team Providers + +------+ + | Care Digital Account Director Name | Role | Phone | + [...] | 04/29/ | Telephone | [facility] | Hari Garcia MD | Female Problem | | 2018 | | MEDICINE [place] | [address] | | | | | [address] | [place] | | | | | [place] | [address] | | | | | [address] | | | | | | [phone] | | | +--------+ + + + [...] [place] | | | | | | [address] | | | | | | | [...]
--- OUTSIDE RECORDS SUMMARY | ~2019-03-21 | XMS | Encounter Summary ---
Demographics + + + | Address | [address] | | | [place] [address] | + + + | Home Phone [...] | Author | [facility] | | | and Attilaana | + + + | Organization | [facility] [...] Team Providers + +------+ + | Care Ethylbenzene Oxidizer Name | Role | Phone | + [...] + + | 03/21/ | Telephone | [facility] | Hari Garcia MD | Coughing Up Blood; | | 2018 | | MEDICINE [place] | [address] | Hematemesis | | | | [address] | [place], [place] | | | | | [place], [place] | [address] | | | | | [address] | | | | | | [phone] | | | +--------+ + + + [...] | | 2018 | Visit | | TRANSPORT NURSE [address] | | | | | | [place] | | | | | | [address] | | | | | | | | +--------+---------+ + + + | 03/30/ | Office | Otolaryngology | Hari Garcia MD | | | 2018 | Visit | | [address] | | | | | | [place] | | | | | | [address] | | | | | | | | | | | | Matthias Wiley MD | | | | | | [address] [place] | | | | | | [address] [place] | | | | | | [address] | | | | | | | | +--------+---------+ + + + documented as of this encounter Visit Diagnoses Not on filedocumented in this encounter"
--- OUTSIDE RECORDS SUMMARY | ~2019-03-21 | XMS | Encounter Summary ---
Demographics + + + | Address | [address] | | | [place] [address] | + + + | Home Phone [...] [facility] | | | and Attilaana | + + + | Organization | [facility] | | [...] Providers + +------+ + | Care Life Science Technical Officer Name | Role | Phone | [...] + + | 04/11/ | Emergency | [facility] | Thai Pool, | Abdominal pain, | | 2017 | | [facility] | MD [address] | acute, epigastric | | | | CENTER [address] | [place], [place] | (Primary Dx); Nausea | | | | [place], [place] | [address] | and vomiting in | | | | [address] | | adult patient; | | | | [phone] | | Neutrophilic | | | | [...] be sent through Care Everywhere.Vomiting (Adult ) (Honduran)Epigastric Pain (Uncertain Cause) (Honduran)Controlling Nausea and Vomiting, Oncol ogy (Honduran)Cooking, Quick and Healthy (Honduran)Cooking, Low-Fat Tips (Honduran)documented i n this encounter Medications at Time [...] | | 2018 | Visit | | STAFF TOXICOLOGIST [address] | | | | | | [place] | | | | | | [address] | | | | | | | | +--------+---------+ + + + | 03/30/ | Office | Otolaryngology | Hari Garcia MD | | | 2018 | Visit | | [address] | | | | | | [place] | | | | | | [address] | | | | | | | | | | | | Matthias Wiley MD | | | | | | [address] | | | | | | [address] [place] | | | | | | [phone] | | | | | | | [...] | | | report was sent by Enhan[facility] with no significant discrepancy on | | [...] preliminary report was sent by | | Enhan[facility] with no significant discrepancyon 04/11/2017 8:45:02 PM.Dictated [...] | |A preliminary report was sent by Enhan[facility] with no significant discrepancy | |on 04/11/2017 [...] ST[address] | [address] | [place] | [phone] | | [facility] | | [address] | | | - LABORATORY | | [...] - 1.030 | [facility] | | | [place] | | | [facility] | | [...] [address] | [place] | [phone] | | [facility] | | [address] | | | - LABORATORY | | [...] [address] | [place] | [phone] | | [facility] | | [address] | | | - LABORATORY | | [...] 7 - 18 mg/dL | [facility] | | | | | | [facility] | | | | | | MEDICAL | | | | | | CENTER - | | | | | | LABORATORY | | + + + + + + | Creatinine | 0.66 | 0.60 - 1.30 | [facility] | | | | | mg/dL | [facility] | | | | | | MEDICAL | | | | | | CENTER - | | | | | | LABORATORY | | + + + + + + | eGFR if not | >60Comment: GLOMERULAR | >=60 | [facility] | | | | FILTRATION | mL/min/1.73m2 | [facility] | | | [place] | RATE,ESTIMATED | | MEDICAL | | | | mL/min/1.93g7Lrvh than | | CENTER - | | [...] + | [facility] | [address] | [place] | [phone] | | [facility] | | [address] | | | - LABORATORY | | [...] + | [facility] | [address] | [place] | [phone] | | [facility] | | [address] | | | - LABORATORY | | [...] | | | | | | [facility] | | | | | | MEDICAL [...] [address] | [place] | [phone] | | [facility] | | [address] | | | - LABORATORY | | [...]
--- OUTSIDE RECORDS SUMMARY | ~2019-03-21 | XMS | Encounter Summary ---
Demographics + + + | Address | [address] | | | [place] [address] | + + + | Home Phone [...] Author | [facility] | | | and Attilaana | + + + | Organization | [facility] | [...] Team Providers + +------+ + | Care Inspector Experimental Assembly Name | Role | Phone | + [...] + + | 03/30/ | Office | [facility] | Hari Garcia MD | Grief reaction | | 2018 | Visit | MEDICINE [place] | [address] | (Primary Dx); Acute | | | | [address] | [place] | stress disorder; | | | | [place] | [address] | Social anxiety | | | | [address] | | disorder; Chronic | | | | [phone] | | post-traumatic | | | | [...] through your mouth. You should feel your robert st go down as you breathe out. [...] up blood Severe pain Date Last Reviewed: 05/10/201619991695-1962 [employer]. [address] [place] [address]. All righ ts reserved. This information is [...] suicidality. She has continued to go to [employer] and do what she needs to at [...] Negative Negative Internal QC Acceptable Acceptable Specific [place], POC 1.010, 1.015, 1.020, 1.025 Lot Number [id number] Expiration Date 2019-07-19 Health Maintenance Topics with [...] safety profile. This note is dictated using [facility] voice recognition software. This note was dictated but not proofread. It may contain some grammatical errors. documented in this enc ounter Plan of Treatment +--------+---------+ + + + | Date | Type | Specialty | Care Team | Description | +--------+---------+ + + + | 03/27/ | Office | Family Medicine | Sonia Lozoya, | | | 2018 | Visit | | INDUSTRIAL EQUIPMENT WIRER [address] | | | | | | [place] | | | | | | [address] | | | | | | | | +--------+---------+ + + + | 03/30/ | Office | Otolaryngology | Hari Garcia MD | | | 2018 | Visit | | [address] | | | | | | [place] | | | | | | [address] | | | | | | | | | | | | Matthias Wiley MD | | | | | | [address] [place] | | | | | | [address] [place] | | | | | | [address] | | | | | | | [...]
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
--- OUTSIDE RECORDS SUMMARY | ~2019-03-21 | XMS | Encounter Summary ---
Demographics + + + | Address | [address] | | | [place] [address] | + + + | Home Phone | | + + + | Preferred Language | Unknown | + + + | Marital Status | Single | + + + | Rastafari Affiliation | 1013 | + + + | Race | Unknown | + + + | Ethnic Group | Unknown | + + + Author + + + | Author | [facility] | | | and [place] | + + + | Organization | [facility] | | | and Attilaana [...] Providers + +------+ + | Care Supervisor Soldering Name | Role | Phone | + [...] 2017 | | GASTROENTEROLOGY | [address] [facility] | | | | | [address] [facility] | [place], [place] | | | | | [address] [place] | [address] | | | | | [address] | [phone] | | | | | [phone] | | | +--------+ + + + [...] | | 2018 | Visit | | EYELET MAKER [address] | | | [...] [place] | | | | | | [phone] | | | | | | | | | | | | Matthias Wiley MD | | | | | | [address] [place] | | | | | | [address] [place] | | | | | | [address] | | | | | | | | +--------+---------+ + + + documented as of this encounter Visit Diagnoses Not on filedocumented in this encounter"
--- OUTSIDE RECORDS SUMMARY | ~2019-03-21 | XMS | Encounter Summary ---
Demographics + + + | Address | [address] | | | [place] [address] | + + + | Home Phone [...] Author | [facility] | | | and [place]tilaana | + + + | Organization | [facility] | | | [...] Team Providers + +------+ + | Care Financial Advocate Name | Role | Phone | + [...] Refill | | 2019 | | [facility] [place] | [address] | | | | | [address] | [place] | | | | | [place] | [address] | | | | | [address] | | | | | | [phone] | | | +--------+--------+ + + + [...] [place] | | | | | | [address] | | | | | | | [...]
--- OUTSIDE RECORDS SUMMARY | ~2019-03-21 | XMS | Encounter Summary ---
Demographics + + + | Address | [address] | | | [place] [address] | + + + | Home Phone | | + + + | Preferred Language | Unknown | + + + | Marital Status | Single | + + + | Religion Affiliation | 1013 | + + + | Race | Unknown | + + + | Ethnic Group | Unknown | + + + Author + + + | Author | [facility] | | | and [place] | + + + | Organization | [facility] [...] Team Providers + +------+ + | Care Horseback Excavator Name | Role | Phone | + [...] obesity with | [address] [place] | [address] | | | | | body mass | [place], [place] | [place], | | | | | index (BMI) | [address] | [place] [address] | | | | | of 40.0 to | Phone: | Phone: | | | | | 44.9 in | [phone] | [phone] | | | | | adult, | Fax: | Fax: | | | | | unspecified | [phone] | [phone] | | | | | obesity | [...] + + | 12/13/ | Hospital | [facility] | Hari Garcia MD | Morbid obesity with | | 2019 | Encounter | MED CTR NUTRITION | [address] | BMI of 40.0-44.9, | | | | SERVICES [address] | [place], [place] | adult (HCC) (Primary | | | | [place], | [phone] | Dx) | | | | [place] [address] | | | | | | [phone] | Yasmin Hernandez | | | | [...] Progress Notes Yasmin Hernandez, RDN - 12/13/2018 4:09 PM PDTFormatting of this note might be differ ent from the original. Medical Nutrition Note SUBJECTIVE: Patient states she has PCOS and would like to have another baby. She states she lost weight and got in the past. Her lifestyle is different now and she is trying to lose weight again. 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 She is working on [email or web address] easing her smoking and increasing her activity. [...] 233#. BMI: 40.15 Estimated needs (wt. 106.1kg) 5094-3335 kcals/day (MSJ - 20/kg) 54-84 gm pro/day [...] Yasmin Hernandez RDN 12/13/2018 16:16 documented in this encounter Plan of Treatment +--------+---------+ + + + | Date | Type | Specialty | Care Team | Description | +--------+---------+ + + + | 03/27/ | Office | Family Medicine | Sonia Lozoya, | | | 2018 | Visit | | BEATER BOSS [address] | | | | | | [place] | | | | | | [phone] | | | | | | | | +--------+---------+ + + + | 03/30/ | Office | Otolaryngology | Hari Garcia MD | | | 2018 | Visit | | [address] | | | | | | [place] | | | | | | [phone] | | | | | | | | | | | | Matthias Wiley MD | | | | | | [address] [place] | | | | | | [address] [place] | | | | | | [phone] | | | | | | | [...] for this | | SCAN | | 12:00 AM | | procedure are in the | | | | PDT | | results section. | + +--------+ + + + documented in this encounter Results PATHOLOGY - EXTERNAL SCAN (08/25/2018 12:00 AM PDT) + + + | Narrative | [...]
--- OUTSIDE RECORDS SUMMARY | ~2019-03-21 | XMS | Encounter Summary ---
Demographics + + + | Address | [address] | | | [place] [address] | + + + | Home Phone [...] | [facility] | | | and [place] | + + + | Organization | [facility] | | [...] Team Providers + +------+ + | Care Resident Assistant Name | Role | Phone | [...] talking with someone | | | | [address] | [place] | to schedule her | | | | [phone] | [phone] | ultrasound and she | [...] | | 2018 | Visit | | MENDING CARRIER [address] | | | | | | [place] | | | | | | [phone] | | | | | | | | +--------+---------+ + + + | 03/30/ | Office | Otolaryngology | Hari Garcia MD | | | 2018 | Visit | | [address] | | | | | | [place] | | | | | | [phone] | | | | | | | | | | | | Matthias Wiley MD | | | | | | [address] [facility] | | | | | | [address] [place] | | | | | | [address] | | | | | | | | +--------+---------+ + + + documented as of this encounter Visit Diagnoses Not on filedocumented in this encounter"
--- OUTSIDE RECORDS SUMMARY | ~2019-03-21 | XMS | Encounter Summary ---
Demographics + + + | Address | [address] | | | [place] [address] | + + + | Home Phone [...] | Author | [facility] | | | and Attilaana | + + + | Organization | [facility] | | | and [...] Team Providers + +------+ + | Care Milieu Counselor Name | Role | Phone | [...] Refill | | 2018 | | [facility] [place] | [address] | | | | | [address] | [place] | | | | | [place] | [address] | | | | | [address] | | | | | | [phone] | | | +--------+--------+ + + + [...] [place] | | | | | | [address] | | | | | | | | +--------+---------+ + + + | 03/30/ | Office | Otolaryngology | Hari Garcia MD | | | 2019 | Visit | | [address] | | | | | | [place] | | | | | | [address] | | | | | | | | | | | | Matthias Wiley MD | | | | | | [address] [place] | | | | | | [address] [place] | | | | | | [address] | | | | | | | | +--------+---------+ + + + documented as of this encounter Visit Diagnoses + + | Diagnosis | + + | PCOS (polycystic ovarian syndrome) Polycystic ovaries | + + | Prediabetes Other abnormal glucose | + + documented in this encounter"
--- OUTSIDE RECORDS SUMMARY | ~2019-03-21 | XMS | Encounter Summary ---
Demographics + + + | Address | [address] | | | [place] [address] | + + + | Home Phone [...] + + + | Author | [facility] | | | and Attilaana | + + + | Organization | [facility] | | | and Attilaana [...] Team Providers + +------+ + | Care Computer Operator Name | Role | Phone | [...] | | | | [address] | [address] [place] | | | | | [place] | [address] | | | | | [address] | | | | | | [phone] | | | +--------+ + + + + Anesthesia Record + + + + + | Procedure Name | Responsible | Anesthesia Start | Anesthesia Stop Time | | | Anesthesiologist | Time | | + + + + + | FARHAD (N/A Mel) | Mark Glynn, | 02/16/18 3900 | 02/16/18 9341 | | | MD | | | [...] 1627 by | | eral | Antecubital; [id number] | Adamaris Pavon RN | Adamaris Pavon [...] [place] | | | | | | [address] | | | | | | | | +--------+---------+ + + + | 03/30/ | Office | Otolaryngology | Hari Garcia MD | | | 2019 | Visit | | [address] | | | | | | [place] | | | | | | [address] | | | | | | | | | | | | Matthias Wiley MD | | | | | | [address] [place] | | | | | | [address] [place] | | | | | | [address] | | | | | | | [...]
--- OUTSIDE RECORDS SUMMARY | ~2019-03-21 | XMS | Encounter Summary ---
Demographics + + + | Address | [address] | | | [place] [address] | + + + | Home Phone [...] + | Author | [facility] | | | and Attilaana | + + + | Organization | [facility] | | | and [...] Team Providers + +------+ + | Care Gas Station Supervisor Name | Role | Phone | [...] | | 2019 | Visit | [facility] [place] | [address] | Dx); Migraine | | | | [address] | [place] | without aura and | | | | [place] | [address] | without status | | | | [address] | | migrainosus, not | | | | [phone] | | intractable; Stress; | | | [...] in this encounter Patient Instructions Patient Instructions Hair Garcia MD - 01/10/2019 4:00 PM PDTFormatting [...] unaffected s kin, but avoid sunburns. Use zgvg-cys-habtbwe hydrocortisone cream for itching to reduce scaling [...] symptoms can be managed. Date Last Reviewed: 06/10/201619993681-2342 [employer]. [address] [place] [address], [place] [address]. All righ ts reserved. This information is [...] with BMI of 40.0-44.9, adult ([facility]) Follow-up: Return in about 1 month (around 02/09/2019) for FP - f/u psoriasis. Hari Garcia MD 01/10/2019 Total time today is 25 minutes, >75% of which is in counseling and coordination of care reg arding the above issue(s). This note is dictated using [employer] voice recognition software. This note was dictated but not proofread. It may contain some grammatical errors. documented in this enc ounter Plan of Treatment +--------+---------+ + + + | Date | Type | Specialty | Care Team | Description | +--------+---------+ + + + | 03/27/ | Office | Family Medicine | Sonia Lozoya, | | | 2018 | Visit | | BALLING MACHINE OPERATOR [address] | | | | | | [place] | | | | | | [phone] | | | | | | | | +--------+---------+ + + + | 03/30/ | Office | Otolaryngology | Hari Garcia MD | | | 2018 | Visit | | [address] | | | | | | [place] | | | | | | [address] | | | | | | | | | | | | Matthias Wiley MD | | | | | | [address] [place] | | | | | | [address] [place] | | | | | | [address] | | | | | | | [...] + | [facility] [facility] | [address] | [place] | [phone] | | [facility] | | [address] | | | - LABORATORY | | [...] + + | [facility] | [address] | [place] | [phone] | | [facility] | | [address] | | | [facility] | | [...] | mL/min/1.73m2 | [facility] | | | [place] | RATE,ESTIMATED | | MEDICAL | | | | mL/min/1.04a7Pytl than | | [facility] | | | [...] [address] | [place] | [phone] | | [facility] | | [address] | | | [facility] | | [...]
--- OUTSIDE RECORDS SUMMARY | ~2019-03-21 | XMS | Encounter Summary ---
Demographics + + + | Address | [address] | | | [place] [address] | + + + | Home Phone [...] + + + | Author | [facility] | | | and Attilaana | + + + | Organization | [facility] | | | and Attilaana [...] Team Providers + +------+ + | Care Arborist Name | Role | Phone | + [...] Refill | | 2019 | | [facility] [place] | [address] | | | | | [address] | [place] | | | | | [place] | [address] | | | | | [address] | | | | | | [phone] | | | +--------+--------+ + + + [...] [place] | | | | | | [address] | | | | | | | | +--------+---------+ + + + | 03/30/ | Office | Otolaryngology | Hari Garcia MD | | | 2019 | Visit | | [address] | | | | | | [place] | | | | | | [address] | | | | | | | | | | | | Matthias Wiley MD | | | | | | [address] [place] | | | | | | [address] [place] | | | | | | [address] | | | | | | | | +--------+---------+ + + + documented as of this encounter Visit Diagnoses + + | Diagnosis | + + | Acute stress disorder Other acute reactions to stress | + + | Chronic post-traumatic stress disorder (PTSD) | + + documented in this encounter"
--- OUTSIDE RECORDS SUMMARY | ~2019-03-21 | XMS | Encounter Summary ---
Demographics + + + | Address | [address] | | | [place] [address] | + + + | Home Phone [...] Author | [facility] | | | and Attilaana | + + + | Organization | [facility] | [...] Team Providers + +------+ + | Care Recruiting Consultant Name | Role | Phone | [...] Refill | | 2019 | | [facility] [place] | [address] | | | | | [address] | [place] | | | | | [place] | [address] | | | | | [address] | | | | | | [phone] | | | +--------+--------+ + + + [...] [place] | | | | | | [address] | | | | | | | [...]
--- OUTSIDE RECORDS SUMMARY | ~2019-03-21 | XMS | Encounter Summary ---
Demographics + + + | Address | [address] | | | [place] [address] | + + + | Home Phone [...] Author | [facility] | | | and Attilaana | + + + | Organization | [facility] | | | and Attilaana | [...] Team Providers + +------+ + | Care Disc Sander Name | Role | Phone | + [...] [place] | | | | | | [address] | | | | | | [phone] | | | +--------+ + + + [...] | | 2018 | Visit | | HARP REPAIRER [address] | | | | | | [place] | | | | | | [phone] | | | | | | | | +--------+---------+ + + + | 03/30/ | Office | Otolaryngology | Hari Garcia MD | | | 2018 | Visit | | [address] | | | | | | [place] | | | | | | [address] | | | | | | | | | | | | Matthias Wiley MD | | | | | | [address] [place] | | | | | | [address] [place] | | | | | | [address] | | | | | | | | +--------+---------+ + + + documented as of this encounter Visit Diagnoses Not on filedocumented in this encounter"
--- OUTSIDE RECORDS SUMMARY | ~2019-03-21 | XMS | Encounter Summary ---
Demographics + + + | Address | [address] | | | [place] [address] | + + + | Home Phone [...] + + | Author | [facility] | | | and Attilaana | + + + | Organization | [facility] | | [...] Team Providers + +------+ + | Care Cdl A Driver Name | Role | Phone | + +------+ + | Colton Singer DO | PCP | | + +------+ + Encounter Details +--------+ + + + + | Date | Type | Department | Care Team | Description | +--------+ + + + + | 05/19/ | Hospital | [facility] | Horace Carlos MD | Gastroesophageal | | 2018 | Encounter | MED CTR MP INTRA OP | [address] | reflux disease, | | | | [address] | [place] | esophagitis presence | | | | [place] | [address] | not specified; | | | | [address] | [phone] | Nausea; Abdominal | | | | [phone] | | pain, unspecified | | | [...] the physician who did your procedure at [phone] if you have any questions or experience any of the following: ? Increasing abdominal pain, nausea, or vomiting. ? Chills and fever over 101F. ? New abdominal swelling or bloating. ? Signs of rectal bleeding (black or red stool). If you cannot get a hold of your physician, then call the [facility] [phone] . If necessary, report to the Emergency Department at [facility]. Quit smoking: If you smoke or have [...] Office | Family Medicine | Sharifana Sonia Angie, | | | 2018 | Visit | | ORE MIXER [address] | | | | | | [place] | | | | | | [address] | | | | | | | | +--------+---------+ + + + | 03/30/ | Office | Otolaryngology | Hari Garcia MD | | | 2018 | Visit | | [address] | | | | | | [place] | | | | | | [address] | | | | | | | | | | | | Matthias Wiley MD | | | | | | [address] [place] | | | | | | [address] [place] | | | | | | [address] | | | | | | | [...] 05/19/2017 | PROVATION | | 11:47 AMMRN: [id number] #: [id number] of : | | | 1990Admit Type: AmbulatoryAge: 26Room: [facility] 02Gender: FemaleNote | | | Status: FinalizedAttending MD: Horace Carlos , MDProcedure: | | | Upper GI endoscopyIndications: Epigastric abdominal | | | pain, Generalized abdominal pain, | | | Suspected esophageal reflux, Exclusion of peptic ulcer, | | | Follow-up of peptic ulcerProviders: Horace | | | Maddie Carlos MD, Christine Anderson RN, Xena Glynn | | | Neftali, Installation Drafter, Caio Vora MD (Anesthesia | | | [...] | | | the anesthesiologist and the fire control technician b in the pre-procedure | | | area [...] PMScope Out: 12:26:29 PM | | | [facility], [address] [place] [address] | | | [address] | | | - Continue present medications. [...] |Scope Out: 12:26:29 PM | | | [facility], [address] [place] [address] | | | [address] | | + + -+ + +---------+ [...] 05/19/2017 | PROVATION | | 11:46 AMMRN: [id number] #: [id number] of : | | | 1990Admit Type: AmbulatoryAge: 26Room: [facility] 02Gender: FemaleNote | | | Status: FinalizedAttending MD: Horace Carlos , [facility]cedure: | | | ColonoscopyIndications: Abdominal pain, Chronic | | | diarrheaProviders: Horace Carlos MD, Christine Anderson RN, | | | Xena Lindsay, Installation Drafter, Caio | | | Sue Vora MD [...] anesthesiologist and the | | | fire control technician b in the pre-procedure area in the procedure [...] | | | PMScope Out: 12:43:54 PM [facility], [address] | | [place] [address] | | | instructions were provided to [...] |Scope Out: 12:43:54 PM | | | [facility], [address] [place], [place] | | | [address] | | + + -+ + +---------+ [...] Clinical correlation is | | | requested. JVR:[facility]:C2NR GROSS DESCRIPTION: Received in five | | [...] | | | preparation were performed by [employer], [address] | | | [address], [place] [address] (Bss Solution Architect: Brandon Blackwell M.D. | | | CLIA#: [id number]). Professional interpretation was performed by | | | [employer] [facility], [facility], [address] | [address] [place] [address] (Bss Solution Architect: Brandon Blackwell, | | | Aníbal; CLIA#: [id number]). Diagnostician: Brandon Blackwell MD | | | [...] symptoms involving digestive system | + + documented in this encounter [...] mg | | | | injection Starting 05/19/17 | | 18 1:01 | | | [...]
--- OUTSIDE RECORDS SUMMARY | ~2019-03-21 | XMS | Encounter Summary ---
Demographics + + + | Address | [address] | | | [place] [address] | + + + | Home Phone [...] Author | [facility] | | | and Attilaana | + + + | Organization | [facility] | | | and Attilaana [...] Providers + +------+ + | Care Conductor And Engineer Name | Role | Phone | + +------+ + | Hari Garcia MD | PCP | | + +------+ + Encounter Details +--------+ + + + + | Date | Type | Department | Care Team | Description | +--------+ + + + + | 07/13/ | Hospital | [facility] | Hari Garcia MD | Thyroid nodule | | 2019 | Encounter | MED CTR ULTRASOUND | [address] | | | | | [address] | [place] | | | | | [place] | [address] | | | | | [address] | | | | | | [phone] | | | +--------+ + + + [...] | | 2018 | Visit | | [facility] [address] | | | | | | [place] | | | | | | [address] | | | | | | | | +--------+---------+ + + + | 03/30/ | Office | Otolaryngology | Hari Garcia MD | | | 2018 | Visit | | [address] | | | | | | [place] | | | | | | [address] | | | | | | | | | | | | Matthias Wiley MD | | | | | | [address] [place] | | | | | | [address] [place] | | | | | | [address] | | | | | | | [...]
--- OUTSIDE RECORDS SUMMARY | ~2019-03-21 | XMS | Encounter Summary ---
Demographics + + + | Address | [address] | | | [place] [address] | + + + | Home Phone [...] | [facility] | | | and Attilaana | + + + | Organization | [facility] | [...] Team Providers + +------+ + | Care Culture Media Laboratory Assistant Name | Role | Phone | + +------+ + | Colton Singer DO | PCP | | + +------+ + Encounter Details +--------+ + + + + | Date | Type | Department | Care Team | Description | +--------+ + + + + | 05/05/ | Episode | [facility] | Elsa Lai, | | | 2016 | Changes | GASTROENTEROLOGY | RN | | | | | [address] [place] | | | | | | [address] [place] | | | | | | [address] | | | | | | [phone] | | | +--------+ + + + [...] | | 2018 | Visit | | POLICEMAN [address] | | | | | | [place] | | | | | | [phone] | | | | | | | | +--------+---------+ + + + | 03/30/ | Office | Otolaryngology | Hari Garcia MD | | | 2018 | Visit | | [address] | | | | | | [place] | | | | | | [address] | | | | | | | | | | | | Matthias Wiley MD | | | | | | [address] [facility] | | | | | | [address] [place] | | | | | | [phone] | | | | | | | | +--------+---------+ + + + documented as of this encounter Visit Diagnoses Not on filedocumented in this encounter"
--- OUTSIDE RECORDS SUMMARY | ~2019-03-21 | XMS | Encounter Summary ---
Demographics + + + | Address | [address] | | | [place] [address] | + + + | Home Phone | | + + + | Preferred Language | Unknown | + + + | Marital Status | Single | + + + | Orthodoxy Affiliation | 1013 | + + + | Race | Unknown | + + + | Ethnic Group | Unknown | + + + Author + + + | Author | [facility] | | | and Attilaana | + + + | Organization | [facility] | [...] Providers + +------+ + | Care Director Outcomes Name | Role | Phone | + +------+ + | Colton Singer DO | PCP | | + +------+ + Encounter Details +--------+ + + + + | Date | Type | Department | Care Team | Description | +--------+ + + + + | 05/19/ | Hospital | [facility] | Horace Carlos MD | Gastroesophageal | | 2018 | Encounter | MED CTR MP INTRA OP | [address] | reflux disease, | | | | [address] | [place] | esophagitis presence | | | | [place] | [address] | not specified; | | | | [address] | [phone] | Nausea; Abdominal | | | | [phone] | | pain, unspecified | | | [...] the physician who did your procedure at [phone] if you have any questions or experience any of the following: ? Increasing abdominal pain, nausea, or vomiting. ? Chills and fever over 101F. ? New abdominal swelling or bloating. ? Signs of rectal bleeding (black or red stool). If you cannot get a hold of your physician, then call the [facility] [phone] . If necessary, report to the Emergency Department at [facility]. 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 [address] | | | | | | [place] | | | | | | [address] | | | | | | | | +--------+---------+ + + + | 03/30/ | Office | Otolaryngology | Hari Garcia MD | | | 2018 | Visit | | [address] | | | | | | [place] | | | | | | [address] | | | | | | | | | | | | Matthias Wiley MD | | | | | | [address] [place] | | | | | | [address] [place] | | | | | | [address] | | | | | | | [...] 05/19/2017 | PROVATION | | 11:47 AMMRN: [id number] #: [id number] of : | | | 1990Admit Type: AmbulatoryAge: 26Room: [facility] 02Gender: FemaleNote | | | Status: FinalizedAttending MD: Horace Carlos , MDProcedure: | | | Upper GI endoscopyIndications: Epigastric abdominal | | | pain, Generalized abdominal pain, | | | Suspected esophageal reflux, Exclusion of peptic ulcer, | | | Follow-up of peptic ulcerProviders: Horace | | | Maddie Carlos MD, Christine Anderson RN, Xena Glynn | | | Neftali, Benzol Still Operator, Caio Vora MD (Anesthesia | | | [...] | | | the anesthesiologist and the transportation refrigeration technician in the pre-procedure | | | [...] Out: 12:26:29 PM | | | [facility], [address] [place] [address] | | | [address] | | | - Continue present medications. [...] Out: 12:26:29 PM | | | [facility], [address] [place] [address] | | | [address] | | + + -+ + +---------+ [...] 05/19/2017 | PROVATION | | 11:46 AMMRN: [id number] #: [id number] of : | | | 1990Admit Type: AmbulatoryAge: 26Room: [facility] 02Gender: FemaleNote | | | Status: FinalizedAttending MD: Horace Carlos , [facility]cedure: | | | ColonoscopyIndications: Abdominal pain, Chronic | | | diarrheaProviders: Horace Carlos MD, Christine Anderson RN, | | | Xena Lindsay, Benzol Still Operator, Caio | | | Sue Vora MD [...] the anesthesiologist and the | | | transportation refrigeration technician in the pre-procedure area in the [...] | | PMScope Out: 12:43:54 PM [facility], [address] | | | [place] [address] | | | instructions were provided to [...] Out: 12:43:54 PM | | | [facility], [address] [place], [place] | | | [address] | | + + -+ + +---------+ [...] Clinical correlation is | | | requested. JVR:[facility]:C2NR GROSS DESCRIPTION: Received in five | [...] | | | preparation were performed by [employer], [address] | | | [address], [place] [address] (Environmental Studies Professor: Brandon Blackwell M.D. | | | CLIA#: [id number]). Professional interpretation was performed by | | | [employer], [facility], [address] | | | [address] [place] [address] (Environmental Studies Professor: Brandon Blackwell, | | | Aníbal; CLIA#: [id number]). Diagnostician: Brandon Blackwell MD | | | [...]
--- OUTSIDE RECORDS SUMMARY | ~2019-03-21 | XMS | Encounter Summary ---
Demographics + + + | Address | [address] | | | [place] [address] | + + + | Home Phone [...] + + + | Author | [facility] | | | and Attilaana | + + + | Organization | [facility] | | [...] Team Providers + +------+ + | Care Web Development Director Name | Role | Phone | [...] obesity with | [address] [place] [address] | | | | | body mass | [place], [place] | [place], | | | | | index (BMI) | [address] | [place] [address] | | | | | of 40.0 to | Phone: | Phone: | | | | | 44.9 in | [phone] | [phone] | | | | | adult, | Fax: | Fax: | | | | | unspecified | [phone] | [phone] | | | | | obesity | [...] + + | 12/13/ | Hospital | 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 She is working on [employer] easing her smoking and increasing her activity. [...] 233#. BMI: 40.15 Estimated needs (wt. 106.1kg) 0373-9867 kcals/day (MSJ - 20/kg) 54-84 gm pro/day [...] | | 2018 | Visit | | FERRIS WHEEL ATTENDANT [address] | | | | | | [place] | | | | | | [phone] | | | | | | | | +--------+---------+ + + + | 03/30/ | Office | Otolaryngology | Hari Garcia MD | | | 2018 | Visit | | [address] | | | | | | [place] | | | | | | [phone] | | | | | | | | | | | | Matthias Wiley MD | | | | | | [address] [place] | | | | | | [address] [place] | | | | | | [phone] | | | | | | | [...]
--- OUTSIDE RECORDS SUMMARY | ~2019-03-21 | XMS | Encounter Summary ---
Demographics + + + | Address | [address] | | | [place] [address] | + + + | Home Phone [...] Author | [facility] | | | and Attilaana | + + + | Organization | [facility] | | | and [...] Team Providers + +------+ + | Care Aircraft Engineer Name | Role | Phone | [...] (polycystic | | 2018 | Visit | [facility] | [address] | ovarian syndrome) | | | | [address] | [place] | (Primary Dx); | | | | [place] | [address] | Non-intractable | | | | [address] | | cyclical vomiting | | | | [phone] | | with nausea; | | | [...] diabetes Not being physically active Being , Salvadorean, , , , or [facility] Islander Diagnosing prediabetes Prediabetes may have no [...] heal Have blurry vision Date Last Reviewed: 09/08/201519996202-8670 [employer]. [address] [place] [address], [place] [address]. All righ ts reserved. This information is [...] Patient was previously given a gastroenterology referral [facility] and was evaluated last week with [...] MD 02/16/2018 This note is dictated using Agari voice recognition software. This note was dictated but not proofread. It may contain some grammatical errors. documented in this enc ounter Plan of Treatment +--------+---------+ + + + | Date | Type | Specialty | Care Team | Description | +--------+---------+ + + + | 03/27/ | Office | Family Medicine | Darell Sonia Adams, | | | 2018 | Visit | | [employer] [address] | | | | | | [place] | | | | | | [address] | | | | | | | | +--------+---------+ + + + | 03/30/ | Office | Otolaryngology | Hari Garcia MD | | | 2018 | Visit | | [address] | | | | | | [place] | | | | | | [address] | | | | | | | | | | | | Matthias Wiley MD | | | | | | [address] [place] | | | | | | [address] [place] | | | | | | [address] | | | | | | | [...]
--- OUTSIDE RECORDS SUMMARY | ~2019-03-21 | XMS | Encounter Summary ---
Demographics + + + | Address | [address] | | | [place] [address] | + + + | Home Phone [...] | Author | [facility] | | | and Attilaana | + + + | Organization | [facility] | | [...] Providers + +------+ + | Care Supervisor Color Paste Mixing Name | Role | Phone | + [...] | 03/04/ | Telephone | [facility] | Hari Garcia MD | Imaging Only | | 2019 | | [facility]IC[facility] [place] | [address] | | | | | [address] | [place] | | | | | [place] | [address] | | | | | [address] | | | | | | [phone] | | | +--------+ + + + [...] [place]AB[place] | | | | | | [address] | | | | | | | | +--------+---------+ + + + | 03/30/ | Office | Otolaryngology | Hari Garcia MD | | | 2018 | Visit | | [address] | | | | | | [place] | | | | | | [address] | | | | | | | | | | | | Matthias Wiley MD | | | | | | [address] [place] | | | | | | [address] [place] | | | | | | [address] | | | | | | | [...]
--- OUTSIDE RECORDS SUMMARY | ~2019-03-21 | XMS | Encounter Summary ---
Demographics + + + | Address | [address] | | | [place] [address] | + + + | Home Phone [...] | [facility] | | | and Attilaana | + + + | Organization | [facility] | | [...] Team Providers + +------+ + | Care Collection Support Specialist Name | Role | Phone | [...] + | 04/12/ | Office | [facility] | Hari Garcia MD | Acute stress | | 2018 | Visit | [facility] [place] | [address] | disorder (Primary | | | | [address] | [place] | Dx); Social anxiety | | | | [place] | [address] | disorder; Chronic | | | | [address] | | post-traumatic | | | | [phone] | | stress disorder | | | [...] mountain, as you breathe. Date Last Reviewed: 09/07/201619995320-3764 [employer]. [address] [place] [address], [place] [address]. All righ ts reserved. This information is [...] 2 significant losses in her small social [place] over the last month or 2. She [...] PHQ9 SCORE Office Visit from 03/30/2018 in [facility] Office Visit from 03/16/2018 in [facility] Office Visit from 01/31/2018 in [facility] PHQ-9 Total Score (Patient Health Questionnaire) 15 13 3 ANXIETY/STRESS SCORE Office Visit from 03/30/2018 in [facility] Office Visit from 03/16/2018 in [facility] [place] Office Visit from 01/31/2018 in [facility] [place] SAURABH-7 Score (General Anxiety Disorder) 17 12 [...] Negative Negative Internal QC Acceptable Acceptable Specific [place], POC 1.010, 1.015, 1.020, 1.025 Lot Number [id number] Expiration Date 2019-07-19 Health Maintenance Topics with [...] a controller medication in addition to a [facility] essary medicine for panic. We discussed the [...] MD 04/12/18 This note is dictated using [employer] voice recognition software. This note was dictated but not proofread. It may contain some grammatical errors. documented in this enc ounter Plan of Treatment +--------+---------+ + + + | Date | Type | Specialty | Care Team | Description | +--------+---------+ + + + | 03/27/ | Office | Family Medicine | Sonia Lozoya, | | | 2018 | Visit | | CLINICAL DOCUMENTATION SPECIALIST [address] | | | | | | [place] | | | | | | [address] | | | | | | | | +--------+---------+ + + + | 03/30/ | Office | Otolaryngology | Hari Garcia MD | | | 2018 | Visit | | [address] | | | | | | [place] | | | | | | [address] | | | | | | | | | | | | Matthias Wiley MD | | | | | | [address] [place] | | | | | | [address] [place] | | | | | | [address] | | | | | | | [...] 1.010, 1.015, | [facility] | | | [place], | | 1.020, 1.025 | [facility] | | | POC | | | CORE | | | | | | LABORATORY | | + + + + + + | Lot Number | [id number] | | [facility] | | | | [...] + + + + | [facility] | [address] [place] [address] [place] | [place] [address]23 | [phone] | | MISHA CORE | | | [...]
--- OUTSIDE RECORDS SUMMARY | ~2019-03-21 | XMS | Encounter Summary ---
Demographics + + + | Address | [address] | | | [place] [address] | + + + | Home Phone | | + + + | Preferred Language | Unknown | + + + | Marital Status | Single | + + + | Yarsani Affiliation | 1013 | + + + | Race | Unknown | + + + | Ethnic Group | Unknown | + + + Author + + + | Author | [facility] | | | and Attilaana | + + + | Organization | [facility] | | [...] Team Providers + +------+ + | Care Orthodontic Lab Technician Name | Role | Phone | [...] + | 11/28/ | Telephone | [facility] | Hari Garcia MD | Blurred Vision | | 2019 | | [facility] [place] | [address] | | | | | [address] | [place] | | | | | [place] | [address] | | | | | [address] | | | | | | [phone] | | | +--------+ + + + [...] | | 2018 | Visit | | BOTTLE LABEL INSPECTOR [address] | | | | | | [place] | | | | | | [address] | | | | | | | [...] | | | | | [address] | | | | | | [address] [place] | | | | | | [address] | | | | | | | | +--------+---------+ + + + documented as of this encounter Visit Diagnoses Not on filedocumented in this encounter"
--- OUTSIDE RECORDS SUMMARY | ~2019-03-21 | XMS | Encounter Summary ---
Demographics + + + | Address | [address] | | | [place] [address] | + + + | Home Phone [...] Author | [facility] | | | and Attilaana | + + + | Organization | [facility] | | [...] Team Providers + +------+ + | Care Complaint Analyst Name | Role | Phone | [...] Refill | | 2019 | | [facility] | [address] | | | | | [address] | [place] | | | | | [place] | [address] | | | | | [address] | | | | | | [phone] | | | +--------+--------+ + + + [...] [place] | | | | | | [address] | | | | | | | | +--------+---------+ + + + | 03/30/ | Office | Otolaryngology | Hari Garcia MD | | | 2019 | Visit | | [address] | | | | | | [place] | | | | | | [address] | | | | | | | [...]
--- OUTSIDE RECORDS SUMMARY | ~2019-03-21 | XMS | Encounter Summary ---
Demographics + + + | Address | [address] | | | [place] [address] | + + + | Home Phone [...] | Author | [facility] | | | and Attilaana | + + + | Organization | [facility] | | | and [...] Team Providers + +------+ + | Care Founder Ceo & President Name | Role | Phone | + [...] | 09/21/ | Telephone | [facility] | Hari Garcia MD | Test | | 2019 | | [facility] [place] | [address] | (positive) | | | | [address] | [place] | | | | | [place] | [address] | | | | | [address] | | | | | | [phone] | | | +--------+ + + + [...] [place] | | | | | | [address] | | | | | | | | +--------+---------+ + + + | 03/30/ | Office | Otolaryngology | Hari Garcia MD | | | 2019 | Visit | | [address] | | | | | | [place] | | | | | | [address] | | | | | | | | | | | | Matthias Wiley MD | | | | | | [address] [place] | | | | | | [address] [place] | | | | | | [address] | | | | | | | | +--------+---------+ + + + documented as of this encounter Visit Diagnoses + + | Diagnosis | + + | , unspecified gestational age - Primary | + + | Supervision of with history of abortive outcome, first trimester | + + documented in this encounter"
--- OUTSIDE RECORDS SUMMARY | ~2019-03-21 | XMS | Encounter Summary ---
Demographics + + + | Address | [address] | | | [place] [address] | + + + | Home Phone [...] | Author | [facility] | | | and Attilaana | + + + | Organization | [facility] | | [...] Team Providers + +------+ + | Care Study Lead Name | Role | Phone | + [...] Refill | | 2019 | | [facility]IC[facility] [place] | [address] | | | | | [address] | [place] | | | | | [place] | [address] | | | | | [address] | | | | | | [phone] | | | +--------+--------+ + + + [...] [place] | | | | | | [address] | | | | | | | | +--------+---------+ + + + | 03/30/ | Office | Otolaryngology | Hari Garcia MD | | | 2019 | Visit | | [address] | | | | | | [place] | | | | | | [address] | | | | | | | [...]
--- OUTSIDE RECORDS SUMMARY | ~2019-03-21 | XMS | Encounter Summary ---
Demographics + + + | Address | [address] | | | [place] [address] | + + + | Home Phone [...] | Author | [facility] | | | and Attilaana | + + + | Organization | [facility] | | | and Attilaana [...] Team Providers + +------+ + | Care V Belt Builder Name | Role | Phone | + [...] | location | [place], | [place] [address] | | | | | | [place] [address] | Phone: | | | | | | Phone: | [phone] | | | | | | [phone] | Fax: | | | | | | Fax: | [phone] | | | | | | [phone] | | +--------+ + + + + [...] [address] | | | | | [address] | [place] | | | | | [phone] | [address] | | | | | | | [...] | | 2019 | Visit | | PAINT LINE PRODUCTION SUPERVISOR [address] | | | | | | [place] | | | | | | [address] | | | | | | | | +--------+---------+ + + + | 03/30/ | Office | Otolaryngology | Hari Garcia MD | | | 2019 | Visit | | [address] | | | | | | [place] | | | | | | [address] | | | | | | | | | | | | Matthias Wiley MD | | | | | | [address] [place] | | | | | | [address] [place] | | | | | | [address] | | | | | | | [...]
--- OUTSIDE RECORDS SUMMARY | ~2019-03-21 | XMS | Encounter Summary ---
Demographics + + + | Address | [address] | | | [place] [address] | + + + | Home Phone | | + + + | Preferred Language | Unknown | + + + | Marital Status | Single | + + + | Yazidism Affiliation | 1013 | + + + | Race | Unknown | + + + | Ethnic Group | Unknown | + + + Author + + + | Author | [facility] | | | and Attilaana | + + + | Organization | [facility] [...] Team Providers + +------+ + | Care Automation Sales Manager Name | Role | Phone | [...] [place] | | | | | | [address] | | | | | | [phone] | | | +--------+ + + + [...] | | 2018 | Visit | | APPLICATIONS PROCESSOR [address] | | | | | | [place] | | | | | | [id number] | | | | | | | | +--------+---------+ + + + | 03/30/ | Office | Otolaryngology | Hari Garcia MD | | | 2018 | Visit | | [address] | | | | | | [place] | | | | | | [address] | | | | | | | | | | | | Matthias Wiley MD | | | | | | [address] [facility] | | | | | | [address] [place] | | | | | | [phone] | | | | | | | | +--------+---------+ + + + documented as of this encounter Visit Diagnoses Not on filedocumented in this encounter"
--- OUTSIDE RECORDS SUMMARY | ~2019-03-21 | XMS | Encounter Summary ---
Demographics + + + | Address | [address] | | | [place] [address] | + + + | Home Phone [...] | Author | [facility] | | | and Attilaana | + + + | Organization | [facility] | | | and Attilaana [...] Team Providers + +------+ + | Care Fruit Room Hand Name | Role | Phone | + +------+ + | Hari Garcia MD | PCP | | + +------+ + Encounter Details +--------+---------+ + + + | Date | Type | Department | Care Team | Description | +--------+---------+ + + + | 02/16/ | Surgery | [facility] | Horace Carlos MD | EGD | | 2018 | | MED CTR [facility] INTRA OP | [address] | | | | | [address] | [place] | | | | | [place] | [address] | | | | | [address] | [phone] | | | | | [phone] | | | +--------+---------+ + + + [...] vomiting, or vomiting blood Date Last Reviewed: 11/08/201519997503-3404 [employer]. [address] [place] [address]. All righ ts reserved. This information is [...] | | 2019 | Visit | | SALON ASSISTANT [address] | | | | | | [place] | | | | | | [address] | | | | | | | | +--------+---------+ + + + | 03/30/ | Office | Otolaryngology | Hari Garcia MD | | | 2019 | Visit | | [address] | | | | | | [place] | | | | | | [address] | | | | | | | | | | | | Matthias Wiley MD | | | | | | [address] [place] | | | | | | [address] [place] | | | | | | [address] | | | | | | | [...] adult | | | | | | ([facility]) (E66.01, | | | | | | [...] 02/16/2018 | PROVATION | | 3:30 PMMRN: [id number] #: [id number] of : | | | 1990Admit Type: AmbulatoryAge: 27Room: [facility] 01Gender: FemaleNote | | | Status: FinalizedAttending MD: Horace Carlos MDProcedure: | | | Upper GI endoscopyIndications: Abdominal pain, | | | Functional Dyspepsia, Heartburn, Suspected | | | esophageal refluxProviders: Horace Carlos MD, Joanne | | | Justin, RN, Serena Pena, Watch Engineer, | | | Mark Glynn MD (Anesthesia [...] the anesthesiologist and the | | | spa technician in the pre-procedure area in the [...] PMScope Out: 3:43:56 PM | | | [facility], [address] [place] [address] | | | [address] | | | - Continue present medications. [...] were discussed with the patient. | | |Hoarce Carlos MD | | |02/16/2018 3:50:53 PM | | |This report has been signed electronically. | | |Number of Addenda: 0 | | |Note Initiated On: 02/16/2018 3:30 PM | | |Total Procedure Duration: 0 hours 7 minutes 52 seconds | | |Scope In: 3:36:04 PM | | |Scope Out: 3:43:56 PM | | | [facility], [facility] [place], [place] | | | [address] | | + + -+ + +---------+ [...] | 1.010, 1.015, | | | | [place], | | 1.020, 1.025 | | | | POC | | | | | + + + + + + | Lot Number | [id number] | | | | + + + [...] BMI of 40.0-44.9, adult, | | | ([facility]), (E66.01)( Z68.41); Nausea and vomiting, intractability of [...] intestinal | | | metaplasia or dysplasia. JVR:[facility]:C2NR GROSS DESCRIPTION: Four | | [...] component was | | | performed by [employer] [address] | | | (Lpn Instructor: Gabby Noble MD; IA# [id number]). Professional | | | interpretation was performed by [facility] | | | [facility], [address] [place] [address] | | | [id number] (Lpn Instructor: Syd Mosley. Diagnostician: | | | Brandon [...]
--- OUTSIDE RECORDS SUMMARY | ~2019-03-21 | XMS | Clinical Summary ---
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 [place] | + + + [...] | | 2018 | Visit | | ASSISTANT PROFESSOR OF DRAMA [address] | | | | | | [place] | | | | | | [address] | | | | | | | | +--------+---------+ + + + | 03/30/ | Office | Otolaryngology | Hari Garcia MD | | | 2018 | Visit | | [address] | | | | | | [place] | | | | | | [address] | | | | | | | | | | | | Matthias Wiley MD | | | | | | [address] [place] | | | | | | [address] [place] | | | | | | [address] | | | | | | | [...] [address] | [place] | [phone] | | [facility] | | [address] | | | [facility] | | [...] + + + | [facility] | [address] | [place] | [phone] | | [facility] | | [address] | | | [facility] | | [...] + | [address] | [address] | [place] | [phone] | | [facility] | | [address] | | | - LABORATORY | | [...] | | | | | mg/dL | [facility] | | | | | | [facility] | | | | | | [facility] | | | | | | LABORATORY | | + + + + + + | eGFR if not | >60Comment: GLOMERULAR | >=60 | [facility] | | | | FILTRATION | mL/min/1.73m2 | [facility] | | | RUSSIAN | RATE,ESTIMATED | | MEDICAL | | | | mL/min/1.04c5Ylem than | | PARK | | | [...] | | | | | mg/dL | [facility] | | | | | | MEDICAL [...] + + + | [facility] | [address] | [place] | [phone] | | [facility] | | [address] | | | VICKEY CONTRERAS | | [...] +--------+ +---------+--------+ | MEDICARE | MEDICA | [id number] | 05/10/19 | [phone] | | Medica | | | RE | | 16-Pre | 5 | | re | | | PART A | | sent | | | | | | AND B | | | | | | + +--------+ +--------+ +---------+--------+ | [employer] | [employer]A | [id number] | | [phone] | | Medica | | MEDICAID HMO [...] | 1990 | [id number] | [place] [address] | | | flaca | | | 1 (Home) | | + +--------+ +--------+ + + Advance Directives + + + + + | Type | Date Recorded | Patient | Explanation | | | | Can Solderer | | + + + + + | Power of | | | | | Brick Handler | | | | + + + + + | Advance | 05/19/2017 11:06 | | | | Directive | AM | | | + + + + +
--- OUTSIDE RECORDS SUMMARY | ~2019-03-21 | XMS | Encounter Summary ---
Demographics + + + | Address | [address] | | | [place] [address] | + + + | Home Phone [...] + + + | Author | [facility] | | | and Attilaana | + + + | Organization | [facility] | | | and Attilaana [...] Providers + +------+ + | Care Wire Winding Machine Operator Name | Role | Phone [...] [place] | | | | | | [address] | | | | | | [phone] | | | +--------+ + + + [...] | | 2018 | Visit | | ACCOUNT EXECUTIVE AGRIBUSINESS [address] | | | | | | [place] | | | | | | [id number] | | | | | | | | +--------+---------+ + + + | 03/30/ | Office | Otolaryngology | Hari Garcia MD | | | 2018 | Visit | | [address] | | | | | | [place] | | | | | | [address] | | | | | | | | | | | | Matthias Wiley MD | | | | | | [address] [facility] | | | | | | [address] [place] | | | | | | [id number] | | | | | | | | +--------+---------+ + + + documented as of this encounter Visit Diagnoses Not on filedocumented in this encounter"
--- OUTSIDE RECORDS SUMMARY | ~2019-03-21 | XMS | Encounter Summary ---
Demographics + + + | Address | [address] | | | [place] [address] | + + + | Home Phone [...] | Author | [facility] | | | and Attilaana | + + + | Organization | [facility] | | [...] Providers + +------+ + | Care Tire Balancer Name | Role | Phone | + [...] Results | | 2019 | | MEDICINE [place] | [address] | | | | | [address] | [place] | | | | | [place] | [address] | | | | | [address] | | | | | | [phone] | | | +--------+ + + + [...] [place] | | | | | | [address] | | | | | | | [...]
--- OUTSIDE RECORDS SUMMARY | ~2019-03-21 | XMS | Encounter Summary ---
Demographics + + + | Address | [address] | | | [place] [address] | + + + | Home Phone [...] + | Author | [facility] | | | and Attilaana | + + + | Organization | [facility] | | | and Attilaana [...] Team Providers + +------+ + | Care Mill Labor Supervisor Name | Role | Phone | [...] | | | | | [address] | [address] [place] | | | | | [place] | [address] | | | | | [address] | [phone] | | | | | [phone] | | | +--------+ + + + + Anesthesia Record + + + + + | Procedure Name | Responsible | Anesthesia Start | Anesthesia Stop Time | | | Anesthesiologist | Time | | + + + + + | FARHAD (N/A Mel) | Caio Vora, | 05/19/17 1207 | 05/19/17 7994 | | | MD | | | [...] 1216 by | | eral | Antecubital; [id number] | Yu Law, | [place], | [...] 05/19/17 1355 by | | eral | wywb-cem-ltogxc catheter system; | [place], | Paige [...] | 2018 | Visit | | LEAD SETTER [address] | | | | | | [place] | | | | | | [phone] | | | | | | | | +--------+---------+ + + + | 03/30/ | Office | Otolaryngology | Hari Garcia MD | | | 2019 | Visit | | [address] | | | | | | [place] | | | | | | [address] | | | | | | | | | | | | Matthias Wiley MD | | | | | | [address] [facility] | | | | | | [address] [place] | | | | | | [id number] | | | | | | | [...]
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
--- OUTSIDE RECORDS SUMMARY | ~2019-03-21 | XMS | Encounter Summary ---
Demographics + + + | Address | [address] | | | [place] [address] | + + + | Home Phone | | + + + | Preferred Language | Unknown | + + + | Marital Status | Single | + + + | Mandaeism Affiliation | [id number] | + + + | Race | Unknown | + + + | Ethnic Group | Unknown | + + + Author + + + | Author | [facility] | | | and Attilaana | + + + | Organization | [facility] | | | and Attilaana [...] Team Providers + +------+ + | Care Votator Machine Operator Name | Role | Phone [...] + + | 04/30/ | Telephone | [facility] | Horace Carlos MD | Results () | | 2017 | | GASTROENTEROLOGY | [address] | | | | | [address] [facility] | [place], [place] | | | | | [address] [place] | [address] | | | | | [address] | [phone] | | | | | [phone] | | | +--------+ + + + [...] BAB[place] | | | | | | [id number] | | | | | | | [...]
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
[~2019-03-21 11:38] MED LIST changes: +TESSALON PERLE100 MG PO
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
== END 2019-03-21 14:10 | disposition home or self-care (01) ==
LOC: ED 11:38
DX: K92.0 Hematemesis (principal); F43.10 Post-traumatic stress disorder, unspecified; F17.200 Nicotine dependence, unspecified, uncomplicated; Z88.8 Allergy status to other drugs, medicaments and biological substances; Z88.0 Allergy status to penicillin; Z88.5 Allergy status to narcotic agent; Z91.030 Bee allergy status; Z91.018 Allergy to other foods; Z79.899 Other long term (current) drug therapy; Z79.84 Long term (current) use of oral hypoglycemic drugs
CPT/HCPCS: 71045; 74018; 80053; 83690; 84703; 85025; 85610; 85730; 99284-25; 99406

== ENCOUNTER 2019-06-03 20:25 | Emergency (ER) | payer MEDICARE, OTHER ==
[~2019-06-03] VITALS: Ht 160 cm; Wt 108.9 kg
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
[2019-06-03] MEDS ORDERED: CYCLOBENZAPRINE10 MG PO (20:47)
== END 2019-06-03 21:07 | disposition home or self-care (01) ==
LOC: ED 20:25
DX: M54.5 Low back pain (principal); F43.10 Post-traumatic stress disorder, unspecified; F41.9 Anxiety disorder, unspecified; J45.909 Unspecified asthma, uncomplicated; F17.200 Nicotine dependence, unspecified, uncomplicated; Z91.018 Allergy to other foods; Z91.030 Bee allergy status; Z88.5 Allergy status to narcotic agent; Z79.899 Other long term (current) drug therapy; Z79.84 Long term (current) use of oral hypoglycemic drugs
CPT/HCPCS: 99283

== ENCOUNTER 2019-07-10 12:51 | Emergency (ER) | payer MEDICARE, OTHER ==
[~2019-07-10] VITALS: Ht 160 cm; Wt 108.9 kg
[~2019-07-10 12:51] MED LIST changes: +CYCLOBENZAPRINE10 MG PO
== END 2019-07-10 13:20 | disposition home or self-care (01) ==
LOC: ED 12:51
DX: R05 Cough (principal); R11.10 Vomiting, unspecified

== ENCOUNTER 2019-08-28 22:22 | Emergency (ER) | payer MEDICARE, OTHER ==
[~2019-08-28] VITALS: Ht 160 cm; Wt 108.0 kg
--- OUTSIDE RECORDS SUMMARY | 2019-08-28 22:26 | XMS ---
PreManage Notification: ADAM HUTCHISON Security Founder / Ceo Events No recent Security Events currently on file CRITERIA MET - [facility] - Has Care Guidelines CARE PROVIDERS MEGGAN GUTIÉRREZ Nurse Practitioner: Family Current PHONE: [phone] SUSAN SMITH Family Medicine 12/31/2017-Current PHONE: [phone] ADONIS BRITTON Family Medicine: Sports Medicine Current PHONE: [phone] Gordon has no Care Guidelines for this patient. Care History Medical/Surgical 03/22/2019 [facility] - CHW SPOKE WITH PATIENT- PATIENT [...] AWARE OF PCP FOLLOW UP IMPORTANCE. 12/31/2017 [facility] - UPDATE PATIENT NO SHOWED TO APT TO ESTABLISH CARE WITH DR SMITH. - PATIENT CONTACT NUMBER IS NO LONGER IN SERVICE - CHW HELPED PATIENT ESTABLISH WITH PCP DR SMITH APT IS 01/04/2018 @ 11:30. - Patient is currently established with [facility]. If patient is seen in the ED during business hours. Please contact CHWs at [facility]. - Care Recommendation: This patient has had [...] providing care. E.D. VISIT COUNT (12 MO.) 7 [facility] TOTAL 7 NOTE: Visits indicate total known visits. ED/UCC VISIT TRACKING (12 MO.) 08/28/2019 22:23 [facility] [place] TYPE: Emergency COMPLAINT: - VAGINAL BLEEDING 07/10/2019 12:52 [facility] [place] TYPE: Emergency COMPLAINT: - COUGH, VOMITING, MSE TO CLINIC DIAGNOSES: - Vomiting, unspecified - Cough 06/03/2019 20:26 [facility] [place] TYPE: Emergency COMPLAINT: - LOWER BACK PAIN DIAGNOSES: - Post-traumatic stress disorder, unspecified - Unspecified asthma, uncomplicated - Allergy to other foods - Bee allergy status - Allergy status to narcotic agent status - Other terminal makeup operator (current) drug therapy - Anxiety disorder, unspecified - Nicotine dependence, unspecified, uncomplicated - prison (current) use of oral hypoglycemic drugs - Low back pain 03/21/2019 11:39 [facility] [place] TYPE: Emergency COMPLAINT: - COUGH, VOMITING BLOOD DIAGNOSES: - Allergy to other foods - Nicotine dependence, unspecified, uncomplicated - Bee allergy status - tank terminal gauger (current) use of oral hypoglycemic drugs - Other terminal makeup operator (current) drug therapy - Allergy status to penicillin - Allergy status to other drugs, medicaments and biological sub - Post-traumatic stress disorder, unspecified - Hematemesis - Allergy status to narcotic agent status 02/14/2019 12:57 [facility] [place] TYPE: Emergency COMPLAINT: - DIZZINESS, WEAKNESS, HEADACHE DIAGNOSES: - Allergy to other foods - Allergy status to penicillin - Anxiety disorder, unspecified - Allergy status to other drugs, medicaments and biological sub - Allergy status to narcotic agent status - Nicotine dependence, unspecified, uncomplicated - Unspecified asthma, uncomplicated - Bee allergy status - Other intermediate (current) drug therapy - Acute upper respiratory infection, unspecified - Dizziness and giddiness - Nicotine dependence, cigarettes, uncomplicated 02/10/2019 18:28 [facility] [place] TYPE: Emergency COMPLAINT: - BREATHING ISSUES DIAGNOSES: - Bee allergy status - Other specified respiratory disorders - Allergy to other foods - Anxiety disorder, unspecified - Unspecified asthma, uncomplicated - Other viral agents as the cause of diseases classified elsewh - Nicotine dependence, unspecified, uncomplicated - Post-traumatic stress disorder, unspecified - Allergy status to narcotic agent status - prison (current) use of oral hypoglycemic drugs - Other intermediate (current) drug therapy - Cough 11/28/2018 13:[address] [facility] [place] TYPE: Emergency COMPLAINT: - HEADACHE, VISION PROBLEM DIAGNOSES: - Allergy status to other drugs, medicaments and biological sub - Allergy to other foods - Bee allergy status - Headache - Nicotine dependence, unspecified, uncomplicated - Allergy status to narcotic agent status - Allergy status to penicillin - Anxiety disorder, unspecified - Nicotine dependence, cigarettes, uncomplicated - Other terminal makeup operator (current) drug therapy INPATIENT VISIT TRACKING (12 MO.) No inpatient visits to display in this time frame [email or web address]
== END 2019-08-28 23:37 | disposition home or self-care (01) ==
LOC: ED 22:22
DX: N93.8 Other specified abnormal uterine and vaginal bleeding (principal); F41.9 Anxiety disorder, unspecified; F17.200 Nicotine dependence, unspecified, uncomplicated; Z88.5 Allergy status to narcotic agent; Z91.030 Bee allergy status; Z88.1 Allergy status to other antibiotic agents; Z79.899 Other long term (current) drug therapy
CPT/HCPCS: 84703; 85025; 99284

== ENCOUNTER 2019-12-06 23:20 | Emergency (ER) | payer MEDICARE, OTHER ==
[~2019-12-06] VITALS: Ht 160 cm; Wt 108.0 kg
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
--- OUTSIDE RECORDS SUMMARY | ~2019-12-06 | XMS | Encounter Summary ---
Demographics + + + | Address | [address] | | | [place] [address] | + + + | Home Phone | | + + + | Preferred Language | Unknown | + + + | Marital Status | Single | + + + | Jew Affiliation | 1013 | + + + | Race | Unknown | + + + | Ethnic Group | Unknown | + + + Author + + + | Author | [facility] | | | and [place] | + + + | Organization | [facility] | | | and [place] | + + + | Address | Unknown | + + + | Phone | Unavailable | + + + Support + + +---------+ + | Name | Relationship | Address | Phone | + + +---------+ + | Karri Chapa | ECON | Unknown | | + + +---------+ + | Stephany Jonesmann | ECON | Unknown | | + + +---------+ + Care Team Providers + +------+ + | Care Photolettering Machine Operator Name | Role | Phone | + +------+ + | Hari Garcia MD | PCP | | + +------+ + Reason for Visit + +--------+ + | Reason | Onset | Comments | | | Date | | + +--------+ + | Imaging Only | 07/11/ | | | | 2019 | | + +--------+ + Encounter Details +--------+ + + + + | Date | Type | Department | Care Team | Description | +--------+ + + + + | 07/11/ | Telephone | [facility] | Hari Garcia MD | Imaging Only | | 2019 | | MEDICINE [place] | [address] | | | | | [address] | [address] [address] [place], | | | | | [place] | [place] [address] | | | | | [address] | [phone] | | | | | [phone] | | | +--------+ + + + + Social [...] + + documented as of this encounter Miscellaneous Notes Telephone Encounter - Melody Trejo RN - 07/11/2018 3:52 PM PSTSpoke with Paul from imaging. The order that was entered for the ultrasound of the thyroid was entered incorrectl y. Will place new order now as patient is already scheduled for imaging. Electronically sign ed by Melody Trejo RN at 07/11/2018 3:54 PM PSTdocumented in this encounter Plan of Treatment Not on filedocumented as of this encounter Results US Head Neck Soft Tissue (07/13/2018 12:38 PM PST) + + | Specimen | + + | | + + + + + | Narrative | Performed At | + + + | US HEAD NECK SOFT TISSUE 07/13/2018 12:22 PM HISTORY: Thyroid | [facility] | | nodule seen on CT. COMPARISON: None. PROTOCOL: Maradiaga scale and | | | Doppler images of the thyroid. FINDINGS: Right Lobe: In the mid | | | aspect, a solid nodule with internal vascularity and calcium is | | | observed measuring 3.0 x 2.0 x 1.8 cm. The right lobe measures 4.9 x | | | 2.1 x 2.2 cm, which is normal. Left Lobe: Parenchyma is normal | | | with no evidence for nodules or abnormal vascularity. The left lobe | | | measures 4.3 x 0.8 x 1.0 cm, which is normal. Isthmus: Parenchyma | | | is normal. The isthmus measures 1 mm. IMPRESSION - Solid nodule | | | with internal vascularity and calcium in mid aspect of right thyroid | | | lobe measuring 3.0 x 2.0 x 1.8 cm. Given the size, FNA can be | | | considered. Dictated and Signed by: Jamin Bentley MD | | | Electronically signed: 07/13/2018 1:38 PM | | + + + + + | Procedure Note | + + | Nash, Rad Results In - 07/13/2018 1:41 PM PST US HEAD NECK SOFT TISSUE 07/13/2018 12:22 | | PM HISTORY: Thyroid nodule seen on CT.COMPARISON: None.PROTOCOL: Maradiaga scale and Doppler | | images of the thyroid.FINDINGS:Right Lobe: In the mid aspect, a solid nodule with | | internal vascularity andcalcium is observed measuring 3.0 x 2.0 x 1.8 cm. The right lobe | | measures 4.9 x2.1 x 2.2 cm, which is normal. Left Lobe: Parenchyma is normal with no | | evidence for nodules or abnormalvascularity. The left lobe measures 4.3 x 0.8 x 1.0 cm, | | which is normal.Isthmus: Parenchyma is normal. The isthmus measures 1 mm.IMPRESSION | | -Solid nodule with internal vascularity and calcium in mid aspect of rightthyroid lobe | | measuring 3.0 x 2.0 x 1.8 cm. Given the size, FNA can beconsidered.Dictated and Signed | | by: Jamin Bentley MD Electronically signed: 07/13/2018 1:38 PM | |calcium is observed measuring 3.0 x 2.0 x 1.8 cm. The right lobe measures 4.9 x | |2.1 x 2.2 cm, which is normal. | | | |Left Lobe: Parenchyma is normal with no evidence for nodules or abnormal | |vascularity. The left lobe measures 4.3 x 0.8 x 1.0 cm, which is normal. | | | |Isthmus: Parenchyma is normal. The isthmus measures 1 mm. | | | |IMPRESSION - | |Solid nodule with internal vascularity and calcium in mid aspect of right | |thyroid lobe measuring 3.0 x 2.0 x 1.8 cm. Given the size, FNA can be | |considered. | | | |Dictated and Signed by: Jamin Bentley MD | | Electronically signed: 07/13/2018 1:38 PM | + + + +---------+ + + | Performing | Address | City/State/Zipcode | Phone Number | | Organization | | | | + +---------+ + + | [facility] | | | | + +---------+ + + documented in this encounter Visit Diagnoses + + | Diagnosis | + + | Thyroid nodule - Primary Nontoxic uninodular goiter | + + documented in this encounter"
--- OUTSIDE RECORDS SUMMARY | ~2019-12-06 | XMS | Encounter Summary ---
Demographics + + + | Address | [address] | | | [place] [address] | + + + | Home Phone | | + + + | Preferred Language | Unknown | + + + | Marital Status | Single | + + + | Hindu Affiliation | 1013 | + + + | Race | Unknown | + + + | Ethnic Group | Unknown | + + + Author + + + | Author | [facility] | | | and [place] | + + + | Organization | [facility] | | | and [place] | [...] Team Providers + +------+ + | Care Physical Therapy Teacher Name | Role | Phone | + +------+ + | Colton Singer DO | PCP | | + +------+ + Reason for Visit +--------+--------+ + | Reason | Onset | Comments | | | Date | | +--------+--------+ + | Other | 04/27/ | | | | 2016 | | +--------+--------+ + Encounter Details +--------+ + + + + | Date | Type | Department | Care Team | Description | +--------+ + + + + | 04/27/ | Telephone | [facility] | Horace Carlos MD | Other | | 2016 | | GASTROENTEROLOGY | [address] [facility] | | | | | [address] [facility] | [place], [place] | | | | | [address] [place], [place] | [address] | | | | | [address] | [phone] | | | | | [phone] | | | +--------+ + + + + Social History + +-------+ +--------+------+ | Tobacco Use | Types | Packs/Day | Years | Date | | | | | Used | | + +-------+ +--------+------+ | Never Smoker | | | | | + +-------+ +--------+------+ + +---+---+---+ | Smokeless Tobacco: | | | | | Never Used | | | | + +---+---+---+ + + +---------+ + | Alcohol Use | Drinks/Week | oz/Week | Comments | + + +---------+ + | Yes | | | 2x weekly | + + +---------+ + + + + | Sex Assigned at | Date Recorded | | | | + + + | Female | | + + + documented as of this encounter Miscellaneous Notes Telephone Encounter - Elsa Lai RN - 04/27/2017 1:33 PM PSTPatient called to update her family history in chart, she found out her maternal great-grandfather from colon cancer, the chart has been updated; explained Dr. Carlos will review UA result and I wi ll call her with his advisement, she verbalized understanding. documented in this encounter Plan of Treatment Not on filedocumented as of this encounter Visit Diagnoses Not on filedocumented in this encounter"
--- OUTSIDE RECORDS SUMMARY | ~2019-12-06 | XMS | Encounter Summary ---
Demographics + + + | Address | [address] | | | [place] [address] | + + + | Home Phone | | + + + | Preferred Language | Unknown | + + + | Marital Status | Single | + + + | Evangelical Affiliation | 1013 | + + + | Race | Unknown | + + + | Ethnic Group | Unknown | + + + Author + + + | Author | [facility] | | | and [place] | + + + | Organization | [facility] | [...] Team Providers + +------+ + | Care Earthmoving Plant Operator Name | Role | Phone | + +------+ + | Hari Garcia MD | PCP | | + +------+ + Reason for Visit + + + | Reason | Comments | + + + | Medication Refill | | + + + Encounter Details +--------+--------+ + + + | Date | Type | Department | Care Team | Description | +--------+--------+ + + + | 02/20/ | Refill | [facility] | Hari Garcia MD | Medication Refill | | 2019 | | MEDICINE [place] | [address] | | | | | [address] | [address] [place], | | | | | [place] | [place] [address] | | | | | [address] | [phone] | | | | | [phone] | | | +--------+--------+ + + + Social History + + [...] as of this encounter Plan of Treatment Not on filedocumented as of this encounter Visit Diagnoses Not on filedocumented in this encounter"
--- OUTSIDE RECORDS SUMMARY | ~2019-12-06 | XMS | Encounter Summary ---
Demographics + + + | Address | [address] | | | [place] [address] | + + + | Home Phone | | + + + | Preferred Language | Unknown | + + + | Marital Status | Single | + + + | Scientology Affiliation | [id number] | + + + | Race | Unknown | + + + | Ethnic Group | Unknown | + + + Author + + + | Author | [facility] | | | and [place] | + + + | Organization | [facility] | | | and [place] [...] Team Providers + +------+ + | Care Corporate Communications Specialist Name | Role | Phone | + +------+ + | Hari Garcia MD | PCP | | + +------+ + Reason for Visit Auth/Cert +--------+--------+ + + + + | Status | Reason | Specialty | Diagnoses / | Referred By | Referred To | | | | | Procedures | Contact | Contact | +--------+--------+ + + + + | | | | Diagnoses | | Matthias Wiley | | | | | Nontoxic | | MD Kika [address] | | | | | uninodular | | [address] | | | | | goiter | | [address] | | | | | Procedures | | [place], | | | | | [place] | | [place] [address] | | | | | THYROIDECTOM | | Phone: | | | | | Y Right | | [phone] | | | | | thyroid | | Fax: | | | | | lobectomy | | [phone] | | | | | with rapid | | | | | | | frozen | | | | | | | section | | | | | | | possible | | | | | | | total | | | +--------+--------+ + + + + Encounter Details +--------+ + + + + | Date | Type | Department | Care Team | Description | +--------+ + + + + | 06/20/ | Hospital | [facility] | Matthias Wiley MD | Nontoxic uninodular | | 2020 | Encounter | [facility] | [address] | goiter | | | | [address] | [address] [place] | | | | | [place], [place] | [place] [address] | | | | | [address] | [phone] | | | | | [phone] | | | +--------+ + + + [...] + + + | Blood Pressure | 120/64 | 06/20/2019 2:00 PM | | | | | PST | | + + + + + | Pulse | 101 | 06/20/2019 2:00 PM | | | | | PST | | + + + + + | Temperature | 36.4 C (97.5 F) | 06/20/2019 11:16 AM | | | | | PST | | + + + + + | Respiratory Rate | 20 | 06/20/2019 2:00 PM | | | | | PST | | + + + + + | Oxygen Saturation | 96% | 06/20/2019 2:00 PM | | | | | PST | | + + + + + | Inhaled Oxygen | - | - | | | Concentration | | | | + + + + + | Weight | 109.1 kg (240 lb 8.4 | 06/20/2019 9:09 AM | | | | oz) | PST | | + + + + + | Height | 160 cm (5' 3") | 06/20/2019 9:09 AM | | | | | PST | | + + + + + | Body Mass Index | 42.61 | 06/20/2019 9:09 AM | | | | | PST | | + + + + + documented in this encounter Discharge Instructions Instructions Matthias Wiley MD - 06/20/2019Ice to neck for 24 hours as tolerated. Regular d iet. Remove steri strips in 5 days. Ok to shower.no heavy lifting 7 days. documented in this encounter Medications at Time of Discharge + + + +---------+ + + | Medication | Sig | Dispensed | Refills | Start | End Date | | | | | | Date | | + + + +---------+ + + | albuterol 90 | Inhale 2 puffs into | 1 | 0 | 08/19/19 | | | mcg/puff | the lungs every 6 | Inhaler | | 19 | | | inhalerIndications: | hours as needed for | | | | | | Mild intermittent | Wheezing. | | | | | | asthma without | | | | | | | complication | | | | | | + + + +---------+ + + | | as needed. | | 0 | 02/13/20 | | | albuterol-ipratropiu | | | | 19 | | | m 2.5-0.5 mg/3 mL | | | | | | | SOLN | | | | | | + + + +---------+ + + | triamcinolone | Apply thin film to | 80 g | 0 | 01/11/20 | | | (KENALOG) 0.1% | affected area(s) two | | | 19 | | | ointmentIndications: | to four times daily | | | | | | Psoriasis | as needed: avoid | | | | | | | face and groin areas | | | | | + + + +---------+ + + | citalopram | TAKE 1 TABLET BY | 90 | 1 | 02/22/20 | | | (CELEXA) 20 mg | MOUTH ONCE DAILY | tablet | | 19 | 0 | | tablet | | | | | | + + + +---------+ + + | metFORMIN | TAKE 1 TABLET BY | 90 | 1 | 02/29/20 | | | (GLUCOPHAGE-XR) 500 | MOUTH ONCE DAILY | tablet | | 19 | 0 | | mg 24 hr tablet | | | | | | + + + +---------+ + + | traMADol (ULTRAM) | Take 1 tablet by | 12 | 0 | 06/20/19 | | | 50 mg tablet | mouth every 6 hours | tablet | | 20 | 0 | | | as needed for up to | | | | | | | 3 days. | | | | | + + + +---------+ + + documented as of this encounter H&P Notes Matthias Wiley MD - 06/20/2019 9:55 AM PST SURGICAL INTERIM HISTORY AND PHYSICAL UPDATE Pt. Name/Age/: Adam Holcomb 29 y.o. 1990 Date of admission: 06/20/2019 The current H&P was reviewed. The patient was reexamined. Re-evaluation of the patient co nfirms the necessity for the scheduled procedure. No change has occurred in the patient s condition since the H&P was completed less than 30 days ago. Lungs clear. Heart NSR withou t murmer. No URI. Electronically signed by: Matthias Wiley MD, 06/20/2019 9:55 AM [facility] signed by Matthias Wiley MD at 2019 9:55 AM PSTMatthias Wiley MD - 06/20/2019 8:49 AM PST Matthias Wiley MD Physician Otolaryngology H&P Signed OTOLARYNGOLOGY HISTORY AND PHYSICAL EXAMINATION CHIEF COMPLAINT: [...] left lobe. She is unaware of any [facility] history of thyroid disease or cancer. PAST MEDICAL HISTORY: Past Medical History: Diagnosis Date Abdominal pain Anxiety Asthma Heart murmur Nausea and vomiting Neutrophilic leukocytosis PCOS (polycystic ovarian syndrome) PAST SURGICAL HISTORY: Past Surgical History: Procedure Laterality Date SECTION COLONOSCOPY N/A 05/19/2017 Procedure: COLONOSCOPY; Surgeon: Horace Carlos MD; Location: [facility] PROC[facility] UN IT THYROID FINE NEEDLE ASPIRATION 07/21/2018 Procedure: US GUIDED THYROID FNA - Location: [facility] ULTRASOUND TONSILLECTOMY UPPER GASTROINTESTINAL ENDOSCOPY N/A 05/19/2017 Procedure: EGD; Surgeon: Horace Carlos MD; Location: [facility] UPPER GASTROINTESTINAL ENDOSCOPY N/A 02/16/2018 Procedure: EGD; Surgeon: Horace Carlos MD; Location: [facility] SOCIAL HISTORY: The patient [...] Vomiting Codeine Hives and Nausea And Vomiting Cale Hives REVIEW OF SYSTEMS: GENERALLY: No fever, [...] scheduled accordingly. ELECTRONICALLY SIGNED BY: Matthias Wiley MD [facility] Healthcare[facility] - 12/2019 4:47 PM PST Matthias Wiley MD Physician Otolaryngology H&P Signed OTOLARYNGOLOGY HISTORY AND PHYSICAL EXAMINATION CHIEF COMPLAINT: [...] ewa history of thyroid disease or cancer. Old chart reviewed no change in medications, all ergies or review of systems. PAST MEDICAL HISTORY: Past Medical History: Diagnosis Date Abdominal pain Anxiety Asthma Heart murmur Nausea and vomiting Neutrophilic leukocytosis PCOS (polycystic ovarian syndrome) PAST SURGICAL HISTORY: Past Surgical History: Procedure Laterality Date SECTION COLONOSCOPY N/A 05/19/2017 Procedure: COLONOSCOPY; Surgeon: Horace Carlos MD; Location: [facility] PROC[facility] UN IT THYROID FINE NEEDLE ASPIRATION 07/21/2018 Procedure: US GUIDED THYROID FNA - Location: [facility] ULTRASOUND TONSILLECTOMY UPPER GASTROINTESTINAL ENDOSCOPY N/A 05/19/2017 Procedure: EGD; Surgeon: Horace Carlos MD; Location: [facility] UPPER GASTROINTESTINAL ENDOSCOPY N/A 02/16/2018 Procedure: EGD; Surgeon: Horace Carlos MD; Location: [facility] SOCIAL HISTORY: The patient [...] Vomiting Codeine Hives and Nausea And Vomiting Cale Hives REVIEW OF SYSTEMS: GENERALLY: No fever, [...] scheduled accordingly. ELECTRONICALLY SIGNED BY: Matthias Wiley MD documented in this enco unter Miscellaneous Notes Op Note - Matthias Wiley MD - 06/20/2019 11:[address] [id number] OPERATIVE REPORT MATTHIAS WILEY MD Patient: ADAM HOLCOMB Admitting: MATTHIAS WILEY MR #: [id number] LOC: PT TYPE: Adm Date: 06/20/2019 : 1990 DATE OF SURGERY: 06/20/2019 PREOPERATIVE DIAGNOSIS: Right thyroid nodule. POSTOPERATIVE DIAGNOSIS: Right thyroid nodule. OPERATION PERFORMED: Right thyroid lobectomy with rapid frozen section. OPERATING SURGEON: Matthias Wiley MD THEATRICAL PERFORMER: French Mann MD FINDINGS: On rapid frozen section, it is a follicular nodule and was felt unlikely to be c ancer. DESCRIPTION OF PROCEDURE: After the patient was placed under general anesthetic, the incis ion line was injected with 1-percent Xylocaine with epinephrine and then the neck was preppe d and draped in a sterile fashion. A curvilinear incision was made through the skin and naomi tysma, and then flaps were elevated superiorly and inferiorly. Strap muscles were in the midline and then the muscle was dissected off of the right lobe of the thyroid glan d. As the dissection was carried out parathyroid was noted inferiorly and this was separate d from the gland and preserved. The Umeng system was used to seal the inferior thyroid a rtery and middle thyroid vein. Large veins inferiorly were also sealed with the Covidien sy stem. Dissection was carried superiorly and the superior thyroid artery and vein were doubl y sealed with the Covidien system. The patient had no isthmus attachment and the gland was then peeled off of the trachea out laterally. Dissection was carried underneath the hilar area and the recurrent nerve was identified. Dissection was then carried up into the hilar area and the superior parathyroid was noted and able to be preserved. Next the hilar area w as clamped and then the lobe was removed. The hilar area was tied with a 3-0 silk suture. The neck was then washed well with saline and when good hemostasis was present, Gennaro coag ulant was placed in the wound. Following this, the deep layers were closed with interrupted 4-0 Vicryl suture as was the deep layer of skin. A 5-0 subcuticular Prolene was used to cl ose the skin edge. Mastisol was applied to the skin and then Steri-Strips were placed. Whe n the pathology report came back indicating this is unlikely to be cancer, the patient was a wakened from her anesthetic and returned to the recovery room in stable condition. ESTIMATED BLOOD LOSS: 10 mL MATTHIAS WILEY MD Dictated by MATTHIAS WILEY MD 06/20/2019 11:17:35 Transcribed on 06/20/2019 16:53:21 by [place] job# [id number] Confirmation #: [id number] p Note - Matthias Wiley MD - 06/20/2019 11:12 AM PSTSee dictation #[id number] signed by Matthias Wiley MD at 06/20/2019 11:17 AM PSTBrief Op Note - Matthias Wiley MD - 06/20/2019 11:11 AM PSTFormat ting of this note might be different from the original. BRIEF OPERATIVE NOTE [facility] Pt. Name/Age/: Adam Holcomb 29 y.o. 1990 Med. 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 Anesthesia Provider(s): Anesthesiologist: Mark Glynn MD Anesthesia Type: General Procedure(s): Right thyroid lobectomy with rapid frozen section Operative Findings: Probable b-9 Wound Closure: Primary closure Evidence of infection: No infection noted. Estimated Blood Loss: Minimal, less than 100mL IV Fluids: refer to anesthesia record Blood Transfusion: None Drains: none Specimen (s): ID Type Source Tests Collected by Time Destination A : Right Thyroid Tissue Thyroid, Right FROZEN SECTION Matthias Wiley MD 06/20/2019 1022 Path ology Implants: * No implants in log * Counts: Instrument, sponge, and needle counts were correct prior to closure and at the con clusion of the case. Complications: None Disposition: The patient was taken to PACU Immediate Post-Operative Condition: Stable Electronically signed by: Matthias Wiley MD, 06/20/2019, 11:11 AM documented in this encounter Plan of Treatment Not on filedocumented as of this encounter Procedures + +--------+ + + + | Procedure Name | Priori | Date/Time | Associated Diagnosis | Comments | | | ty | | | | + +--------+ + + + | THYROIDECTOMY | | 06/20/2019 | Nontoxic | | | | | 10:06 AM | uninodular goiter | | | | | PST | | | + +--------+ + + + +---+--------+ | | Case | | | Notes | | | CASE | | | 3 | +---+--------+ + +--------+ +---+ + | ECG 12 LEAD | Routin | 06/20/2019 | | Results for this | | | e | 9:38 AM | | procedure are in the | | | | PST | | results section. | + +--------+ +---+ + | POCT TEST, | Routin | 06/20/2019 | | Results for this | | URINE, QUAL | e | 9:35 AM | | procedure are in the | | | | PST | | results section. | + +--------+ +---+ + | POC GLUCOSE | Routin | 06/20/2019 | | Results for this | | | e | 9:32 AM | | procedure are in the | | | | PST | | results section. | + +--------+ +---+ + | SURGICAL PATHOLOGY | Routin | 06/20/2019 | | Results for this | | EXAM | e | 12:00 AM | | procedure are in the | | | | PST | | results section. | + +--------+ +---+ + documented in this encounter Results ECG 12 lead (06/20/2019 9:38 AM PST) + + + + + + | Component | Value | Ref Range | Performed | Pathologist | | | | | At | Signature | + + + + + + | VENTRICULAR | 72 | BPM | [facility] | | | RATE EKG | | | | | + + + + + + | ATRIAL RATE | 72 | BPM | [facility] | | + + + + + + | P-R | 132 | ms | [facility] | | | INTERVAL | | | | | + + + + + + | QRS | 80 | ms | [facility] | | | DURATION | | | | | + + + + + + | Q-T | 392 | ms | [facility] | | | INTERVAL | | | | | + + + + + + | Q-T | 429 | ms | [facility] | | | INTERVAL | | | | | | (CORRECTED) | | | | | + + + + + + | P WAVE AXIS | 45 | degrees | [facility] | | + + + + + + | QRS AXIS | 56 | degrees | [facility] | | + + + + + + | T AXIS | 43 | degrees | [facility] | | + + + + + + | INTERPRETAT | Normal sinus | | [facility] | | | ION TEXT | rhythmNormal ECGNo | | | | | | previous ECGs | | | | | | availableConfirmed by | | | | | | WILLIAM OTERO MD ([id number]) | | | | | | on 06/21/2019 5:45:20 AM | | | | + + + + + + + + | Specimen | + + | | + + + + + | Narrative | Performed At | + + + | | | + + + + +---------+ + + | Performing | Address | City/State/Zipcode | Phone Number | | Organization | | | | + +---------+ + + | [facility] | | | | + +---------+ + + POCT Test, Urine, QUAL (06/20/2019 9:35 AM PST) + + + + + + | Component | Value | Ref Range | Performed | Pathologist | | | | | At | Signature | + + + + + + | | Negative | Negative | | | | Test, | | | | | | Urine, POC | | | | | + + + + + + | Internal QC | Acceptable | Acceptable | | | + + + + + + | Specific | | | | | | [place], | | | | | | POC | | | | | + + + + + + | Lot Number | [id number] | | | | + + + + + + | Expiration | 2020-07-11 | | | | | Date | | | | | + + + + + + + + | Specimen | + + | Urine | + + POC Glucose (06/20/2019 9:32 AM PST) + +-------+ + + + | Component | Value | Ref Range | Performed | Pathologist | | | | | At | Signature | + +-------+ + + + | Glucose, | 101 | 70 - 109 mg/dL | [facility] | | | POC | | | [facility] | | | | | | [facility] | | | | [facility] - | | | | | | LABORATORY | | + +-------+ + + + + + | Specimen | + + | Blood | + + + + + + + | Performing | Address | City/State/Zipcode | Phone Number | | Organization | | | | + + + + + | [facility] | [address] | [place] | [phone] | | [facility] | | [id number] | | | - LABORATORY | | | | + + + + + Surgical Pathology Exam (06/20/2019 12:00 AM [facility]) + + | Specimen | + + | | + + + + + | Narrative | Performed At | + + + | SPECIMEN(S): A RIGHT THYROID SPECIMEN SOURCE: A. RIGHT THYROID | [facility] | | CLINICAL HISTORY: E04.1 (nontoxic single thyroid nodule) | [facility] | | FROZEN SECTION DIAGNOSIS: A. Right thyroid: Partially calcified | | | follicular lesion. No evidence of overt papillary carcinoma in | | | examined section. (Dr. Perez, 06/20/19, time is not provided) | | | Frozen section diagnoses called to Dr. Wiley at time is not provided. | | | JS (under the direct supervision of a pathologist) The Gross | | | Description was prepared using a voice recognition system. The | | | report was reviewed for accuracy; however, sound-alike word errors, | | | addition and/or deletions may occur. If there is any question about | | | this report, please contact Client Services. 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 | | | CLR:[facility]:C2NR MICROSCOPIC EXAMINATION: Histologic sections of all | | | submitted blocks are examined by light microscopy. These findings, | | | together with the gross examination, support the pathologic diagnosis. | | | GROSS DESCRIPTION: The specimen, labeled "EK, right thyroid," is | | | received fresh for frozen section diagnosis and consists of 4.2 x 2.5 | | | x 1.7 cm unoriented thyroid lobe. The specimen weight 8 g. | | | Sectioning through the specimen reveal white firm, well-defined | | | nodule that measure 0.8 cm in greatest dimension. The nodule is 0.1 | | | cm from perithyroidal soft tissue. Also present pink-rutledge, | | | gelatinous, well-defined nodule that measure 1.1 cm in greatest | | | dimension. The remaining of the specimen shows beefy red tissue. | | | Specimen is previously inked black. Specimen is serial sectioned | | | from one pole to the other and entirely and subsequently submitted in | | | seven cassettes (A2-A8). Frozen section is entirely submitted in | | | cassette (A1). PERFORMING LABORATORY: The technical component was | | | performed by [facility], [address] [place] [id number] | | | (Publications Writer: Gabby Noble MD; CLIA# [id number]). Professional | | | frozen section interpretation was performed by [facility], | | | [facility], [address] [facility] | | | [place] [address] (Publications Writer: Benson Perez M.D.; | | | CLIA#: [id number]). Professional interpretation was performed by | | | [facility], [facility], [address] | | [facility], [place] [address] (Publications Writer: Benson Bryan | | Rose Perez M.D.; CLIA#: [id number]). Diagnostician: Benson | | | Aly Perez MD Pathologist Electronically Signed 06/22/2019 | | + + + + +---------+ + + | Performing | Address | City/State/Zipcode | Phone Number | | Organization | | | | + +---------+ + + | [facility] | | | | | [facility] | | | | + +---------+ + + documented in this encounter Visit Diagnoses + + | Diagnosis | + + | Nontoxic uninodular goiter - Primary | + + documented in this encounter Admitting Diagnoses + + | Diagnosis | + + | Nontoxic uninodular goiter | + + documented in this encounter Administered Medications + +--------+---------+------+------+------+ | Medication Order | MAR | Action | Dose | Rate | Site | | | Action | Date | | | | + +--------+---------+------+------+------+ + +---+ | albuterol 2.5 mg/3 mL nebulizer | | | solution 2.5 mg 2.5 mg, | | | Nebulization, ONCE PRN, Wheezing, | | | Starting 06/20/19 at 1145, | | | For 1 dose, Notify anesthesia if | | | patient is wheezing and does not | | | have a history of asthma or COPD | | | or current smoking., | | | Recovery/Phase I | | + +---+ | | | + +---+ | dextrose 50% injection 12.5-25 | | | g 12.5-25 g, Intravenous, EVERY | | | 15 MIN PRN, Low Blood Sugar, Give | | | 12.5g (25 mL) IV if blood | | | glucose 50-69 mg/dL. Give 25g | | | (50 mL) IV if blood glucose < 50, | | | Starting 06/20/19 at 0931, | | | Repeat in 15 min if blood glucose | | | remains < 70 mg/dL. Repeat | | | blood glucose in 30 min once | | | blood glucose > 70., Pre-op | | + +---+ | | | + +---+ | dextrose 50% injection 12.5-25 | | | g 12.5-25 g, Intravenous, EVERY | | | 15 MIN PRN, Low Blood Sugar, For | | | hypoglycemia. Give 12.5g (25ml) | | | IV if blood glucose 50-69 | | | mg/dL. Give 25g (50ml) IV if | | | blood glucose < 50, Starting Tue | | | 06/20/19 at 1145, Give over 2 min. | | | Repeat in 15 min if blood | | | glucose remains < 70 mg/dL. | | | Repeat blood glucose in 30 min | | | once blood glucose > 70., | | | Recovery/Phase I | | + +---+ | | | + +---+ | ePHEDrine (AKOVAZ) 50 mg/mL | | | injection 5 mg 5 mg, | | | Intravenous, EVERY 5 MIN PRN, if | | | SBP <90., Starting 06/20/19 at | | | 1145, Hold if HR > 100. Maximum | | | total dose 20mg., Recovery/Phase | | | I | | + +---+ | | | + +---+ + +-------+ +--------+---+---+ | fentaNYL (PF) injection 25-50 | Given | 06/20/19 | 25 mcg | | | | mcg 25-50 mcg, Intravenous, | | 20 12:11 | | | | | EVERY 5 MIN PRN, Pain, Initial | | PM PST | | | | | postop urgent pain or escalating | | | | | | | pain, Starting 06/20/19 at | | | | | | | 1145, For 4 doses, (2 doses | | | | | | | maximum for opioid naive, 4 doses | | | | | | | maximum for opioid tolerant) | | | | | | | First dose must be lowest dose. | | | | | | | Use Pasero Sedation Scale. | | | | | | | [Opioid tolerant = One week or | | | | | | | longer, szuwyl-ekc-oxkgi use of | | | | | | | at least the following DAILY | | | | | | | dose: 60mg oral morphine, 60mg | | | | | | | oral hydrocodone, 30mg oral | | | | | | | oxycodone, 8mg oral | | | | | | | hydromorphone, fentanyl patch | | | | | | | 25mcg/hr, or equivalent dose of | | | | | | | another opioid], Recovery/Phase I | | | | | | + +-------+ +--------+---+---+ +-------+ +--------+---+---+ | Given | 06/20/19 | 50 mcg | | | | | 20 12:01 | | | | | | PM PST | | | | +-------+ +--------+---+---+ | Given | 06/20/19 | 25 mcg | | | | | 20 11:56 | | | | | | AM PST | | | | +-------+ +--------+---+---+ + +---+ | | | + +---+ | hydrALAZINE (APRESOLINE) | | | injection 5 mg 5 mg, | | | Intravenous, EVERY 20 MINUTES | | | PRN, For SBP > 180, DBP > 100, | | | Starting 06/20/19 at 1145, | | | Hold if HR > 100. Maximum total | | | dose 40 mg. Use labetalol first | | | if available., Recovery/Phase I | | + +---+ | | | + +---+ + +-------+ +--------+---+---+ | HYDROmorphone (DILAUDID) | Given | 06/20/19 | 0.2 mg | | | | injection 0.2-0.4 mg 0.2-0.4 mg, | | 20 1:10 | | | | | Intravenous, EVERY 1 HOUR PRN, | | PM PST | | | | | Pain, To total of 2mg, Starting | | | | | | | 06/20/19 at 1231, | | | | | | | Recovery/Phase I | | | | | | + +-------+ +--------+---+---+ +-------+ +--------+---+---+ | Given | 06/20/19 | 0.3 mg | | | | | 20 12:57 | | | | | | PM PST | | | | +-------+ +--------+---+---+ | Given | 06/20/19 | 0.2 mg | | | | | 20 12:48 | | | | | | PM PST | | | | +-------+ +--------+---+---+ + +---+ | | | + +---+ | labetalol (TRANDATE) 5 mg/mL | | | injection 5 mg 5 mg, | | | Intravenous, EVERY 5 MIN PRN, For | | | SBP > 180, DBP > 100, Starting | | | 06/20/19 at 1145, Hold if HR < | | | 60. Maximum total dose 300mg. | | | Notify anesthesia if patient | | | requires more than 50mg., | | | Recovery/Phase I | | + +---+ | | | + +---+ + +---------+ +---+---+---+ | lactated ringers (LR) infusion | New Bag | 06/20/19 | | | | | at 10-100 mL/hr, Intravenous, | | 20 11:12 | | | | | CONTINUOUS, Starting 06/20/19 | | AM PST | | | | | at 1000, TKO., Pre-op | | | | | | + +---------+ +---+---+---+ +---------+ +---+-------+---+ | New Bag | 06/20/19 | | 100 | | | | 20 9:46 | | mL/hr | | | | AM PST | | | | +---------+ +---+-------+---+ + +---+ | | | + +---+ | meperidine (DEMEROL) injection | | | 12.5-25 mg 12.5-25 mg, | | | Intravenous, PRN, Shivering, | | | Starting 06/20/19 at 1145, For | | | 2 doses, May Repeat once in 5 | | | min., Recovery/Phase I | | + +---+ | | | + +---+ | ondansetron (ZOFRAN) injection | | | 4 mg 4 mg, Intravenous, EVERY 4 | | | HOURS PRN, Nausea, Vomiting, | | | Starting 06/20/19 at 1145, | | | Recovery/Phase I | | + +---+ | | | + +---+ + +---------+ +---------+---+ + | scopolamine (TRANSDERM-SCOP) 1 | Patch | 06/20/19 | 1 patch | | Ear-Behi | | mg/3 days 1 patch 1 patch, | Applied | 20 9:45 | | | nd Left | | Transdermal, ONCE, 06/20/19 at | | AM PST | | | | | 1000, For 1 dose, If prophylaxis | | | | | | | fails, do not repeat dose. Use | | | | | | | drug from a different class. Each | | | | | | | patch is designed to deliver 1 | | | | | | | mg over 3 days. DO NOT CUT | | | | | | | patch., Pre-op | | | | | | + +---------+ +---------+---+ + +---+---+ | | | +---+---+ + +-------+ +-------+---+---+ | traMADol (ULTRAM) tablet 50 mg | Given | 06/20/19 | 50 mg | | | | 50 mg, Oral, EVERY 6 HOURS PRN, | | 20 2:08 | | | | | Pain, Starting Tu06/20/19 at | | PM PST | | | | | 1349, Post-op/Phase II | | | | | | + +-------+ +-------+---+---+ +---+---+ | | | +---+---+ documented in this [id number]
--- OUTSIDE RECORDS SUMMARY | ~2019-12-06 | XMS | Encounter Summary ---
Demographics + + + | Address | [address] | | | [place] [address] | + + + | Home Phone | | + + + | Preferred Language | Unknown | + + + | Marital Status | Single | + + + | Samaritan Affiliation | 1013 | + + + | Race | Unknown | + + + | Ethnic Group | Unknown | + + + Author + + + | Author | [facility] | | | and [place] | + + + | Organization | [facility] | | | and [place] | + + + | Address | Unknown | + + + | Phone | Unavailable | + + + Support + + +---------+ + | Name | Relationship | Address | Phone | + + +---------+ + | Karri Chapa | ECON | Unknown | | + + +---------+ + | Stephanymorris Kenney | ECON | Unknown | | + + +---------+ + Care Team Providers + +------+ + | Care Winch Truck Operator Name | Role | Phone | + +------+ + | Colton Singer DO | PCP | | + +------+ + Encounter Details +--------+ + + + + | Date | Type | Department | Care Team | Description | +--------+ + + + + | 05/19/ | Hospital | [facility] | Horace Carlos MD | Gastroesophageal | | 2018 | Encounter | [facility] | [address] | reflux disease, | | | | [address] | [place], [place] | esophagitis presence | | | | [place], [place] | [address] | not specified; | | | | [address] | [phone] | Nausea; Abdominal | | | | [phone] | | pain, unspecified | | | | | | abdominal location; | | | | | | Change in bowel | | | | | | habits | +--------+ + + + + Social [...] + + + | Blood Pressure | 103/56 | 05/19/2017 1:45 PM | | | | | PST | | + + + + + | Pulse | 55 | 05/19/2017 1:45 PM | | | | | PST | | + + + + + | Temperature | 36.7 C (98.1 F) | 05/19/2017 12:52 PM | | | | | PST | | + + + + + | Respiratory Rate | 18 | 05/19/2017 12:52 PM | | | | | PST | | + + + + + | Oxygen Saturation | 99% | 05/19/2017 1:45 PM | | | | | PST | | + + + + + | Inhaled Oxygen | - | - | | | Concentration | | | | + + + + + | Weight | 100.3 kg (221 lb 1.9 | 05/19/2017 11:34 AM | | | | oz) | PST | | + + + + + | Height | 160 cm (5' 3") | 05/19/2017 11:34 AM | | | | | PST | | + + + + + | Body Mass Index | 39.17 | 05/19/2017 11:34 AM | | | | | PST | | + + + + + documented in this encounter Discharge Instructions Instructions Horace Carlos MD - 05/13/2017Patient Discharge Instructions after an Endosco py Procedure ? You may resume your regular diet after discharge. ? Do not drive, operate machinery, make critical decisions or do activities that require co ordination or balance for 24hrs. ? Resume normal medications unless otherwise instructed. ? If biopsies were taken, the physician s office will contact you within 7-10 days. ? If a colonoscopy was performed, then you may continue to expel large amounts of air from your rectum. Please call the physician who did your procedure at [phone] if you have any questions or experience any of the following: ? Increasing abdominal pain, nausea, or vomiting. ? Chills and fever over 101F. ? New abdominal swelling or bloating. ? Signs of rectal bleeding (black or red stool). If you cannot get a hold of your physician, then call the [facility] [phone] . If necessary, report to the Emergency Department at [facility]. Quit smoking: If you smoke or have smoked within the last year, quitting is the most import ant thing you can do to protect and improve your health. documented in this encounter Medications at Time of Discharge + + + +---------+ + + | Medication | Sig | Dispensed | Refills | Start | End Date | | | | | | Date | | + + + +---------+ + + | ondansetron | Take 1 tablet by | 2 | 0 | 04/26/20 | | | (ZOFRAN) 4 mg tablet | mouth See Admin | tablet | | 17 | 8 | | | Instructions. If | | | | | | | nausea with prep. | | | | | | | Stop prep, take 1 | | | | | | | tab by mouth,wait 30 | | | | | | | min, restart prep | | | | | | | may repeat | | | | | + + + +---------+ + + | pantoprazole | Take 1 tablet by | 180 | 3 | 04/26/20 | | | (PROTONIX) 20 mg | mouth 2 times daily | tablet | | 17 | 8 | | tabletIndications: | (before meals). | | | | | | Abdominal pain, | | | | | | | unspecified | | | | | | | abdominal location, | | | | | | | Nausea, | | | | | | | Gastroesophageal | | | | | | | reflux disease, | | | | | | | esophagitis presence | | | | | | | not specified | | | | | | + + + +---------+ + + | UNKNOWN TO PATIENT | " control pill" | | 0 | | | | | | | | | 8 | + + + +---------+ + + documented as of this encounter H&P Notes Horace Carlos MD - 05/19/2017 12:16 PM PSTPatient interviewed, history and physical, symp toms reviewed VS signs noted, no change from previous H&P or assessment and plan.Electronic ally signed by Horace Carlos MD at 05/19/2017 12:16 PM PSTHamHorace phillip MD - 04/26/2017 9:00 AM PST Date of Office Visit: 04/26/17 Chief Complaint: Abdominal Pain History of Present Illness: Rashmi Holcomb is a 26 y.o. female the patient presents with co mplaints of persistent abdominal pain for the past 2 weeks. [facility] and underwent a fairly extensive workup including CT scan with contr ast of the abdomen and pelvis which was unremarkable. She also had ultrasound evaluating th e liver and gallbladder which was normal as well except for fatty liver. The patient states that the pain is worse with food as well as on an empty stomach and she has persistent naus ea as well but no vomiting. She did have vomiting of some blood a few weeks ago at the [facility] of this illness however none since. She's been taking Haven aspirin daily or twice a day for the past week for the pain. She admits to a history of peptic ulcer disease as well as esophageal ulcers in the past which were felt to be due to pain medications at the time. She was given omeprazole and sucralfate and emergency department however she stopped these since she felt that the medications were causing her nausea worse. There is no family hist ory of Crohn's disease or colitis however her grandmother was diagnosed with a unknown colon ic disorder for which she had to have a colostomy bag. The patient admits to occasional alc ohol use but not on a daily basis. 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 The pain can be in the epigastrium as well as the gabbie umbilical area and radiates to all 4 quadrants at times. A urinalysis was done which reveal ed Gardnerella vaginal S. The patient denies any dysuria or frequency of urination but she does admit to a prior history of urinary tract infections. She denies diarrhea but does hav e frequent constipation and recent change in her bowel habits. Past Medical History: Past Medical History: Diagnosis Date Abdominal pain Anxiety Asthma Nausea and vomiting Neutrophilic leukocytosis PCOS (polycystic ovarian syndrome) Past Surgical History: Past Surgical History: Procedure Laterality Date SECTION tonsilectomy Family History: History reviewed. No pertinent family history. Allergies: Allergies Allergen Reactions Amoxicillin Hives,Nausea And Vomiting Codeine Hives,Nausea And Vomiting Marienthal Hives Intolerance No active intolerances/contraindications Medications: has a current medication list which includes the following prescription(s): omeprazole, suc ralfate, and UNKNOWN TO PATIENT. Review of Systems: A 10-point review of systems was performed and was negative except as n oted in the history of present illness. Physical Exam: Vitals:BP 98/78 | Pulse 91 | Resp 12 | Ht 1.6 m (5' 3") | Wt 93 kg (205 lb) | LMP /10/2016 | SpO2 98% | BMI 36.31 kg/m General: This is a well-developed,well-nurished female in no apparent distress, alert and o riented times 3. HEENT: Reveals normocephalic, atraumatic with extraocular muscles intact. Oropharynx is mable ar without obstruction. Neck: Supple without lymphadenopathy or thyromegaly. Lungs: Clear to auscultation without rales or wheezes. Cardiac: Reveals regular rate and rhythm with normal S1 and S2 and no murmurs, rubs or gall ops. Abdomen: Soft and nontender without masses or organmegaly. Mild tenderness to palpation i n the epigastrium as well as the periumbilical area especially on the left. There is no sammie ound or guarding. Bowel sounds are normal. Extremities: Without cyanosis, clubbing or edema. Neuro: Awake, alert, oriented x3. Normal station and gait. Skin: Warm and dry, no erythematous rash. Assessment and Plan: 26-year-old white female with abdominal pain of unclear etiology. Wor kup to date has included negative CT scan, negative ultrasound, negative lab work, urine hCG is negative, lipase is normal. Differential diagnosis for the abdominal pain includes infl ammatory bowel disease, peptic ulcer disease, functional disorder, irritable bowel syndrome, malignant neoplasm.At this time I recommend that upper endoscopy or esophagogastroduodenosc opy be performed for further evaluation. Indications risks benefits and possible complicati ons were discussed with the patient who wished to proceed with EGD at this time. We'll prescribe a different PPI at this time in case the patient has a recurrence of peptic ulcer disease. Protonix 20 mg twice a day half an hour before breakfast and dinner. I als o advised her to avoid all NSAID medications including Haven Aspirin. We will repeat a urin alysis today clean-cut midstream with culture to rule out urinary tract infection causing ab dominal pain. Since she has lower abdominal pain as well with elevated white count will per form colonoscopy as well to evaluate for colitis or other colonic neoplasm and chronic infla mmatory disorder.At this time I recommend that colonoscopy be performed for further evaluati on. Indications risks benefits and possible complications were discussed with the patient w macy wishes to proceed with colonoscopy at this time. I strongly advised that both procedures be performed with anesthesia propofol assistance du e to the patient's obesity and multiple medical problems. documented in this enc ounter Miscellaneous Notes D-C Instructions Provation - Horace Carlos MD - 05/19/2017 11:47 AM PSTDischarge Instruct ions for Upper Endoscopy Patient: Rashmi Holcomb : 1990 Acct: [id number] Exam Date: Friday, May 19, 2017 Doctor: Horace Carlos MD The chances of difficulty following this procedure are minimal. The following instructions will assist you in your recovery. 1. Do Not eat or drink anything for 1 hour. Try sips of water first. If tolerated, resume your regular diet or one recommended by your physician. 2. Do not drive, operate machinery, make critical decisions, or do activities that require coordination or balance for 24 hours. 3. You may experience a sore throat for 24 - 48 hours. You may use throat lozenges or gargle with warm salt water to relieve the discomfort. 4. Because air was put into your stomach druing the procedure, you may experience some belching. 5. Do not use any medication containing aspirin for 10 days, unless otherwise directed by your physician. 6. Sometimes the medications given to you druing the exam can aggravate the veins. The chemical irritation can cause inflammation or pain along the arm with redness, swelling and warmth. This does not mean there is an infection. You can treat the affected area by applying warm, wet compresses (towels) 4 times a day for 20 minutes at a time until inflammation is resolved 7. Report to your doctor: Chills and/or fever over 100 Persistent vomiting or vomiting with blood/nasal regurgitation Severe abdominal pain, other than gas cramps Severe chest pain Black, tarry stools You may reach your physician at Work: . If unable to reach your physician, call [facility] Emergency Department at [phone] Your doctor recommends these additional instructions: You have a contact number available for emergencies. The signs and symptoms of potential delayed complications were discussed with you. You may return to normal activities tomorrow. Written discharge instructions were provided to you. Eat a high fiber diet. Continue your present medications. We are waiting for your pathology results. Your physician has recommended a repeat upper endoscopy for surveillance based on pathology results. Return to your GI clinic in four weeks. Follow an antireflux regimen. This includes: - Do not lie down for at least 3 to 4 hours after meals. - Raise the head of the bed 4 to 6 inches. - Decrease excess weight. - Avoid citrus juices and other acidic foods, alcohol, chocolate, mints, coffee and other caffeinated beverages, carbonated beverages, fatty and fried foods. - Avoid tight-fitting clothing. - Avoid cigarettes and other tobacco products. Take Prilosec (omeprazole) 20 mg by mouth once a day for three months. The findings and recommendations have been discussed with you. These instructions have been explained to the patient and/or escort. A copy has been given to the patient/escort. Nurse Signature Patient Signature Escort Signature Date Horace Carlos MD 05/19/2017 12:46:20 PM This report has been signed electronically.Electronically signed by Horace Carlos MD at 12:46 PM PSTD-C Instructions Provation - Horace Carlos MD - 05/19/2017 11:46 AM P STDischarge Instructions for Colonoscopy Exams Patient: Rashmi Holcomb : 1990 Acct: [id number] Exam Date: Friday, May 19, 2017 Doctor: Horace Carlos MD You have had an examination of the gastrointestinal tract. The chances of difficulty following this procedure are minimal. The following instructions will assist you in your recovery. ACTIVITIES: Rest quietly until sedation wears off. DO NOT drive a motor vehicle or operate machinery for 24 hours after sedation. Be cautious making critical decisions for 24 hours after sedation. DIET: If throat has been sprayed, do not eat or drink for 1 hour after. Start with a swallow of tap water, if you experience any lack of sensation in your throat, wait another 30 - 60 minutes and start with water again. Once swallowing has returned to normal you may resume your usual diet unless otherwise instructed by your physician. DISCOMFORT: If you had a bowel exam, you may have some abdominal discomfort from the air put into your bowel during the exam. Moving about will help you pass this air. Sometimes the medications given to you during the exam can aggravate the veins. The chemical irritation can cause inflammation or pain along the arm with redness, swelling and warmth. This does not mean there is an infection. You can treat the affected area by applying warm,wet compresses (towels) 4 times a day for 20 minutes at a time until inflammation is resolved. REPORT TO YOUR DOCTOR: Unusual abdominal pain Chest pain or unusual shortness of breath Shoulder pain Nausea, vomiting Fever over 100 degrees, chills Signs of rectal bleeding (red or black stools) Any concern you have resulting from procedure You may reach your physician at Work: . If unable to reach your physician, call [facility] Emergency Department at [phone] Your doctor recommends these additional instructions: You have a contact number available for emergencies. The signs and symptoms of potential delayed complications were discussed with you. You may return to normal activities tomorrow. Written discharge instructions were provided to you. Eat a high fiber diet. Continue your present medications. We are waiting for your pathology results. Your physician has recommended a repeat colonoscopy for surveillance based on pathology results. Return to your GI clinic in four weeks. The findings and recommendations have been discussed with you. These instructions have been explained to the patient and/or escort. A copy has been given to the patient/escort. Nurse Signature Patient Signature Escort Signature Date Horace Carlos MD 05/19/2017 12:49:33 PM This report has been signed electronically.Electronically signed by Horace Carlos MD at 12:49 PM PSTdocumented in this encounter Plan of Treatment Not on filedocumented as of this encounter Procedures + +--------+ + + + | Procedure Name | Priori | Date/Time | Associated Diagnosis | Comments | | | ty | | | | + +--------+ + + + | COLONOSCOPY | | 05/19/2017 | Abdominal pain, | | | | | 12:10 PM | unspecified | | | | | PST | abdominal location | | | | | | (R10.9), Nausea | | | | | | (R11.0), Change in | | | | | | bowel habits | | | | | | (R19.4), | | | | | | Gastroesophageal | | | | | | reflux disease, | | | | | | esophagitis presence | | | | | | not specified | | | | | | (K21.9), | | | | | | Constipation, | | | | | | unspecified | | | | | | constipation type | | | | | | (K59.00), Anxiety | | | | | | (F41.9), Obesity | | | | | | (BMI 35.0-39.9 | | | | | | without comorbidity) | | | | | | (E66.9) | | + +--------+ + + + | EGD | | 05/19/2017 | Abdominal pain, | | | | | 12:10 PM | unspecified | | | | | PST | abdominal location | | | | | | (R10.9), Nausea | | | | | | (R11.0), Change in | | | | | | bowel habits | | | | | | (R19.4), | | | | | | Gastroesophageal | | | | | | reflux disease, | | | | | | esophagitis presence | | | | | | not specified | | | | | | (K21.9), | | | | | | Constipation, | | | | | | unspecified | | | | | | constipation type | | | | | | (K59.00), Anxiety | | | | | | (F41.9), Obesity | | | | | | (BMI 35.0-39.9 | | | | | | without comorbidity) | | | | | | (E66.9) | | + +--------+ + + + | EGD | Routin | 05/19/2017 | | Results for this | | | e | 11:47 AM | | procedure are in the | | | | PST | | results section. | + +--------+ + + + | COLONOSCOPY | Routin | 05/19/2017 | | Results for this | | | e | 11:46 AM | | procedure are in the | | | | PST | | results section. | + +--------+ + + + | SURGICAL PATHOLOGY | Routin | 05/19/2017 | | Results for this | | EXAM | e | 12:00 AM | | procedure are in the | | | | PST | | results section. | + +--------+ + + + documented in this encounter Results EGD (05/19/2017 11:47 AM PST) + + | Specimen | + + | | + + + + -+ | Narrative | Performed At | + + -+ | | [facility] | | GastroenterologyPatient Name: Rashmi HolcombProcedure Date: 05/19/2017 | PROVATION | | 11:47 AMMRN: [id number] #: [id number] of : | | | 1990Admit Type: AmbulatoryAge: 26Room: [facility]Gender: FemaleNote | | | Status: FinalizedAttending MD: Horace Carlos , MDProcedure: | | | Upper GI endoscopyIndications: Epigastric abdominal | | | pain, Generalized abdominal pain, | | | Suspected esophageal reflux, Exclusion of peptic ulcer, | | | Follow-up of peptic ulcerProviders: Horace | | | Maddie Carlos MD, Christine Anderson RN, Xena Glynn | | | Neftali, Primary Care Physician, Caio Vora MD (Anesthesia | | | Staff)Referring MD: Colton Singer DO | | | (Referring MD)Medicines: Monitored Anesthesia | | | CareComplications: No immediate complications.Procedure: | | | Pre-Anesthesia Assessment: - Prior to the procedure, a History | | | and Physical was performed, and patient medications and | | | allergies were reviewed. The patient is competent. The risks | | | and benefits of the procedure and the sedation options and | | | risks were discussed with the patient. All questions were | | | answered and informed consent was obtained. Patient identification and | | | proposed procedure were verified by the physician, the nurse, | | | the anesthesiologist and the er medical technician in the pre-procedure | | | area in the procedure room. Mental Status Examination: alert | | | and oriented. Airway Examination: normal oropharyngeal airway | | | and neck mobility. Respiratory Examination: clear to | | | auscultation. CV Examination: normal. Prophylactic Antibiotics: | | | The patient does not require prophylactic antibiotics. Prior | | | Anticoagulants: The patient has taken no previous anticoagulant or | | | antiplatelet agents. ASA Grade Assessment: III - A patient with | | | severe systemic disease. After reviewing the risks and | | | benefits, the patient was deemed in satisfactory condition to | | | undergo the procedure. The anesthesia plan was to use monitored | | | anesthesia care (MAC). Immediately prior to administration of | | | medications, the patient was re-assessed for adequacy to | | | receive sedatives. The heart rate, respiratory rate, oxygen | | | saturations, blood pressure, adequacy of pulmonary ventilation, and | | | response to care were monitored throughout the procedure. The | | | physical status of the patient was re-assessed after the | | | procedure. After obtaining informed consent, the endoscope was | | | passed under direct vision. Throughout the procedure, the | | | patient's blood pressure, pulse, and oxygen saturations were | | | monitored continuously. The Endoscope was introduced through | | | the mouth, and advanced to the third part of duodenum. The | | | upper GI endoscopy was accomplished without difficulty. The | | | patient tolerated the procedure well.Findings: Mucosal changes | | | including longitudinal furrows were found in the entire | | | esophagus. Biopsies were taken with a cold forceps for histology. | | | Verification of patient identification for the specimen was done by | | | the physician and nurse using the patient's name and | | | date. Estimated blood loss was minimal. LA Grade A (one | | | or more mucosal breaks less than 5 mm, not extending between | | | tops of 2 mucosal folds) esophagitis with no bleeding was found. | | | No other significant abnormalities were identified in a careful | | | examination of the esophagus. Diffuse mildly erythematous | | | mucosa without bleeding was found in the entire examined | | | stomach. Biopsies were taken with a cold forceps for histology. | | | Verification of patient identification for the specimen was | | | done by the physician and nurse using the patient's name and | | | date. Estimated blood loss was minimal. Multiple 3 mm | | | semi-sessile polyps with no bleeding and no stigmata of recent | | | bleeding were found in the gastric body. Biopsies were taken with | | | a cold forceps for histology. Verification of patient | | | identification for the specimen was done by the physician and | | | nurse using the patient's name and date. Estimated blood | | | loss was minimal. No other significant abnormalities were | | | identified in a careful examination of the stomach. The | | | examined duodenum was normal. Biopsies were taken with a cold | | | forceps for histology. Verification of patient identification for the | | | specimen was done by the physician and nurse using the | | | patient's name and date. Estimated blood loss was | | | minimal.Impression: - Esophageal mucosal changes suspicious for | | | eosinophilic esophagitis. Biopsied. - LA Grade A reflux | | | esophagitis. - Erythematous mucosa in the stomach. Biopsied. | | | - Multiple gastric polyps. Biopsied. - Normal examined | | | duodenum. Biopsied.Recommendation: - Patient has a contact | | | number available for emergencies. The signs and symptoms of | | | potential delayed complications were discussed with the | | | patient. Return to normal activities tomorrow. Written discharge | | | instructions were provided to the patient. - High fiber diet. | | | - Continue present medications. - Await pathology | | | results. - Repeat upper endoscopy for surveillance based on | | | pathology results. - Return to GI clinic in 4 weeks. - | | | Follow an antireflux regimen. - Use Prilosec (omeprazole) 20 mg | | | PO daily for 3 months. - The findings and recommendations were | | | discussed with the patient.Horace Carlos MD05/19/2017 12:46:20 | | | PMThis report has been signed electronically.Number of Addenda: 0Note | | | Initiated On: 05/19/2017 11:47 AMTotal Procedure Duration: 0 hours 8 | | | minutes 7 seconds Scope In: 12:18:22 PMScope Out: 12:26:29 PM | | | [facility], [address] [place] [address] | | | [id number] | | | - Continue present medications. | | | - Await pathology results. | | | - Repeat upper endoscopy for surveillance based on pathology results. | | | - Return to GI clinic in 4 weeks. | | | - Follow an antireflux regimen. | | | - Use Prilosec (omeprazole) 20 mg PO daily for 3 months. | | | - The findings and recommendations were discussed with the patient. | | |Horace Carlos MD | | |05/19/2017 12:46:20 PM | | |This report has been signed electronically. | | |Number of Addenda: 0 | | |Note Initiated On: 05/19/2017 11:47 AM | | |Total Procedure Duration: 0 hours 8 minutes 7 seconds | | |Scope In: 12:18:22 PM | | |Scope Out: 12:26:29 PM | | | [facility], [address] [place] [address] | | | [address] | | + + -+ + +---------+ + + | Performing | Address | City/State/Zipcode | Phone Number | | Organization | | | | + +---------+ + + | [facility] | | | | + +---------+ + + COLONOSCOPY (05/19/2017 11:46 AM PST) + + | Specimen | + + | | + + + + -+ | Narrative | Performed At | + + -+ | | [facility] | | GastroenterologyPatient Name: Rashmi Burnscedteresa Date: 05/19/2017 | [facility] | | 11:46 AMMRN: [id number] #: [id number] of : | | | 1990Admit Type: AmbulatoryAge: 26Room: [facility] 02Gender: FemaleNote | | | Status: FinalizedAttending MD: Horace Carlos , [facility]rocedure: | | | ColonoscopyIndications: Abdominal pain, Chronic | | | diarrheaProviders: Horace Carlos MD, Christine Anderson RN, | | | Xena Lindsay, Primary Care Physician, Caio | | | Sue Vora MD (Anesthesia Staff)Referring | | | MD: Colton Singer DO (Referring MD)Medicines: | | | Monitored Anesthesia CareComplications: No immediate | | | complications.Procedure: Pre-Anesthesia Assessment: - | | | Prior to the procedure, a History and Physical was performed, and | | | patient medications and allergies were reviewed. The patient is | | | competent. The risks and benefits of the procedure and the | | | sedation options and risks were discussed with the patient. All | | | questions were answered and informed consent was obtained. | | | Patient identification and proposed procedure were verified by | | | the physician, the nurse, the anesthesiologist and the | | | er medical technician in the pre-procedure area in the procedure room. | | | Mental Status Examination: alert and oriented. Airway | | | Examination: normal oropharyngeal airway and neck mobility. | | | Respiratory Examination: clear to auscultation. CV Examination: | | | normal. Prophylactic Antibiotics: The patient does not require | | | prophylactic antibiotics. Prior Anticoagulants: The patient | | | has taken no previous anticoagulant or antiplatelet agents. ASA | | | Grade Assessment: III - A patient with severe systemic | | | disease. After reviewing the risks and benefits, the patient | | | was deemed in satisfactory condition to undergo the procedure. The | | | anesthesia plan was to use monitored anesthesia care (MAC). | | | Immediately prior to administration of medications, the patient | | | was re-assessed for adequacy to receive sedatives. The heart | | | rate, respiratory rate, oxygen saturations, blood pressure, | | | adequacy of pulmonary ventilation, and response to care were | | | monitored throughout the procedure. The physical status of the | | | patient was re-assessed after the procedure. After I obtained | | | informed consent, the scope was passed under direct vision. | | | Throughout the procedure, the patient's blood pressure, pulse, | | | and oxygen saturations were monitored continuously. The Colonoscope | | | was introduced through the anus and advanced to 10 cm into the | | | ileum. The colonoscopy was performed without difficulty. The | | | patient tolerated the procedure well. The quality of the bowel | | | preparation was good.Findings: The perianal and digital rectal | | | examinations were normal. The colon (entire examined portion) | | | appeared normal. Biopsies for histology were taken with a cold | | | forceps from the right colon, left colon and transverse colon | | | for evaluation of microscopic colitis. Verification of patient | | | identification for the specimen was done by the physician and | | | nurse using the patient's name and date. Estimated blood | | | loss was minimal. The terminal ileum appeared normal. | | | Non-bleeding internal hemorrhoids were found during retroflexion. The | | | hemorrhoids were small. No additional abnormalities were | | | found on retroflexion.Impression: - The entire examined colon is | | | normal. Biopsied. - The examined portion of the ileum was | | | normal. - Non-bleeding internal hemorrhoids.Recommendation: | | | - Patient has a contact number available for emergencies. The signs | | | and symptoms of potential delayed complications were discussed | | | with the patient. Return to normal activities tomorrow. | | | Written discharge instructions were provided to the patient. | | | - High fiber diet. - Continue present medications. - | | | Await pathology results. - Repeat colonoscopy for surveillance | | | based on pathology results. - Return to GI clinic in 4 weeks. | | | - The findings and recommendations were discussed with the | | | patient.Horace Carlos MD05/19/2017 12:49:33 PMThis report has been | | | signed electronically.Number of Addenda: 0Note Initiated On: 05/19/2017 | | | 11:46 AMScope Withdrawal Time: 0 hours 8 minutes 5 seconds Total | | | Procedure Duration: 0 hours 13 minutes 41 seconds Scope In: 12:30:13 | | | PMScope Out: 12:43:54 PM [facility], [address] | | [place] [address] | | | instructions were provided to the patient. | | | - High fiber diet. | | | - Continue present medications. | | | - Await pathology results. | | | - Repeat colonoscopy for surveillance based on pathology results. | | | - Return to GI clinic in 4 weeks. | | | - The findings and recommendations were discussed with the patient. | | |Horace Carlos MD | | |05/19/2017 12:49:33 PM | | |This report has been signed electronically. | | |Number of Addenda: 0 | | |Note Initiated On: 05/19/2017 11:46 AM | | |Scope Withdrawal Time: 0 hours 8 minutes 5 seconds | | |Total Procedure Duration: 0 hours 13 minutes 41 seconds | | |Scope In: 12:30:13 PM | | |Scope Out: 12:43:54 PM | | | [facility], [address] [place], [place] | | | [address] | | + + -+ + +---------+ + + | Performing | Address | City/State/Zipcode | Phone Number | | Organization | | | | + +---------+ + + | [facility] | | | | + +---------+ + + Surgical Pathology Exam (05/19/2017 12:00 AM PST) + + | Specimen | + + | | + + + + + | Narrative | Performed At | + + + | SPECIMEN(S): A GASTRIC R/O HPYLORI SPECIMEN(S): B GASTRIC POLYP | [facility] | | SPECIMEN(S): C DUODENAL BIOPSY SPECIMEN(S): D MID ESOPHAGUS BIOPSY | [facility] | | SPECIMEN(S): E RANDOM COLON BIOPSY SPECIMEN SOURCE: A. GASTRIC | | | R/O HPYLORI B. GASTRIC POLYP C. DUODENAL BIOPSY D. MID ESOPHAGUS | | | BIOPSY E. RANDOM COLON BIOPSY CLINICAL HISTORY: R10.9 | | | (unspecified abdominal pain), R11.0 (nausea), R19.4 (change in bowel | | | habit), K21.9 (gastroesophageal reflux disease without esophagitis), | | | K59.00 (constipation, unspecified), F41.9 (anxiety disorder, | | | unspecified), E66.9 (obesity, unspecified) MICROSCOPIC | | | DESCRIPTION: Histologic sections of all submitted blocks are examined | | | by light microscopy. These findings, together with the gross | | | examination, support the pathologic diagnosis. FINAL PATHOLOGIC | | | DIAGNOSIS: A. Gastric biopsy: - Gastric type mucosa with focal | | | slight mucosal chronic inflammation. - Negative for evidence of | | | Helicobacter organisms on routine HE stained sections. B. Gastric | | | polyp, biopsy: - Inflamed fundic gland polyp. C. Duodenal | | | biopsy: - Benign duodenal mucosa, negative for specific diagnostic | | | abnormality. D. Mid esophagus biopsy: - Esophageal mucosa with | | | increased epithelial eosinophils. (See Comment) E. Random colon | | | biopsy: - Benign colonic mucosa, negative for specific diagnostic | | | abnormality. COMMENT: D. In the appropriate clinical context, the | | | histologic features are compatible with eosinophilic esophagitis. | | | Eosinophils number up to 52 / HPF. Clinical correlation is | | | requested. JVR:ssm rehab:C2NR GROSS DESCRIPTION: Received in five | | | parts. A. Received in formalin labeled "Rashmi Aicha, gastric" are | | | five pink-rutledge tissue fragments measuring from 0.3-0.5 cm, submitted, | | | all in (A1). B. Received in formalin labeled "Rashmi Aicha, gastric | | | polyps" are two pink-rutledge tissue fragments measuring from 0.4-0.45 cm, | | | submitted, all in (B1). C. Received in formalin labeled "Rashmi | | | Aicha, duodenum" are seven pink-rutledge tissue fragments measuring form | | | 0.15-1 cm, submitted, all in (C1). D. Received in formalin labeled | | | "Rashmi Aicha" and "mid esophagus bx" on the requisition are seven | | | olvera-rutledge tissue fragments measuring from <0.1-0.45 cm, submitted, all | | | in (D1). E. Received in formalin labeled "Rashmi Aicha, random" and | | | "random colon bx" on the requisition are five pink-rutledge tissue | | | fragments measuring from 0.3-0.4 cm, submitted, all in (E1). | | | ka:ALLYSON:wesley PERFORMING LABORATORY: Tissue processing and slide | | | preparation were performed by [employer], [address] | | | [address], [place] [address] (Contracting Manager: Brandon Blackwell M.D. | | | CLIA#: [id number]). Professional interpretation was performed by | | | [employer], [facility], [address] | | [address] [place] [address] (Contracting Manager: Brandon Blackwell, | | | Aníbal; CLIA#: [id number]). Diagnostician: Brandon Blackwell MD | | | Pathologist Electronically Signed 05/20/2017 | | + + + + +---------+ + + | Performing | Address | City/State/Zipcode | Phone Number | | Organization | | | | + +---------+ + + | [facility] | | | | | [facility] | | | | + +---------+ + + documented in this encounter Visit Diagnoses + + | Diagnosis | + + | Gastroesophageal reflux disease, esophagitis presence not specified | + + | Nausea Nausea alone | + + | Abdominal pain, unspecified abdominal location | + + | Change in bowel habits Other symptoms involving digestive system | + + | Anxiety Anxiety state, unspecified | + + | Constipation, unspecified constipation type | + + documented in this encounter Administered Medications + +--------+---------+------+------+------+ | Medication Order | MAR | Action | Dose | Rate | Site | | | Action | Date | | | | + +--------+---------+------+------+------+ + +---+ | albuterol 2.5 mg/3 mL nebulizer | | | solution 2.5 mg 2.5 mg, | | | Nebulization, ONCE PRN, Wheezing, | | | Starting 05/19/17 at 1300, | | | For 1 dose, Notify anesthesia if | | | patient is wheezing and does not | | | have a history of asthma or COPD | | | or current smoking., | | | Recovery/Phase I | | + +---+ | | | + +---+ + +---------+ +---+---+---+ | lactated ringers (LR) infusion | New Bag | 05/19/19 | | | | | at 100 mL/hr, Intravenous, | | 18 11:30 | | | | | CONTINUOUS, Starting 05/19/17 | | AM PST | | | | | at 1230, Pre-op | | | | | | + +---------+ +---+---+---+ + +---+ | | | + +---+ | lactated ringers (LR) infusion | | | at 100 mL/hr, Intravenous, | | | CONTINUOUS, Starting 05/19/17 | | | at 1230, Pre-op | | + +---+ | | | + +---+ | ondansetron (ZOFRAN ODT) | | | disintegrating tablet 4 mg 4 mg, | | | Oral, EVERY 6 HOURS PRN, Nausea, | | | Vomiting, Starting 05/19/17 | | | at 1315, First line agent, | | | Post-op/Phase II | | + +---+ | | | + +---+ + +-------+ +------+---+---+ | ondansetron (ZOFRAN) 2 mg/mL | Given | 05/19/19 | 4 mg | | | | injection Starting Wed05/19/17 | | 18 1:01 | | | | | at 1258, For 1 dose, | | PM PST | | | | | ALBINA RODRIGUEZ: jerod | | | | | | | override, | | | | | | + +-------+ +------+---+---+ + +---+ | | | + +---+ | ondansetron (ZOFRAN) injection | | | 4 mg 4 mg, Intravenous, ONCE | | | PRN, Nausea, Starting Wed05/19/17 | | | at 1300, For 1 dose, | | | Recovery/Phase I | | + +---+ | | | + +---+ | ondansetron (ZOFRAN) injection | | | 4 mg 4 mg, Intravenous, EVERY 6 | | | HOURS PRN, Nausea, Vomiting, | | | Starting 05/19/17 at 1315, | | | First line agent. Use PO option | | | unless NPO status or unable to | | | tolerate., Post-op/Phase II | | + +---+ | | | + +---+ documented in this encounter
--- OUTSIDE RECORDS SUMMARY | ~2019-12-06 | XMS | Encounter Summary ---
Demographics + + + | Address | [address] | | | [place] [address] | + + + | Home Phone | | + + + | Preferred Language | Unknown | + + + | Marital Status | Single | + + + | Alevism Affiliation | 1013 | + + + | Race | Unknown | + + + | Ethnic Group | Unknown | + + + Author + + + | Author | [facility] | | | and [facility] | + + + | Organization | [facility] | | | and [facility] [...] Team Providers + +------+ + | Care Director Sales Support Name | Role | Phone | + +------+ + | Colton Singer DO | PCP | | + +------+ + Reason for Visit + + + | Reason | Comments | + + + | Abdominal Pain | | + + + Self-referral (Routine) +--------+--------+ + + + + | Status | Reason | Specialty | Diagnoses / | Referred By | Referred To | | | | | Procedures | Contact | Contact | +--------+--------+ + + + + | Closed | | Gastroenterol | Diagnoses | | [place], | | | | ogy | Abdominal | | Alfredo Anand MD | | | | | pain | | [address], | | | | | Procedures | | [address] | | | | | Office Visit | | [place], | | | | | | | [place] [address] | | | | | | | Phone: | | | | | | | [phone] | | | | | | | Fax: | | | | | | | [phone] | +--------+--------+ + + + + Encounter Details +--------+---------+ + + + | Date | Type | Department | Care Team | Description | +--------+---------+ + + + | 04/26/ | Office | [facility] | Horace Carlos MD | Abdominal pain, | | 2017 | Visit | GASTROENTEROLOGY | [address] | unspecified | | | | [address] | [place], [place] | abdominal location | | | | [address] [place], [place] | [address] | (Primary Dx); | | | | [address] | [phone] | Nausea; Change in | | | | [phone] | | bowel habits; | | | | | | Gastroesophageal | | | | | | reflux disease, | | | | | | esophagitis presence | | | | | | not specified; | | | | | | Constipation, | | | | | | unspecified | | | | | | constipation type; | | | | | | Anxiety; Obesity | | | | | | (BMI 35.0-39.9 | | | | | | without comorbidity) | +--------+---------+ + + + Social History + +-------+ [...] + + + | Blood Pressure | 98/78 | 04/26/2017 8:45 AM | | | | | PST | | + + + + + | Pulse | 91 | 04/26/2017 8:45 AM | | | | | PST | | + + + + + | Temperature | - | - | | + + + + + | Respiratory Rate | 12 | 04/26/2017 8:45 AM | | | | | PST | | + + + + + | Oxygen Saturation | 98% | 04/26/2017 8:45 AM | | | | | PST | | + + + + + | Inhaled Oxygen | - | - | | | Concentration | | | | + + + + + | Weight | 93 kg (205 lb) | 04/26/2017 8:45 AM | | | | | PST | | + + + + + | Height | 160 cm (5' 3") | 04/26/2017 8:45 AM | | | | | PST | | + + + + + | Body Mass Index | 36.31 | 04/26/2017 8:45 AM | | | | | PST | | + + + + + documented in this encounter Progress Notes Elsa Lai RN - 04/26/2017 9:00 AM PSTScheudled for egd/colon with prop on 05/19 at [address] Carlos; Protonix 20mg BID ordered as patient failed Prilosec; advised to avoid N SAIDS and take tylenol for pain relief; no red meat and low residue x5 days, and 2 day prep with full liquids advised, she agreed; UA with culture ordered per Dr. 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 documented in this encounter H&P Notes Horace Carlos MD - 04/26/2017 9:00 AM PST Date of Office Visit: 04/26/17 Chief Complaint: Abdominal Pain History of Present Illness: Rashmi Holcomb is a 26 y.o. female the patient presents with co mplaints of persistent abdominal pain for the past 2 weeks. [facility] [...] blood a few weeks [facility] at [facility] of this illness however none since. 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 [...] Hives,Nausea And Vomiting Codeine Hives,Nausea And Vomiting [place] Hives Intolerance No active intolerances/contraindications Medications: has [...] Wt 93 kg (205 lb) | LMP 11/2 10/2016 | SpO2 98% | BMI 36.31 kg/m [...] possible complications were discussed with the patient amador cavazos wishes to proceed with colonoscopy at this time. I strongly advised that both procedures be performed with anesthesia propofol assistance du e to the patient's obesity and multiple medical problems. documented in this enc ounter Plan of Treatment Not on filedocumented as of this encounter Results Urinalysis with Microscopic with Culture if Indicated (04/26/2017 10:14 AM PST) + + + + + + | Component | Value | Ref Range | Performed | Pathologist | | | | | At | Signature | + + + + + + | Color, | Yellow | Light Yellow, | [facility] | | | Urine | | Yellow, Straw | [facility] | | | | | | [facility] | | | | | | [facility] - | | | | | | LABORATORY | | + + + + + + | Clarity, | Clear | Clear | [facility] | | | Urine | | | [facility] | | | | | | [facility] | | | | | | CENTER - | | | | | | LABORATORY | | + + + + + + | pH, Urine | 5.0 | 5.0 - 8.0 | [facility] | | | | | | [facility] | | | | | | [facility]ICAL | | | | | | CENTER - | | | | | | LABORATORY | | + + + + + + | Specific | 1.026 | 1.001 - 1.030 | [facility] | | | [place], | | | [facility] | | | Urine | | | MEDICAL | | | | | | CENTER - | | | | | | LABORATORY | | + + + + + + | Protein, | Negative | Negative | [facility] | | | Urine | | | [facility] | | | | | | MEDICAL | | | | | | CENTER - | | | | | | LABORATORY | | + + + + + + | Blood, | Small (A) | Negative | [facility] | | | Urine | | | [facility] | | | | | | MEDICAL | | | | | | CENTER - | | | | | | LABORATORY | | + + + + + + | Glucose, | Negative | Negative | [facility] | | | Urine | | | [facility] | | | | | | [facility]ICAL | | | | | | CENTER - | | | | | | LABORATORY | | + + + + + + | Ketones, | Negative | Negative | [facility] | | | Urine | | | [facility] | | | | | | MED[facility] | | | | | | CENTER - | | | | | | LABORATORY | | + + + + + + | Bilirubin, | Negative | Negative | [facility] | | | Urine | | | [facility] | | | | | | MEDICAL | | | | | | CENTER - | | | | | | LABORATORY | | + + + + + + | Nitrite, | Negative | Negative | [facility] | | | Urine | | | [facility] | | | | | | [facility] | | | | | | CENTER - | | | | | | LABORATORY | | + + + + + + | Leukocyte | Small (A) | Negative | [facility] | | | Esterase, | | | [facility] | | | Urine | | | MEDICAL | | | | | | CENTER - | | | | | | LABORATORY | | + + + + + + | Urobilinoge | Negative | 0.2 mg/dL, 1.0 | [facility] | | | n, Urine | | mg/dL, Negative | [facility] | | | | | | MEDICAL | | | | | | CENTER - | | | | | | LABORATORY | | + + + + + + | White Blood | 2-5 (A) | 0 - 2 /HPF | [facility] | | | Cells, | | | [facility] | | | Urine | | | MEDICAL | | | | | | CENTER - | | | | | | LABORATORY | | + + + + + + | Red Blood | 2-5 (A) | 0 - 2 /HPF | [facility] | | | Cells, | | | [facility] | | | Urine | | | MEDICAL | | | | | | CENTER - | | | | | | LABORATORY | | + + + + + + | Squamous | 50-100 (A) | 0 - 2 /LPF | [facility] | | | Epithelial | | | [facility] | | | Cells, | | | MEDICAL | | | Urine | | | CENTER - | | | | | | LABORATORY | | + + + + + + | Bacteria, | Negative | Negative /HPF | [facility] | | | Urine | | | [facility] | | | | | | MEDICAL | | | | | | CENTER - | | | | | | LABORATORY | | + + + + + + | Mucus, | Present (A) | Negative /LPF | [facility] | | | Urine | | | [facility] | | | | | | MEDICAL | | | | | | CENTER - | | | | | | LABORATORY | | + + + + + + + + | Specimen | + + | Urine - Urine | | specimen obtained by | | clean catch | | procedure (specimen) | + + + + + + + | Performing | Address | City/State/Zipcode | Phone Number | | Organization | | | | + + + + + | [facility] | [address] | [place] | [phone] | | [facility] | | [address] | | | - LABORATORY | | | | + + + + + documented in this encounter Visit Diagnoses + + | Diagnosis | + + | Abdominal pain, unspecified abdominal location - Primary | + + | Nausea Nausea alone | + + | Change in bowel habits Other symptoms involving digestive system | + + | Gastroesophageal reflux disease, esophagitis presence not specified | + + | Constipation, unspecified constipation type | + + | Anxiety Anxiety state, unspecified | + + | Obesity (BMI 35.0-39.9 without comorbidity) Obesity, unspecified | + + documented in this encounter
--- OUTSIDE RECORDS SUMMARY | ~2019-12-06 | XMS | Encounter Summary ---
Demographics + + + | Address | [address] | | | [place] [address] | + + + | Home Phone | | + + + | Preferred Language | Unknown | + + + | Marital Status | Single | + + + | Synagogue Affiliation | 1013 | + + + | Race | Unknown | + + + | Ethnic Group | Unknown | + + + Author + + + | Author | [facility] | | | and [place] | + + + | Organization | [facility] | | | and [place] [...] Team Providers + +------+ + | Care Certified Pathology Assistant Name | Role | Phone | + +------+ + | Hari Garcia MD | PCP | | + +------+ + Reason for Visit + + + | Reason | Comments | + + + | Follow-up | Medication | + + + | Referral (Follow up) | Grief counseling | + + + Encounter Details +--------+---------+ + + + | Date | Type | Department | Care Team | Description | +--------+---------+ + + + | 03/16/ | Office | [facility] | Hari Garcia MD | Acute stress | | 2018 | Visit | [facility] [place] | [address] | disorder (Primary | | | | [address] | [place] [address] [place], | Dx); Chronic | | | | [place] | [place] [address] | post-traumatic | | | | [address] | [phone] | stress disorder | | | | [phone] | | (PTSD); Social | | | | | | anxiety disorder; | | | | | | Esophagitis; Nausea | | | | | | and vomiting, | | | | | | intractability of | | | | | | vomiting not | | | | | | specified, | | | | | | unspecified vomiting | | | | | | type | +--------+---------+ + + + Social History [...] + + + | Blood Pressure | 110/72 | 03/16/2018 9:27 AM | | | | | PST | | + + + + + | Pulse | 64 | 03/16/2018 9:27 AM | | | | | PST | | + + + + + | Temperature | 36.8 C (98.2 F) | 03/16/2018 9:27 AM | | | | | PST | | + + + + + | Respiratory Rate | - | - | | + + + + + | Oxygen Saturation | 99% | 03/16/2018 9:27 AM | | | | | PST | | + + + + + | Inhaled Oxygen | - | - | | | Concentration | | | | + + + + + | Weight | 108.9 kg (240 lb) | 03/16/2018 9:27 AM | | | | | PST | | + + + + + | Height | 162.6 cm (5' 4") | 03/16/2018 9:27 AM | | | | | PST | | + + + + + | Body Mass Index | 41.2 | 03/16/2018 9:27 AM | | | | | PST | | + + + + + documented in this encounter Patient Instructions Patient Instructions Hari Garcia MD - 03/16/2018 9:30 AM PST Citalopram tablets Brand Name: Celexa What is this medicine? CITALOPRAM (sye LOUIS oh pram) is a medicine for depression. How should I use this medicine? Take this medicine by mouth with a glass of water. Follow the directions on the prescriptio n label. You can take it with or without food. Take your medicine at regular intervals. Do n ot take your medicine more often than directed. Do not stop taking this medicine suddenly ex cept upon the advice of your doctor. Stopping this medicine too quickly may cause serious si de effects or your condition may worsen. A special MedGuide will be given to you by the pharmacist with each prescription and refill . Be sure to read this information carefully each time. Talk to your qm nurse regarding the use of this medicine in children. Special care may be needed. Patients over 60 years old may have a stronger reaction and need a smaller dose. What side effects may I notice from receiving this medicine? Side effects that you should report to your doctor or health resident care manager rn as soon as p ossible: allergic reactions like skin rash, itching or hives, swelling of the face, lips, or tong ue anxious black, tarry stools breathing problems changes in vision chest pain confusion elevated mood, decreased need for sleep, racing thoughts, impulsive behavior eye pain fast, irregular heartbeat feeling faint or lightheaded, falls feeling agitated, angry, or irritable hallucination, loss of contact with reality loss of balance or coordination loss of memory painful or prolonged erections restlessness, pacing, inability to keep still seizures stiff muscles suicidal thoughts or other mood changes trouble sleeping unusual bleeding or bruising unusually weak or tired vomiting Side effects that usually do not require medical attention (report to your doctor or health resident care manager rn if they continue or are bothersome): change in appetite or weight change in sex drive or performance dizziness headache increased sweating indigestion, nausea tremors What may interact with this medicine? Do not take this medicine with any of the following medications: certain medicines for fungal infections like fluconazole, itraconazole, ketoconazole, po saconazole, voriconazole cisapride dofetilide dronedarone escitalopram linezolid MAOIs like Carbex, Eldepryl, Marplan, Nardil, and Parnate methylene blue (injected into a vein) pimozide thioridazine ziprasidone This medicine may also interact with the following medications: alcohol amphetamines aspirin and aspirin-like medicines carbamazepine certain medicines for depression, anxiety, or psychotic disturbances certain medicines for infections like chloroquine, clarithromycin, erythromycin, furazol idone, isoniazid, pentamidine certain medicines for migraine headaches like almotriptan, eletriptan, frovatriptan, ara atriptan, rizatriptan, sumatriptan, zolmitriptan certain medicines for sleep certain medicines that treat or prevent blood clots like dalteparin, enoxaparin, warfari n cimetidine diuretics fentanyl lithium methadone metoprolol NSAIDs, medicines for pain and inflammation, like ibuprofen or naproxen omeprazole other medicines that prolong the QT interval (cause an abnormal heart rhythm) procarbazine rasagiline supplements like [place]'s wort, kava kava, valerian tramadol tryptophan What if I miss a dose? If you miss a dose, take it as soon as you can. If it is almost time for your next dose, ta ke only that dose. Do not take double or extra doses. Where should I keep my medicine? Keep out of reach of children. Store at room temperature between 15 and 30 degrees C (59 and 86 degrees F). Throw away any unused medicine after the expiration date. What should I tell my health care provider before I take this medicine? They need to know if you have any of these conditions: bleeding disorders bipolar disorder or a family history of bipolar disorder glaucoma heart disease history of irregular heartbeat kidney disease liver disease low levels of magnesium or potassium in the blood receiving electroconvulsive therapy seizures suicidal thoughts, plans, or attempt; a previous suicide attempt by you or a family memb er take medicines that treat or prevent blood clots thyroid disease an unusual or allergic reaction to citalopram, escitalopram, other medicines, foods, dye s, or preservatives or trying to become breast-feeding What should I watch for while using this medicine? Tell your doctor if your symptoms do not get better or if they get worse. Visit your doctor or health resident care manager rn for regular checks on your progress. Because it may take severa l weeks to see the full effects of this medicine, it is important to continue your treatment as prescribed by your doctor. Patients and their families should watch out for new or worsening thoughts of suicide or de pression. Also watch out for sudden changes in feelings such as feeling anxious, agitated, p anicky, irritable, hostile, aggressive, impulsive, severely restless, overly excited and hyp eractive, or not being able to sleep. If this happens, especially at the beginning of treatm ent or after a change in dose, call your health resident care manager rn. You may get drowsy or dizzy. Do not drive, use machinery, or do anything that needs mental alertness until you know how this medicine affects you. Do not stand or sit up quickly, joce cially if you are an older patient. This reduces the risk of dizzy or fainting spells. Alcoh ol may interfere with the effect of this medicine. Avoid alcoholic drinks. Your mouth may get dry. Chewing sugarless gum or sucking hard candy, and drinking plenty of water will help. Contact your doctor if the problem does not go away or is severe. NOTE:This sheet is a summary. It may not cover all possible information. If you have questi ons about this medicine, talk to your doctor, pharmacist, or health care provider. Copyright 2018 [employer] documented in this encounter Progress Notes Hari Garcia MD - 03/16/2018 9:30 AM PST Chief Complaint: Follow-up (Medication) and Referral (Follow up) (Grief counseling) History: Rashmi Holcomb is a 27 y.o. female who presents for follow-up after I spoke with the patien t over the phone last week in the midst of what sounded like a panic attack while at work. Patient reports that she just lost her grandmother who acted as mom to her through her child hubbard. Grandmother passed way from an OK she was 69 years old. Patient reports that she has had continued nausea and vomiting despite being given pantoprazole from the GI doctor. She has a scope planned in the next 5 days. Patient stopped the metformin that was previously prescribed for PCOS and prediabetes/insulin sensitivity because she was concerned there may have been some role of hypoglycemia with some of her symptoms that we discussed over the araseli ne. Patient now on reflection believes that she probably was having a panic attack as the s tress from work and feeling like she "can't slow down" has been getting to her. Patient reports that she is interested in getting some therapy to manage with the grief fro m losing her grandmother. Overall her support system is her boyfriend. At this time, she f eels like she is "running from work to home" and she is "unable to process". Previous lifes tyle interventions regarding weight management and nausea vomiting have not been helpful. Patient Active Problem List Diagnosis Abdominal pain, unspecified abdominal location Nausea Anxiety BMI 40.0-44.9, adult PCOS (polycystic ovarian syndrome) H/O section H/O Anesthesia Modification - Required Higher Dose Nausea with vomiting Esophagitis determined by biopsy Outpatient Medications Prior to Visit Medication Sig Dispense Refill Aparna 500 MG CAPS Take 500 mg by mouth 3 times daily as needed (nausea). (Patient not taking: Reported on 02/16/2018) 30 each 1 levonorgestrel-ethinyl estradiol (AVIANE) 0.1-20 MG-MCG per tablet Take 1 tablet by breanna th Daily. 28 tablet 11 metFORMIN (GLUCOPHAGE-XR) 500 mg 24 hr tablet Take 1 tablet by mouth Daily. 30 tablet 2 pantoprazole (PROTONIX) 40 mg tablet Take 1 tablet by mouth every morning (before break fast). (Patient not taking: Reported on 03/16/2018) 90 tablet 3 No facility-administered medications prior to visit. Review of Systems Constitutional: Positive for activity change, appetite change and fatigue. Negative for fev er and unexpected weight change. HENT: Negative for congestion and rhinorrhea. Eyes: Negative for visual disturbance. Respiratory: Positive for shortness of breath. Negative for cough. Cardiovascular: Negative for chest pain. Gastrointestinal: Positive for abdominal pain, nausea and vomiting. Negative for constipati on and diarrhea. Genitourinary: Positive for menstrual problem. Negative for dysuria. Musculoskeletal: Positive for back pain. Negative for arthralgias. Neurological: Negative for weakness and numbness. Psychiatric/Behavioral: Positive for dysphoric mood and sleep disturbance. Negative for dang f-injury and suicidal ideas. The patient is nervous/anxious. Results for orders placed or performed during the hospital encounter of 02/16/18 POCT Test, Urine, QUAL Result Value Ref Range Test, Urine, POC Negative Negative Internal QC Acceptable Acceptable Specific Paulina, POC 1.010, 1.015, 1.020, 1.025 Lot Number [id number] Expiration Date 2019-07-19 Health Maintenance Topics with due status: Overdue Topic Date Due Vaccine: Dtap/Tdap/Td 2008 Cervical Cancer Screening (Pap) 2010 Adult Annual Wellness Visit 04/11/2017 Vaccine: Influenza 01/08/2018 Physical Examination: BP 110/72 | Pulse 64 | Temp 36.8 C (98.2 F) (Temporal) | Ht 1.626 m (5' 4") | Wt 10 8.9 kg (240 lb) | SpO2 99% | BMI 41.20 kg/m Physical Exam Constitutional: She is oriented [...] exhibits no distension. There is tenderness ( epigastric). There is no rebound. Neurological: She is alert and oriented to person, place, and time. Skin: Skin is warm and dry. Psychiatric: She has a normal mood and affect. Vitals reviewed. Assessment/Plan: 1. Acute stress disorder Patient with acute grief and acute stress with history of chronic PTSD with occasional nigh tmares was previously controlled off medications with resumption of her symptoms related to most recent loss. Patient also with some social anxiety that has been untreated over the 5 years. Patient overall contracts for safety and is not concerned about her depression symptoms but is more concerned about her anxiety. She reports that she's had difficulties m aintaining at work as well as at home and "can't slow down". I recommend some options for p sychotherapy and a list of resources was given to the patient. Because she works in [employer] and comes out to [place] both locations were offered. Patient is amenable to erapy. - citalopram (CELEXA) 10 mg tablet; Take 1 tablet by mouth Daily. Dispense: 30 tablet; Ref ill: 2 2. Chronic post-traumatic stress disorder (PTSD) Trial of Celexa 10 mg with discussion of risks and benefits as well as anticipated onset an d range of side effects. Patient is amenable to trying this medication. - citalopram (CELEXA) 10 mg tablet; Take 1 tablet by mouth Daily. Dispense: 30 tablet; Ref ill: 2 3. Social anxiety disorder Note above 4. Esophagitis Follow-up with GI. Continue with PPI. patient would like to take in the evening. Adjusted Rx. - pantoprazole (PROTONIX) 40 mg tablet; Take 1 tablet by mouth daily (before dinner). Disp ense: 90 tablet; Refill: 3 5. Nausea and vomiting, intractability of vomiting not specified, unspecified vomiting type We discussed marijuana intake, anxiety as likely contributing factors to the patient's naus ea and vomiting but will defer further intervention until she speaks with GI after her scope to go over next step of interventions. - pantoprazole (PROTONIX) 40 mg tablet; Take 1 tablet by mouth daily (before dinner). Disp ense: 90 tablet; Refill: 3 Follow-up: Return in about 2 weeks (around 03/30/2018) for FP - f/u anxiety, SSRI, ok for . Hari Garcia MD 03/16/2018 Total time today is 40 minutes, 80-99% of which is in counseling and coordination of care r egarding the above issue(s). This note is dictated using [employer] voice recognition software. This note was dictated but not proofread. It may contain some grammatical errors. documented in this enc ounter Plan of Treatment Not on filedocumented as of this encounter Visit Diagnoses + + | Diagnosis | + + | Acute stress disorder - Primary Other acute reactions to stress | + + | Chronic post-traumatic stress disorder (PTSD) | + + | Social anxiety disorder Social phobia | + + | Esophagitis Esophagitis, unspecified | + + | Nausea and vomiting, intractability of vomiting not specified, unspecified vomiting | | type | + + documented in this encounter
--- OUTSIDE RECORDS SUMMARY | ~2019-12-06 | XMS | Encounter Summary ---
Demographics + + + | Address | [address] | | | [place] [address] | + + + | Home Phone | | + + + | Preferred Language | Unknown | + + + | Marital Status | Single | + + + | Buddhism Affiliation | 1013 | + + + | Race | Unknown | + + + | Ethnic Group | Unknown | + + + Author + + + | Author | [facility] | | | and [place] | + + + | Organization | [facility] | [...] Team Providers + +------+ + | Care Chief Steward/Stewardess Name | Role | Phone | + +------+ + | Hari Garcia MD | PCP | | + +------+ + Reason for Visit + + + | Reason | Comments | + + + | Abdominal Pain | | + + + Evaluate & Treat [...] pain, | Chi Odonnell, | [address], | | | | | unspecified | [address] | | | | | abdominal | [address] | [place], | | | | | location | [place], | [place] [address] | | | | | | [place] [id number] | Phone: | | | | | | Phone: | [phone] | | | | | | [phone] | Fax: | | | | | | Fax: | [phone] | | | | | | [phone] | | +--------+ + + + + + Encounter Details +--------+---------+ + + + | Date | Type | Department | Care Team | Description | +--------+---------+ + + + | 02/09/ | Office | [facility] | Promise Cerna | Esophagitis (Primary | | 2018 | Visit | GASTROENTEROLOGY | Chi Odonnell MD | Dx); Morbid obesity | | | | [address] [place] | [address] | with BMI of | | | | [address], [place] | [place], [place] | 40.0-44.9, adult | | | | [address] | [address] | ([facility]); Nausea and | | | | [phone] | | vomiting, | | | | | Horace Carlos MD | intractability of | | | | | [address] | vomiting not | | | | | [facility] [place] | specified, | | | | | [address] | unspecified vomiting | | | | | [phone] | type; Abdominal | | | | | | pain, unspecified | | | | | | abdominal location | +--------+---------+ + + + Social History [...] + + + | Blood Pressure | 114/64 | 02/09/2018 4:10 PM | | | | | PDT | | + + + + + | Pulse | 97 | 02/09/2018 4:10 PM | | | | | PDT | | + + + + + | Temperature | 36.9 C (98.5 F) | 02/09/2018 4:10 PM | | | | | PDT | | + + + + + | Respiratory Rate | 14 | 02/09/2018 4:10 PM | | | | | PDT | | + + + + + | Oxygen Saturation | 97% | 02/09/2018 4:10 PM | | | | | PDT | | + + + + + | Inhaled Oxygen | - | - | | | Concentration | | | | + + + + + | Weight | 108.4 kg (238 lb | 02/09/2018 4:10 PM | | | | 15.7 oz) | PDT | | + + + + + | Height | - | - | | + + + + + | Body Mass Index | 42.33 | 01/31/2018 2:08 PM | | | | | PDT | | + + + + + documented in this encounter Progress Notes Elsa Lai RN - 02/09/2018 4:30 PM PDTScheduled for EGD prop on 02/16 at 1400 with Jamar Carlos; Protonix 40mg qAM #90 with 3 refills ordered at [facility] in [place]; advised Samantha scon after meals and at bedtime; HCG urine ordered per Dr. Carlos request d/t persistent n/v. documented in this enc ounter H&P Notes Horace Carlos MD - 02/09/2018 4:30 PM PDT Date of Office Visit: 02/09/18 Chief Complaint: Abdominal Pain History of Present Illness: Rashmi Holcomb is a 27 y.o. female presents with complaints of worsening abdominal pain as well as nausea and vomiting. The patient underwent colonoscopy and upper endoscopy approximately a year ago. The colonoscopy was completely normal with no abnormalities. Upper endoscopy did reveal LA class A esophagitis and the patient was place d on a PPI for 1-2 months. She stopped the PPI after that and since then denies any recent reflux symptoms. The patient states that recently within the past 6-8 weeks she has been araiza ving worsening nausea and vomiting and has been seen in the emergency department as well as urgent care. CT scan was unremarkable however labs indicated elevated white count as well a s a elevated C-reactive protein. The patient denies tobacco use or marijuana use and drinks alcohol very rarely. She denies illicit drug use as well. She has tried Zofran for her na usea however this has not helped. Time symptoms can come on after eating however she can araiza ve the abdominal pain even on an empty stomach. Ultrasound performed last year revealed a f atty liver however gallbladder was normal with no stones or sludge. She denies diarrhea or constipation and also denies melena or hematochezia. She takes no NSAID medications but onl y Tylenol for minor aches and pains. She did have a test recently which was negat rachel. Her last menstrual cycle was at the end of December. The patient has a history of polyc ystic ovary syndrome thus her menstrual cycles may be irregular. Past Medical History: Past Medical History: Diagnosis Date Abdominal pain Anxiety Asthma Heart murmur Nausea and vomiting Neutrophilic leukocytosis PCOS (polycystic ovarian syndrome) Past Surgical History: Past Surgical History: Procedure Laterality Date SECTION COLONOSCOPY N/A 05/19/2017 Procedure: COLONOSCOPY; Surgeon: Horace Carlos MD; Location: [facility] TONSILLECTOMY UPPER GASTROINTESTINAL ENDOSCOPY N/A 05/19/2017 Procedure: EGD; Surgeon: Horace Cralos MD; Location: [facility] Family History: Family History Problem Relation Age of Onset Depression Mother Mental illness Mother Substance abuse Mother Depression Father Mental illness Father Substance abuse Father Asthma Sister Colon cancer Other Depression Maternal Grandmother Asthma Maternal Grandmother Cancer Maternal Grandmother Cancer Paternal Grandfather Allergies: Allergies Allergen Reactions Banana Anaphylaxis Rashid (Phaseolus) Anaphylaxis All legumes (peanuts are OK) Bee Venom Anaphylaxis Blue Dyes (Parenteral) Hives,Itching Blue dye #3 Rich Hives,Itching Red Dye Hives,Itching Red Dye #40 Amoxicillin Hives,Nausea And Vomiting Codeine Hives,Nausea And Vomiting [place] Hives Intolerance No active intolerances/contraindications Medications: has a current medication list which includes the following prescription(s): pattie and levo norgestrel-ethinyl estradiol. Review of Systems: A 10-point review of systems was performed and was negative except as n oted in the history of present illness. Physical Exam: Vitals:BP 114/64 | Pulse 97 | Temp 36.9 C (98.5 F) (Temporal) | Resp 14 | Wt 108.4 kg (238 lb 15.7 oz) | LMP 12/29/2017 | SpO2 97% | BMI 42.33 kg/m General: This is a well-developed,well-nurished female [...] murmurs, rubs or gall ops. Abdomen: Soft without masses or organmegaly. There is mild tenderness to palpation in the epigastrium as well as the periumbilical area without rebound or guarding. Bowel sounds ar e normal. Extremities: Without cyanosis, clubbing or edema. Neuro: Awake, alert, oriented x3. Normal station and gait. Skin: Warm and dry, no erythematous rash. Lab Results Component Value Date NA 142 01/18/2018 K 3.7 01/18/2018 CL 106 01/18/2018 CO2 28 01/18/2018 ANIONGAP 8 01/18/2018 GLU 90 01/18/2018 BUN 8 01/18/2018 CREA 0.82 01/18/2018 GFRNONAA >60 01/18/2018 CALCIUM 9.1 01/18/2018 ALBUMIN 3.3 (L) 01/18/2018 BILITOT 0.3 01/18/2018 TOTALPROTEIN 7.4 01/18/2018 AST 22 01/18/2018 ALT 34 01/18/2018 ALKPHOS 83 01/18/2018 WBC 11.0 01/18/2018 HGB 13.8 01/18/2018 HCT 41.1 01/18/2018 MCV 87.6 01/18/2018 PLT 359 01/18/2018 ESR 26 (H) 01/18/2018 CRP 13.7 (H) 01/18/2018 LIPASE 16 04/16/2017 AMYLASE 61 01/18/2018 No results found for this or any previous visit. Lab Results Component Value Date CULTURE No Growth 01/18/[address] abd - Results for orders placed during the hospital encounter of 04/11/17 CT Abdomen Pelvis w Contrast Narrative CT ABDOMEN PELVIS W CONTRAST 04/11/2017 8:32 PM HISTORY: ABDOMINAL PAIN. COMPARISON: None. PROTOCOL: Axial images of the abdomen and pelvis were obtained after administration of 90 mL Omnipaque 350. Coronal and sagittal reformations were acquired. FINDINGS: There is some mild scarring with calcium in the left lung base. Heart size is normal. The liver demonstrates normal parenchyma. The gallbladder is normal. Biliary ducts are unremarkable. The spleen is unremarkable. The pancreas demonstrates normal parenchyma and a normal pancreatic duct. Adrenal glands are normal. The right kidney and visualized ureter are normal. The left kidney and visualized ureter are normal. Stomach, small bowel, and terminal ileum are normal. The appendix has a normal appearance. Colon is unremarkable. Aorta is nonaneurysmal. The iliac arteries are normal. There is no significant abnormality in the portal veins, mesenteric veins, or systemic veins. No enlarged lymph nodes are visualized within the omentum or retroperitoneum. There is no evidence for ascites or free air. Bladder is normal. Uterus and adnexa are normal. Body wall soft tissue structures are normal. There are no acute osseous abnormalities. IMPRESSION - No acute findings. A preliminary report was sent by [employer] with no significant discrepancy on 04/11/2017 8:45:02 PM. Dictated and Signed by: Jamin Bentley MD Electronically signed: 04/12/2017 8:03 AM Last MRI abd - No results found for this or any previous visit. Last US abd - No results found for this or any previous visit. Assessment and Plan: 27-year-old female with worsening nausea and vomiting and epigastric p ain on exam. Differential diagnosis includes esophagitis, gastritis, peptic ulcer disease, gastroparesis, gallbladder dyskinesia. Functional disorder also is possible. I recommend s tarting a PPI such Protonix 40 mg every morning at this time. She can take Gaviscon liquid at bedtime to neutralize any remaining acid stomach. At this time I recommend that upper endoscopy or esophagogastroduodenoscopy be performed fo r further evaluation. Indications risks benefits and possible complications were discussed with the patient who wished to proceed with EGD at this time. I strongly recommended that the procedure before with anesthesia and propofol due to the pa ritu's obesity and multiple medical problems. I advised checking a urine test today. If symptoms do not improve on PPI and upper endoscopy is unremarkable then we'll consider a gastric emptying study and HIDA scan to evaluate for gastric and gallbladder function respe ctively. documented in t his encounter Plan of Treatment Not on filedocumented as of this encounter Results , Urine, Qual (02/09/2018 5:02 PM PDT) + + + + + + | Component | Value | Ref Range | Performed | Pathologist | | | | | At | Signature | + + + + + + | HCG | Negative | Negative | [facility] | | | Qualitative | | | [facility] | | | , Urine | | | MEDICAL | | [...] [address] | [place] | [phone] | | [facility] | | [address] | | | - LABORATORY | | | | + + + + + documented in this encounter Visit Diagnoses + + | Diagnosis | + + | Esophagitis - Primary Esophagitis, unspecified | + + | Morbid obesity with BMI of 40.0-44.9, adult (HCC) | + + | Nausea and vomiting, intractability of vomiting not specified, unspecified vomiting | | type | + + | Abdominal pain, unspecified abdominal location | + + documented in this encounter"
--- OUTSIDE RECORDS SUMMARY | ~2019-12-06 | XMS | Encounter Summary ---
Demographics + + + | Address | [address] | | | [place] [address] | + + + | Home Phone | | + + + | Preferred Language | Unknown | + + + | Marital Status | Single | + + + | Cheondoism Affiliation | 1013 | + + + | Race | Unknown | + + + | Ethnic Group | Unknown | + + + Author + + + | Author | [facility] | | | and [place] | + + + | Organization | [facility] | | | and [...] Team Providers + +------+ + | Care Associate Professor Of English Name | Role | Phone | + +------+ + | Hari Garcia MD | PCP | | + +------+ + Reason for Visit + +--------+ + | Reason | Onset | Comments | | | Date | | + +--------+ + | Medication | 01/26/ | | | Management | 2019 | | + +--------+ + Encounter Details +--------+ + + + + | Date | Type | Department | Care Team | Description | +--------+ + + + + | 01/26/ | Telephone | [facility] | Hari Garcia MD | Medication | | 2019 | | [facility]IC[facility] [place] | [address] | Management | | | | [address] | [address] [place], | | | | | [place], [place] | [place] [address] | | | | | [address] | [phone] | | | | | [phone] | | | +--------+ + + + [...] this encounter Miscellaneous Notes Telephone Encounter - Liv Matthew - 02/08/2019 10:29 AM PDTScheduled 02/24/19.Electronic ally signed by Liv Matthew at 02/08/2019 10:30 AM PDTTelephone Encounter - Abdiaziz Galan Ch yoana Kerri - 01/31/2019 4:06 PM PDTVoicemail not set up. Unable to leave message elephone Encounter - Darron Trejo, RN - 01/30/2019 8:51 AM PDTRouting to the front to get patient scheduled for follo w up with . elephone Encounter - Hari Garcia MD - 01/30/2019 7:25 AM PDTIf Topamax isn't work or isn't tolerated, I'd recommend she follow up to discuss alternative options for preventio n/treatment. Agree with being seen more urgently if headaches worsen or become intolerable.E lectronically signed by Hari Garcia MD at 01/30/2019 7:26 AM PDTTelephone Encounter - Melody Naik, RN - 01/26/2019 2:01 PM PDTPatient calls in and states that she started t aking Topamax around the first of the month for migraines. She actually states her migraines have worsened, become more frequent and painful. Patient also is reporting feeling "off and like im drunk." Patient stopped taking the medication two days ago. She is starting to feel a little better but still having some mild effects from the medications. Patient is going to stay off of the medication. She wants to know if could wilfred mmend/order some imaging or labs be done to see what is causing the migraines. She really do es not want to get on another medication right away. Recommended to patient that if her migr aines becomes intolerable or if she starts to have any worsening confusion she should be see n urgently for evaluation and not wait until she hears back. Patient was in agreement with t his. documented in this encounter Plan of Treatment Not on filedocumented as of this encounter Visit Diagnoses Not on filedocumented in this encounter
--- OUTSIDE RECORDS SUMMARY | ~2019-12-06 | XMS | Encounter Summary ---
Demographics + + + | Address | [address] | | | [place] [address] | + + + | Home Phone | | + + + | Preferred Language | Unknown | + + + | Marital Status | Single | + + + | Hindu Affiliation | 1013 | + + + | Race | Unknown | + + + | Ethnic Group | Unknown | + + + Author + + + | Author | [facility] | | | and [place] | + + + | Organization | [facility] | | | and [place] [...] Team Providers + +------+ + | Care Print Binding Worker Name | Role | Phone | + +------+ + | Hari Garcia MD | PCP | | + +------+ + Reason for Visit +---------+--------+ + | Reason | Onset | Comments | | | Date | | +---------+--------+ + | Results | 06/16/ | | | | 2019 | | +---------+--------+ + Encounter Details +--------+ + + + + | Date | Type | Department | Care Team | Description | +--------+ + + + + | 06/16/ | Telephone | [facility] | Hari Garcia MD | Results | | 2019 | | MEDICINE [place] | [address] | | | | | [address] | [address] [place] [place], | | | | | [place] | [place] [address] | | | | | [address] | [phone] | | | | | [phone] | | | +--------+ + + + [...] this encounter Miscellaneous Notes Telephone Encounter - Chanell Escalona, Right Of Way Appraiser - 06/16/2018 2:02 PM PSTPatient reads her [employer] messages regularly, I am going to send a detailed message via [employer]. elephone Encounter - Chanell Escalona, Right Of Way Appraiser - 06/16/2018 2:0 2 PM PST----- Message from Hari Garcia MD sent at 06/15/2018 19:09 PST ----- Please notify patient of the following results. documented in this encounter Plan of Treatment Not on filedocumented as of this encounter Visit Diagnoses Not on filedocumented in this encounter"
--- OUTSIDE RECORDS SUMMARY | ~2019-12-06 | XMS | Encounter Summary ---
Demographics + + + | Address | [address] | | | [place] [address] | + + + | Home Phone | | + + + | Preferred Language | Unknown | + + + | Marital Status | Single | + + + | Christian Affiliation | 1013 | + + + | Race | Unknown | + + + | Ethnic Group | Unknown | + + + Author + + + | Author | [facility] | | | and [place] | + + + | Organization | [facility] | | | and [place] | + + + | Address | Unknown | + + + | Phone | Unavailable | + + + Support + + +---------+ + | Name | Relationship | Address | Phone | + + +---------+ + | Karri Chapa | ECON | Unknown | | + + +---------+ + | Stephany Pablito | ECON | Unknown | | + + +---------+ + Care Team Providers + +------+ + | Care Photographic Plate Maker Name | Role | Phone | + [...] pain, | Chi Odonnell, | [address], | | | | | unspecified | [address] | | | | | abdominal | [address] | [place], | | | | | location | [place], | [place] [address] | | | | | | [place] [address] | Phone: | | | | | | Phone: | [phone] | | | | | | [phone] | Fax: | | | | | | Fax: | [phone] | | | | | | [phone] | | +--------+ + + + + + Reason for Visit +---------+--------+ + | Reason | Onset | Comments | | | Date | | +---------+--------+ + | Results | 01/24/ | | | | 2017 | | +---------+--------+ + Encounter Details +--------+ + + + + | Date | Type | Department | Care Team | Description | +--------+ + + + + | 01/24/ | Telephone | [facility] | Promise Cerna | Results | | 2018 | | CARE [address] | Chi Odonnell MD | | | | | [place] [address] | [address] | | | | | [address] | [place] | | | | | [phone] | [address] | | | | | | | [...] this encounter Miscellaneous Notes Telephone Encounter - Board, Nora Mcknight MA - 01/27/2018 3:37 PM PDTCalled pt to let her know the following: MILD ELEVATION IN SED RATE AND CRP WITH DECREASED ALBUMIN- NEEDS FOLLOW UP WITH PCP. ULTRAS OUND IS OK. Pt was notified and states she eats and feels like she is going to throw up. Dr Cerna wa s notified and will refer to Gi and pt will work on getting pcp at our family practice offic e. elephone Encounte r - Harini Aguilar V - 01/27/2018 2:46 PM PDTPatient calling back, saying she left a message earlier and didn't receive a phone call. Please call edward. elephone Laura - Lisa Avila - 01/27/2018 12:13 PM PDTPatient called regarding her results of her labs and ultrasound. She would like a call back at 1400. Please advise. She can be reached at [phone]. 12 :14 PM PDTTelephone Encounter - Lissette Fernandez Cert MA - 01/24/2018 10:45 AM PDTFormatting o f this note might be different from the original. Pt is calling for results and was notified Culture Result No Growth Resulting Agency: [facility] Specimen Collected: 01/18/18 14:20 Last Resulted: 01/20/18 10 Pt would like lab results and was notified that once Dr Cerna is in that he will look at then she will be called. Pt understood. documented in this encounter Plan of Treatment + + +--------+ + + | Name | Type | Priori | Associated Diagnoses | Order Schedule | | | | ty | | | + + +--------+ + + | cynthia mendes EMILIANO garciaerika | Outpatient | Routin | Abdominal pain, [...]
--- OUTSIDE RECORDS SUMMARY | ~2019-12-06 | XMS | Encounter Summary ---
Demographics + + + | Address | [address] | | | [place] [address] | + + + | Home Phone [...] | [facility] | | | and [place] | + + + | Organization | [facility] | | | and Attilaana [...] Team Providers + +------+ + | Care Sales Representative Business Courses Name | Role | Phone | + +------+ + | oClton Singer DO | PCP | | + +------+ + Encounter Details +--------+---------+ + + + | Date | Type | Department | Care Team | Description | +--------+---------+ + + + | 01/18/ | Office | [facility] | Promise Cerna | Continuous | | 2018 | Visit | CARE [address] | Chi Odonnell MD | hypogastric pain | | | | [place], [place] | [address] | (Primary Dx); | | | | [address] | [place] | Nausea; Overweight; | | | | [phone] | [id number] | Fatigue, unspecified | | | | [...] + + + | Blood Pressure | 134/74 | 01/18/2018 1:35 PM | | | | | PDT | | + + + + + | Pulse | 75 | 01/18/2018 1:35 PM | | | | | PDT | | + + + + + | Temperature | 36.8 C (98.2 F) | 01/18/2018 1:35 PM | | | | | PDT | | + + + + + | Respiratory Rate | 18 | 01/18/2018 1:35 PM | | | | | PDT | | + + + + + | Oxygen Saturation | 95% | 01/18/2018 1:35 PM | | | | | PDT | | + + + + + | Inhaled Oxygen | - | - | | | Concentration | | | | + + + + + | Weight | 108 kg (238 lb 1.6 | 01/18/2018 1:35 PM | | | | oz) | PDT | | + + + + + | Height | 160 cm (5' 3") | 01/18/2018 1:35 PM | | | | | PDT | | + + + + + | Body Mass Index | 42.18 | 01/18/2018 1:35 PM | | | | | PDT | | + + + + + documented in this encounter Patient Instructions Patient Instructions Promise Cerna Jr., MD - 01/18/2018 1:00 PM PDTHave pelvic u ltrasound on-call the next day for the report Call in 3 days for the final urine and blood test results Make an appointment with the GI clinic for follow-up documented in this encounter Progress Notes Sakina Costello RN - 01/18/2018 1:00 PM PDTUrine culture added on to existing specimen in lab.Sakina Costello RN romise Cerna MD - 01/18/2018 1:00 PM PDTFormatting of this note might be different from the origi nal. Rashmi Holcomb Chief Complaint: Hypogastric abdominal pain for 3 weeks HPI: Patient presents with a three-week history of hypogastric abdominal pain which is fracisco chicho in character and associated with nausea. She had one episode of vomiting with the initi al onset. She was seen in [place] emergency room with an elevated white blood count of 12 ,300, normal chem profile, negative qualitative blood test and a negative abdomina l CT scan with contrast. She has had a prior without other abdominal surgery. Sh daron has fatigue. She has had multiple similar episodes in the past most recently at the end of last year at which time she had a negative abdominal ultrasound. A negative lower endoscopy. Upper endo scopy showed changes of esophagitis and on pathology the possibility of eosinophilic esophag itis was raised. 4 years ago she had esophageal ulcerations on a upper endoscopy. She steffi es heartburn currently. She is on Protonix. There is no family history of porphyria. She has never been tested. After a miscarriage in January she was placed on control pills to regulate her gabbie ods and was told that she had polycystic ovary syndrome. No recent history of ruptured cyst s or ovarian torsion. Not currently bleeding. Last menstrual period last month. No history of ureteral stone. She's had a kidney infection in the past. Past medical history, past surgical history, medication reviewed. Physical Exam: No acute distress, alert and oriented, non-toxic in appearance, overweight BP 134/74 | Pulse 75 | Temp 36.8 C (98.2 F) (Temporal) | Resp 18 | Ht 1.6 m (5' 3") | Wt 108 kg (238 lb 1.6 oz) | SpO2 95% | ? No | BMI 42.18 kg/m Neck: Supple, no JVD Chest: Good breath sounds bilaterally without rales rhonchi or wheezes Heart: Regular rhythm without murmur gallop or rub Back: Left CVA tenderness Abdomen: Soft, bowel sounds normal, diffusely tender but worse in the lower abdomen all the way across without guarding or rebound, mild right upper quadrant tenderness without Beth 's sign Recent Results (from the past 24 hour(s)) CBC with Differential Result Value Ref Range WBC 11.0 4.0 - 11.0 K/uL RBC 4.69 3.70 - 5.20 M/uL Hgb 13.8 11.5 - 16.0 g/dL Hct 41.1 34.0 - 47.0 % MCV 87.6 83.0 - 101.0 fL MCH 29.4 28.0 - 35.0 pg MCHC 33.6 32.0 - 36.0 g/dL RDW-CV 12.4 <15.0 % RDW-SD 40.2 fL Platelet Count 359 140 - 440 K/uL MPV 10.1 fL % Neutrophils 65.3 45.0 - 82.0 % % Lymphocytes 26.0 20.0 - 45.0 % % Monocytes 4.8 4.0 - 12.0 % % Eosinophils 3.4 0.0 - 5.0 % % Basophils 0.4 0.0 - 1.0 % % Immature granulocytes 0.1 0.0 - 0.4 % Absolute Neutrophils 7.19 1.80 - 8.50 K/uL Absolute Lymphocytes 2.86 0.60 - 3.20 K/uL Absolute Monocytes 0.53 0.00 - 1.00 K/uL Absolute Eosinophils 0.37 0.00 - 0.40 K/uL Absolute Basophils 0.04 0.00 - 0.10 K/uL Absolute Imm. Granulocytes 0.01 0.00 - 0.03 K/UL Comprehensive Metabolic Panel Result Value Ref Range NA 142 136 - 145 mmol/L K 3.7 3.5 - 5.1 mmol/L CL 106 98 - 107 mmol/L CO2 28 21 - 32 mmol/L ANION GAP 8 2 - 16 mmol/L GLUCOSE 90 74 - 106 mg/dL BUN 8 7 - 18 mg/dL Creatinine, Serum/Plasma 0.82 0.55 - 1.02 mg/dL eGFR if not >60 >=60 mL/min/1.73m2 CALCIUM 9.1 8.5 - 10.1 mg/dL ALBUMIN 3.3 (L) 3.4 - 5.0 g/dL Bilirubin Total 0.3 0.2 - 1.0 mg/dL Total protein 7.4 6.4 - 8.2 g/dL AST 22 15 - 37 U/L ALT 34 14 - 59 U/L ALK PHOS 83 46 - 116 U/L GLOBULIN 4.1 (H) 2.1 - 3.8 g/dL Albumin/Globulin ratio 0.8 0.8 - 2.0 BUN/CREA 9.8 TSH Result Value Ref Range TSH 0.68 0.36 - 3.74 uIU/mL Sedimentation Rate Result Value Ref Range ESR 26 (H) <20 mm/hr C-Reactive Protein Result Value Ref Range C-Reactive Protein 13.7 (H) 0.0 - 9.0 mg/L Amylase Result Value Ref Range AMYLASE 61 25 - 115 IU/L Extra Green Top Tube Result Value Ref Range Extra Green Top Tube Done POCT Urinalysis Dipstick Automated Result Value Ref Range Color, UA, POC Yellow Yellow, Light Yellow Clarity, UA, POC Clear Glucose, UA, POC Negative Negative Bilirubin, UA, POC Negative Negative Ketones, UA, POC Negative Negative, 100 mg/dL Specific [place], UA, POC 1.015 1.001 - 1.030 Blood, UA, POC Negative Negative pH, UA, POC 5.5 5.0, 6.0, 7.0, 8.0, 5.5, 6.5, 7.5 Protein, UA, POC Negative Negative Urobilinogen, UA, POC 0.2 0.2, Negative, Normal, < 0.2 mg/dL, 1 mg/dL, < 0.2 E.U./dl, 1.0 E.U./dL, 0.2 mg/dL Nitrite, UA, POC Negative Negative Leukocyte Esterase, UA, POC Trace (A) Negative RED SUB UA ICTOTEST Negative REMARK , Urine, Qual Result Value Ref Range HCG SCREEN, URINE Negative Negative Extra Green Top Tube Result Value Ref Range Extra Green Top Tube Done Diagnosis: Lower abdominal pain of uncertain etiology, history of esophageal ulcers and pa thology on endoscopy specimens from this past year raise the possibility of eosinophilic eso phagitis Plan: Pelvic ultrasound - call the next day, call for results of sed rate and urine PBG in 2 days, see gastroenterology in follow-up This note dictated with Oscar and was not proofread. [email or web address], Lisa Chahal RN - 01/18/2018 1:00 PM [id number]: Triaged. [facility] contacted for wilfred rds. Shetty in medical records states pt has been in ER twice in past month and will fax all records from both visits upon conclusion of call to [phone]. Lisa Roldan RN. 1320: Records received. Delivered to Dr. Cerna who states he will look over them and dec jan on triage from there. Lisa Roldan, RN 1330: Pt checked in to room [address] Cerna. Lisa Roldan, RN documented in this en counter Plan of Treatment Not on filedocumented as [...] | + +--------+ + + + | EXTRA GREEN TOP TUBE | Routin | 01/18/2018 | Continuous | Results for this | | | e | 2:38 PM | hypogastric pain | procedure are in the | | | | PDT | | results section. | + +--------+ + + + | HCG, URINE, QUAL | Routin | 01/18/2018 | Continuous | Results for this | | | e | 2:30 PM | hypogastric pain | procedure are in the | | | | PDT | Nausea | results section. | + +--------+ + + + | POCT URINALYSIS, | Routin | 01/18/2018 | Continuous | Results for this | | AUTO WITH CONF | e | 2:30 PM | hypogastric pain | procedure are in the | | | | PDT | Nausea | results section. | + +--------+ + + + | EXTRA GREEN TOP TUBE | Routin | 01/18/2018 | Continuous | Results for this | | | e | 2:29 PM | hypogastric pain | procedure are in the | | | | PDT | Nausea Overweight | results section. | | | | | Fatigue, unspecified | | | | | | type | | + +--------+ + + + | SEDIMENTATION RATE | Routin | 01/18/2018 | Continuous | Results for this | | | e | 2:26 PM | hypogastric pain | procedure are in the | | | | PDT | Nausea | results section. | + +--------+ + + + | CBC WITH | Routin | 01/18/2018 | Continuous | Results for this | | DIFFERENTIAL | e | 2:26 PM | hypogastric pain | procedure are in the | | | | PDT | Nausea | results section. | + +--------+ + + + | C-REACTIVE PROTEIN | STAT | 01/18/2018 | Continuous | Results for this | | | | 2:26 PM | hypogastric pain | procedure are in the | | | | PDT | Nausea | results section. | + +--------+ + + + | TSH | Routin | 01/18/2018 | Nausea Overweight | Results for this | | | e | 2:26 PM | Fatigue, | procedure are in the | | | | PDT | unspecified type | results section. | + +--------+ + + + | AMYLASE | Routin | 01/18/2018 | Continuous | Results for this | | | e | 2:26 PM | hypogastric pain | procedure are in the | | | | PDT | Nausea | results section. | + +--------+ + + + | COMPREHENSIVE | Routin | 01/18/2018 | Continuous | Results for this | | METABOLIC PANEL | e | 2:26 PM | hypogastric pain | procedure are in the | | | | PDT | Nausea | results section. | + +--------+ + + + | PORPHOBILINOGEN, | Routin | 01/18/2018 | Continuous | Results for this | | QUANT, URINE, RANDOM | e | 2:23 PM | hypogastric pain | procedure are in the | | | | PDT | Nausea | results section. | + +--------+ + + + | CULTURE, URINE | Routin | 01/18/2018 | Continuous | Results for this | | | e | 2:20 PM | hypogastric pain | procedure are in [...] | | | + +---------+ + + Extra Green Top Tube (01/18/2018 2:38 PM PDT) + +-------+ + + + | Component | Value | Ref Range | Performed | Pathologist | | | | | At | Signature | + +-------+ + + + | Extra Green | Done | | [facility] | | | Top Tube | | | [facility] | | | [...] + + | [facility] | [address] | [place] | [phone] | | [facility] | | [address] | | | [facility] | | | | + + + + + , Urine, Qual (01/18/2018 2:30 PM PDT) + + + + + + | Component | Value | Ref Range | Performed | Pathologist | | | | | At | Signature | + + + + + + | HCG | Negative | Negative | [facility] | | | Qualitative | | | [facility] | | | , Urine | | [...] + + + | [facility] | [address] | [place] | [phone] | | [facility] | | [address] | | | [facility] | | | | + + + + + POCT Urinalysis Dipstick Automated (01/18/2018 2:30 PM PDT) + + + + + + | Component | Value | Ref Range | Performed | Pathologist | | | | | At | Signature | + + + + + + | Color, UA, | Yellow | Yellow, Light | | | | POC | | Yellow | | | + + + + + + | Clarity, | Clear | | | | | UA, POC | | | | | + + + + + + | Glucose, | Negative | Negative | | | | UA, POC | | | | | + + + + + + | Bilirubin, | Negative | Negative | | | | UA, POC | | | | | + + + + + + | Ketones, | Negative | Negative, 100 | | | | UA, POC | | mg/dL | | | + + + + + + | Specific | 1.015 | 1.001 - 1.030 | | | | [place], | | | | | | UA, POC | | | | | + + + + + + | Blood, UA, | Negative | Negative | | | | POC | | | | | + + + + + + | pH, UA, POC | 5.5 | 5.0, 6.0, 7.0, | | | | | | 8.0, 5.5, 6.5, | | | | | | 7.5 | | | + + + + + + | Protein, | Negative | Negative | | | | UA, POC | | | | | + + + + + + | Urobilinoge | 0.2 | 0.2, Negative, | | | | n, UA, POC | | Normal, < 0.2 | | | | | | mg/dL, 1 mg/dL, | | | | | | < 0.2 E.U./dl, | | | | | | 1.0 E.U./dL, | | | | | | 0.2 mg/dL | | | + + + + + + | Nitrite, | Negative | Negative | | | | UA, POC | | | | | + + + + + + | Leukocyte | Trace (A) | Negative | | | | Esterase, | | | | | | UA, POC | | | | | + + + + + + | Reducing | | | | | | Substances, | | | | | | Urine | | | | | + + + + + + | Bilirubin | | Negative | | | | Confirmatio | | | | | | n by | | | | | | Ictotest, | | | | | | Urine | | | | | + + + + + + | Remark | | | | | + + + + + + + + | Specimen | + + | Urine | + + Extra Green Top Tube (01/18/2018 2:29 PM PDT) + +-------+ + + + | Component | Value | Ref Range | Performed | Pathologist | | | | | At | Signature | + +-------+ + + + | Extra Green | Done | | [facility] | | | Top Tube | | | [facility] | | | [...] + + + | [facility] | [address] | [place] | [phone] | | [facility] | | [address] | | | [facility] | | | | + + + + + Amylase (01/18/2018 2:26 PM PDT) + +-------+ + + + | Component | Value | Ref Range | Performed | Pathologist | | | | | At | Signature | + +-------+ + + + | Amylase | 61 | 25 - 115 IU/L | [facility] | | | | | [...] + + | [facility] | [address] | [place] | [phone] | | [facility] | | [address] | | | [facility] | | | | + + + + + C-Reactive Protein (01/18/2018 2:26 PM PDT) + + + + + + | Component | Value | Ref Range | Performed | Pathologist | | | | | At | Signature | + + + + + + | C-Reactive | 13.7 (H) | 0.0 - 9.0 mg/L | [facility] | | | Protein | [...] | + + + + + | [facility] | [address] | [place] | [phone] | | [facility] | | [address] | | | [facility] | | | | + + + + + Sedimentation Rate (01/18/2018 2:26 PM PDT) + +--------+ + + + | Component | Value | Ref Range | Performed | Pathologist | | | | | At | Signature | + +--------+ + + + | Erythrocyte | 26 (H) | <20 mm/hr | [facility] | | | | | | [facility] | | | Sedimentati | | | [facility] | | | on Rate | | | [facility] | | + +--------+ + + + + + | Specimen | + + | Blood | + + + + + + + | Performing | Address | City/State/Zipcode | Phone Number | | Organization | | | | + + + + + | [facility] | [address] | [place] | [phone] | | [facility] | | [address] | | | [facility] | | | | + + + + + TSH (01/18/2018 2:26 PM PDT) + +-------+ + + + | Component | Value | Ref Range | Performed | Pathologist | | | | | At | Signature | + +-------+ + + + | TSH | 0.68 | 0.36 - 3.74 | [facility] | | | | | uIU/mL | [facility] | | | | | | [facility] [...] + + | [facility] | [address] | [place] | [phone] | | [facility] | | [address] | | | [facility] | | | | + + + + + Comprehensive Metabolic Panel (01/18/2018 2:26 PM PDT) + + + + + + | Component | Value | Ref Range | Performed | Pathologist | | | | | At | Signature | + + + + + + | Na | 142 | 136 - 145 | [facility] | | | | | mmol/L | [facility] | | [facility] | | | | | | [facility] | | + + + + + + | K | 3.7 | 3.5 - 5.1 | [facility] | | | | | mmol/L | [facility] | | | | | | [facility] | | | | | | [facility] | | + + + + + + | Cl | 106 | 98 - 107 mmol/L | [facility] | | | | | | [facility] | | [facility] | [facility] | | | | | | [facility] | | + + + + + + | CO2 | 28 | 21 - 32 mmol/L | [facility] | | | | | | [facility] | | [facility] | [facility] | | | | | | [facility] | | + + + + + + | Anion Gap | 8 | 2 - 16 mmol/L | [facility] | | | | | | [facility] | | [facility] | | [facility] | | | | | | [facility] | | + + + + + + | Glucose | 90 | 74 - 106 mg/dL | [facility] | | | | | | [facility] | | [facility] | [facility] | | | | | | [facility] | | + + + + + + | BUN | 8 | 7 - 18 mg/dL | [facility] | | | | | | [facility] | | [facility] | [facility] | | | | | | [facility] | | + + + + + + | Creatinine | 0.82 | 0.55 - 1.02 | [facility] | | | | | mg/dL | [facility] | | | | | | [facility] | | | | | | [facility] | [facility] | | + + + + + + | eGFR, | >60Comment: GLOMERULAR | >=60 | [facility] | | | non- | FILTRATION | mL/min/1.73m2 | [facility] | | | Vincentian | RATE,ESTIMATED | | MEDICAL | | | | mL/min/1.19e5Ciph than | | [facility] | | | [...] + + + + | Calcium | 9.1 | 8.5 - 10.1 | [facility] | | | | | mg/dL | [facility] | | | | | | [facility] | | | | | | [facility] | | [facility] | | + + + + + + | Albumin | 3.3 (L) | 3.4 - 5.0 g/dL | [facility] [...] + + + + | Total | 7.4 | 6.4 - 8.2 g/dL | [facility] | | | Protein | | | [facility] | | | | [facility] | [facility] | | | | | | [facility] | | + + + + + + | AST | 22 | 15 - 37 U/L | [facility] | | | | | | [facility] | [facility] | [facility] | | | | | | [facility] | | + + + + + + | ALT | 34 | 14 - 59 U/L | [facility] | | | | | | [facility] | | | | | | [facility] | | | | | | [facility] | [facility] | | + + + + + + | Alkaline | 83 | 46 - 116 U/L | [facility] | | | Phosphatase | | | [facility] | | | | | | [facility] | | | | | | [facility] | | + + + + + + | Globulin | 4.1 (H) | 2.1 - 3.8 g/dL | [facility] | | | | | | [facility] | | | [facility] | [facility] | | | | | | [facility] | | + + + + + + | Albumin/Diane | 0.8 | 0.8 - 2.0 | [facility] | | | bulin Ratio | | | [facility] | | | | | [facility] | | | | | | [facility] | | + + + + + + | BUN/Creatin | 9.8 | | [facility] | | | ine [...] [facility] | [address] | [place] | [phone] | | [facility] | | [address] | | | [facility] | | | | + + + + + CBC with Differential (01/18/2018 2:26 PM PDT) + + + + + + | Component | Value | Ref Range | Performed | Pathologist | | | | | At | Signature | + + + + + + | White Blood | 11.0 | 4.0 - 11.0 K/uL | [facility] | | | Cells | | | [facility] | | | | | [facility] | | | | | | [facility] | | + + + + + + | Red Blood | 4.69 | 3.70 - 5.20 | [facility] | | | Cells | | M/uL | [facility] | | | | | [facility] | | | | | | [facility] | | + + + + + + | Hemoglobin | 13.8 | 11.5 - 16.0 | [facility] | | | | | g/dL | [facility] | | | | | | [facility] | | | | | | [facility] | [facility] | | + + + + + + | Hct | 41.1 | 34.0 - 47.0 % | [facility] | | | | | | [facility] | | [facility] | [facility] | | | | | | [facility] | | + + + + + + | MCV | 87.6 | 83.0 - 101.0 fL | [facility] | | | | | | [facility] | | [facility] | [facility] | | | | | | [facility] | | + + + + + + | MCH | 29.4 | 28.0 - 35.0 pg | [facility] [...] + + + + | RDW-CV | 12.4 | <15.0 % | [facility] | | | | | | [facility] | | [facility] | [facility] | | | | | | [facility] | [facility] | | + + + + + + | RDW-SD | 40.2 | fL | [facility] | | | | | | [facility] | [facility] | [facility] | | | | | | [facility] | [facility] | | + + + + + + | Platelet | 359 | 140 - 440 K/uL | [facility] | | | Count | | | [facility] | | | | | | [facility] | | | | | | [facility] | [facility] | | + + + + + + | MPV | 10.1 | fL | [facility] | | | | | | [facility] | | | | | | [facility] | | | | | | [facility] | | + + + + + + | % | 65.3 | 45.0 - 82.0 % | [facility] | | | Neutrophils | | | [facility] | | | | | | [facility] | | | | | | [facility] | | + + + + + + | % | 26.0 | 20.0 - 45.0 % | [facility] | | | Lymphocytes | | | [facility] | | | | | | [facility] | | | | | | [facility] | | | | [facility] | | + + + + + + | % Monocytes | 4.8 | 4.0 - 12.0 % | [facility] | | | | | | [facility] | | | | | | [facility] | | | | | | [facility] | | + + + + + + | % | 3.4 | 0.0 - 5.0 % | [facility] | | | Eosinophils | | | [facility] | | | | | | [facility] | | | | | | [facility] | | [facility] | | + + + + + + | % Basophils | 0.4 | 0.0 - 1.0 % | [facility] | | | | | | [facility] | | | | | | [facility] | | | | | | [facility] | | | [facility] | | + + + + + + | % Immature | 0.1Comment: For | 0.0 - 0.4 % | [facility] | | | Granulocyte | patients, use the | | [facility] | | | s | special reference ranges | | [facility] | | | | listed below. | | [facility] | | | | | | [facility] | | + + + + + + | Absolute | 7.19 | 1.80 - 8.50 | [facility] | | | Neutrophils | | K/uL | [facility] | | | | | | [facility] | | | | | | [facility] | | | | | [facility] | | + + + + + + | Absolute | 2.86 | 0.60 - 3.20 | [facility] | | | Lymphocytes | | K/uL | [facility] | | | | | | [facility] | | | | | | [facility] | | | | | | [facility] | | + + + + + + | Absolute | 0.53 | 0.00 - 1.00 | [facility] | | | Monocytes | | K/uL | [facility] | | | | | | [facility] | | | | | | [facility] | | | | | | [facility] | | + + + + + + | Absolute | 0.37 | 0.00 - 0.40 | [facility] | | | Eosinophils | | K/uL | [facility] | | | | | | [facility] | | | | | | [facility] | | | | | | [facility] | | + + + + + + | Absolute | 0.04 | 0.00 - 0.10 | [facility] | | | Basophils | | K/uL | [facility] | | | | | | [facility] | | | | | | [facility] | | | | | | [facility] | | + + + + + + | Absolute | 0.01Comment: For | 0.00 - 0.03 | [facility] | | | Immature | patients, use | K/UL | [facility] | | | Granulocyte | the special reference | | MEDICAL | | | s | ranges listed below. | | [facility] | | | | | | [facility] | | + + + + + + + + | Specimen | + + | Blood | + + + + + | Narrative | Performed At | + + + | IMMATURE GRANULOCYTES - For patients, use the following | [facility] | | reference ranges: Trim. Absolute (K/uL) Percentage (%) | [facility] | | 1st 0.003-0.091 K/uL 0.0-0.9% 2nd 0.007-0.247 K/uL | [facility] | | 0.1-2.0% 3rd 0.018-0.456 K/uL 0.1-2.0% | LABORATORY | + + + + + + + + | Performing | Address | City/State/Zipcode | Phone Number | | Organization | | | | + + + + + | [facility] | [address] | [place] | [phone] | | [facility] | | [address] | | | [facility] | | | | + + + + + Porphobilinogen, Quant, Urine, Random (01/18/2018 2:23 PM PDT) + + + + + + | Component | Value | Ref Range | Performed | Pathologist | | | | | At | Signature | + + + + + + | Porphobilin | 0.5Comment: This test | 0.0 - 2.0 mg/L | [facility] | | | ogen, Urine | was developed and its | | LAB [facility] | | | | performance | | - [facility] | | | | characteristicsdetermine | | | | | | d [facility]. It has not | | | | | | been cleared or | | | | | | approvedby the Food and | | | | | | Drug Administration. | | | | + + + + + + + + | Specimen | + + | Urine | + + + + + | Narrative | Performed At | + + + | Performed at: 01 - [facility] [address], | REFERENCE LAB | | [place], [place] [id number] Powder Mixer: Seven aDvalos MD, Phone: | [facility] | | [phone] | | + + + + + + + + | Performing | Address | City/State/Zipcode | Phone Number | | Organization | | | | + + + + + | REFERENCE LAB | [address] | [place], [place] | [phone] | | [facility] | [facility] | [address] | | + + + + + Culture, Urine (01/18/2018 2:20 PM PDT) + + + + + + | Component | Value | Ref Range | Performed | Pathologist | | | | | At | Signature | + + + + + + | Culture | No Growth | | [facility] | | | | | | [facility] | | | | | | [...] [address] | [place] | [phone] | | [facility] | | [id number] | | | - LABORATORY | | | | + + + + + documented in this encounter Visit Diagnoses + + | Diagnosis | + + | Continuous hypogastric pain - Primary Abdominal pain, other specified site | + + | Nausea Nausea alone | + + | Overweight | + + | Fatigue, unspecified type | + + documented in this encounter
--- OUTSIDE RECORDS SUMMARY | ~2019-12-06 | XMS | Encounter Summary ---
Demographics + + + | Address | [address] | | | [place] [address] | + + + | Home Phone | | + + + | Preferred Language | Unknown | + + + | Marital Status | Single | + + + | Jain Affiliation | 1013 | + + + | Race | Unknown | + + + | Ethnic Group | Unknown | + + + Author + + + | Author | [facility] | | | and [place] | + + + | Organization | [facility] | | | and Attilaana [...] Team Providers + +------+ + | Care K 9 Handler/ Deputy Name | Role | Phone | + +------+ + | Hari Garcia MD | PCP | | + +------+ + Encounter Details +--------+---------+ + + + | Date | Type | Department | Care Team | Description | +--------+---------+ + + + | 09/10/ | E-Visit | [facility] | Hari Garcia MD | RE: Non-Urgent | | 2020 | | [facility] [place] [facility] | [address] | Medical Question | | | | [facility] [place] | [address] [place], | | | | | [address] | [place] [address] | | | | | [address] [place] [place], | [phone] | | | | | [place] [address] | | | | | | [phone] | | | +--------+---------+ + + + [...] this encounter Miscellaneous Notes Telephone Encounter - Hari Garcia MD - 09/11/2019 12:58 PM PDTLetter available in the [facility]. Please contact Rashmi and get it sent off to the necessary person. documented in this encounter Plan of Treatment Not on filedocumented as of this encounter Visit Diagnoses + + | Diagnosis | + + | Anxiety - Primary Anxiety state, unspecified | + + documented in this encounter"
--- OUTSIDE RECORDS SUMMARY | ~2019-12-06 | XMS | Encounter Summary ---
Demographics + + + | Address | [address] | | | [place] [address] | + + + | Home Phone | | + + + | Preferred Language | Unknown | + + + | Marital Status | Single | + + + | Mosque Affiliation | 1013 | + + + | Race | Unknown | + + + | Ethnic Group | Unknown | + + + Author + + + | Author | [facility] | | | and [place] | + + + | Organization | [facility] | | | and [place] [...] Team Providers + +------+ + | Care Plate Preparer Name | Role | Phone | + [...] Description | +--------+--------+ + + + | 08/17/ | Refill | [facility] | Hari Garcia MD | Medication Refill | | 2020 | | [facility] [place] | [address] | | | | | [address] | [address] [place], | | | | | [place] | [place] [address] | | | | | [address] | [phone] | | | | | [phone] | | | +--------+--------+ + + + [...]
--- OUTSIDE RECORDS SUMMARY | ~2019-12-06 | XMS | Encounter Summary ---
Demographics + + + | Address | [address] | | | [place] [address] | + + + | Home Phone | | + + + | Preferred Language | Unknown | + + + | Marital Status | Single | + + + | Adventist Affiliation | 1013 | + + + | Race | Unknown | + + + | Ethnic Group | Unknown | + + + Author + + + | Author | [facility] | | | and [place] | + + + | Organization | [facility] [...] Team Providers + +------+ + | Care Solar Fabrication Technician Name | Role | Phone | + +------+ + | Colton Singer DO | PCP | | + +------+ + Reason for Visit +---------+--------+ + | Reason | Onset | Comments | | | Date | | +---------+--------+ + | Results | 04/30/ | UA | | | 2016 | | +---------+--------+ + Encounter Details +--------+ + + + + | Date | Type | Department | Care Team | Description | +--------+ + + + + | 04/30/ | Telephone | [facility] | Horace Carlos MD | Results () | | 2017 | | GASTROENTEROLOGY | [address] | | | | | [address] [facility] | [place], [place] | | | | | [address] [place], [place] | [address] | | | | | [address] | [phone] | | | | | [phone] | | | +--------+ + + + [...] Telephone Encounter - Elsa Lai RN - 04/30/2017 10:36 AM PSTPatient informed and fatoumata balized understanding. TTelephone Encounter - Elsa Lai RN - 04/30/2017 10:[address], "OK let h er know the UA was unremarkable so the culture was not done. She does not have UTI." LVM for patient to return call. documented in this encounter Plan of Treatment Not on filedocumented as of this encounter Visit Diagnoses Not on filedocumented in this encounter
--- OUTSIDE RECORDS SUMMARY | ~2019-12-06 | XMS | Encounter Summary ---
Demographics + + + | Address | [address] | | | [place] [address] | + + + | Home Phone [...] Author | [facility] | | | and [place] | + + + | Organization | [facility] | | | and [place]aana | [...] Team Providers + +------+ + | Care Day Care Teacher Name | Role | Phone | [...] | | | | [address] [facility] | | | | | | [address] [place] | | | | | | [address] | | | | | | [phone] | | | +--------+ + + + [...]
--- OUTSIDE RECORDS SUMMARY | ~2019-12-06 | XMS | Encounter Summary ---
Demographics + + + | Address | [address] | | | [place] [address] | + + + | Home Phone | | + + + | Preferred Language | Unknown | + + + | Marital Status | Single | + + + | Quaker Affiliation | 1013 | + + + | Race | Unknown | + + + | Ethnic Group | Unknown | + + + Author + + + | Author | [facility] | | | and [place] | + + + | Organization | [facility] | | | and [place] [...] Providers + +------+ + | Care Chief Librarian Circulation Department Name | Role | Phone | + +------+ + | Hari Garcia MD | PCP | | + +------+ + Reason for Visit + +--------+ + | Reason | Onset | Comments | | | Date | | + +--------+ + | Medication Refill | 07/25/ | | | | 2018 | | + +--------+ + Encounter Details +--------+--------+ + + + | Date | Type | Department | Care Team | Description | +--------+--------+ + + + | 07/25/ | Refill | [facility] | Hari Garcia MD | Medication Refill | | 2019 | | [facility]IC[facility] [place] | [address] | | | | | [address] | [address] [place], | | | | | [place] | [place] [address] | | | | | [address] | [phone] | | | | | [phone] | | | +--------+--------+ + + + [...] Telephone Encounter - Melody Trejo RN - 07/25/2018 11:22 AM PDTPer patients medicati on list it has patient taking 20 mg once daily. Refill has been sent to [facility] in [place] . Patient called and notified. elephone Encounter - Helene Braxton - 07/25/2018 9:41 AM PDTPatient att empted to transfer her Citalopram from [facility] in [place] to [facility] in [place]. Patient states that [facility] is stating they do not have the Presciption for 20mg to be trans ferred over they only had the old prescription for 10 mg. Patient states she was given 30, 1 0 mg tablets by [facility] on 07-06-18 and per directions advised to take two 10 mg tablets yesenia y. Patient is requesting a new Prescription be sent to [facility] in [place] and contacted fr om our office once it is sent over. Rashmi can be contacted at [phone]. Please advise MEDICATION: Citalopram STRENGTH: 20mg DIRECTIONS: 1 every morning QUANTITY REMAININ of the 10 mg left PHARMACY: [facility] in [place] DATE OF LAST REFILL: 07-06-18 DATE OF LAST VISIT: 06-29-18 DATE OF NEXT VISIT: none documented in this encounter Plan of Treatment Not on filedocumented as of this encounter Visit Diagnoses + + | Diagnosis | + + | Acute stress disorder Other acute reactions to stress | + + | Chronic post-traumatic stress disorder (PTSD) | + + documented in this encounter"
--- OUTSIDE RECORDS SUMMARY | ~2019-12-06 | XMS | Encounter Summary ---
Demographics + + + | Address | [address] | | | [place] [address] | + + + | Home Phone | | + + + | Preferred Language | Unknown | + + + | Marital Status | Single | + + + | Oriental Orthodox Affiliation | 1013 | + + + | Race | Unknown | + + + | Ethnic Group | Unknown | + + + Author + + + | Author | [facility] | | | and [place] | + + + | Organization | [facility] | | | and [...] Team Providers + +------+ + | Care Tea Leaf Reader Name | Role | Phone | + +------+ + | Hari Garcia MD | PCP | | + +------+ + Encounter Details +--------+---------+ + + + | Date | Type | Department | Care Team | Description | +--------+---------+ + + + | 02/16/ | Surgery | [facility] | Horace Carlos MD | EGD | | 2018 | | MED CTR MP INTRA OP | [address] | | | | | [address] | [place], [place] | | | | | [place], [place] | [address] | | | | | [address] | [phone] | | | | | [phone] | | | +--------+---------+ + + + [...] + + + | Blood Pressure | 103/49 | 02/16/2018 3:50 PM | | | | | PDT | | + + + + + | Pulse | 78 | 02/16/2018 3:50 PM | | | | | PDT | | + + + + + | Temperature | 36.4 C (97.5 F) | 02/16/2018 3:50 PM | | | | | PDT | | + + + + + | Respiratory Rate | 12 | 02/16/2018 3:50 PM | | | | | PDT | | + + + + + | Oxygen Saturation | 96% | 02/16/2018 3:50 PM | | | [...] vomiting, or vomiting blood Date Last Reviewed: 11/08/201519999009-3876 [employer] ([email or web address]). [address] [place] [address], [place] [address]. All righ ts reserved. This information is [...] + + + +---------+ + + | Pattie 500 MG | Take 500 mg by [...] encounter H&P Notes Horace Carlos MD - 02/16/2018 3:30 PM PDTPatient interviewed, history and physical, symp toms reviewed VS signs noted, no change from previous H&P or assessment and plan.Electronic ally signed by Horace Carlos MD at 02/16/2018 3:31 PM PDTHamHorace phillip MD - 02/09/2018 4:30 PM PDT Date [...] Procedure: COLONOSCOPY; Surgeon: Horace Carlos MD; Location: [facility] TONSILLECTOMY UPPER GASTROINTESTINAL ENDOSCOPY N/A 05/19/2017 Procedure: EGD; Surgeon: Horace Carlos MD; Location: [facility] Family History: Family History [...] Hives,Nausea And Vomiting [place] Hives,Nausea And Vomiting [place] Hives Intolerance No active intolerances/contraindications Medications: has [...] findings. A preliminary report was sent by [facility] with no significant discrepancy on 04/11/2017 8:45:02 [...] anesthesia and propofol due to the pa tient's obesity and multiple medical problems. I advised checking a urine test today. If symptoms do not improve on PPI and upper endoscopy is unremarkable then we'll consider a gastric emptying study and HIDA scan to evaluate for gastric and gallbladder function respe ctively. documented in t his encounter Miscellaneous Notes D-C Instructions Provation - Horace Carlos MD - 02/16/2018 3:30 PM PDTDischarge Instruct ions for Upper Endoscopy Patient: Rashmi Holcomb : 1990 Acct: [id number] Exam Date: Friday, February 16, 2018 Doctor: Horace Carlos MD The chances of [...] If unable to reach your physician, call [facility] at Ext. [phone] Your doctor recommends these additional instructions: You have a contact number available for emergencies. The signs and symptoms of potential delayed complications were discussed with you. You may return to normal activities tomorrow. Written discharge instructions were provided to you. Resume your previous diet. Continue your present medications. We are waiting for your pathology results. Your physician has recommended a repeat upper endoscopy for surveillance based on pathology results. Return to your GI clinic as needed. Follow an antireflux regimen. This includes: - [...] - Avoid cigarettes and other tobacco products. Do not take any aspirin, ibuprofen (including Advil, Motrin or Nuprin), naproxen (including Aleve), or any other non-steroidal anti-inflammatory drugs. The findings and recommendations have been discussed with you. These instructions have been explained to the patient and/or escort. A copy has been given to the patient/escort. Nurse Signature Patient Signature Escort Signature Date Horace Carlos MD 02/16/2018 3:50:53 PM This report has been signed electronically.Electronically signed by Horace Carlos MD at 3:51 PM PDTdocumented in this encounter Plan of Treatment Not [...] adult | | | | | | ([facility]) (E66.01, | | | | | | [...] | | GastroenterologyPatient Name: Rashmi HolcombProcedure Date: 02/16/2018 | PROVATION | | 3:30 PMMRN: [id number] #: [id number] of : | | | 1990Admit Type: AmbulatoryAge: 27Room: [facility] 01Gender: FemaleNote | | | Status: FinalizedAttending MD: Horace Carlos , [facility]cedure: | | | Upper GI endoscopyIndications: Abdominal pain, | | | Functional Dyspepsia, Heartburn, Suspected | | | esophageal refluxProviders: Horace Carlos MD, Joanne | | | ABHIJIT Anderson, Serena Pena, Meter Record Clerk, | | | Mark Glynn MD (Anesthesia [...] the anesthesiologist and the | | | agriculture laboratory technician in the pre-procedure area in the [...] PMScope Out: 3:43:56 PM | | | [facility], [place], [place] | | | [address] | | | - Continue present medications. [...] |Scope Out: 3:43:56 PM | | | [facility], [facility], [place], [place] | | | [address] | | + + -+ + +---------+ [...] | 1.010, 1.015, | | | | [place], | | 1.020, 1.025 | | | | POC | | | | | + + + + + + | Lot Number | [id number] | | | | + + + [...] BMI of 40.0-44.9, adult, | | | (HCC), (E66.01)( Z68.41); Nausea and vomiting, intractability of [...] intestinal | | | metaplasia or dysplasia. JVR:[facility]:C2NR GROSS DESCRIPTION: Four | | | specimens are received in four containers: A. The specimen is | | | received in formalin labeled "Rashmi Holcomb", designated "gastric | | | biopsy per the requisition" and consists of 3 pink-rutledge tissue | | | fragments which range in size from 0.1 to 0.3 cm in diameter, all in | | | A1. B. The specimen is received in formalin labeled "Rashmi Holcomb | | | Rosanne", designated "gastric polyp" and consists of 2 pink-rutledge tissue | | | fragments. They measure 0.3 cm in diameter each. The entire specimen | | | is submitted in single cassette B1. C. The specimen is received | | | in formalin labeled "Rashmi Holcomb", designated "duodenal biopsy" | | | and consists of 4 pink-rutledge tissue fragments which range in size from | | | 0.2 to 0.3 cm in diameter. The entire specimen is submitted in single | | | cassette C1. D. The specimen is received in formalin labeled | | | "Rashmi Holcomb", designated "GE junction" and consists of 3 | | | yellow-rutledge tissue fragments that range in size from 0.2 to 0.3 cm in | | | diameter. The entire specimen is submitted in single cassette D1. | | | js:AMB:emb PERFORMING LABORATORY: The technical component was | | | performed by [facility], [address] [place] [id number] | | | (Director Of Brand Marketing: Gabby Noble MD; IA# [id number]). Professional | | | [facility] | | | [address] | | | [address] (Director Of Brand Marketing: Brandon Blackwell M.D.). Diagnostician: | | | Brandon Blackwell MD [...] ONCE PRN, Wheezing, | | | Starting 02/16/18 at 1420, | | | For 1 [...] glucose < 50, | | | Starting 02/16/18 at 1420, | | | Repeat in [...] | mL/hr | | | CONTINUOUS, Starting Wed02/16/18 | | PM PDT | | | | | at 1445, TKO., Pre-op | | | | | | + +---------+ +---+-------+---+ + +---+ | | | + +---+ | ondansetron (ZOFRAN ODT) | | | disintegrating tablet 4 mg 4 mg, | | | Oral, EVERY 6 HOURS PRN, Nausea, | | | Vomiting, Starting Wed02/16/18 | | | at 1558, First line [...]
--- OUTSIDE RECORDS SUMMARY | ~2019-12-06 | XMS | Encounter Summary ---
Demographics + + + | Address | [address] | | | [place] [address] | + + + | Home Phone [...] Author | [facility] | | | and [place] | + + + | Organization | [facility] | | | and [...] Team Providers + +------+ + | Care Process Mold Technician Name | Role | Phone | + +------+ + | Hari Garcia MD | PCP | | + +------+ + Reason for Visit +---------+ + | Reason | Comments | +---------+ + | Post Op | thyroid | +---------+ + Evaluate & Treat (Routine) + + + + + + + | Status | Reason | Specialty | Diagnoses / | Referred By | Referred To | | | | | Procedures | Contact | Contact | + + + + + + + | Authorized | Specialty | Otolaryngolog | Diagnoses | Jose, | [facility] | | | Services | y | Thyroid | MD Hari | Otolaryngolog | | | Required | | nodule | [address] | [address] | | [address] [place] | | | | | | [place], | [address] [place] | | | | | | [place] | [place], [place] | | | | | | [address] | [address] | | | | | | Phone: | Phone: | | | | | | [phone] | [phone] | | | | | | Fax: | Fax: | | | | | | [phone] | [phone] | + + + + + + + Encounter Details +--------+---------+ + + + | Date | Type | Department | Care Team | Description | +--------+---------+ + + + | 06/29/ | [facility] | [facility] | Matthias Wiley MD | Nontoxic uninodular | | 2020 | Visit | OTOLARYNGOLOGY [address] | [address] | goiter (Primary Dx) | | | | [address] | [address] [place] | | | | | [place], [place] | [place] [address] | | | | | [address] | [phone] | | | | | [phone] | | | +--------+---------+ + + + [...] + + + + | Pulse | 90 | 06/29/2019 2:24 PM | | | | | PST | | + + + + + | Temperature | - | - | | + + + + + | Respiratory Rate | 16 | 06/29/2019 2:24 PM | | | | | PST | | + + + + + | Oxygen Saturation | 96% | 06/29/2019 2:24 PM | | | | | PST | | + + + + + | Inhaled Oxygen | - | - | | | Concentration | | | | + + + + + | Weight | 108.9 kg (240 lb) | 06/29/2019 2:24 PM | | | | | PST | | + + + + + | Height | 160 cm (5' 3") | 06/29/2019 2:24 PM | | | | | PST | | + + + + + | Body Mass Index | 42.51 | 06/29/2019 2:24 PM | | | | | PST | | + + + + + documented in this encounter Progress Notes Matthias Wiley MD - 06/29/2019 2:00 PM PSTIs postop a right thyroid lobectomy. The final path report comes back that there is a follicular growth but no evidence of any cancer. Pat ient is healing very nicely and the swelling is very minimal. There is no evidence of any i nfection or abnormality. Her voice is clear. Her suture was removed without difficulty. Impression: Postop stable right thyroid lobectomy. Plan: Patient is given a prescription of levothyroxine to take 75 mcg daily. She should araiza ve a thyroid function with her primary care provider in a yearly basis. If there are any fu rther problems she will recheck with ENT.Electronically signed by Matthias Wiley MD at 2019 4:14 PM PSTdocumented in this encounter Plan of Treatment Not on filedocumented as of this encounter Visit Diagnoses + + | Diagnosis | + + | Nontoxic uninodular goiter - Primary | + + documented in this encounter
--- OUTSIDE RECORDS SUMMARY | ~2019-12-06 | XMS | Encounter Summary ---
Demographics + + + | Address | [address] | | | [place] [address] | + + + | Home Phone | | + + + | Preferred Language | Unknown | + + + | Marital Status | Single | + + + | Hoahaoism Affiliation | 1013 | + + + | Race | Unknown | + + + | Ethnic Group | Unknown | + + + Author + + + | Author | [facility] | | | and [place] | + + + | Organization | [facility] | | [...] Team Providers + +------+ + | Care Job Printer Name | Role | Phone | + +------+ + | Colton Singer DO | PCP | | + +------+ + Reason for Visit + +--------+ + | Reason | Onset | Comments | | | Date | | + +--------+ + | Imaging Only | 01/19/ | | | | 2018 | | + +--------+ + Encounter Details +--------+ + + + + | Date | Type | Department | Care Team | Description | +--------+ + + + + | 01/19/ | Telephone | [facility] | Promise Cerna | Imaging Only | | 2018 | | CARE [address] | Chi Odonnell MD | | | | | [place] | [address] | | | | | [address] | [place] | | | | | [phone] | [address] | | | | | | | [...] this encounter Miscellaneous Notes Telephone Encounter - Lissette Fernandez Cert MA - 01/19/2018 3:35 PM PDTCalled pt and notifie d her that her Ultrasound is approved and ready to schedule. Pt was pleased and transferred to Imaging to schedule. documented in this encounter Plan of Treatment Not on filedocumented as of this encounter Visit Diagnoses Not on filedocumented in this encounter"
--- OUTSIDE RECORDS SUMMARY | ~2019-12-06 | XMS | Encounter Summary ---
Demographics + + + | Address | [address] | | | [place] [address] | + + + | Home Phone | | + + + | Preferred Language | Unknown | + + + | Marital Status | Single | + + + | Yazdanism Affiliation | 1013 | + + + | Race | Unknown | + + + | Ethnic Group | Unknown | + + + Author + + + | Author | [facility] | | | and [place] | + + + | Organization | [facility] | | | and [place] [...] Team Providers + +------+ + | Care Information Delivery Analyst Name | Role | Phone | + +------+ + | Hari Garcia MD | PCP | | + +------+ + Encounter Details +--------+ + + + + | Date | Type | Department | Care Team | Description | +--------+ + + + + | 02/16/ | Hospital | [facility] | Horace Carlos MD | Abdominal pain, | | 2018 | Encounter | [facility] | [address] | unspecified | | | | [address] | [place], [place] | abdominal location; | | | | [place], [place] | [address] | Esophagitis | | | | [address] | [phone] | determined by | | | | [phone] | | biopsy; | | | | | | Non-intractable | | | | | | cyclical vomiting | | | | | | with nausea | +--------+ + + + + Social [...] vomiting, or vomiting blood Date Last Reviewed: 11/08/201519992921-5036 [employer]. [address] [place] [address]. All righ ts reserved. This information is [...] Horace Carlos MD at 02/16/2018 3:31 PM PDTHorace Carlos MD - 02/09/2018 4:30 PM PDT [...] Procedure: COLONOSCOPY; Surgeon: Horace Carlos MD; Location: [facility] TONSILLECTOMY UPPER GASTROINTESTINAL ENDOSCOPY N/A 05/19/2017 Procedure: EGD; Surgeon: Horace Carlos MD; Location: [facility] Family History: [...] Hives,Nausea And Vomiting Codeine Hives,Nausea And Vomiting Robinson Hives Intolerance No active intolerances/contraindications Medications: has [...] findings. A preliminary report was sent by [employer] with no significant discrepancy on 04/11/2017 8:45:02 [...] Endoscopy Patient: Rashmi Holcomb : 1990 Acct: [id number] Exam Date: Friday, February 16, 2018 Doctor: [...] If unable to reach your physician, call [facility] Emergency Department at Ext. 2500 Your doctor [...] adult | | | | | | ([facility]) (E66.01, | | | | | | [...] 02/16/2018 | PROVATION | | 3:30 PMMRN: [id number] #: [id number] of : | | | 1990Admit Type: AmbulatoryAge: 27Room: [facility] 01Gender: FemaleNote | | | Status: FinalizedAttending MD: Horace Carlos , MDProcedure: | | | Upper GI endoscopyIndications: Abdominal pain, | | | Functional Dyspepsia, Heartburn, Suspected | | | esophageal refluxProviders: Horace Carlos MD, Christine | | | ABHIJIT Anderson, Serena Pena, Stratigraphy Teacher, | | | Mark Glynn MD (Anesthesia [...] the anesthesiologist and the | | | fire alarm technician in the pre-procedure area in the [...] PMScope Out: 3:43:56 PM | | | [facility], [address] [place] [address] | | | [phone] | | | - Continue present medications. [...] |Scope Out: 3:43:56 PM | | | [facility], [address] [place] [address] | | | [address] | | + + -+ + +---------+ [...] | 1.010, 1.015, | | | | [place], | | 1.020, 1.025 | | | | POC | | | | | + + + + + + | Lot Number | [id number] | | | | + + + [...] BMI of 40.0-44.9, adult, | | | ([facility]), (E66.01)( Z68.41); Nausea and vomiting, intractability of [...] intestinal | | | metaplasia or dysplasia. JVR:[facility]:C2NR GROSS DESCRIPTION: Four | | | specimens [...] component was | | | performed by [facility], [address] [place] [id number] | | | (Locksmith Helper: Gabby Noble MD; IA# [id number]). Professional | | | [facility] | | [facility], [address] [place] [address] | | | [phone] (Locksmith Helper: Brandon Blackwell M.D.). Diagnostician: | | | [...] unspecified abdominal location | + + | Esophagitis determined by biopsy | + + | Non-intractable cyclical vomiting with nausea | + + documented in this encounter [...] | | | | | CONTINUOUS, Starting Wed02/16/18 | [...] | mL/hr | | | CONTINUOUS, Starting Wed 10/18 | | PM PDT | | | [...]
--- OUTSIDE RECORDS SUMMARY | ~2019-12-06 | XMS | Encounter Summary ---
Demographics + + + | Address | [address] | | | [place] [address] | + + + | Home Phone | | + + + | Preferred Language | Unknown | + + + | Marital Status | Single | + + + | Presybeterian Affiliation | 1013 | + + + | Race | Unknown | + + + | Ethnic Group | Unknown | + + + Author + + + | Author | [facility] | | | and [place] | + + + | Organization | [facility] | | | and [...] Team Providers + +------+ + | Care Retail Cosmetics Sales Counter Manager Name | Role | Phone | + +------+ + | Hari Garcia MD | PCP | | + +------+ + Reason for Visit +--------+ + | Reason | Comments | +--------+ + | Nausea | *Onset 5 days ago* , some vomiting, symptoms worsening | +--------+ + Encounter Details +--------+---------+ + + + | Date | Type | Department | Care Team | Description | +--------+---------+ + + + | 06/13/ | [facility] | Hari Garcia MD | Nausea (Primary Dx); | | 2019 | Visit | [facility] | [address] | Fatigue, | | | | [address] | [place] [address], | unspecified type; | | | | [place] | [place] [address] | Encounter for | | | | [address] | [phone] | confirmation of | | | | [phone] | | test | | | | | | result with physical | | | | | | examination | +--------+---------+ + + + Social History [...] + + + | Blood Pressure | 128/78 | 06/13/2018 2:25 PM | | | | | PST | | + + + + + | Pulse | 87 | 06/13/2018 2:25 PM | | | | | PST | | + + + + + | Temperature | 36.8 C (98.3 F) | 06/13/2018 2:25 PM | | | | | PST | | + + + + + | Respiratory Rate | - | - | | + + + + + | Oxygen Saturation | 95% | 06/13/2018 2:25 PM | | | | | PST | | + + + + + | Inhaled Oxygen | - | - | | | Concentration | | | | + + + + + | Weight | 104.4 kg (230 lb 2.6 | 06/13/2018 2:25 PM | | | | oz) | PST | | + + + + + | Height | 162.6 cm (5' 4") | 06/13/2018 2:25 PM | | | | | PST | | + + + + + | Body Mass Index | 39.51 | 06/13/2018 2:25 PM | | | | | PST | | + + + + + documented in this encounter Patient Instructions Patient Instructions Hari Garcia MD - 06/13/2018 2:30 PM PST (possible) Your exam today shows that you are . symptoms During your body s hormones change. This causes physical and emotional changes. This is normal. Knowing what to expect is important for your piece of mind and so you know when to seek help for a problem. Here are some of the most common symptoms: Morning sickness or nausea. This can happen any time of the day or night. Tender, swollen breasts Need to urinate frequently Tiredness or fatigue Dizziness Indigestion or heartburn Food cravings or turn-offs Constipation Emotional changes. This can range from anxiety to excitement to depression. General care for a healthy Here are things you can do to help make sure your baby is born healthy: Rest when you feel tired. This is especially true in the later months of . Drink more fluids. Your body needs more fluids than you may be used to. Drink 8 to10 gla sses of juice, milk, or water every day. Eat well-balanced meals. Eat at regular times to give your body enough protein. You can expect to gain about 30 pounds during the . Don t try to diet or lose weight whil e you are . Take a vitamin every day. This helps you meet the extra nutritional needs of pr egnancy. Don t take any other medicine during your unless your healthcare provider te lls you to. This includes prescription medicines and those you buy over the counter. Many me dicines can harm the growing baby. If you have nausea or vomiting, don t eat greasy or fried foods. Eat several smaller m eals throughout the day rather than 3 large meals. If you smoke, you must stop. The nicotine you breathe in goes right to the baby. Stay away from alcohol, even in moderate amounts. Daily drinking will harm your baby and can cause permanent brain damage. Don t use recreational drugs, especially cocaine, crack, and heroin. These will harm y our baby. Also avoid marijuana. If you were using recreational drugs or prescribed medicine when you found out that you were , talk with your healthcare provider about possible effects on your growing bab y. If you have medical problems that you need to take medicine for, talk with your healthca re provider. Follow-up care Call your healthcare provider to arrange for care. care is important. Yo u can see your family provider, a specialist (shipping assistant), or a primary care cli david. When to seek medical advice Call your healthcare provider right awayif any of these occur: Vaginal bleeding Pain in your belly (abdomen) or back that is moderate or severe Lots of vomiting, or you can t keep any fluids down for 6 hours Burning feeling when you urinate Headache, dizziness, or rapid weight gain Fever Vision changes or blurred vision Date Last Reviewed: 02/08/201619997217-7094 [employer]. [address] [place] [address]. All righ ts reserved. This information is not intended as a substitute for professional medical care. Always follow your healthcare professional's instructions. documented in this encounter Progress Notes Hari Garcia MD - 06/13/2018 2:30 PM PST Chief Complaint: Nausea (*Onset 5 days ago* , some vomiting, symptoms worsening) History: Rashmi Holcomb is a 28 y.o. female who presents due to nausea and some vomiting over the la st 5 days. Vomiting was x2 earlier this morning and last night; nonbloody non-bilious. She is about 5 days late for her period this month. She has been on oral contraceptive therapy to manage her PCOS and missed 2 different pills over the last 4 weeks. She remains sexually active with her long-term partner. Home test was negative today. She is wonderi ng if we can perform one today. Patient has been taking her pantoprazole for GI upset and h as continued to tolerate her Celexa with improved mood and overall emotional stability. Fam or stressors continue at work, but she feels that her reserve to handle the stressors has im proved dramatically on the current dosage. Patient Active Problem List Diagnosis Abdominal pain, [...] MG-MCG per tablet Take 1 tablet by th Daily. 28 tablet 11 LORazepam (ATIVAN) 0.5 mg tablet Take 1 tablet by mouth Twice daily as needed for Anxi ety or Insomnia. 30 tablet 0 metFORMIN (GLUCOPHAGE-XR) 500 mg 24 hr tablet Take 1 tablet by mouth Daily. 90 tablet 0 pantoprazole (PROTONIX) 40 mg tablet [...] Positive for nausea and vomiting. Negative for abdominal pain, constipati on and diarrhea. Genitourinary: Positive for menstrual problem (5 days late). Negative for dysuria. Musculoskeletal: Negative for back pain and neck pain. Skin: Negative for rash. Neurological: Negative for dizziness, seizures, weakness and numbness. Hematological: Does not bruise/bleed easily. Psychiatric/Behavioral: Positive for dysphoric mood and sleep disturbance. Negative for jerry lucinations and suicidal ideas. The patient is nervous/anxious. The patient is not hyperacti ve. Results for orders placed or performed in visit on 06/13/18 POCT Test, Urine, QUAL Result Value Ref Range Test, Urine, POC Negative Negative Internal QC Acceptable Acceptable, Not Performed Specific [place], POC 1.010, 1.015, 1.020, 1.025 Lot Number Expiration Date Health Maintenance Topics with due status: Overdue Topic Date Due Vaccine: Dtap/Tdap/Td 2008 Cervical Cancer Screening (Pap) 2010 Adult Annual Wellness Visit 04/11/2017 Vaccine: Influenza 01/08/2018 Physical Examination: BP 128/78 | Pulse 87 | Temp 36.8 C (98.3 F) (Temporal) | Ht 1.626 m (5' 4") | Wt 10 4.4 kg (230 lb 2.6 oz) | LMP 05/11/2018 (Approximate) | SpO2 95% | BMI 39.51 kg/m Physical Exam Constitutional: She is oriented [...] normal. She exhibits no distension. There is no tendernes s. There is no rebound. Neurological: She is alert and oriented to person, place, and time. Skin: Skin is warm and dry. Psychiatric: She has a normal mood and affect. Vitals reviewed. Assessment/Plan: 1. Nausea Zofran ODT provided nausea control. Patient has tried multiple antiemetics in the past and will continue to try vljl-eaz-tpchlzm pattie with Zofran as a backup. She is able to maint ain hydration and p.o. intake with regular urination at this point. - ondansetron (ZOFRAN ODT) 4 mg disintegrating tablet; Take 1 tablet by mouth every 8 hours as needed for Nausea. Dispense: 15 tablet; Refill: 0 2. Fatigue, unspecified type 3. Encounter for confirmation of test result with physical examination Urine in the office today negative. Will order qualitative hCG serum test for la ter this week if she does not start her period. I counseled the patient that she may have m issed. And may only have some cramping or random spotting due to the effect of the OCPs on her already irregular hormone regulation of her cycle. Overall PCO S pain is improved. - , Serum, Qual; Future - POCT Test, Urine, QUAL Follow-up: Return if symptoms worsen or fail to improve. Hari Garcia MD 06/13/2018 This note is dictated using [employer] voice recognition software. This note was dictated [...] + | POCT TEST, | Routin | 06/13/2018 | Encounter for | Results for this | | URINE, QUAL | e | 5:40 PM | confirmation of | procedure are in the | | | | PST | test | results section. | | | | | result with physical | | | | | | examination | | + +--------+ + + + documented in this encounter Results , Serum, Qual (06/15/2018 9:39 AM PST) + + + + + + | Component | Value | Ref Range | Performed | Pathologist | | | | | At | Signature | + + + + + + | hCG Screen, | Negative | Negative | [facility] | | | Serum | | | [facility] | | | [...] + + + | [facility] | [address] | [place] | [phone] | | [facility] | | [address] | | | [facility] | | | | + + + + + POCT Test, Urine, QUAL (06/13/2018 5:40 PM PST) + + + + + [...] 1.010, 1.015, | [facility] | | | [place], | | 1.020, 1.025 | [facility] | | | POC | | | [facility] | | | | | | LABORATORY | | + + + + + + | Lot Number | | | [facility] | | | | | | [facility] | | | | | | [facility] | | | | | | LABORATORY | | + + + + + + | Expiration | | | [facility] | | | Date [...] + + + + + | [address] | [address] | [place] [address] | [phone] | | [facility] | | | | | LABORATORY | | | | + + + + + documented in this encounter Visit Diagnoses + + | Diagnosis | + + | Nausea - Primary Nausea alone | + + | Fatigue, unspecified type | + + | Encounter for confirmation of test result with physical examination | | examination or test, unconfirmed | + + documented in this encounter
--- OUTSIDE RECORDS SUMMARY | ~2019-12-06 | XMS | Encounter Summary ---
Demographics + + + | Address | [address] | | | [place] [address] | + + + | Home Phone | | + + + | Preferred Language | Unknown | + + + | Marital Status | Single | + + + | Rastafarian Affiliation | 1013 | + + + | Race | Unknown | + + + | Ethnic Group | Unknown | + + + Author + + + | Author | [facility] | | | and [place] | + + + | Organization | [facility] | | | and [place]tilaana [...] Team Providers + +------+ + | Care Nipple Maker Name | Role | Phone | + +------+ + | Hari Garcia MD | PCP | | + +------+ + Encounter Details +--------+ + + + + | Date | Type | Department | Care Team | Description | +--------+ + + + + | 08/17/ | Virtual | [facility] | Hari Garcia MD | Morbid obesity with | | 2019 | Office | [facility] | [address] | BMI of 40.0-44.9, | | | Visit | [facility] [place] | [address], | adult (HCC) (Primary | | | | [address] | [place] [address] | Dx); PCOS | | | | [address], | [phone] | (polycystic ovarian | | | | [place] [address] | | syndrome); Secondary | | | | [phone] | | amenorrhea; | | | | | | Fatigue, unspecified | | | | | | type; Abnormal | | | | | | vaginal bleeding; | | | | | | Threatened | +--------+ + + + + Social [...] + documented as of this encounter Progress Notes Hari Garcia MD - 08/18/2019 11:45 AM PDT You have chosen to receive care through the use of telemedicine. Telemedicine enables [facility] care providers at different locations to provide safe, effective and convenient care throu gh the use of technology. As with any health care service, there are risks associated with t he use of telemedicine, including equipment failure, poor image resolution and information s ecurity issues. Do you understand the risks and benefits of telemedicine as I have explained them to you? " Yes" Have your questions regarding telemedicine been answered? "Yes" Patient is currently at home Do you consent to the use of telemedicine in your medical care today? Yes. Last question, I need to confirm where are you physically located right now? Answer: Patient confirms they are located in a state where I,Hari Garcia MD am licensed . Subjective: [facility] Virtual: [id number] real-time secure synchronous vi diony visit. Patient acknowledged the Authorization to Treat and Notice of Privacy Practice prior to con nection. Provider location: [facility] Quality of connection: video and audio working Verification: location of patient at the time of visit: [place], [place] Photo ID: on file : [id number] Primary care provider: Hari Garcia MD SUBJECTIVE: CC: Vaginal bleeding, secondary amenorrhea SUBJECTIVE:: Rashmi Holcomb is a 29 y.o. female who presents today via web visit for eval uation. Seen in walk in after phone discussion with my nursing staff earlier this week. Has had 2 weeks of heavy vaginal bleeding with large clots and tissue production that she s ays is not dissimilar to her previous spontaneous . Has not had regular periods of the last 3 to 6 months and was previously trying to get but has had difficulty with regular cycling. Last recorded "normal" Was at least 4 months ago. Seen in walk-in where they prescribed Provera for 7 days 10 mg. Patient reports she is continued to bleed today. She did not believe that they took any kind of lab work related to her potential for anemia . They recommended a vitamin with iron. She also does not know if she had a pregn lubna test but they did collect a urine that was positive for dehydration but negative for in fection. Has a known history of PCOS. Managed [facility]nec[facility] by Dr. [facility] in [place]. Lives in [place] has difficulty traveling to [place] due to her j ob as well as the current travel restrictions staying home related to the COVID-19 pandemic. COVID-19 ROS: (bold if positive) Fever, chills Eye discharge, redness Sore throat Postnasal drip Nasal congestion Rhinorrhea Sinus/tooth pain Ear pain Productive cough Dry cough Shortness of breath Wheezing Muscle aches Nausea, vomiting or diarrhea Chest pain Rash Change in urination - frequency, pain Dizziness, feeling faint or about to pass out Recent Ill Contacts History of chronic rhinitis ("allergies" or "hay fever") History of reactive airways, asthma or emphysema Current smoker Former smoker Flu vaccine this year if during flu season or Immunity low (e.g. steroids, HIV, history of splenectomy) Review of Systems ROS 14 systems neg, unless otherwise noted in HPI. 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 (approx 800mg for 30 minute EGD/Colon). Nontoxic uninodular goiter 03/30/2019 Prediabetes 08/18/2018 Nausea with vomiting 02/11/2018 Esophagitis determined by biopsy 02/11/2018 Abdominal pain, unspecified abdominal location 04/27/2017 Nausea 04/27/2017 Anxiety 04/27/2017 Morbid obesity with BMI of 40.0-44.9, adult ([facility]) 04/27/2017 Allergies Allergen Reactions Banana Anaphylaxis Rashid [Phaseolus] Anaphylaxis All legumes (peanuts are OK) Bee Venom Anaphylaxis Blue Dyes (Parenteral) Hives and Itching Blue dye #3 Rich Hives and Itching Red Dye Hives and Itching Red Dye #40 Topamax [Topiramate] Other (See Comments) and Headache Confused and unable to focus. Amoxicillin Hives and Nausea And Vomiting Codeine Hives and Nausea And Vomiting Ogilvie Hives Patient Reported Taking No current medications. Past Medical History: Diagnosis Date Abdominal pain Anxiety Asthma Back pain Heart murmur Nausea and vomiting Neutrophilic leukocytosis PCOS (polycystic ovarian syndrome) Psoriasis 1992 Social History Tobacco Use Smoking status: Current Every Day Smoker Packs/day: 0.50 Years: 14.00 Pack years: 7.00 Types: Cigarettes Start date: 04/25/2018 Smokeless tobacco: Never Used Substance Use Topics Alcohol use: Yes Comment: 1-2 drinks every two weeks Objective: Provider- Directed Patient assisted self- exam and observational assessment: Physical Exam Constitutional: She is oriented to person, place, and time and well-developed, well-nourish ed, and in no distress. HENT: Head: Normocephalic and atraumatic. Right Ear: External ear normal. Left Ear: External ear normal. Eyes: Pupils are equal, round, and reactive to light. Conjunctivae and EOM are normal. Righ t eye exhibits no discharge. Left eye exhibits no discharge. Neck: Normal range of motion. Cardiovascular: Normal rate. Pulmonary/Chest: Effort normal. No respiratory distress. Abdominal: She exhibits no distension. There is no abdominal tenderness (negative with mark ent direct palpation in 4 quadrants). Neurological: She is alert and oriented to person, place, and time. No cranial nerve defici t. Gait normal. GCS score is 15. Skin: Skin is warm and dry. Psychiatric: Affect and judgment normal. Vitals reviewed. Patient reports that she did not have a vaginal exam in the walk-in clinic. Assessment/Plan: 1. Morbid obesity with BMI of 40.0-44.9, adult (HCC) - ferrous gluconate (FERGON) 324 mg tablet; Take 1 tablet by mouth 2 times daily (with panda kfast & dinner). Dispense: 60 tablet; Refill: 2 - docusate sodium (COLACE) 100 mg capsule; Take 1 capsule by mouth 2 times daily. Dispense : 60 capsule; Refill: 2 2. PCOS (polycystic ovarian syndrome) - ferrous gluconate (FERGON) 324 mg tablet; Take 1 tablet by mouth 2 times daily (with panda kfast & dinner). Dispense: 60 tablet; Refill: 2 - docusate sodium (COLACE) 100 mg capsule; Take 1 capsule by mouth 2 times daily. Dispense : 60 capsule; Refill: 2 3. Secondary amenorrhea - ferrous gluconate (FERGON) 324 mg tablet; Take 1 tablet by mouth 2 times daily (with panda kfast & dinner). Dispense: 60 tablet; Refill: 2 - docusate sodium (COLACE) 100 mg capsule; Take 1 capsule by mouth 2 times daily. Dispense : 60 capsule; Refill: 2 4. Fatigue, unspecified type - ferrous gluconate (FERGON) 324 mg tablet; Take 1 tablet by mouth 2 times daily (with panda kfast & dinner). Dispense: 60 tablet; Refill: 2 - docusate sodium (COLACE) 100 mg capsule; Take 1 capsule by mouth 2 times daily. Dispense : 60 capsule; Refill: 2 Pelvic ultrasound plus labs to evaluate level of anemia as well as beta-hCG to evaluate for missed . Patient with very irregular periods and previous attempts at becoming pre gnant. She likely will need to be treated with OCPs to regulate her secondary amenorrhea as well as evaluate the pelvic anatomy to rule out anatomical/organic cause of her secondary a menorrhea and heavy bleeding. Labs and pelvic ultrasound will be sent to be obtained in [facility]. I strongly recommended the following obtaining these that she should be evaluated e consueloer by myself in person or by her CONSULTANT EDUCATION Dr. Green at the women's clinic. In the interim, patient will begin twice daily iron with laxative due to recent heavy bleed ing. We will titrate dosage based on patient's laboratory results. Pt states understanding of limits of teleconference exam. Risks/benefits of treatment plan including no treatment were discussed. Discussed discharge instruction. AVS will be sent to patient via [employer] where available. This exam was initially conducted via a secure 256-bit AES encrypted bidirectional video se ssion. Service was provided [id number] with the patient via interactive videoconferencing Video start time 11:51 Video end time 12:22 Total time (in minutes) including non [id number] time (reviewing records, documentation, etc..) 40 documented in this enc ounter Plan of Treatment + +---------+--------+ + + | Name | Type | Priori | Associated Diagnoses | Order Schedule | | | | ty | | | + +---------+--------+ + + | CBC no Differential | Lab | Routin | Secondary | 1 Occurrences | | | | e | amenorrhea Abnormal | starting 08/18/2019 | | | | | vaginal bleeding | until 08/17/2020 | + +---------+--------+ + + | Iron and Transferrin | Lab | Routin | Secondary | 1 Occurrences | | | | e | amenorrhea Abnormal | starting 08/18/2019 | | | | | vaginal bleeding | until 08/17/2020 | + +---------+--------+ + + | HCG, Serum, Quant | Lab | Routin | Threatened | 1 Occurrences | | | | e | Secondary | starting 08/18/2019 | | | | | amenorrhea | until 08/17/2020 | | | | | Abnormal vaginal | | | | | | bleeding | | + +---------+--------+ + + | US Pelvis | Imaging | Routin | Morbid obesity | Expected: | | Transabdominal | | e | with BMI of | 08/18/2019, Expires: | | | | | 40.0-44.9, adult | 08/17/2020 | | | | | (HCC) PCOS | | | | | | (polycystic ovarian | | | | | | syndrome) Secondary | | | | | | amenorrhea | | | | | | Fatigue, unspecified | | | | | | type Abnormal | | | | | | vaginal bleeding | | | | | | Threatened | | + +---------+--------+ + + documented as of this encounter Visit Diagnoses + + | Diagnosis | + + | Morbid obesity with BMI of 40.0-44.9, adult (HCC) - Primary | + + | PCOS (polycystic ovarian syndrome) Polycystic ovaries | + + | Secondary amenorrhea Absence of menstruation | + + | Fatigue, unspecified type | + + | Abnormal vaginal bleeding Other specified noninflammatory disorder of vagina | + + | Threatened Threatened , unspecified as to episode of care | + + documented in this encounter
--- OUTSIDE RECORDS SUMMARY | ~2019-12-06 | XMS | Encounter Summary ---
Demographics + + + | Address | [address] | | | [place] [address] | + + + | Home Phone | | + + + | Preferred Language | Unknown | + + + | Marital Status | Single | + + + | Anglican Affiliation | 1013 | + + + | Race | Unknown | + + + | Ethnic Group | Unknown | + + + Author + + + | Author | [facility] | | | and [place] | + + + | Organization | [facility] | | | and [...] Team Providers + +------+ + | Care Mid Level Business Analyst Name | Role | Phone | + +------+ + | Hari Garcia MD | PCP | | + +------+ + Reason for Visit + +--------+ + | Reason | Onset | Comments | | | Date | | + +--------+ + | Medication Refill | 04/20/ | | | | 2018 | | + +--------+ + Encounter Details +--------+--------+ + + + | Date | Type | Department | Care Team | Description | +--------+--------+ + + + | 04/20/ | Refill | [facility] | Hari Garcia MD | Medication Refill | | 2017 | | [facility] [place] | [address] | | | | | [address] | [address], | | | | | [place] | [place] [address] | | | | | [address] | [phone] | | | | | [phone] | | | +--------+--------+ + + + [...]
--- OUTSIDE RECORDS SUMMARY | ~2019-12-06 | XMS | Encounter Summary ---
Demographics + + + | Address | [address] | | | [place] [address] | + + + | Home Phone [...] + + + | Author | [facility] | | | and [place] | + + + | Organization | [facility] | | | and [place] | [...] Team Providers + +------+ + | Care Circuit Clerk Name | Role | Phone | + +------+ + | Hari Garcia MD | PCP | | + +------+ + Reason for Visit + +--------+ + | Reason | Onset | Comments | | | Date | | + +--------+ + | Coughing Up Blood | 03/21/ | | | | 2018 | | + +--------+ + | Hematemesis | 03/21/ | | | | 2018 | | + +--------+ + Encounter Details +--------+ + + + + | Date | Type | Department | Care Team | Description | +--------+ + + + + | 03/21/ | Telephone | [facility] | Hari Garcia MD | Coughing Up Blood; | | 2019 | | MEDICINE [place] | [address] | Hematemesis | | | | [address] | [address], | | | | | [place] | [place] [address] | | | | | [address] | [phone] | | | | | [phone] | | | +--------+ + + + [...] this encounter Miscellaneous Notes Telephone Encounter - Love Sanderson RN - 03/21/2019 11:03 AM PSTPatient calls. Last couple of weeks she has coughed up deep red blood combined with clear phlegm almost da flaca. Last night she woke up vomiting up blood. "It was very scary." Advised patient to be seen at the ER. Patient agrees to this plan. documented in this encounter Plan of Treatment Not on filedocumented as of this encounter Visit Diagnoses Not on filedocumented in this encounter
--- OUTSIDE RECORDS SUMMARY | ~2019-12-06 | XMS | Encounter Summary ---
Demographics + + + | Address | [address] | | | [place] [address] | + + + | Home Phone | | + + + | Preferred Language | Unknown | + + + | Marital Status | Single | + + + | Judaism Affiliation | 1013 | + + + | Race | Unknown | + + + | Ethnic Group | Unknown | + + + Author + + + | Author | [facility] | | | and [place] | + + + | Organization | [facility] | | | and [place] [...] Team Providers + +------+ + | Care Conductor Orchestra Name | Role | Phone | + +------+ + | Hari Garcia MD | PCP | | + +------+ + Reason for Visit + +--------+ + | Reason | Onset | Comments | | | Date | | + +--------+ + | Medication Refill | 07/01/ | | | | 2019 | | + +--------+ + Encounter Details +--------+--------+ + + + | Date | Type | Department | Care Team | Description | +--------+--------+ + + + | 07/01/ | Refill | [facility] | Hari Garcia MD | Medication Refill | | 2019 | | MEDICINE [place] | [address] | | | | | [address] | [address], | | | | | [place] | [place] [address] | | | | | [address] | [phone] | | | | | [phone] | | | +--------+--------+ + + + [...]
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
--- OUTSIDE RECORDS SUMMARY | ~2019-12-06 | XMS | Encounter Summary ---
Demographics + + + | Address | [address] | | | [place] [address] | + + + | Home Phone [...] Author | [facility] | | | and Attilaana | + + + | Organization | [facility] | | | and [...] Team Providers + +------+ + | Care Kiln Fireman Name | Role | Phone | + +------+ + | Colton Singer DO | PCP | | + +------+ + Reason for Visit + +--------+ + | Reason | Onset | Comments | | | Date | | + +--------+ + | Appointment | 06/08/ | | | | 2017 | | + +--------+ + Encounter Details +--------+ + + + + | Date | Type | Department | Care Team | Description | +--------+ + + + + | 06/08/ | Telephone | [facility] | Horace Carlos MD | Appointment | | 2018 | | GASTROENTEROLOGY | [address] | | | | | [address] [facility] | [place], [place] | | | | | [address] [place], [place] | [address] | | | | | [address] | [phone] | | | | | [phone] | | | +--------+ + + + [...] this encounter Miscellaneous Notes Telephone Encounter - Ramya Kimball - 06/10/2017 10:18 AM PSTCalled patient to schedule follow-up appointment, patient advised she doesn't think a follow-up is needed at this time as she is feeling better. Patient was advised that if, she'd like to schedule a follow-up la lauren, to please contact our office. 10: 20 AM PSTTelephone Encounter - Faviola Becker - 06/08/2017 3:08 PM PST1st Attempt: LVM f or patient to schedule an office visit follow up with Dr. Carlos, end of Jun, beginning of [facility]. Notes with Bellaon docu mented in this encounter Plan of Treatment Not on filedocumented as of this encounter Visit Diagnoses Not on filedocumented in this encounter"
--- OUTSIDE RECORDS SUMMARY | ~2019-12-06 | XMS | Encounter Summary ---
Demographics + + + | Address | [address] | | | [place] [address] | + + + | Home Phone | | + + + | Preferred Language | Unknown | + + + | Marital Status | Single | + + + | Yarsanism Affiliation | 1013 | + + + | Race | Unknown | + + + | Ethnic Group | Unknown | + + + Author + + + | Author | [facility] | | | and Attilaana | + + + | Organization | [facility] | | [...] Team Providers + +------+ + | Care Cisco Certified Network Professional Name | Role | Phone | + [...] | | | | Procedures | | [place], | | | | | [place] | | [place] [address] | | | | | THYROIDECTOM | | Phone: | | | | | Y Right | | [phone] | | | | | thyroid | | Fax: | | | | | lobectomy | | [phone] | | | | | with rapid [...] Description | +--------+---------+ + + + | 06/20/ | Surgery | [facility] | Matthias Wiley MD | Right thyroid | | 2019 | | MED CTR OR INTRA OP | [address] | lobectomy with rapid | | | | [address] | [address] | frozen section | | | | [place], [place] | [place] [address] | | | | | [address] | [phone] | | | | | [phone] | | | +--------+---------+ + + + [...] + + + | Blood Pressure | 121/48 | 06/20/2019 12:05 PM | | | | | PST | | + + + + + | Pulse | 90 | 06/20/2019 12:10 PM | | | | | PST | | + + + + + | Temperature | 36.4 C (97.5 F) | 06/20/2019 11:16 AM | | | | | PST | | + + + + + | Respiratory Rate | 15 | 06/20/2019 12:10 PM | | | | | PST | | + + + + + | Oxygen Saturation | 94% | 06/20/2019 12:10 PM | | | | | PST [...] by: Matthias Wiley MD, 06/20/2019 9:55 AM [facility] signed by Matthias Wiley MD at 2019 9:55 AM PSTCumberland Hall HospitalMatthias MD - 06/20/2019 8:49 AM PST Matthias [...] left lobe. She is unaware of any [facility] history of thyroid disease or cancer. PAST MEDICAL HISTORY: Past Medical History: Diagnosis Date Abdominal pain Anxiety Asthma Heart murmur Nausea and vomiting Neutrophilic leukocytosis PCOS (polycystic ovarian syndrome) PAST SURGICAL HISTORY: Past Surgical History: Procedure Laterality Date SECTION COLONOSCOPY N/A 05/19/2017 Procedure: COLONOSCOPY; Surgeon: Horace Carlos MD; Location: [facility] MEDICAL PROCEDURE UN IT THYROID FINE NEEDLE ASPIRATION 07/21/2018 Procedure: US GUIDED THYROID FNA - Location: [facility] ULTRASOUND TONSILLECTOMY UPPER GASTROINTESTINAL ENDOSCOPY N/A 05/19/2017 Procedure: EGD; Surgeon: Horace Carlos MD; Location: [facility] MEDICAL PROCEDURE UNIT UPPER GASTROINTESTINAL ENDOSCOPY N/A 02/16/2018 Procedure: EGD; Surgeon: Horace Carlos MD; Location: [facility] MEDICAL PROCEDURE UNIT SOCIAL HISTORY: The patient [...] Vomiting Codeine Hives and Nausea And Vomiting [place] Hives REVIEW OF SYSTEMS: GENERALLY: No fever, [...] accordingly. ELECTRONICALLY SIGNED BY: Matthias Wiley MD [facility] - 12/2019 4:47 PM PST Matthias [...] Procedure: COLONOSCOPY; Surgeon: Horace Carlos MD; Location: [facility] MEDICAL PROCEDURE UN IT THYROID FINE NEEDLE ASPIRATION 07/21/2018 Procedure: US GUIDED THYROID FNA - Location: [facility] ULTRASOUND TONSILLECTOMY UPPER GASTROINTESTINAL ENDOSCOPY N/A 05/19/2017 Procedure: EGD; Surgeon: Horace Carlos MD; Location: [facility] MEDICAL PROCEDURE UNIT UPPER GASTROINTESTINAL ENDOSCOPY N/A 02/16/2018 Procedure: EGD; Surgeon: Horace Carlos MD; Location: [facility] MEDICAL PROCEDURE UNIT SOCIAL HISTORY: The patient [...] Vomiting Codeine Hives and Nausea And Vomiting [place] Hives REVIEW OF SYSTEMS: GENERALLY: No fever, [...] Matthias Wiley MD - 06/20/2019 11:[address] [address] OPERATIVE REPORT MATTHIAS WILEY MD Patient: ADAM HOLCOMB Admitting: MATTHIAS WILEY MR #: [id number] LOC: PT TYPE: Adm Date: 06/20/2019 : 1990 DATE OF SURGERY: 06/20/2019 PREOPERATIVE DIAGNOSIS: Right thyroid nodule. POSTOPERATIVE DIAGNOSIS: Right thyroid nodule. OPERATION PERFORMED: Right thyroid lobectomy with rapid frozen section. OPERATING SURGEON: Matthias Wiley MD GATE MORTISER OPERATOR: French Mann MD FINDINGS: On rapid frozen [...] d from the gland and preserved. The Covidien system was used to seal the inferior [...] Transcribed on 06/20/2019 16:53:21 by [place] job# [id number] Confirmation #: [id number] p Note - Matthias Wiley MD - 06/20/2019 11:12 AM PSTSee dictation #[id number] signed by Matthias Wiley MD at 06/20/2019 11:17 AM PSTBrief Op Note - Matthias Wiley MD - 06/20/2019 11:11 AM PSTFormat ting of this note might be different from the original. BRIEF OPERATIVE NOTE [facility] Pt. Name/Age/: Adam Holcomb 29 y.o. 1990 Med. 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 Anesthesia Provider(s): Anesthesiologist: [...] | | | | WILLIAM OTERO MD ([id number]) | | | | | | on [...] Specific | | | | | | [place], | | | | | | POC | | | | | + + + + + + | Lot Number | [id number] | | | | + + + [...] | | POC | | | [facility] | | [...] ST. | [address] | [place], [place] | [phone] | | [facility] | | [address] | | | - LABORATORY | | | | + + + + + Surgical Pathology Exam (06/20/2019 12:00 AM PST) + + | Specimen | + + | | + + + + + | Narrative | Performed At | + + + | SPECIMEN(S): A RIGHT THYROID SPECIMEN SOURCE: A. RIGHT THYROID | [facility] | | CLINICAL HISTORY: E04.1 (nontoxic [...] dense fibrosis and calcifications. | | | CLR:h:C2NR MICROSCOPIC EXAMINATION: Histologic sections of all | [...] component was | | | performed by [facility], [address] [place] [address] | | | (Hand Box Coverer: Gabby Noble MD; CLIA# [id number]). Professional | | | frozen section interpretation was performed by [facility], | | | [facility], [facility] | | | [place] [address] (Hand Box Coverer: Benson Perez M.D.; | | | CLIA#: [id number]). Professional interpretation was performed by | | | [facility], [facility], [address] | | | [place] [address] (Hand Box Coverer: Benson Perez M.D.; CLIA#: [id number]). Diagnostician: Benson Rose | Aly Perez MD Pathologist Electronically Signed 06/22/2019 | | + + + + +---------+ + + | Performing | Address | City/State/[facility]code | Phone Number | | Organization | [...] | | | | | | longer, jzzjiy-ghb-ppjvq use of | | | | | [...] PST | | | | +---------+ +---+-------+---+ +---+---+ | | | +---+---+ + +-------+ +-------+---+ + | lidocaine 1%-EPINEPHrine | Given | 06/20/19 | 5 mLs | | Surgical | | 1:100,000 injection PRN, | | 20 10:15 | | | Site | | Starting 06/20/19 at 1015, | | AM PST | | | | | Intra-op | | | | | | + +-------+ +-------+---+ + + +---+ | | | + +---+ | meperidine (DEMEROL) injection | | | 12.5-25 mg 12.5-25 mg, | | | Intravenous, PRN, Shivering, | | | Starting Wed06/20/19 at 1145, For | | | 2 doses, May Repeat once in 5 | | | min., Recovery/Phase I | | + +---+ | | | + +---+ | ondansetron (ZOFRAN) injection | | | 4 mg 4 mg, Intravenous, EVERY 4 | | | HOURS PRN, Nausea, Vomiting, | | | Starting Wed06/20/19 at 1145, | | | Recovery/Phase I | | + +---+ | | | + +---+ + +---------+ +---------+---+ + | scopolamine (TRANSDERM-SCOP) 1 | Patch | 06/20/19 | 1 patch | | Ear-Behi | | mg/3 days 1 patch 1 patch, | Applied | 20 9:45 | | | nd Left | | Transdermal, ONCE, Wed06/20/19 at | | AM PST | | [...] | | | | | Pain, Starting 06/20/19 at | | PM PST | | | | | 1349, Post-op/Phase II | | | | | | + +-------+ +-------+---+---+ +---+---+ | | | +---+---+ documented in this encounter
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
--- OUTSIDE RECORDS SUMMARY | ~2019-12-06 | XMS | Encounter Summary ---
Demographics + + + | Address | [address] | | | [place] [address] | + + + | Home Phone | | + + + | Preferred Language | Unknown | + + + | Marital Status | Single | + + + | Worship Affiliation | 1013 | + + + | Race | Unknown | + + + | Ethnic Group | Unknown | + + + Author + + + | Author | [facility] | | | and Attilaana | + + + | Organization | [facility] | | | and [...] Team Providers + +------+ + | Care Packing And Wrapping Supervisor Name | Role | Phone | + +------+ + | Hari Garcia MD | PCP | | + +------+ + Reason for Visit + +--------+ + | Reason | Onset | Comments | | | Date | | + +--------+ + | Care Coordination | 10/09/ | | | | 2020 | | + +--------+ + Encounter Details +--------+ + + + + | Date | Type | Department | Care Team | Description | +--------+ + + + + | 10/09/ | Telephone | [facility] | Becca Aguilar, | Care Coordination | | 2020 | | POPULATION [facility]ALTH | BACTERIOLOGY TEACHER | | | | | [address] | | | | | | [address] | | | | | | [place] [address] | | | | | | [phone] | | | +--------+ + + + [...] this encounter Miscellaneous Notes Telephone Encounter - Becca Aguilar MSW - 10/17/2019 12:26 PM Thiago DIEZ sent updated [place] & Utility relief information to Rashmi. Electronically signed by MICHAEL Bravo at 0 10/17/2019 12:26 PM PDTTelephone Encounter - Becca Aguilar MSW - 10/11/2019 1:18 PM Franklyn DIEZ faxed referral to [facility] and called to confirm receipt of fax . Message left requesting a return call. This SW sent an email to Rashmi with housing and utility relief information attached. A flight engineer helicopter y of the email below: Greyson Caraballo, Thanks so much for speaking with me yesterday! I faxed the referral for counseling to [facility]. Here s their contact information: [facility] [address] [place] [address] [place] [id number] . They will review the re ferral and contact you to schedule an appointment. Attached you ll find the Housing and Utility Relief information. I ve asked [facility] to send an updated sheet if one exists and will forward to you [facility]. I ve contact janell VILLA and [facility] to see if there are programs similar to the Disaster Spencer Program in [facility]. The field support representative at [facility] shared there isn t a program like the one in [place] h missyever, she did share that many [place] are newly eligible for state assistance. She rec ommends applying for SNAP benefits first (first link on the list) and contacting [facility] (last link below). https://apps.state.or.us/onlineApplication/ - start here food benefit application will help open door for rental assistance and energy assistance. https://[place].org/ https://www.[place].gov/dhs/Pages/index.aspx https://www.adr[place]foregon.org/consite/index.php - this is a wonderful resource according to [facility] This may seem like a lot given your schedule but please know we are here to help and offer assistance so feel free to contact me anytime. The [facility] person I spoke with was very helpfu l as well. . Thanks, Becca [phone] elephone Encounter - Hari Garcia MD - 10/10/2019 2:51 PM PDTReferral was ordered. Who will faci litate faxing the referral? CC: 1017 Clinical Team, [facility], Auth team elephone Encounter - Becca Aguilar MSW - 10/10/2019 1:19 PM PD TThis SW contacted Rashmi for wellness check. She had an appointment scheduled at [facility] bu t missed d/t work obligations. She would be interested in a referral to [facility]. They have ope nings and accept Medicare. A counseling eferral will need to be faxed to [phone]. Psychological Services will re view and assign a counselor then contact Rashmi to schedule an appointment. Rashmi shared that Mondays are the best days for her. This SW to email housing and utility information to Rashmi. This SW to search to see if [place] has a Disaster [place] assistance program similar to [place] for either/both Rashmi and her fidaniele. This SW offered her contact information so Rashmi can call or text if she needs additional se rvices/resources. docu mented in this encounter Plan of Treatment Not on filedocumented as of this encounter Visit Diagnoses Not on filedocumented in this encounter"
--- OUTSIDE RECORDS SUMMARY | ~2019-12-06 | XMS | Encounter Summary ---
Demographics + + + | Address | [address] | | | [place] [address] | + + + | Home Phone [...] + + + | Author | [facility] | | | and Attilaana | + + + | Organization | [facility] [...] Team Providers + +------+ + | Care Non Destructive Tester Name | Role | Phone | + [...] + + | 04/16/ | Emergency | [facility] | Kaveh Karimi, | Abdominal pain, | | 2017 | | [facility] | MD [address] | unspecified | | | | CENTER [address] | [place], [place] | abdominal location | | | | [place], [place] | [address] | (Primary Dx) | | | | [address] | | | | | | [phone] | | | +--------+ + + + [...] be sent through Care Everywhere.Abdominal Pain, Adult (Paraguayan)documented in this encounter Medications at Time of [...] + + documented as of this encounter ED Notes Kaveh Karimi MD - 04/16/2017 5:07 PM PSTFormatting of this note might be different fro m the original. eMERGENCY dEPARTMENT eNCOUnter CHIEF COMPLAINT Chief Complaint Patient presents with Abdominal Pain HPI Adam Holcomb is a 26 y.o. female who presents with abdominal pain. She states she's had abdominal pain for the last 2 weeks. She was seen here about a week ago and had a CT scan o f blood work which was unremarkable other than a mildly elevated white blood cell count at t hat time. She states she continues to have crampy abdominal pain off and on. She has not e stablished care with the family doctor. She's had some nausea but no vomiting. No blood in her stool. No other associated symptoms. PAST MEDICAL HISTORY Past Medical History: Diagnosis Date Anxiety Asthma PCOS (polycystic ovarian syndrome) SURGICAL HISTORY Past Surgical History: Procedure Laterality Date SECTION CURRENT MEDICATIONS Previous Medications OMEPRAZOLE (PRILOSEC) 40 MG CAPSULE Take 1 capsule by mouth every morning (before break fast). SUCRALFATE (CARAFATE) 1 G TABLET Take 1 tablet by mouth 4 times daily. UNKNOWN TO PATIENT " control pill" ALLERGIES Allergies Allergen Reactions Amoxicillin Hives and Nausea And Vomiting Codeine Hives and Nausea And Vomiting [place] Hives FAMILY HISTORY No family history on file. SOCIAL HISTORY Social History Social History Marital status: Single Spouse name: N/A Number of children: N/A Years of education: N/A Social History Main Topics Smoking status: Never Smoker Smokeless tobacco: Never Used Alcohol use Yes Comment: 2x weekly Drug use: Types: Marijuana Sexual activity: Not on file Other Topics Concern Not on file Social History Narrative No narrative on file REVIEW OF SYSTEMS All systems reviewed and negative except as noted on HPI and/or limited by patient conditio n PHYSICAL EXAM VITAL SIGNS: Temp: 37.3 C (99.1 F) Pulse: 61 Resp: 16 SpO2: 99 % BP: 113/65 Constitutional: Well developed, Well nourished, No acute distress, Non-toxic appearance. HENT: Normocephalic, Atraumatic, Oropharynx moist, No oral exudates, Nose normal. Neck- No rmal range of motion, No tenderness, Supple, No stridor. Eyes: PERRL, EOMI, Conjunctiva normal, No discharge. Respiratory: Normal breath sounds, No wheezing, No chest tenderness. Cardiovascular: Normal S1, S2 GI: nondistended, minimal diffuse 1+ tenderness without peritonitis : not done Musculoskeletal: Intact distal pulses, No edema ,Integument: Warm, Dry, No erythema, No rash. EKG Not done RADIOLOGY Ultrasound negative for gallstones ED COURSE & MEDICAL DECISION MAKING Last Set of Vital Signs: Temp: 37.3 C (99.1 F) Pulse: 61 Resp: 16 SpO2: 99 % BP: 113/65 Pertinent Labs, Nurses Note, & Imaging studies reviewed. (See chart for details) 26 -year-old female with nonspecific abdominal pain for several weeks. Blood work is unrem arkable. Ultrasound negative. She was referred on to GI and told to come back if worse. S he is comfortable with this plan. Abdominal exam is completely benign. FINAL IMPRESSION Abdominal pain LABS FROM THIS VISIT OR MOST RECENT ER VISIT: Results for orders placed or performed during the hospital encounter of 04/11/17 Culture, Urine Result Value Ref Range Culture >100,000 CFU/ml Gardnerella vaginalis presumptive Lipase Result Value Ref Range LIPASE 23 0 - 60 U/L CBC w/ Auto Differential Result Value Ref Range WBC 15.0 (H) 4.0 - 11.0 K/uL RBC 4.48 3.70 - 5.20 M/uL Hgb 13.4 11.5 - 16.0 g/dL Hct 38.7 34.0 - 47.0 % MCV 86.4 83.0 - 101.0 fL MCH 29.9 28.0 - 35.0 pg MCHC 34.6 32.0 - 36.0 g/dL RDW-CV 12.8 <15.0 % Platelet Count 342 140 - 440 K/uL MPV 8.1 fL % Neutrophils 65.7 45.0 - 82.0 % % Lymphocytes 25.2 20.0 - 45.0 % % Monocytes 4.2 4.0 - 12.0 % % Eosinophils 3.9 0.0 - 5.0 % % Basophils 1.0 0.0 - 1.0 % Absolute Neutrophils 9.80 (H) 1.80 - 8.50 K/uL Absolute Lymphocytes 3.80 (H) 0.60 - 3.20 K/uL Absolute Monocytes 0.60 0.00 - 1.00 K/uL Absolute Eosinophils 0.60 (H) 0.00 - 0.40 K/uL Absolute Basophils 0.20 (H) 0.00 - 0.10 K/uL Comprehensive Metabolic Panel Result Value Ref Range NA 138 136 - 149 mmol/L K 3.7 3.5 - 5.1 mmol/L CL 109 98 - 109 mmol/L CO2 23 (L) 24 - 31 mmol/L ANION GAP 6 3 - 16 mmol/L GLUCOSE 107 70 - 109 mg/dL BUN 12 7 - 18 mg/dL Creatinine, Serum/Plasma 0.66 0.60 - 1.30 mg/dL eGFR if not >60 >=60 mL/min/1.73m2 CALCIUM 9.3 8.3 - 10.5 mg/dL ALBUMIN 3.6 3.2 - 5.0 g/dL BILIRUBIN TOTAL 0.3 0.1 - 1.5 mg/dL Total protein 6.7 6.0 - 7.8 g/dL AST 14 10 - 42 U/L ALT 10 6 - 45 U/L ALK PHOS 62 40 - 110 U/L GLOBULIN 3.1 2.1 - 3.8 g/dL Albumin/Globulin ratio 1.2 0.8 - 2.0 BUN/CREA 18.2 HCG, Serum, Quant Result Value Ref Range hCG Quant, Serum 0 0 - 1 mIU/mL Urinalysis with Microscopic with Culture if Indicated Result Value Ref Range COLOR Yellow Light Yellow, Yellow, Straw CLARITY Cloudy (A) Clear PH UA 6.0 5.0 - 8.0 Specific [place] 1.017 1.001 - 1.030 PROTEIN UA Negative Negative BLOOD UA Negative Negative GLUCOSE UA Negative Negative KETONES UA Negative Negative BILIRUBIN UA Negative Negative NITRITE UA Negative Negative LEUKOCYTES ESTERASE UA Large (A) Negative UROBILINOGEN UA Negative 0.2 mg/dL, 1.0 mg/dL, Negative WBC UA 25-50 (A) 0 - 2 /HPF RBC UA 2-5 (A) 0 - 2 /HPF SQUAMOUS EPITHELIAL UA >100 (A) 0 - 2 /LPF BACTERIA UA 1+ (A) Negative /HPF MUCUS UA Present (A) Negative /LPF URINE COMMENT Urine Culture Set Up Kaveh Karimi MD 04/16/171932 avy, Helene Caceres RN - 04/16/2017 4:50 PM PSTPt presents with midline periumbilical abd pain onset 5 days ago; p t seen/tx here in Ed on the first day. States her symptoms have not resolved. Has nausea wit h the pain, pain worse after meals. Hx of bleeding ulcers 2 years ago. documented in this encounter Plan of Treatment + +------+--------+ + + | Name | [...] | + +--------+ + + + | ED INFORMATION | Routin | 04/16/2017 | | | | EXCHANGE | e | 4:30 PM | | | | | | PST | | | + +--------+ + + + +---+--------+ | | | | | Proced | | | ure | | | Note - | | | Keshia, | | | Lab In | | | | | | Hlseve | | | n - | | | 04/16/ | | | 2016 | | | 4:31 | | | PM PST | | | | | | Format | | | ting | | | of | | | this | | | note | | | might | | | be | | | differ | | | ent | | | from | | | the | | | origin | | | al.KESHIA | | | E?NOTI | | | FICATI | | | ON?/ | | | | | | 7 | | | 16:26? | | | FOSTER, | | | ADAM | | | R?MRN: | | | | | | [id number] | | | [id number] | | | his | | | patien | | | t has | | | regist | | | ered | | | at the | | | | | | Provid | | | ence | | | [facility] | | | Center | | | | | | Emerge | | | ncy | | | Depart | | | ment | | | For | | | more | | | inform | | | ation | | | visit: | | | | | | https: | | | //secu | | | [email or web address] | | | ecarep | | | [email or web address] | | | m/mark | | | ent/2e | | | [id number] | | | -[phone]- | | | [phone] | | | [phone]-af | | | [id number] | | | 31cf | | | ED | | | Care | | | Guidel | | | inesTh | | | ere | | | are | | | curren | | | tly no | | | ED | | | Care | | | Guidel | | | tito | | | in | | | SITA | | | for | | | this | | | patien | | | t. | | | Please | | | check | | | your | | | facili | | | ty's | | | medica | | | l | | | record | | | s | | | system | | | .Recen | | | t | | | Emerge | | | ncy | | | Depart | | | ment | | | Visit | | | [facility] | | | yAdmit | | | Date | | | Facili | | | ty | | | City | | | State | | | Type | | | Major | | | Type | | | Diagno | | | ses or | | | Chief | | | | | | Compla | | | int | | | Dec 8, | | | 2017 | | | Provid | | | ence | | | [facility] | [place] | | | [place] | | | Emerge | | | ncy | | | Emerge | | | ncy | | | abd | | | pain | | | Dec 8, | | | 2017 | | | [facility] | | | [place] | | | Urgent | | | Care | | | [place] | | | [place] | | | Urgent | | | Care | | | | | | Outpat | | | ient | | | | | | Proced | | | ure | | | and | | | treatm | | | ent | | | not | | | addy | | | d out | | | due to | | | | | | patien | | | t | | | leavin | | | g | | | prior | | | to | | | being | | | seen | | | by | | | health | | | care | | | provid | | | er | | | Dec 3, | | | 2017 | | | Provid | | | ence | | | [facility] | [place] | | | [place] | | | Emerge | | | ncy | | | Emerge | | | ncy | | | abd | | | pain | | | | | | Abdomi | | | nal | | | Pain | | | | | | Disord | | | er of | | | white | | | blood | | | cells, | | | | | | unspec | | | ified | | | | | | Nausea | | | with | | | vomiti | | | ng, | | | unspec | | | ified | | | | | | Epigas | | | tric | | | pain | | | E.D. | | | Visit | | | Count | | | (12 | | | mo.)Fa | | | cility | | | | | | Visits | | | Low | | | [facility] | | | | | | Cent[facility] | | | l | | | [facility] | | | [facility] | | | Hospit | | | al 4 0 | | | | | | Provid | | | ence | | | [facility] | | [facility] | | | Medica | | | l | | | Center | | | 2 0 | | | Total | | | 6 0 | | | Note: | | | Visits | | | | | | indica | | | te | | | total | | | known | | | visits | | | . | | | Medica | | | id Low | | | | | | Acuity | | | Dx | | | are | | | the | | | number | | | of | | | primar | | | y | | | diagno | | | ses on | | | the | | | Medica | | | id's | | | Low | | | Acuity | | | dx | | | list. | | | | | | Recent | | | | | | Inpati | | | ent | | | Visit | | | [facility] | | | yNo | | | record | | | ed | | | inpati | | | ent | | | visits | | | . PDMP | | | | | | Report | | | PDMP | | | query | | | found | | | no | | | report | | | .Care | | | Provid | | | ersEDI | | | E has | | | no | | | care | | | provid | | | ers on | | | | | | record | | | at | | | this | | | time. | | | Criter | | | ia met | | | | | | Medica | | | id 5 | | | in | | | 12Know | | | n | | | Aliase | | | sNo | | | known | | | aliase | | | s. The | | | above | | | | | | inform | | | ation | | | is | | | provid | | | ed for | | | the | | | sole | | | purpos | | | e of | | | patien | | | t | | | treatm | | | ent. | | | Use of | | | this | | | inform | | | ation | | | beyond | | | the | | | terms | | | of | | | Data | | | Sharin | | | g | | | Memora | | | ndum | | | of | | | Unders | | | tandin | | | g and | | | Licens | | | e | | | Agreem | | | ent is | | | | | | prohib | | | ited. | | | In | | | certai | | | n | | | cases | | | not | | | all | | | visits | | | may | | | be | | | repres | | | ented. | | | | | | Consul | | | t the | | | aforem | | | ention | | | ed | | | facili | | | ties | | | for | | | additi | | | onal | | | inform | | | ation. | | | ? | | | 2016 | | | Collec | | | tive | | | Medica | | | l | | | [employer] | | | logies | | | , Inc[employer] | | | - | | | [place] | | | [place] | | | [place], | | | [place] - | | | info@c | | | ollect | | | ivemed | | | icalte | | | ch.[email or web address] | | | | +---+--------+ documented in this encounter Results US Abdomen [...] | Procedure Note | + + | Keshia, Rad Results In - 04/16/2017 8:47 PM [...] | Top Tube | | | [facility] | | | | | | MEDICAL [...] + | [facility] | [address] | [place], [place] | [phone] | | [facility] | | [address] | | | - LABORATORY | | [...] | | Top Tube | | | [facility] | | [...] ST. | [address] | [place] | [phone] | | [facility] | | [address] | | | - LABORATORY | | [...] | Top Tube | | | [facility] | | | | | | MEDICAL [...] + | [facility] | [address] | [place] | [phone] | | [facility] | | [address] | | | - LABORATORY | | [...] | [address] | [place] | [phone] | | [facility] | | [address] | | | - LABORATORY | | [...] | | | | mmol/L | [facility] | | | | | | MEDICAL | | | | | | CENTER - | | | | | | LABORATORY | | + + + + + + | K | 4.1 | 3.5 - 5.1 | [facility] | | | | | mmol/L | [facility] | | | | | | [facility]ICAL | | | | | | CENTER - | | | | | | LABORATORY | | + + + + + + | Cl | 107 | 98 - 109 mmol/L | [facility] | | | | | [facility] | | | | | | MEDICAL | | | | | | CENTER - | | | | | | LABORATORY | | + + + + + + | CO2 | 26 | 24 - 31 mmol/L | [facility] | [facility] | [facility] | | | | | | MEDICAL | | | | | | CENTER - | | | | | | LABORATORY | | + + + + + + | Anion Gap | 6 | 3 - 16 mmol/L | [facility] | | | | | | [facility] | | | | | | MEDICAL [...] | | | | | mg/dL | [facility] | | | | | | MEDICAL | | | | | | CENTER - | | | | | | LABORATORY | | + + + + + + | eGFR, | >60Comment: GLOMERULAR | >=60 | [facility] | | | non- | FILTRATION | mL/min/1.73m2 | [facility] | | | Ethiopian | RATE,ESTIMATED | | MEDICAL | | | | mL/min/1.14x5Mwcm than | | CENTER - | | [...] | | | | | mg/dL | [facility] | | | | | | MEDICAL | | | | | | CENTER - | | | | | | LABORATORY | | + + + + + + | Albumin | 3.5 | 3.2 - 5.0 g/dL | [facility] | | | | | | [facility] | | | | | | MEDICAL | | | | | | CENTER - | | | | | | LABORATORY | | + + + + + + | Bilirubin | 0.5 | 0.1 - 1.5 mg/dL | [facility] | | | Total | | | [facility] | | | | | | MEDICAL | | | | | | CENTER - | | | | | | LABORATORY | | + + + + + + | Total | 6.4 | 6.0 - 7.8 g/dL | [facility] | | | Protein | | | [facility] | | | | | | MEDICAL | | | | | | CENTER - | | | | | | LABORATORY | | + + + + + + | AST | 13 | 10 - 42 U/L | [facility] | | | | | [facility] | | | | | | MEDICAL | | | | | | CENTER - | | | | | | LABORATORY | | + + + + + + | ALT | 11 | 6 - 45 U/L | [facility] | | | | | | [facility] | | | | | | MEDICAL | | | | | | CENTER - | | | | | | LABORATORY | | + + + + + + | Alkaline | 54 | 40 - 110 U/L | [facility] | | | Phosphatase | | | [facility] | | | | | | MEDICAL | | | | | | CENTER - | | | | | | LABORATORY | | + + + + + + | Globulin | 2.9 | 2.1 - 3.8 g/dL | [facility] | | | | | | [facility] | | | | | | MEDICAL | | | | | | CENTER - | | | | | | LABORATORY | | + + + + + + | Albumin/Diane | 1.2 | 0.8 - 2.0 | [facility] | | | bulin Ratio | | | [facility] | | | | | | MEDICAL | | | | | | CENTER - | | | | | | LABORATORY | | + + + + + + | BUN/Creatin | 12.5 | | [facility] | | | ine Ratio | | | [facility] | | | | | | MEDICAL [address] | [place] | [phone] | | [facility] | | [address] | | | - LABORATORY | | | | + + + + + CBC no Differential (04/16/2017 5:53 PM PST) + + + + + + | Component | Value | Ref Range | Performed | Pathologist | | | | | At | Signature | + + + + + + | White Blood | 11.1 (H) | 4.0 - 11.0 K/uL | [facility] | | | Cells | | | [facility] | | | | | [facility] | | | | | | CENTER - | | | | | | LABORATORY | | + + + + + + | Red Blood | 4.36 | 3.70 - 5.20 | [facility] | | | Cells | | M/uL | . [facility] | | | | | | MEDICAL | | | | | | CENTER - | | | | | | LABORATORY | | + + + + + + | Hemoglobin | 12.8 | 11.5 - 16.0 | [facility] | | | | | g/dL | [facility] | | | | | | [facility] | | | | | | CENTER - | | | | | | LABORATORY | | + + + + + + | Hematocrit | 38.2 | 34.0 - 47.0 % | [facility] | | | | | [facility] | | | | | | MEDICAL | | | | | | CENTER - | | | | | | LABORATORY | | + + + + + + | MCV | 87.6 | 83.0 - 101.0 fL | [facility] | | | | | [facility] | | | | | | MEDICAL | | | | | | CENTER - | | | | | | LABORATORY | | + + + + + + | MCH | 29.3 | 28.0 - 35.0 pg | [facility] | | | | | | [facility] | | | | | | MEDICAL | | | | | | CENTER - | | | | | | LABORATORY | | + + + + + + | MCHC | 33.4 | 32.0 - 36.0 | [facility] | | | | | g/dL | [facility] | | | | | | MEDICAL | | | | | | CENTER - | | | | | | LABORATORY | | + + + + + + | RDW-CV | 13.5 | <15.0 % | [facility] | | | | | [facility] | | | | | | MEDICAL | | | | | | CENTER - | | | | | | LABORATORY | | + + + + + + | Platelet | 299 | 140 - 440 K/uL | [facility] | | | Count | | | [facility] | | | | | | MEDICAL | | | | | | CENTER - | | | | | | LABORATORY | | + + + + + + | MPV | 7.9 | fL | [facility] | | | | | | [facility] | | | | | | MEDICAL [...] [address] | [place] | [phone] | | [facility] | | [address] | | | - LABORATORY | | [...]
--- OUTSIDE RECORDS SUMMARY | ~2019-12-06 | XMS | Encounter Summary ---
Demographics + + + | Address | [address] | | | [place] [address] | + + + | Home Phone [...] | Organization | [facility] Amaya [...] Team Providers + +------+ + | Care Homoeopath Name | Role | Phone | + [...] + | 06/16/ | Telephone | [facility] | Hari Garcia MD | Results | | 2019 | | [facility] | [address] | | | | | [address] | [place] [address] [place], | | | | | [place] | [place] [address] | | | | | [address] | [phone] | | | | | [phone] | | | +--------+ + + + [...] Miscellaneous Notes Telephone Encounter - Chanell Escalona, Fuller Brush Worker - 06/16/2018 1:58 PM PSTPatient reads her [employer] messages regularly, I am going to send a detailed message via [employer]. elephone Encounter - Chanell Escalona, Fuller Brush Worker - 06/16/19 1:58 PM PST----- Message from Hari Garcia MD sent at 06/15/2018 19:10 PST ----- A1c results consistent with prediabetes. Would recommend lifestyle interventions to keep th e blood sugar controlled. We can discuss these interventions at a follow up visit. Please co nfirm follow up with the patient. documented in this encounter Plan of Treatment Not on filedocumented as of this encounter Visit Diagnoses Not on filedocumented in this encounter"
--- OUTSIDE RECORDS SUMMARY | ~2019-12-06 | XMS | Encounter Summary ---
Demographics + + + | Address | [address] | | | [place] [address] | + + + | Home Phone [...] + | Organization | [facility] | | | and [...] Team Providers + +------+ + | Care Aerial Installer Name | Role | Phone | + +------+ + | Hari Garcia MD | PCP | | + +------+ + Reason for Visit + +--------+ + | Reason | Onset | Comments | | | Date | | + +--------+ + | Blurred Vision | 11/28/ | | | | 2019 | | + +--------+ + Encounter Details +--------+ + + + + | Date | Type | Department | Care Team | Description | +--------+ + + + + | 11/28/ | Telephone | [facility] | Hari Garcia MD | Blurred Vision | | 2019 | | MEDICINE [place] | [address] | | | | | [address] | [place] [address] [place], | | | | | [place] | [place] [address] | | | | | [address] | [phone] | | | | | [phone] | | | +--------+ + + + [...] this encounter Miscellaneous Notes Telephone Encounter - Sadia Johnson RN - 01/04/2019 2:17 PM PDTPatient called back. States she had to cancel the appointment she made, so is calling back now to get it resched uled. Transferred her to the Schedulers to make another appointment. [facility] - 11/28/2018 11:08 AM PDTPatient states the blurry vision has been going on for over a year, it would happen about once a month, but now it has happened twice in the last week. She is not having any pain. States that pupils are equally round and reactive. No trauma to eye area. She is comfortable making an appointment with Dr. Garcia for 12/02/18 @ 0845. She is urged to call back with any new symptoms or seek medical attention. elephone Encounter - Helene Braxton - 2018 10:36 AM PDTPatient called stating that she normally gets blurred vision 1 time monthly but now she has got it 2-3 days ago and is having it again. Patient states that she stopped into [facility] and they told her to follow up with her PCP stating that is could be possibly neurological. Patient can be contacted at [phone]. Please advise.Elec tronically signed by Helene Braxton at 11/28/2018 10:40 AM PDTdocumented in this encou nter Plan of Treatment Not on filedocumented as of this encounter Visit Diagnoses Not on filedocumented in this encounter"
--- OUTSIDE RECORDS SUMMARY | ~2019-12-06 | XMS | Encounter Summary ---
Demographics + + + | Address | [address] | | | [place] [address] | + + + | Home Phone | | + + + | Preferred Language | Unknown | + + + | Marital Status | Single | + + + | Episcopal Affiliation | 1013 | + + + | Race | Unknown | + + + | Ethnic Group | Unknown | + + + Author + + + | Author | [facility] | | | and [place] | + + + | Organization | [facility] | | | and [place] [...] Team Providers + +------+ + | Care Handle Bar Assembler Name | Role | Phone | + +------+ + | Hari Garcia MD | PCP | | + +------+ + Reason for Visit +---------+--------+ + | Reason | Onset | Comments | | | Date | | +---------+--------+ + | Imaging | 08/20/ | | | | 2020 | | +---------+--------+ + Encounter Details +--------+ + + + + | Date | Type | Department | Care Team | Description | +--------+ + + + + | 08/20/ | Telephone | [facility] | Hari Garcia MD | Imaging | | 2020 | | [facility] [place] [facility] | [address] | | | | | [place] | [place] [address] [place], | | | | | [address] | [place] [address] | | | | | [place] [address] [place], | [phone] | | | | | [place] [address] | | | | | | [phone] | | | +--------+ + + + [...] Telephone Encounter - Melody Trejo RN - 08/21/2019 9:54 AM PDTReturned call to Jayne noonan. She needed to have "okay for transvag if needed" added to the order. She said it is okay if it is written on there. I printed the order and hand wrote "okay for transvag if needed" and had it sent to the desk sergeant to be faxed to [facility] again. elephone Encounter - Sakina Lopez - 2019 9:03 AM PDTTammy from [facility] left a voicemail on 08/18/2019 asking for a call at [phone] wanting to talk about an order placed for patient. documented in this encounter Plan of Treatment Not on filedocumented as of this encounter Visit Diagnoses Not on filedocumented in this encounter
--- OUTSIDE RECORDS SUMMARY | ~2019-12-06 | XMS | Encounter Summary ---
Demographics + + + | Address | [address] | | | [place] [address] | + + + | Home Phone [...] Author | [facility] | | | and [place] | + + + | Organization | [facility] | [...] Team Providers + +------+ + | Care Transportation Escort Name | Role | Phone | + +------+ + | Colton Singer DO | PCP | | + +------+ + Encounter Details +--------+ + + + + | Date | Type | Department | Care Team | Description | +--------+ + + + + | 04/23/ | Abstract | [facility] [place] | Horace Carlos MD | | | 2017 | | GASTROENTEROLOGY | [address] | | | | | [address] [facility] | [place], [place] | | | | | [address] [place] | [address] | | | | | [address] | [phone] | | | | | [phone] | | | +--------+ + + + [...]
--- OUTSIDE RECORDS SUMMARY | ~2019-12-06 | XMS | Encounter Summary ---
Demographics + + + | Address | [address] | | | [place] [address] | + + + | Home Phone | | + + + | Preferred Language | Unknown | + + + | Marital Status | Single | + + + | Jain Affiliation | 1013 | + + + | Race | Unknown | + + + | Ethnic Group | Unknown | + + + Author + + + | Author | [facility] | | | and [place] | + + + | Organization | [facility] | | | and [place] [...] Team Providers + +------+ + | Care Tank Car Reconditioner Name | Role | Phone | + +------+ + | Colton Singer DO | PCP | | + +------+ + Reason for Visit +--------+--------+ + | Reason | Onset | Comments | | | Date | | +--------+--------+ + | Other | 01/20/ | Patient states she was talking with someone to schedule | | | 2018 | her ultrasound and she was disconnected, please advise. | +--------+--------+ + Encounter Details +--------+ + + + + | Date | Type | Department | Care Team | Description | +--------+ + + + + | | Telephone | [facility] | Promise Cerna | Other (Patient | | 2018 | | CARE [address] | Chi Odonnell MD | states she was | | | | [place] | [address] | talking with someone | | | | [address] | [place] | to schedule her | | | | [phone] | [address] | ultrasound and she | [...] Encounter - Lissette Fernandez Cert MA - 01/20/2018 10:02 AM PDTCalled pt back and wa s transferred to imaging to schedule. eleEstefany Tay - 01/20/2018 7:59 AM PDTPatient states she was talking with someone t o schedule her ultrasound and she was disconnected, please advise. documented in this encounter Plan of Treatment Not on filedocumented as of this encounter Visit Diagnoses Not on filedocumented in this encounter"
--- OUTSIDE RECORDS SUMMARY | ~2019-12-06 | XMS | Encounter Summary ---
Demographics + + + | Address | [address] | | | [place] [address] | + + + | Home Phone [...] | Author | [facility] | | | and [place] | + + + | Organization | [facility] | | | and [place] [...] Team Providers + +------+ + | Care Temporary Administrative Assistant Name | Role | Phone | + +------+ + | Hari Garcia MD | PCP | | + +------+ + Reason for Visit + +--------+ + | Reason | Onset | Comments | | | Date | | + +--------+ + | Dizziness | 03/09/ | | | | 2018 | | + +--------+ + Encounter Details +--------+ + + + + | Date | Type | Department | Care Team | Description | +--------+ + + + + | 03/09/ | Telephone | [facility] | Hari Garcia MD | Dizziness | | 2018 | | [facility] | [address] | | | | | [address] | [place] [address] [place], | | | | | [place], [place] | [place] [address] | | | | | [address] | [phone] | | | | | [phone] | | | +--------+ + + + [...] this encounter Miscellaneous Notes Telephone Encounter - Rachelle Stephens - 03/10/2018 12:26 PM PDTPatient scheduled for 018. elephone Encounter - Hari Lin MD - 03/09/2018 5:47 PM PDTAfter I was notified by Alivia my nurse that Rashmi had called in with concerns for feeling jittery, dizziness. I phoned, and discussed with he r her current symptoms. Patient reports that she has had this for about 45 minutes and this is a new symptom. She reports that on the of this month she lost her grandma who kalia valladares functioned as her mother most of her childhood. She reports she's felt a little bit on edge since that time. Overall since starting the metformin she's not had any of the sym ptoms had her first period in almost 3 months and feels like she's lost weight. Today, no c hest pain, shortness of breath but does have associated nausea with some of her symptoms. S he ate a full lunch and had a couple sips of soda after she initially called in without sign ificant improvement in her symptoms. I encouraged patient to seek urgent medical care if the symptoms persist and talked her thr ough the possible side effects of metformin and the low likelihood of this being hypoglycemi a unless other medical issues were occurring. I distinctly informed her that these would be too difficult to evaluate over the phone but affirmed her for letting us know how she was f eeling. I recommend that she be placed on my schedule next Wednesday morning for follow-up and encouraged her to seek medical care again if symptoms did not improve over the next 15-3 0 minutes. Patient sounded anxious over the phone. Hari Garcia 03/09/18 17:50 documented in this enc ounter Plan of Treatment Not on filedocumented as of this encounter Visit Diagnoses Not on filedocumented in this encounter"
--- OUTSIDE RECORDS SUMMARY | ~2019-12-06 | XMS | Encounter Summary ---
Demographics + + + | Address | [address] | | | [place] [address] | + + + | Home Phone [...] Author + + + | Author | [facility] | | | and [place] | + + + | Organization | [facility] | | | and [...] Team Providers + +------+ + | Care Pocket Maker Name | Role | Phone | [...] | Specialty | Physical | Diagnoses | Jose, | Shaila, | | | Services | Therapy / | Strain of | MD Hari | Benson | | | Required | Rehabilitatio | lumbar | [address] | Fan Marques PT | | | | n | region, | AVE [place] [address] | [address] | | | | | subsequent | [place], | [place] | | | | | encounter | [place] | [place], [place] | | | | | | [address] | [address] Phone: | | | | | | Phone: | [phone] | | | | | | [phone] | Fax: | | | | | | Fax: | [phone] | | | | | | [phone] | | +--------+ + + + + [...] | | Required | | severe | [address] | [address] | | | | | obesity with | [address] | [address] | | | | | body mass | [place], | [place], | | | | | index (BMI) | [place] | [place] [address] | | | | | of 40.0 to | [address] | Phone: | | | | | 44.9 in | Phone: | [phone] | | | | | adult, | [phone] | Fax: | | | | | unspecified | Fax: | [phone] | | | | | obesity | [phone] | | | | | | type, [...] + + | 08/18/ | Office | [facility] | Hari Garcia MD | PCOS (polycystic | | 2019 | Visit | MEDICINE [place] | [address] | ovarian syndrome) | | | | [address] | [address] [place], | (Primary Dx); | | | | [place] | [place] [address] | Tobacco use; Strain | | | | [address] | [phone] | of lumbar region, | | | | [phone] | | subsequent | | | | [...] present | | | | | | ([facility]) ; Mild | | | | | [...] - 1-2 cups coffee/caffeine limit daily - Speech Instructor visit with your oil treater re: pelvic/papElectronically signed by Hari Garcia MD [...] is to transition out of her job [employer] over next month and a half. In [...] of lumbar region, subsequent encounter - * [facility] Physical Therapy- AMB Referral 4. Anxiety 5. Prediabetes - Lipid Panel; Future 6. Class 3 severe obesity with body mass index (BMI) of 40.0 to 44.9 in adult, unspecified obesity type, unspecified whether serious comorbidity present (HCC) - * [facility] Nutrition Services - AMB Referral - [...] - 1-2 cups coffee/caffeine limit daily - Speech Instructor visit with your oil treater re: pelvic/pap Follow-up: Return in about 6 weeks (around 09/29/2018) for FP- f/u lumbar pain, smoking cess ation. Hari Garcia MD 08/18/2018 Total time today is 35 minutes, >75% of which is in counseling and coordination of care reg arding the above issue(s). This note is dictated using [employer] voice recognition software. This note was dictated but not proofread. It may contain some grammatical errors. documented in this enc ounter Plan of Treatment + + +--------+ + [...] lumbar | Ordered: 08/18/2018 | | [facility] | Referral | e | region, [...] [facility] | [address] | [place], [place] | [phone] | | [facility] | | [address] | | | [facility] | | [...]
--- OUTSIDE RECORDS SUMMARY | ~2019-12-06 | XMS | Encounter Summary ---
Demographics + + + | Address | [address] | | | [place] [address] | + + + | Home Phone [...] + | Organization | [facility] | | | and [...] Team Providers + +------+ + | Care Torpedo Worker Name | Role | Phone | [...] Refill | | 2019 | | MEDICINE [place] | [address] | | | | | [address] | [address] [place], | | | | | [place] | [place] [address] | | | | | [address] | [phone] | | | | | [phone] | | | +--------+--------+ + + + [...]
--- OUTSIDE RECORDS SUMMARY | ~2019-12-06 | XMS | Clinical Summary ---
Demographics + + + | Address | [address] | | | [place] [address] | + + + | Home Phone [...] | Author | [facility] | | | and [place] | + + + | Organization | [facility] [...] Team Providers + +------+ + | Care Dialysis Tech Name | Role | Phone | + [...] + + + + | Banana | Anaphylaxis, Hives | High | 05/18/19 | | | [...] + + + + + + | Tamaroa | Hives | Low | 04/11/20 | [...] | affected area(s) two | | | 3/20 | | e | | ointmentIndications: | [...] | | + + + +---------+------+------+-------+ | levothyroxine | TAKE 1 TABLET BY | | 0 | 02/2 | | Activ | | (SYNTHROID) 75 mcg | MOUTH ONCE DAILY | | | 1/20 | | e | | tablet | | | | 20 | | | + + + +---------+------+------+-------+ | mupirocin | mupirocin calcium 2 | | 0 | | | Activ | | (BACTROBAN) 2 % | % topical cream | | | | | e | | cream | APPLY A SMALL AMOUNT | | | | | | | | TO THE AFFECTED | | | | | | | | AREA BY TOPICAL | | | | | | | | ROUTE 3 TIMES PER | | | | | | | | DAY FOR 10 DAYS | | | | | | + + + +---------+------+------+-------+ | ferrous gluconate | Take 1 tablet by | 60 | 2 | 04/ | | Activ | | (FERGON) 324 mg | mouth 2 times daily | tablet | | 0/20 | | e | | tabletIndications: | (with breakfast & | | | 20 | | | | Morbid obesity with | dinner). | | | | | | | BMI of 40.0-44.9, | | | | | | | | adult (HCC), PCOS | | | | | | | | (polycystic ovarian | | | | | | | | syndrome), Secondary | | | | | | | | amenorrhea, | | | | | | | | Fatigue, unspecified | | | | | | | | type | | | | | | | + + + +---------+------+------+-------+ | docusate sodium | Take 1 capsule by | 60 | 2 | 04/ | | Activ | | (COLACE) 100 mg | mouth 2 times daily. | capsule | | 0/20 | | e | | capsuleIndications: | | | | 20 | | | | Morbid obesity with | | | | | | | | BMI of 40.0-44.9, | | | | | | | | adult (HCC), PCOS | | | | | | | | (polycystic ovarian | | | | | | | | syndrome), Secondary | | | | | | | | amenorrhea, | | | | | | | | Fatigue, unspecified | | | | | | | | type | | | | | | | + + + +---------+------+------+-------+ | hydrOXYzine | Take 1 tablet by | 60 | 0 | 04/1 | | Activ | | hydrochloride | mouth every 6 hours | tablet | | 4/20 | | e | | (ATARAX) 25 mg | as needed for | | | 20 | | | | tabletIndications: | Itching. | | | | | | | Anxiety, Panic | | | | | | | | attack | | | | | | | + + + +---------+------+------+-------+ | citalopram | Take 2 tablets by | 90 | 1 | 04/1 | | Activ | | (CELEXA) 20 mg | mouth Daily. | tablet | | 4/20 | | e | | tabletIndications: | | | | 20 | | | | Anxiety, Panic | | | | | | | | attack | | | | | | | + + + +---------+------+------+-------+ | metFORMIN | Take 1 tablet by | 90 | 0 | 07/2 | | Activ | | (GLUCOPHAGE-XR) 500 | mouth once daily | tablet | | 1/20 | | e | | mg 24 hr tablet | | | | 20 | | | + + + +---------+------+------+-------+ | metFORMIN | TAKE 1 TABLET BY | 90 | 1 | 10/2 | 07/2 | Disco | | (GLUCOPHAGE-XR) 500 | MOUTH ONCE DAILY | tablet | | 2/20 | 1/20 | ntinu | | mg 24 hr tablet | | | | 19 | 20 | ed | + + + +---------+------+------+-------+ Active Problems + + + | Problem | Noted Date | + + + | Nontoxic uninodular goiter | 03/30/2019 | + + + | Prediabetes | [...] + + + + + | 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 [place] | + + + [...] | +--------+ + + + + | 11/27/ | Refill | Family Medicine | Hari Garcia MD | Medication Refill | | 2020 | | | | | +--------+ + + + + | 10/09/ | Telephone | Case Management | Becca Aguilar, | Care Coordination | | 2019 | | | LINE WORKER | | +--------+ + + + + | 09/10/ | E-Visit | Family Medicine | Hari Garcia MD | RE: Non-Urgent | | 2019 | | | | Medical Question | +--------+ + + + + from Last 3 Months Immunizations + + + + | Name | Administration Dates | Next Due | + + + + | TDAP, (ADOL/ADULT) | 06/17/2018 | | + + + + Family History + + +--------+ + | [...] 11:19 AM PDT | + + + Last Filed Vital Signs + [...] + + + + Plan of Treatment + + + + + | Health Maintenance | Due Date | Last | Comments | | | | Done | | + + + + + | Hepatitis C | | | | | Screening | 0 | | | + + + + + | Medication | | | | | Management | 0 | | | + + + + + | Vaccine: | | | | | Pneumococcal 19-64 | 6 | | | | (1 of 1 - PPSV23) | | | | + + + + + | Adult Annual | | | | | Wellness Visit | 7 | | | + + + + + | Med Mgmt: TSH | | 01/19/20 | | | | 9 | 18 | | + + + + + | Med Mgmt: HBA1C | | 01/11/20 | | | | 0 | 19, | | | | | 06/15/19 | | | | | 19, | | | | | 02/01/20 | | | | | 18 | | + + + + + | Vaccine: Influenza | | | | | (#1) | 0 | | | + + + + + | Hemoglobin A1c | | 01/11/20 | | | Screening | 0 | 19, | | | | | 06/15/19 | | | | | 19, | | | | | 02/01/20 | | | | | 18 | | + + + + + | Med Mgmt: Cr | | 01/11/20 | | | | 0 | 19, | | | | | 01/19/20 | | | | | 18, | | | | | 04/16/20 | | | | | 17, | | | | | Addition | | | | | al | | | | | history | | | | | exists | | + + + + + | Med Mgmt: eGFR | | 01/11/20 | | | | 0 | 19, | | | | | 01/19/20 | | | | | 18, | | | | | 04/16/20 | | | | | 17, | | | | | Addition | | | | | al | | | | | history | | | | | exists | | + + + + + | Cervical Cancer | | 08/26/19 | | | Screening (Pap) | 2 | 19 | | + + + + + | Vaccine: | | 06/17/19 | | | Dtap/Tdap/Td (2 - | 9 | 19 | | | Td) | | | | + + + + + Results Not on filefrom Last 3 Months Insurance + +--------+ +--------+ +---------+--------+ | Payer | Benefi | Subscriber | Effect | Phone | Address | Type | | | t Plan | ID | rachel | | | | | | / | | Dates | | | | | | Group | | | | | | + +--------+ +--------+ +---------+--------+ | MEDICARE | MEDICA | [id number] | 05/10/19 | [phone] | | Medica | | | RE | | 16-Pre | 5 | | re | | | PART A | | sent | | | | | | AND B | | | | | | + +--------+ +--------+ +---------+--------+ | [employer] | MODA | [id number] | | [phone] | | Medica | [...] Person | Self | [birth year] | [address] | | | al/Fam | | 1991 | [phone] | [place] [address] | | | flaca | | | 1 (Home) | | + +--------+ +--------+ + + Advance Directives + + + + + | Type | Date Recorded | Patient | Explanation | | | | Retail Associate | | + + + + + | Power of | | | | | Medical Stenographer | | | | + + + + + | Advance | 05/19/2017 11:06 | | | | Directive | AM | | | + + + + + + + + + + | Code Status | Date | Date | Comments | | | Activated | Inactivated | | + + + + + | Full Code | 06/20/2019 | 06/20/2019 | | | | 1:09 PM | 4:50 PM | | + + + + +
--- OUTSIDE RECORDS SUMMARY | ~2019-12-06 | XMS | Encounter Summary ---
Demographics + + + | Address | [address] | | | [place] [address] | + + + | Home Phone [...] Organization | [facility] | | | and [...] Providers + +------+ + | Care Technology Engineer Name | Role | Phone | + +------+ + | Hari Garcia MD | PCP | | + +------+ + Reason for Visit +---------+--------+ + | Reason | Onset | Comments | | | Date | | +---------+--------+ + | Results | 07/28/ | | | | 2019 | | +---------+--------+ + Encounter Details +--------+ + + + + | Date | Type | Department | Care Team | Description | +--------+ + + + + | 07/28/ | Telephone | [facility] | Hari Garcia MD | Results | | 2019 | | MEDICINE [place] | [address] | | | | | [address] | [address] [place], | | | | | [place] | [place] [address] | | | | | [address] | [phone] | | | | | [phone] | | | +--------+ + + + [...] Telephone Encounter - Melody Trejo RN - 08/01/2018 10:16 AM PDTOrder has been placed and patient has been notified. elephone Encounter - Hari Garcia MD - 08/01/2018 6:51 AM PDTRecommend rep eat ultrasound in 6 months for surveillance. Please notify patient and place the future US H ead Neck Soft Tissue order to be obtained in 6 months. elephone Encounter - Melody Trejo RN - 07/28/2018 9: 00 AM PDTBased on the results from the biopsy it appears the nodule is benign non cancerous thyroid nodule. Notified patient of these findings. Please advise if any further follow up i s needed at this time P DTTelephone Encounter - Ramya Argueta - 07/28/2018 7:48 AM PDTPatient called to speak with the nurse. Patient stated she was wanting to get her biopsy results. [facility], . A M PDTdocumented in this encounter Plan of Treatment [...]
--- OUTSIDE RECORDS SUMMARY | ~2019-12-06 | XMS | Encounter Summary ---
Demographics + + + | Address | [address] | | | [place] [address] | + + + | Home Phone | | + + + | Preferred Language | Unknown | + + + | Marital Status | Single | + + + | Presybeterian Affiliation | 1013 | + + + | Race | Unknown | + + + | Ethnic Group | Unknown | + + + Author + + + | Author | [facility] | | | and [place] | + + + | Organization | [facility] | [...] Team Providers + +------+ + | Care Inside Parts Sales Name | Role | Phone | + +------+ + | Hari Garcia MD | PCP | | + +------+ + Reason for Visit + +--------+ + | Reason | Onset | Comments | | | Date | | + +--------+ + | Social Work Consult | 08/24/ | | | | 2020 | | + +--------+ + Encounter Details +--------+ + + + + | Date | Type | Department | Care Team | Description | +--------+ + + + + | 08/24/ | Telephone | [facility] | Becca Aguilar, | Social Work Consult | | 2020 | | [facility] | TOUR CONDUCTOR | | | | | [address] | | | | | | [address] [place] | | | | | | [place] [address] | | | | | | [phone] | | | +--------+ + + + [...] Telephone Encounter - Becca Aguilar MSW - 08/25/2019 3:17 PM PDTThis SW contacted Yamilet Love at [facility] to see if their practitioners are taking new patients with Medicare insurance. This SW contacted Rashmi. Rashmi expressed interest in [facility] and the option of telehealth through [facility] (this option is short term only). Rashmi share d that telehealth would be a better option and she does have a private place to participate in online counseling. This SW sent SingleFeed message with provider information per patient preference. This SW to update Rashmi if/when [facility] returns phone call. [facility] [phone] [email or web address] [facility] [phone] [email or web address] signed by MICHAEL Bravo at 3:45 PM PDTdocumented in this encounter Plan of Treatment Not on filedocumented as of this encounter Visit Diagnoses Not on filedocumented in this encounter"
--- OUTSIDE RECORDS SUMMARY | ~2019-12-06 | XMS | Encounter Summary ---
Demographics + + + | Address | [address] | | | [place] [address] | + + + | Home Phone [...] Author | [facility] | | | and [place] | + + + | Organization | [facility] | | | and [...] Team Providers + +------+ + | Care Machine Engraver Name | Role | Phone | + [...] | | | 2019 | | [facility] [place] | [address] | | | | | [address] | [address] [place], | | | | | [place] | [place] [address] | | | | | [address] | [phone] | | | | | [phone] | | | +--------+ + + + [...]
--- OUTSIDE RECORDS SUMMARY | ~2019-12-06 | XMS | Encounter Summary ---
Demographics + + + | Address | [address] | | | [place] [address] | + + + | Home Phone [...] | Organization | [facility] [...] Team Providers + +------+ + | Care Fastener Technologist Name | Role | Phone | + +------+ + | Hari Garcia MD | PCP | | + +------+ + Reason for Visit + +--------+ + | Reason | Onset | Comments | | | Date | | + +--------+ + | Vaginal Bleeding | 08/28/ | | | | 2019 | | + +--------+ + Encounter Details +--------+ + + + + | Date | Type | Department | Care Team | Description | +--------+ + + + + | 08/28/ | Telephone | [facility] | Hari Garcia MD | Vaginal Bleeding | | 2020 | | [facility] [place] | [address] | | | | | [address] | [address] [place], | | | | | [place] | [place] [address] | | | | | [address] | [phone] | | | | | [phone] | | | +--------+ + + + [...] this encounter Miscellaneous Notes Telephone Encounter - Ruba Hawley - 08/29/2019 4:57 PM PDTLetter sent via [employer] to patient . elephone Hari Jeffries MD - 08/29/2019 2:45 PM PDTIt can be sent via [employer].Electronical ly signed by Hari Garcia MD at 08/29/2019 2:45 PM PDTTelephone Encounter - Jevon Garcia MD - 08/29/2019 2:44 PM PDTPlease provide a letter excusing her from today and the remai nder of the week. eleph one Encounter - aSkina Lopez - 08/29/2019 2:38 PM PDTPatient is calling in would like to l et you know that boss is going to talk with HR to see about getting paperwork started, michelle nt was sent home today but would like to know if you are able to provider her a letter excus ing her from work. Please advise elephone Hari Magdaleno MD - 08/29/2019 1:08 PM PDTPatient is going to talk to her boss abo ut some time away from work. Got the progesterone/ control pills. Awaiting pharmacy to fill final rx. Was unable to be seen in [facility] office, but encouraged to increase iron suppleme nts. Patient to call us back to let us know if FMLA/short term disability paperwork required.Carole ctronically signed by Hari Garcia MD at 08/29/2019 1:11 PM PDTTelephone Encounter - [facility] nusratbriHari MD - 08/29/2019 1:02 PM PDTI'm glad she was able to reach [facility] an d was evaluated. I will give her a call to check in. elephone Encounter - Kayleigh Pemberton RN - 08/29/2019 9:10 AM PDTPatient call s in stating that she presented to the ED last night. She states she was bleeding through ab out 2 tampons an hour. She states the doctor in the ED told her she had a 'thickened wall' and that was why she wa s experiencing all the bleeding. [facility] and they are going to start her on progesterone and a control pill. Tdocumented in this encounter Plan of Treatment Not on filedocumented as of this encounter Visit Diagnoses Not on filedocumented in this encounter"
--- OUTSIDE RECORDS SUMMARY | ~2019-12-06 | XMS | Encounter Summary ---
Demographics + + + | Address | [address] | | | [place] [address] | + + + | Home Phone [...] | [facility] | | | and [...] Team Providers + +------+ + | Care Business Office Coordinator Name | Role | Phone | [...] | | | | Diagnoses | | Wiley, Matthias | | | | | Nontoxic | | E, MD [address] | | | | | uninodular | | [address] | | | | | goiter | | [address] | | | | | Procedures | | [place], | | | | | [place] | | [place] [address] | | | | | THYROIDECTOM | | Phone: | | | | | Y Right | | [phone] | | | | | thyroid | | Fax: | | | | | lobectomy | | [phone] | | | | | with rapid [...] + + + + | 06/20/ | Anesthesia | [facility] | Mark Glynn | | | 2019 | Event | MED CTR OR INTRA OP | [facility] [address] | | | | | [address] | [address] [place] | | | | | [place] | [address] | | | | | [address] | | | | | | [phone] | | | +--------+ + + + + Anesthesia Record + + + + + | Procedure Name | Responsible | Anesthesia Start | Anesthesia Stop Time | | | Anesthesiologist | Time | | + + + + + | Right thyroid | Mark Glynn, | 06/20/19 1004 | 06/20/19 1125 | | lobectomy with rapid | MD | | | | frozen section | | | | | (Right Neck) | | | | + + + + + +----+---+ + + | Da | T | Event | Comment | | te | i | | | | | m | | | | | e | | | +----+---+ + + | 02 | 1 | | | | /1 | 0 | | | | 1/ | 0 | | | | 20 | 0 | | | | 20 | | | | +----+---+ + + | | 1 | An Checkout | Pre-use anesthesia machine/equipment checkout. | | | 0 | | | | | 0 | | | | | 1 | | | +----+---+ + + | | 1 | An Start | Versed 2 mg IV in SDS 8, then to OR 3 with sedated | | | 0 | | patient.Reassessment prior to anesthesia induction/procedure. | | | 0 | | | | | 4 | | | +----+---+ + + | | 1 | Preoxygenat | | | | 0 | ed | | | | 0 | | | | | 8 | | | +----+---+ + + | | 1 | An | | | | 0 | Induction | | | | 1 | | | | | 2 | | | +----+---+ + + | | 1 | An | | | | 0 | Intubation | | | | 1 | | | | | 4 | | | +----+---+ + + | | 1 | AN Bite | | | | 0 | Block | | | | 1 | | | | | 5 | | | +----+---+ + + | | 1 | Mermentau | | | | 0 | 43-degrees | | | | 1 | | | | | 7 | | | +----+---+ + + | | 1 | First | | | | 0 | Inc/Proc St | | | | 2 | | | | | 2 | | | +----+---+ + + | | 1 | Breathing | | | | 1 | Spontaneous | | | | 0 | ly | | | | 4 | | | +----+---+ + + | | 1 | AN No | TOF 4/4 with sustained tetanus. | | | 1 | Residual | | | | 0 | NMB | | | | 6 | | | +----+---+ + + | | 1 | Mermentau off | | | | 1 | | | | | 1 | | | | | 0 | | | +----+---+ + + | | 1 | Oropharynx | | | | 1 | Suctioned | | | | 1 | | | | | 0 | | | +----+---+ + + | | 1 | Extubation/ | | | | 1 | Airway LDA | | | | 1 | Removal | | | | 0 | | | +----+---+ + + | | 1 | An Stop | Patient handed off to recovery nurse. | | | 2 | | | | | 5 | | | +----+---+ + + +------+ | Meds | +------+ + + + | Name | Total | + + + | midazolam | 2 mg | + + + | lidocaine 2% (PF) | 40 mg | + + + | propofol | 250 mg | + + + | propofol | 458.22 mg | + + + | rocuronium | 30 mg | + + + | dexamethasone | 4 mg | + + + | ondansetron | 4 mg | + + + | HYDROmorphone | 2 mg | + + + | neostigmine | 1 mg | + + + | lactated ringers (LR) infusion | 1,000 mL | + + + + + | Name | + + | N2O Flow Rate (L/Min) | + + | O2 Flow Rate (L/Min) | + + | Insp O2 | + + | Exp SEV | + + | Air Flow Rate (L/Min) | + + + + | No blood administrations on file. | + + +--------+ + + + | Type | Details | Placement | Removal | +--------+ + + + | Periph | 06/20/19; 09; Right; Hand; | 06/20/19 0926 by | 06/20/19 1450 by | | eral | [id number] catheter system; | Alaina Spain, | Aleida Au, | | IV | 20 gauge; distraction, | RN | RN | | | intradermal injection; no longer | | | | | indicated, removed per | | | | | policy/procedure, catheter/device | | | | | intact; short term use; | | | | | 06/20/19; 1450 | | | +--------+ + + + | Airway | Placement Date: 06/20/19; | 06/20/19 1014 by | 06/20/19 1110 by | | | Placement Time: 1014 (created via | Mark Glynn, | Mark Glynn, | | | procedure documentation); Mask | MD | MD | | | Ventilation: EZ; Airway Grade: | | | | | 2b; External Maneuvers: CP; | | | | | Successful Technique: Mac; | | | | | Laryngoscope Blade Size: 3; | | | | | Attempts: 3; Airway Type: | | | | | endotracheal; Size: 6.5; Airway | | | | | Tube Secured At: 21; Trauma: | | | | | none; Other Equipment: tooth | | | | | guard, stylette (Attempted | | | | | without stylette first and then | | | | | needed to make the corner to the | | | | | glottic opening.); Placement | | | | | Check: exhaled CO2 detection | | | | | device, bilateral chest rise, | | | | | breath sounds equal bilaterally; | | | | | Removal Date: 06/20/19; Removal | | | | | Time: 1110; Additional Comments: | | | | | Head initially in neurtral | | | | | Position. Smooth IV induction, | | | | | mask airway established. Direct | | | | | Laryngoscopy, ETT placed under | | | | | direct vision. BSEB/ETCO2 | | | | | (auscultation and capnography) to | | | | | confirm placement. Depth noted. | | | | | Ventilator on. | | | +--------+ + + + | Wound | 06/20/19; 1029; Incision; neck; | 06/20/19 1029 by | 06/20/19 1450 by | | | Healing; 06/20/19; 1450 | Alejandra Grewal RN | Aleida Au, | | | | | RN | +--------+ + + + | Airway | Placement Date: 06/20/19; | 06/20/19 1110 by | 06/20/19 1155 by | | | Placement Time: 1110; Airway | Mark Glynn, | Helene Lynn RN | | | Type: laryngeal mask; Size: 4; | MD | | | | Removal Date: 06/20/19; Removal | | | | | Time: 1155 | | | +--------+ + + + [...] + + documented as of this encounter OR Notes Anesthesia Postprocedure Evaluation - Mark Glynn MD - 06/20/2019 12:49 PM PSTForma tting of this note might be different from the original. ANESTHESIA POSTANESTHESIA EVALUATION Rashmi Holcomb 29 y.o. female 1990 [id number] Procedure(s) Right thyroid lobectomy with rapid frozen section (Right Neck) Cooperates? Yes Mental Status Performs simple tasks. Respiratory Satisfactory - Airway patent (self maintained). Cardiovascular Satisfactory - Blood pressure and heart rate acceptable Temperature Satisfactory Pain Satisfactory N/V Control Satisfactory Hydration Satisfactory - No signs of dehydration Adverse Events ADVERSE EVENTS: No adverse events Vitals Value Taken Time Temp 36.4 C (97.5 F) 06/20/2019 11:16 AM Pulse 87 06/20/2019 12:48 PM Resp 15 06/20/2019 12:48 PM BP 121/59 06/20/2019 12:47 PM Arterial Line BP Arterial Line BP 2 SpO2 97 % 06/20/2019 12:48 PM Vitals shown include unvalidated device data. Electronically signed by Mark Glynn MD 06/20/2019 12:49 PM [facility] by Mark Glynn MD at 0 06/20/2019 12:49 PM PSTAnesthesia Procedure Notes - Mark Glynn MD - 06/20/2019 10:19 AM PSTAssociated Order(s): AirwayAnesthesia Airway Placement 06/20/2019 10:14 AM Preprocedure check: patient identified, oxygen, airway assessed, patient reassessment prior to induction, airway equipment checked and suction Rapid Sequence Induction: no Mask ventilation: easy External maneuver: cricoid pressure Successful technique: Mac Laryngoscope blade size: 3 Airway grade: 2b (Only posterior extremity of glottis seen or only arytenoid cartilages) Other equipment: stylette and tooth guard (Attempted without stylette first and then needed to make the corner to the glottic opening.) Attempts: 3 Airway type: endotracheal Size: 6.5 Cuffed: cuffed Route, reference point: right side of mouth Tube depth: 21 cm Tube secured with: adhesive tape Trauma: none Tube placement verification: carbon dioxide detection, equal bilateral breath sounds and bi lateral chest rise Performing provider: Mark Glynn MD Authorizing provider: Mark Glynn MD Comments: Head initially in neurtral Position. Smooth IV induction, mask airway established. Direct Laryngoscopy, ETT placed under direct vision. BSEB/ETCO2 (auscultation and capnogra phy) to confirm placement. Depth noted. Ventilator on. Please see intraoperative grid for any additional medication documentation. nesthesia Preproc edure Evaluation - Mark Glynn MD - 06/19/2019 6:18 PM PSTFormatting of this note m ight be different from the original. ANESTHESIA PREANESTHESIA EVALUATION Rashmi Holcomb 29 y.o. female 1990 [id number] Procedure(s): Right thyroid lobectomy with rapid frozen section possible total (Right Neck) Medical,anesthesia, drug, allergy histories reviewed, NPO status verified. Review of Systems / Med History Anesthesia History No anesthesia complications except where noted below.(-) PONV, malignant hyperthermia . Family Anesthesia History Family Anesthesia Negative except where noted below. Cardiovascular Exercise tolerance <4 METS (+) history of heart murmur (-) congenital heart disease . Pulmonary (+) asthma.(+) tobacco use.(+) current smoker and patient smoked within 24 hours . Stop Bang Score: 5. Gastrointestinal/Hepatic Negative except where noted below. Renal Negative except where noted below. Endocrine (+) goiter. (+) obesity: morbid BMI 40+ Hematology/Other Negative except where noted below. Cancer Negative except where noted below. Neuromuscular Negative except where noted below. (+) back pain. Psychology (+) substance abuse. (+) psychiatric history of anxiety and depression. Physical Exam Airway MP III, TM >3 FB, Mouth opening >2 FB. Neck: full ROM, extends >30 degrees. Jaw protru flory normal. Dental grossly normal except where noted below. (+) age appropriate dentition. CV Rhythm regular. Rate Normal. (-) murmur, carotid bruit, peripheral edema, JVD and weak pulses. Pulm Clear to auscultation bilaterally. (-) wheezing, rhonchi, decreased breath sounds, rales a nd stridor. Neuro grossly normal. Anesthesia Plan ASA: 3 (BMI>40) Type: General. Induction: Intravenous. Potential problems: None anticipated. Monitors: Standard ASA monitors. Postop Pain Management: Consent statement: Anesthetic plan, alternatives, risks and benefits discussed with patient and family. discus sed risks to teeth, disability, heart problems, ICU placement, muscle aches, nausea, periope rative CV events, respiratory events, sore throat, voice injury, delirium Consenting person understands and agrees to proceed. PARQ. Risks and benefits of GA anesthetic discussed with patient and available family members. T denisey agree to proceed, answered all questions. Past Medical History: No date: Abdominal pain No date: Anxiety No date: Asthma No date: Heart murmur No date: Nausea and vomiting No date: Neutrophilic leukocytosis No date: PCOS (polycystic ovarian syndrome). Electronically Signed by: Mark Glynn MD ESig date/time: 06/19/2019 6:18 PM documented in this encounter Miscellaneous Notes Anesthesia Post-op Handoff - Mark Glynn MD - 06/20/2019 11:17 AM PST ANESTHESIA HANDOFF NOTE Rashmi Holcomb 29 y.o. female 1990 [id number] Right thyroid lobectomy with rapid frozen section (Right Neck) HANDOFF NOTE Handoff Protocol Used: post-procedure handoff checklist completed The following were completed during the transfer of care: 1. Identification of patient 2. Identification of responsible practitioner (primary service) 3. Discussion of pertinent medical history 4. Discussion of the surgical/procedure course (procedure, reason for surgery, procedure pe rformed) 5. Intraoperative anesthetic management and issues/concerns 6. Expectations/plans for the early post-procedure period 7. Opportunity for questions and acknowledgement of understanding of report from receiving team Patient Location: Phase I Condition: sedated Airway/O2: LMA with O2 Multimodal analgesia: multimodal analgesia used between 6 hours prior to anesthesia start t o PACU discharge Two or more DYLAN mitigation strategies used: perioperative obstructive sleep apnea intervent ions applied Comments: Supplemental Oxygen used as necessary to maintain Oxygen Saturation at or above 9 2% The significant anesthesia concerns and VS in Epic were reviewed with the receiving team. Mark Glynn MD 06/20/2019 11:17 AM [facility] signed by Mark Glynn MD at 0 06/20/2019 11:17 AM PSTdocumented in this encounter Plan of Treatment Not on filedocumented as of this encounter Procedures + +--------+ + + + | Procedure Name | Priori | Date/Time | Associated Diagnosis | Comments | | | ty | | | | + +--------+ + + + | ANE AIRWAY NOTE | Routin | 06/20/2019 | | Results for this | | | e | 10:19 AM | | procedure are in the | | | | PST | | results section. | + +--------+ + + + documented in this encounter Results Airway (06/20/2019 10:19 AM PST) + + + | Narrative | Performed At | + + + | Mark Glynn MD 06/20/2019 10:20 AM Anesthesia Airway | | | Placement 06/20/2019 10:14 AM Preprocedure check: patient | | | identified, oxygen, airway assessed, patient reassessment prior to | | | induction, airway equipment checked and suction Rapid Sequence | | | Induction: no Mask ventilation: easy External maneuver: cricoid | | | pressure Successful technique: Mac Laryngoscope blade size: 3 | | | Airway grade: 2b (Only posterior extremity of glottis seen or only | | | arytenoid cartilages) Other equipment: stylette and tooth guard | | | (Attempted without stylette first and then needed to make the corner | | | to the glottic opening.) Attempts: 3 Airway type: endotracheal | | | Size: 6.5 Cuffed: cuffed Route, reference point: right side of mouth | | | Tube depth: 21 cm Tube secured with: adhesive tape Trauma: none | | | Tube placement verification: carbon dioxide detection, equal bilateral | | | breath sounds and bilateral chest rise Performing provider: | | | Mark Glynn MD Authorizing provider: Mark Glynn MD | | | Comments: Head initially in neurtral Position. Smooth IV | | | induction, mask airway established. Direct Laryngoscopy, ETT | | | placed under direct vision. BSEB/ETCO2 (auscultation and | | | capnography) to confirm placement. Depth noted. Ventilator on. | | | Please see intraoperative grid for any additional medication | | | documentation. | | + + + documented in this encounter Visit Diagnoses Not on filedocumented in this encounter Administered Medications + +--------+ +------+------+------+ | Medication Order | MAR | Action | Dose | Rate | Site | | | Action | Date | | | | + +--------+ +------+------+------+ | dexamethasone (PF) 10 mg/mL | Given | 06/20/19 | 4 mg | | | | injection Intravenous, PRN, | | 20 10:12 | | | | | Starting 06/20/19 at 1012, | | AM PST | | | | | Anesthesia Intra-op | | | | | | + +--------+ +------+------+------+ +---+---+ | | | +---+---+ + +-------+ +------+---+---+ | HYDROmorphone (DILAUDID) 2 | Given | 06/20/19 | 1 mg | | | | mg/mL injection Intravenous, | | 20 10:21 | | | | | PRN, Starting 2/11/20 at | | AM PST | | | | | 1018, Anesthesia Intra-op | | | | | | + +-------+ +------+---+---+ +-------+ +------+---+---+ | Given | 06/20/19 | 1 mg | | | | | 20 10:18 | | | | | | AM PST | | | | +-------+ +------+---+---+ +---+---+ | | | +---+---+ + +---------+ +---+---+---+ | lactated ringers (LR) infusion | New Bag | 06/20/19 | | | | | at 10-100 mL/hr, Intravenous, | | 20 11:12 | | | | | CONTINUOUS, Starting Wed06/20/19 | | AM PST | | | [...] lidocaine (PF) 2% injection | Given | 06/20/19 | 40 mg | | | | PRN, Starting 06/20/19 at | | 20 10:12 | | | | | 1012, Anesthesia Intra-op | | AM PST | | | | + +-------+ +-------+---+---+ +---+---+ | | | +---+---+ + +-------+ +------+---+---+ | midazolam (VERSED) 1 mg/mL | Given | 06/20/19 | 2 mg | | | | injection Intravenous, PRN, | | 20 10:04 | | | | | Starting 06/20/19 at 1004, | | AM PST | | | | | Anesthesia Intra-op | | | | | | + +-------+ +------+---+---+ +---+---+ | | | +---+---+ + +-------+ +------+---+---+ | neostigmine (BLOXIVERZ) 1 mg/mL | Given | 06/20/19 | 1 mg | | | | injection Intravenous, PRN, | | 20 11:09 | | | | | Starting Wed06/20/19 at 1109, | | AM PST | | | | | Anesthesia Intra-op | | | | | | + +-------+ +------+---+---+ +---+---+ | | | +---+---+ + +-------+ +------+---+---+ | ondansetron (ZOFRAN) injection | Given | 06/20/19 | 4 mg | | | | PRN, Starting Wed06/20/19 at | | 20 10:12 | | | | | 1012, Anesthesia Intra-op | | AM PST | | | | + +-------+ +------+---+---+ +---+---+ | | | +---+---+ + +-------+ +-------+---+---+ | propofol (DIPRIVAN) injection | Given | 06/20/19 | 50 mg | | | | Intravenous, PRN, Starting Tue | | 20 10:21 | | | | | 06/20/19 at 1012, Anesthesia | | AM PST | | | | | Intra-op | | | | | | + +-------+ +-------+---+---+ +-------+ +--------+---+---+ | Given | 06/20/19 | 200 mg | | | | | 20 10:12 | | | | | | AM PST | | | | +-------+ +--------+---+---+ +---+---+ | | | +---+---+ + +---------+ + +-------+---+ | propofol (DIPRIVAN) injection | New Bag | 06/20/19 | 60 | 39.3 | | | Intravenous, CONTINUOUS PRN, | | 20 9:53 | mcg/kg/m | mL/hr | | | Starting 06/20/19 at 0953, | | AM PST | in | | | | Anesthesia Intra-op | | | | | | + +---------+ + +-------+---+ +---+---+ | | | +---+---+ + +-------+ +-------+---+---+ | rocuronium (ZEMURON) injection | Given | 06/20/19 | 30 mg | | | | Intravenous, PRN, Starting Tue | | 20 10:12 | | | | | 06/20/19 at 1012, Anesthesia | | AM PST | | | | | Intra-op | | | | | | + +-------+ +-------+---+---+ +---+---+ | | | +---+---+ documented in this encounter"
--- OUTSIDE RECORDS SUMMARY | ~2019-12-06 | XMS | Encounter Summary ---
Demographics + + + | Address | [address] | | | [place] [address] | + + + | Home Phone [...] + | Organization | [facility] | | | and [place] [...] Team Providers + +------+ + | Care Roller Embosser Name | Role | Phone | + [...] + + | 01/10/ | Office | [facility] | Hari Garcia MD | Psoriasis (Primary | | 2019 | Visit | [facility] | [address] | Dx); Migraine | | | | [address] | [place] [address] [place], | without aura and | | | | [place], [place] | [place] [address] | without status | | | | [address] | [phone] | migrainosus, not | | | | [phone] | | intractable; Stress; | | | [...] unaffected s kin, but avoid sunburns. Use qquq-fkc-ccthzlo hydrocortisone cream for itching to reduce scaling [...] symptoms can be managed. Date Last Reviewed: 06/10/[id number] [employer]. [address] [place] [address]. All righ ts reserved. This information is [...] Morbid obesity with BMI of 40.0-44.9, adult ([facility]) Follow-up: Return in about 1 month (around 02/09/2019) for FP - f/u psoriasis. Hari Garcia MD 01/10/2019 Total time today is 25 minutes, >75% of which is in counseling and coordination of care reg arding the above issue(s). This note is dictated using clickTRUE voice recognition software. This note was dictated but not proofread. It may contain some grammatical errors. documented in this enc ounter Plan of Treatment Not on filedocumented as of this encounter Results Hemoglobin A1C (01/10/2019 5:22 PM PDT) + +-------+ + + + | Component | Value | Ref Range | Performed | Pathologist | | | | | At | Signature | + +-------+ + + + | Hemoglobin | 5.5 | 4.3 - 6.0 % | [facility] | | | A1c | | | [facility] | | | | | | MEDICAL | | | | | | CENTER - | | | | | | LABORATORY | | + +-------+ + + + | Estimated | 111 | mg/dL | [facility] | | | Average | | | [facility] | | | Glucose | | | [...] [address] | [place] | [phone] | | [facility] | | [address] | | | - LABORATORY | | | | + + + + + CBC no Differential (01/10/2019 5:22 PM PDT) + + + + + + | Component | Value | Ref Range | Performed | Pathologist | | | | | At | Signature | + + + + + + | White Blood | 11.4 (H) | 4.0 - 11.0 K/uL | [facility] | | | Cells | | | [facility] | | | | | | MEDICAL | | | | | | PARK | | | | | | LABORATORY | | + + + + + + | Red Blood | 4.68 | 3.70 - 5.20 | [...] + + + | [facility] | [address] | [place] | [phone] | | [facility] | | [address] | | | [facility] | | [...] | | | | | mg/dL | [facility] | | | | | | MEDICAL | | | | | | PARK | | | | | | LABORATORY | | + + + + + + | eGFR, | >60Comment: GLOMERULAR | >=60 | [facility] | | | non- | FILTRATION | mL/min/1.73m2 | [facility] | | | Thai | RATE,ESTIMATED | | MEDICAL | | | | mL/min/1.47p1Tmnm than | | PARK | | | [...] + + + | [facility] | [address] | [place] | [phone] | | [facility] | | [address] | | | PARK LABORATORY | | [...]
--- OUTSIDE RECORDS SUMMARY | ~2019-12-06 | XMS | Encounter Summary ---
Demographics + + + | Address | [address] | | | [place] [address] | + + + | Home Phone [...] Organization | [facility] | | | and [place] | [...] Team Providers + +------+ + | Care Slag Worker Name | Role | Phone | + +------+ + | Hari Garcia MD | PCP | | + +------+ + Reason for Visit + +--------+ + | Reason | Onset | Comments | | | Date | | + +--------+ + | Advice Only | 08/17/ | | | | 2020 | | + +--------+ + Encounter Details +--------+ + + + + | Date | Type | Department | Care Team | Description | +--------+ + + + + | 08/17/ | Telephone | [facility] | Hari Garcia MD | Advice Only | | 2019 | | [facility] | [address] | | | | | [address] | [address] [place], | | | | | [place] | [place] [address] | | | | | [address] | [phone] | | | | | [phone] | | | +--------+ + + + [...] this encounter Miscellaneous Notes Telephone Encounter - Kayleigh Pemberton RN - 08/18/2019 11:13 AM PDTPatient calls in stating that the walk doctor she saw yesterday was unhelpful and patient would like a second opinio n. She is scheduled for a virtual visit today with Dr. Garcia. documented in this encounter Plan of Treatment Not on filedocumented as of this encounter Visit Diagnoses Not on filedocumented in this encounter"
--- OUTSIDE RECORDS SUMMARY | ~2019-12-06 | XMS | Encounter Summary ---
Demographics + + + | Address | [address] | | | [place] [address] | + + + | Home Phone [...] + + | Author | [facility] | | | and [place] | + + + | Organization | [facility] | | [...] + +------+ + | Care Sales Representative Publications Name | Role | Phone | + +------+ + | Colton Singer DO | PCP | | + +------+ + Encounter Details +--------+ + + + + | Date | Type | Department | Care Team | Description | +--------+ + + + + | 09/18/ | Hospital | [facility] | Promise Cerna | | | 2018 | Encounter | [facility] | Chi Odonnell MD | | | | | [address] [place] | [address] | | | | | [place], [place] | [place], [place] | | | | | [address] | [address] | | | | | [phone] | | | +--------+ + + + [...]
--- OUTSIDE RECORDS SUMMARY | ~2019-12-06 | XMS | Encounter Summary ---
Demographics + + + | Address | [address] | | | [place] [address] | + + + | Home Phone [...] + | Author | [facility] | | | and [place]til[place] | + + + | Organization | [facility] | | | and Attilaana | + [...] Team Providers + +------+ + | Care Voice Network Administrator Name | Role | Phone | + [...] | +--------+ + + + + | 04/11/ | Emergency | [facility] | Thai Pool, | Abdominal pain, | | 2017 | | [facility] | MD [address] | acute, epigastric | | | | CENTER [address] | [place], [place] | (Primary Dx); Nausea | | | | [place], [place] | [address] | and vomiting in | | | | [address] | | adult patient; | | | | [phone] | | Neutrophilic | | | | | | leukocytosis | +--------+ + + + + Social History + +-------+ +--------+------+ | Tobacco Use | Types | Packs/Day | Years | Date | | | | | Used | | + +-------+ +--------+------+ | Never Smoker | | | | | + +-------+ +--------+------+ + + +---------+ + | Alcohol Use [...] + + + | Blood Pressure | 124/64 | 04/11/2017 10:00 PM | | | | | PST | | + + + + + | Pulse | 75 | 04/11/2017 10:00 PM | | | | | PST | | + + + + + | Temperature | 37.1 C (98.8 F) | 04/11/2017 6:05 PM | | | | | PST | | + + + + + | Respiratory Rate | 12 | 04/11/2017 6:05 PM | | | | | PST | | + + + + + | Oxygen Saturation | 99% | 04/11/2017 10:00 PM | | | | | PST | | + + + + + | Inhaled Oxygen | - | - | | | Concentration | | | | + + + + + | Weight | 90.7 kg (200 lb) | 04/11/2017 6:05 PM | | | | | PST | | + + + + + | Height | 160 cm (5' 3") | 04/11/2017 6:05 PM | | | | | PST | | + + + + + | Body Mass Index | 35.43 | 04/11/2017 6:05 PM | | | | | PST | | + + + + + documented in this encounter Discharge Instructions Thai Aragon MD - 04/11/2017Please return in 12-24 hours for reevaluatio n of your abdominal pain, immediately if worse. AttachmentsThe following attachments cannot be sent through Care Everywhere.Vomiting (Adult ) (Georgian)Epigastric Pain (Uncertain Cause) (Georgian)Controlling Nausea and Vomiting, Oncol ogy (Georgian)Cooking, Quick and Healthy (Georgian)Cooking, Low-Fat Tips (Georgian)documented i n this encounter Medications at Time of Discharge [...] documented as of this encounter ED Notes Thai Pool MD - 04/11/2017 6:28 PM PSTFormatting of this note might be different f rom the original. [facility] Adam Holcomb Emergency Department Encounter Note [address] [place] [id number] PCP:Colton Singer DO [phone] CHIEF COMPLAINT: Chief Complaint Patient presents with Abdominal Pain ED Room: ED10/ED10 HPI Adam Holcomb is a 26 y.o. female who presents to the Emergency Department umbilical, periumbi lical pain which started approximately 30 minutes after eating which radiates to her flanks bilaterally and severe crampy nature. She's had previous episodes before in the past but th ey were short-lived. No fevers no chills. Moderate to severe pain with cramping. Midepigastric discomfort and pain. midepigastric pain after she ate homemade taco meat on nachos with cheese. PAST MEDICAL & SURGICAL HISTORY Past Medical History: Diagnosis Date Anxiety Asthma PCOS (polycystic ovarian syndrome) Past Surgical History: Procedure Laterality Date SECTION CURRENT MEDICATIONS Discharge Medication List as of 04/11/2017 22:15 CONTINUE these medications which have NOT CHANGED Details UNKNOWN TO PATIENT " control pill"Historical Med ALLERGIES Allergies Allergen Reactions Amoxicillin Hives and Nausea And Vomiting Codeine Hives and Nausea And Vomiting Mes[place] Hives FAMILY AND SOCIAL HISTORY History reviewed. No pertinent family history. Social History Social History Marital status: Single Spouse name: N/A Number of children: N/A Years of education: N/A Social History Main Topics Smoking status: Never Smoker Smokeless tobacco: None Alcohol use Yes Comment: 2x weekly Drug use: Types: Marijuana Sexual activity: Not Asked Other Topics Concern None Social History Narrative None REVIEW OF SYSTEMS Constitutional: Negative for: fever or chills Cardiovascular: Negative for: chest pain Respiratory: Negative for: cough or shortness of breath Gastrointestinal: Negative for: vomiting or POSITIVE abdominal pain Genitourinary: Negative for: dysuria, flank pain, or hematuria Musculoskeletal: Negative for: myalgias or arthralgias Skin: Negative for: rash or lesion Neuro and psych: Negative for: fainting or dizziness All other systems were reviewed and are subjectively reported as negative. PHYSICAL EXAM VITAL SIGNS: (first vital signs):Temp: 37.1 C (98.8 F) Pulse: 88 Resp: 12 SpO2: 97 % BP : 126/70 General: Alert, no active distress and not requiring any emergent interventions Eyes: Normal inspection ENT: Ears normal Nose normal Pharynx normal Neck: Normal inspection Supple Full ROM Cardiovascular: Normal rate and rhythm, no extra sounds No murmurs rubs or gallops Focal PMI Respiratory: No respiratory distress or wheezing Normal excursion No retractions Abdomen: Periumbilical discomfort subxiphoid with no rebound or guarding. Negative Beth' s negative Rovsing negative McBurney's Normal active bowel sounds Back: Normal inspection Without tenderness or deformity Skin: Color normal Warm and dry Extremities: LOPEZ with equal pulses Neuro: No gross motor/sensory deficit GCS 15 No cerebellar deficits Alert and oriented. LABS Results for orders placed or performed during the hospital encounter of 04/11/17 Lipase Result Value Ref Range LIPASE 23 [...] PH UA 6.0 5.0 - 8.0 Specific [place] 1.017 1.001 - 1.030 PROTEIN UA Negative [...] /LPF URINE COMMENT Urine Culture Set Up STUDIES No results found for this or any previous visit (from the past 360 hour(s)). ED COURSE & MEDICAL DECISION MAKING Pertinent Labs & Imaging studies were reviewed along with EMS notes and jail record s if applicable. (See chart for details) Medications and Allergy list reviewed. Nurses note and old records were reviewed. 18:28 After my interview and examination and review of the patients past medical history, p ast surgical history and social history I feel that the partial list of possible emergent di agnoses requires an evaluation which includes consideration of cholelithiasis, cholecystitis , hepatitis, pancreatitis, nephrolithiasis, urine infection, anemia, dehydration, acute dee l failure, acute appendicitis, electrolyte changes, gastritis, gastroenteritis and also ileu s. My clinical examination is not consistent with acute surgical abdomen. I will order labs , medications, intravenous fluids and diagnostic imaging. 20:20 midepigastric discomfort subxiphoid pain over her CT scan abdomen and pelvis with int ravenous contrast. She seems to be less anxious and with less discomfort now been on my ini tial assessment she require additional pain management and the digital imaging prior to furt her intervention. She is doing much better but still reports some pain I have discussed my clinical impressio n and treatment plan with the pt. We have specifically discussed the signs and symptoms that would constitute the need for an immediate return to the ED, the importance of continued ou tpatient f/u and the importance of compliance with the d/c instructions. Last Set of Vital Signs: Temp: 37.1 C (98.8 F) Pulse: 75 Resp: 12 SpO2: 99 % BP: 124/64 Patient Vitals for the past 24 hrs: BP Temp Temp src Pulse Resp SpO2 Height Weight 04/11/17 2200 124/64 - - 75 - 99 % - - 04/11/17 2116 108/63 - - 84 - 97 % - - 04/11/17 2104 111/61 - - 94 - 97 % - - 04/11/171999 - - - 76 - 100 % - - 04/11/171929 - - - 80 - 96 % - - 04/11/175 126/70 37.1 C (98.8 F) Oral 88 12 97 % 1.6 m (5' 3") 90.7 kg (200 lb) Medications sodium chloride 0.9% (NS) bolus 1,000 mL (0 mLs Intravenous Stopped 04/11/172008) promethazine (PHENERGAN) 12.5 mg in sodium chloride 0.9% 50 mL IVPB (0 mg Intravenous Stopp ed 04/11/172004) fentaNYL (PF) injection 50 mcg (50 mcg Intravenous Given 04/11/172100) iohexol (OMNIPAQUE 350) 350 mg/mL injection 90 mL (90 mLs Intravenous Given 04/11/172036) sucralfate (CARAFATE) tablet 1 g (1 g Oral Given 04/11/172201) HYDROcodone-acetaminophen (NORCO) 5-325 mg per tablet (ER Prepack) 1-2 tablet (2 tablets Or al Dispense to Home 04/11/172199) ondansetron (ZOFRAN ODT) disintegrating tablet (ED homepack) 2 mg (2 mg Oral Dispense to [facility] 04/11/172158) HYDROcodone-acetaminophen (NORCO) 5-325 mg per tablet 2 tablet (2 tablets Oral Given 2158) FINAL IMPRESSION 1. Abdominal pain, acute, epigastric 2. Nausea and vomiting in adult patient 3. Neutrophilic leukocytosis Follow-up Information Colton Singer DO. Specialty: Obstetrics and Gynecology Why: Please call Wednesday to arrange follow-up in the next 3-5 days for your ED visit Contact information: [address] [facility] [phone] [facility]. Specialty: Emergency Medicine Why: Please return in 12-24 hours for reevaluation of your abdominal pain, immediately if worse Contact information: [address] [facility] [address] Discharge Medication List as of 04/11/2017 22:15 START taking these medications Details omeprazole (PRILOSEC) 40 MG capsule Take 1 capsule by mouth every morning (before breakfast ).Disp-30 capsule, R-0, Print sucralfate (CARAFATE) 1 g tablet Take 1 tablet by mouth 4 times daily.Disp-60 tablet, R-0, Print Electronically signed by: Thai Pool MD 04/12/2017 1:48 Thai Pool. This document has been prepared with a voice recognition system. The possibility of "sound alike" concrete mixer errors, addition and/or deletions may occur. If there is any question p taliase contact the author of the document. Thai Pool MD 04/12/17 0148 Citlaly Nesbitt RN - 04/11/2017 6:04 PM PSTC/o abd pain located at umbilicus since 1630. Ate tacos 1/2 hour pr ior, has had similar episode before but did not seek medical care, unsure if r/t food that t soila or not. Hx of , no other abd sx. Electronically signed by Citlaly Kern RN at 1 06/12/2016 6:05 PM PSTdocumented in this encounter Plan of Treatment + +------+--------+ + + | Name | Type | Priori | Associated Diagnoses | Date/Time | | | | ty | | | + +------+--------+ + + | ED INFORMATION | SITA | Routin | | 04/11/2017 5:57 PM | | EXCHANGE | | e | | PST | + +------+--------+ + + documented as of this encounter Procedures + +--------+ + + + | Procedure Name | Priori | Date/Time | Associated Diagnosis | Comments | | | ty | | | | + +--------+ + + + | CT ABDOMEN PELVIS W | STAT | 04/11/2017 | | Results for this | | CONTRAST | | 8:36 PM | | procedure are in the | | | | PST | | results section. | + +--------+ + + + | URINALYSIS WITH | STAT | 04/11/2017 | | Results for this | | MICROSCOPIC WITH | | 8:32 PM | | procedure are in the | | CULTURE IF INDICATED | | PST | | results section. | + +--------+ + + + | CULTURE, URINE | STAT | 04/11/2017 | | Results for this | | | | 8:32 PM | | procedure are in the | | | | PST | | results section. | + +--------+ + + + | CBC W/AUTO | STAT | 04/11/2017 | | Results for this | | DIFFERENTIAL | | 7:08 PM | | procedure are in the | | | | PST | | results section. | + +--------+ + + + | HCG, SERUM, QUANT | STAT | 04/11/2017 | | Results for this | | | | 7:08 PM | | procedure are in the | | | | PST | | results section. | + +--------+ + + + | LIPASE | STAT | 04/11/2017 | | Results for this | | | | 7:08 PM | | procedure are in the | | | | PST | | results section. | + +--------+ + + + | COMPREHENSIVE | STAT | 04/11/2017 | | Results for this | | METABOLIC PANEL | | 7:08 PM | | procedure are in the | | | | PST | | results section. | + +--------+ + + + | ED INFORMATION | Routin | 04/11/2017 | | | | EXCHANGE | e | 5:57 PM | | | | | | PST | | | + +--------+ + + + +---+--------+ | | | | | Proced | | | ure | | | Note - | | | Keshia, | | | Lab In | | | | | | Hlseve | | | n - | | | | | | 2016 | | | 5:58 | | | PM PST | | [...] | | | FICATI | | | ON?12/ | | | [birth year]/201 | | | 7 | | | 17:54? | | | FOSTER, | | | | | | ADAM?M | | | RN: | | | [phone] | | | [id number] | | | his | | | [...] | | int | | | Dec 3, | | [...] | | Hospit | | | al 5 0 | | | | | | [facility] | | | ence | | | [facility] | | | l | | | [facility] | | | 1 0 | | | Total | | [...] | | | ? | | | 2017 | | | [facility] | | | [...] | +---+--------+ documented in this encounter Results CT Abdomen Pelvis w Contrast (04/11/2017 8:36 PM PST) + + | Specimen | + + | | + + + + + | Narrative | Performed At | + + + | CT ABDOMEN PELVIS W CONTRAST 04/11/2017 8:32 PM HISTORY: | [facility] | | ABDOMINAL PAIN. COMPARISON: None. PROTOCOL: Axial images of | | | the abdomen and pelvis were obtained after administration of 90 mL | | | Omnipaque 350. Coronal and sagittal reformations were acquired. | | | FINDINGS: There is some mild scarring with calcium in the left lung | | | base. Heart size is normal. The liver demonstrates normal | | | parenchyma. The gallbladder is normal. Biliary ducts are | | | unremarkable. The spleen is unremarkable. The pancreas | | | demonstrates normal parenchyma and a normal pancreatic duct. Adrenal | | | glands are normal. The right kidney and visualized ureter are | | | normal. The left kidney and visualized ureter are normal. | | | Stomach, small bowel, and terminal ileum are normal. The appendix has | | | a normal appearance. Colon is unremarkable. Aorta is | | | nonaneurysmal. The iliac arteries are normal. There is no significant | | | abnormality in the portal veins, mesenteric veins, or systemic veins. | | | No enlarged lymph nodes are visualized within the omentum or | | | retroperitoneum. There is no evidence for ascites or free air. | | | Bladder is normal. Uterus and adnexa are normal. Body wall | | | soft tissue structures are normal. There are no acute osseous | | | abnormalities. IMPRESSION - No acute findings. A preliminary | | | report was sent by [facility] with no significant discrepancy on | | | 04/11/2017 8:45:02 PM. Dictated and Signed by: Jamin Bentley MD | | | Electronically signed: 04/12/2017 8:03 AM | | + + + + + | Procedure Note | + + | Keshia, Rad Results In - 04/12/2017 8:[address] ABDOMEN PELVIS W CONTRAST 04/11/2017 | | 8:32 PMHISTORY: ABDOMINAL PAIN.COMPARISON: None.PROTOCOL: Axial images of the abdomen | | and pelvis were obtained afteradministration of 90 mL Omnipaque 350. Coronal and | | sagittal reformations wereacquired.FINDINGS:There is some mild scarring with calcium in | | the left lung base. Heart size isnormal.The liver demonstrates normal parenchyma. The | | gallbladder is normal. Biliaryducts are unremarkable.The spleen is unremarkable. The | | pancreas demonstrates normal parenchyma and anormal pancreatic duct. Adrenal glands are | | normal.The right kidney and visualized ureter are normal.The left kidney and visualized | | ureter are normal.Stomach, small bowel, and terminal ileum are normal. The appendix has | | a normalappearance. Colon is unremarkable.Aorta is nonaneurysmal. The iliac arteries are | | normal. There is no significantabnormality in the portal veins, mesenteric veins, or | | systemic veins. No enlarged lymph nodes are visualized within the omentum or | | retroperitoneum.There is no evidence for ascites or free air.Bladder is normal.Uterus | | and adnexa are normal.Body wall soft tissue structures are normal. There are no acute | | osseousabnormalities.IMPRESSION -No acute findings.A preliminary report was sent by | | [facility] with no significant discrepancyon 04/11/2017 8:45:02 PM.Dictated and | | Signed by: Jamin Bentley MD Electronically signed: 04/12/2017 8:03 AM | |The spleen is unremarkable. The pancreas demonstrates normal parenchyma and a | |normal pancreatic duct. Adrenal glands are normal. | | | |The right kidney and visualized ureter are normal. | | | |The left kidney and visualized ureter are normal. | | | |Stomach, small bowel, and terminal ileum are normal. The appendix has a normal | |appearance. Colon is unremarkable. | | | |Aorta is nonaneurysmal. The iliac arteries are normal. There is no significant | |abnormality in the portal veins, mesenteric veins, or systemic veins. | | | |No enlarged lymph nodes are visualized within the omentum or retroperitoneum. | | | |There is no evidence for ascites or free air. | | | |Bladder is normal. | | | |Uterus and adnexa are normal. | | | |Body wall soft tissue structures are normal. There are no acute osseous | |abnormalities. | | | |IMPRESSION - | |No acute findings. | | | |A preliminary report was sent by [facility] with no significant discrepancy | |on 04/11/2017 8:45:02 PM. | | | |Dictated and Signed by: Jamin Bentley MD | | Electronically signed: 04/12/2017 8:03 AM | + + + +---------+ + + | Performing | Address | City/State/Zipcode | Phone Number | | Organization | | | | + +---------+ + + | [facility] | | | | + +---------+ + + Culture, Urine (04/11/2017 8:32 PM PST) + + + + + + | Component | Value | Ref Range | Performed | Pathologist | | | | | At | Signature | + + + + + + | Culture | >100,000 CFU/ml | | [facility] | | | | Gardnerella vaginalis | | [facility] | | | | presumptive | | MEDICAL | | | | [...] [address] | [place] | [phone] | | [facility] | | [address] | | | - LABORATORY | | | | + + + + + Urinalysis with Microscopic with Culture if Indicated (04/11/2017 8:32 PM PST) + + + + + + | Component | Value | Ref Range | Performed | Pathologist | | | | | At | Signature | + + + + + + | Color, | Yellow | Light Yellow, | [facility] | | | Urine | | Yellow, Straw | [facility] | | | | | | MEDICAL | | | | | | CENTER - | | | | | | LABORATORY | | + + + + + + | Clarity, | Cloudy (A) | Clear | [facility] | | | Urine | | | [facility] | | | | | | MEDICAL | | | | | | CENTER - | | | | | | LABORATORY | | + + + + + + | pH, Urine | 6.0 | 5.0 - 8.0 | [facility] | | | | | | [facility] | | | | | | MEDICAL | | | | | | CENTER - | | | | | | LABORATORY | | + + + + + + | Specific | 1.017 | 1.001 - 1.030 | [facility] | | | [place], | | | [facility] | | | Urine | | | MEDICAL | | | | | | CENTER - | | | | | | LABORATORY | | + + + + + + | Protein, | Negative | Negative | [facility] | | | Urine | | | [facility] | | | | | | MEDICAL | | | | | | CENTER - | | | | | | LABORATORY | | + + + + + + | Blood, | Negative | Negative | [facility] | | | Urine | | | [facility] | | | | | | MEDICAL | | | | | | CENTER - | | | | | | LABORATORY | | + + + + + + | Glucose, | Negative | Negative | [facility] | | | Urine | | | [facility] | | | | | | MEDICAL | | | | | | CENTER - | | | | | | LABORATORY | | + + + + + + | Ketones, | Negative | Negative | [facility] | | | Urine | | | [facility] | | | | | | MEDICAL | | | | | | CENTER - | | | | | | LABORATORY | | + + + + + + | Bilirubin, | Negative | Negative | [facility] | | | Urine | | | [facility] | | | | | | MEDICAL | | | | | | CENTER - | | | | | | LABORATORY | | + + + + + + | Nitrite, | Negative | Negative | [facility] | | | Urine | | | [facility] | | | | | | MEDICAL | | | | | | CENTER - | | | | | | LABORATORY | | + + + + + + | Leukocyte | Large (A) | Negative | [facility] | | | Esterase, | | | [facility] | | | Urine | | | MEDICAL | | | | | | CENTER - | | | | | | LABORATORY | | + + + + + + | Urobilinoge | Negative | 0.2 mg/dL, 1.0 | [facility] | | | n, Urine | | mg/dL, Negative | [facility] | | | | | | MEDICAL | | | | | | CENTER - | | | | | | LABORATORY | | + + + + + + | White Blood | 25-50 (A) | 0 - 2 /HPF | [facility] | | | Cells, | | | [facility] | | | Urine | | | MEDICAL | | | | | | CENTER - | | | | | | LABORATORY | | + + + + + + | Red Blood | 2-5 (A) | 0 - 2 /HPF | [facility] | | | Cells, | | | [facility] | | | Urine | | | MEDICAL | | | | | | CENTER - | | | | | | LABORATORY | | + + + + + + | Squamous | >100 (A) | 0 - 2 /LPF | [facility] | | | Epithelial | | | [facility] | | | Cells, | | | MEDICAL | | | Urine | | | CENTER - | | | | | | LABORATORY | | + + + + + + | Bacteria, | 1+ (A) | Negative /HPF | [facility] | | | Urine | | | [facility] | | | | | | MEDICAL | | | | | | CENTER - | | | | | | LABORATORY | | + + + + + + | Mucus, | Present (A) | Negative /LPF | [facility] | | | Urine | | | [facility] | | | | | | MEDICAL | | | | | | CENTER - | | | | | | LABORATORY | | + + + + + + | Urine | Urine Culture Set Up | | [facility] | | | Comment | | | [facility] | | [...] [address] | [place] | [phone] | | [facility] | | [address] | | | - LABORATORY | | | | + + + + + HCG, Serum, Quant (04/11/2017 7:08 PM PST) + + + + + + | Component | Value | Ref Range | Performed | Pathologist | | | | | At | Signature | + + + + + + | hCG Quant, | 0Comment: [facility] | 0 - 1 mIU/mL | [facility] | | | Serum | RANGE: | | [facility] | | | | B-hCG | | MEDICAL | | | | LEVELGestational Age | | CENTER - | | | | Expected hCG | | LABORATORY | | | | Values | | | | | | | | | | | | 0 | | | | | | .2-1 week | | | | | | 5-50 | | | | | | mIU/mL1-2 weeks | | | | | | 50-500 | | | | | | mIU/mL2-3 weeks | | | | | | 100-5,000 | | | | | | mIU/mL3-4 weeks | | | | | | 500-10,000 | | | | | | mIU/mL4-5 weeks | | | | | | 1,000-50,000 | | | | | | mIU/mL5-6 weeks | | | | | | 10,000-100,000 | | | | | | mIU/mL6-8 weeks | | | | | | 15,000-200,000 | | | | | | mIU/mL2-3 months | | | | | | 10,000-100,000 | | | | | | mIU/mL | | | | + + + + + + + + | Specimen | + + | Blood | + + + + + + + | Performing | Address | City/State/Zipcode | Phone Number | | Organization | | | | + + + + + | [facility] | [address] | [place] | [phone] | | [facility] | | [address] | | | - LABORATORY | | | | + + + + + Comprehensive Metabolic Panel (04/11/2017 7:08 PM PST) + + + + + + | Component | Value | Ref Range | Performed | Pathologist | | | | | At | Signature | + + + + + + | Na | 138 | 136 - 149 | [facility] | | | | | mmol/L | [facility] | | | | | | MEDICAL | | | | | | CENTER - | | | | | | LABORATORY | | + + + + + + | K | 3.7 | 3.5 - 5.1 | [facility] | | | | | mmol/L | [facility] | | | | | | MEDICAL | | | | | | CENTER - | | | | | | LABORATORY | | + + + + + + | Cl | 109 | 98 - 109 mmol/L | [facility] | | | | | | [facility] | | | | | | MEDICAL | | | | | | CENTER - | | | | | | LABORATORY | | + + + + + + | CO2 | 23 (L) | 24 - 31 mmol/L | [facility] | | | | | | [facility] | | | | | | MEDICAL | | | | | | CENTER - | | | | | | LABORATORY | | + + + + + + | Anion Gap | 6 | 3 - 16 mmol/L | [facility] | | | | | | [facility] | | | | | | [facility] | | | | | | CENTER - | | | | | | LABORATORY | | + + + + + + | Glucose | 107 | 70 - 109 mg/dL | [facility] | | | | | | [facility] | | | | | | MEDICAL | | | | | | CENTER - | | | | | | LABORATORY | | + + + + + + | BUN | 12 | 7 - 18 mg/dL | [facility] | | | | | | [facility] | | | | | | MEDICAL | | | | | | CENTER - | | | | | | LABORATORY | | + + + + + + | Creatinine | 0.66 | 0.60 - 1.30 | [facility] | | | | | mg/dL | [facility] | | | | | | [facility] | | | | | | CENTER - | | | | | | LABORATORY | | + + + + + + | eGFR, | >60Comment: GLOMERULAR | >=60 | [facility] | | | non- | FILTRATION | mL/min/1.73m2 | [facility] | | | [place] | RATE,ESTIMATED | | MEDICAL | | | | mL/min/1.27u2Kssz than | | CENTER - | | [...] + + + + | Calcium | 9.3 | 8.3 - 10.5 | [facility] | | | | | mg/dL | [facility] | | | | | | MEDICAL | | | | | | CENTER - | | | | | | LABORATORY | | + + + + + + | Albumin | 3.6 | 3.2 - 5.0 g/dL | [facility] | | | | | | [facility] | | | | | | MEDICAL | | | | | | CENTER - | | | | | | LABORATORY | | + + + + + + | Bilirubin | 0.3 | 0.1 - 1.5 mg/dL | [facility] | | | Total | | | [facility] | | | | | | MEDICAL | | | | | | CENTER - | | | | | | LABORATORY | | + + + + + + | Total | 6.7 | 6.0 - 7.8 g/dL | [facility] | | | Protein | | | [facility] | | | | | | MEDICAL | | | | | | CENTER - | | | | | | LABORATORY | | + + + + + + | AST | 14 | 10 - 42 U/L | [facility] | | | | | | [facility] | | | | | | MEDICAL | | | | | | CENTER - | | | | | | LABORATORY | | + + + + + + | ALT | 10 | 6 - 45 U/L | [facility] | | | | | | [facility] | | | | | | MEDICAL | | | | | | CENTER - | | | | | | LABORATORY | | + + + + + + | Alkaline | 62 | 40 - 110 U/L | [facility] | | | Phosphatase | | | [facility] [facility] | | | | [facility] | [facility] - | | | | | | LABORATORY | | + + + + + + | Globulin | 3.1 | 2.1 - 3.8 g/dL | [facility] | | | | | | [facility] | | [facility] | [facility] | | | | | | [facility] - | | | | | | LABORATORY | | + + + + + + | Albumin/Diane | 1.2 | 0.8 - 2.0 | [facility] | | | bulin Ratio | | | [facility] | | | | | | [facility] | | | | | | CENTER - | | | | | | LABORATORY | | + + + + + + | BUN/Creatin | 18.2 | | [facility] | | | ine Ratio | | | [facility] | | [...] [address] | [place] | [phone] | | [facility] | | [address] | | | - LABORATORY | | | | + + + + + CBC w/ Auto Differential (04/11/2017 7:08 PM PST) + + + + + + | Component | Value | Ref Range | Performed | Pathologist | | | | | At | Signature | + + + + + + | White Blood | 15.0 (H) | 4.0 - 11.0 K/uL | [facility] | | | Cells | | | [facility] | | | | [facility] | | | | | | C[facility] - | | | | | | LABORATORY | | + + + + + + | Red Blood | 4.48 | 3.70 - 5.20 | [facility] | | | Cells | | M/uL | [facility] | | [facility] | | | | | | [facility] - | | | | | | LABORATORY | | + + + + + + | Hemoglobin | 13.4 | 11.5 - 16.0 | [facility] | | | | | g/dL | [facility] | | | | | [facility] | | | | | | CENTER - | | | | | | LABORATORY | | + + + + + + | Hematocrit | 38.7 | 34.0 - 47.0 % | [facility] | | | | | | [facility] | [facility] | | | | | | C[facility] - | | | | | | LABORATORY | | + + + + + + | MCV | 86.4 | 83.0 - 101.0 fL | [facility] | | | | | | [facility] | [facility] | [facility] | | | | | | [facility] - | | | | | | LABORATORY | | + + + + + + | MCH | 29.9 | 28.0 - 35.0 pg | [facility] | | | | | | [facility] | [facility] | | | | | | [facility] - | | | | | | LABORATORY | | + + + + + + | MCHC | 34.6 | 32.0 - 36.0 | [facility] | | | | | g/dL | [facility] | | | | | | [facility] | | | | | | CENTER - | | | | | | LABORATORY | | + + + + + + | RDW-CV | 12.8 | <15.0 % | [facility] | | | | | | [facility] | | [facility] | [facility] | | | | | | CENTER - | | | | | | LABORATORY | | + + + + + + | Platelet | 342 | 140 - 440 K/uL | [facility] | | | Count | | | [facility] | | [facility] | [facility] | | | | | | CENTER - | | | | | | LABORATORY | | + + + + + + | MPV | 8.1 | fL | [facility] | | | | | | [facility] | [facility] | [facility] | | | | | | CENTER - | | | | | | LABORATORY | | + + + + + + | % | 65.7 | 45.0 - 82.0 % | [facility] | | | Neutrophils | | | [facility] | | | | | | [facility] | | | | | | CENTER - | | | | | | LABORATORY | | + + + + + + | % | 25.2 | 20.0 - 45.0 % | [facility] | | | Lymphocytes | | | [facility] | | | | | | [facility] | | | | | | CENTER - | | | | | | LABORATORY | | + + + + + + | % Monocytes | 4.2 | 4.0 - 12.0 % | [facility] | | | | | | [facility] | [facility] | [facility] | | | | | | CENTER - | | | | | | LABORATORY | | + + + + + + | % | 3.9 | 0.0 - 5.0 % | [facility] | | | Eosinophils | | | [facility] | | | | | [facility] | | | | | | C[facility] - | | | | | | LABORATORY | | + + + + + + | % Basophils | 1.0 | 0.0 - 1.0 % | [facility] | | | | | | [facility] | | [facility] | | [facility] | | | | | | CENTER - | | | | | | LABORATORY | | + + + + + + | Absolute | 9.80 (H) | 1.80 - 8.50 | [facility] | | | Neutrophils | | K/uL | [facility] | | | | | | [facility] | | | | | | CENTER - | | | | | | LABORATORY | | + + + + + + | Absolute | 3.80 (H) | 0.60 - 3.20 | [facility] | | | Lymphocytes | | K/uL | [facility] | | | | | | [facility] | | | | | | CENTER - | | | | | | LABORATORY | | + + + + + + | Absolute | 0.60 | 0.00 - 1.00 | [facility] | | | Monocytes | | K/uL | [facility] | | | | | | [facility] | | | | | | CENTER - | | | | | | LABORATORY | | + + + + + + | Absolute | 0.60 (H) | 0.00 - 0.40 | [facility] | | | Eosinophils | | K/uL | [facility] | | | | | | [facility] | | | | | | CENTER - | | | | | | LABORATORY | | + + + + + + | Absolute | 0.20 (H) | 0.00 - 0.10 | [facility] | | | Basophils | | K/uL | [facility] | | | | [...] + + + + + | [facility] | [address] | [place], [place] | [phone] | | [facility] | | [address] | | | - LABORATORY | | | | + + + + + Lipase (04/11/2017 7:08 PM PST) + +-------+ + + + | Component | Value | Ref Range | Performed | Pathologist | | | | | At | Signature | + +-------+ + + + | Lipase | 23 | 0 - 60 U/L | [facility] | | | | | [...] [address] | [place] | [phone] | | [facility] | | [address] | | | - LABORATORY | | | | + + + + + documented in this encounter Visit Diagnoses + + | Diagnosis | + + | Abdominal pain, acute, epigastric - Primary Abdominal pain, epigastric | + + | Nausea and vomiting in adult patient Nausea with vomiting | + + | Neutrophilic leukocytosis Other specified disease of white blood cells | + + documented in this encounter Administered Medications + +--------+ +--------+------+------+ | Medication Order | MAR | Action | Dose | Rate | Site | | | Action | Date | | | | + +--------+ +--------+------+------+ | fentaNYL (PF) injection 50 mcg | Given | 04/11/20 | 50 mcg | | | | 50 mcg, Intravenous, EVERY 30 | | 17 9:01 | | | | | MIN PRN, Pain, Starting Sun | | PM PST | | | | | 04/11/17 at 1858, For 3 doses | | | | | | + +--------+ +--------+------+------+ +-------+ +--------+---+---+ | Given | 04/11/20 | 50 mcg | | | | | 17 8:03 | | | | | | PM PST | | | | +-------+ +--------+---+---+ | Given | 04/11/20 | 50 mcg | | | | | 17 7:21 | | | | | | PM PST | | | | +-------+ +--------+---+---+ +---+---+ | | | +---+---+ + + + +---------+---+---+ | HYDROcodone-acetaminophen | Dispense | 04/11/20 | 2 | | | | (NORCO) 5-325 mg per tablet (ER | to Home | 17 10:00 | tablets | | | | Prepack) 1-2 tablet 1-2 tablet, | | PM PST | | | | | Oral, ONCE, 04/11/17 at 2130, | | | | | | | For 1 dose, 1-2 tablets every 6 | | | | | | | hours as needed for pain | | | | | | | Dispense for home use., | | | | | | + + + +---------+---+---+ +---+---+ | | | +---+---+ + +-------+ +---------+---+---+ | HYDROcodone-acetaminophen | Given | 04/11/20 | 2 | | | | (NORCO) 5-325 mg per tablet 2 | | 17 9:59 | tablets | | | | tablet 2 tablet, Oral, ONCE, Sun | | PM PST | | | | | 04/11/17 at 2155, For 1 dose | | | | | | + +-------+ +---------+---+---+ +---+---+ | | | +---+---+ + +-------+ +--------+---+---+ | iohexol (OMNIPAQUE 350) 350 | Given | 04/11/20 | 90 mLs | | | | mg/mL injection 90 mL 90 mL, | | 17 8:37 | | | | | Intravenous, ONCE PRN, Other, | | PM PST | | | | | Starting 04/11/17 at 2037, For | | | | | | | 1 dose, Cat Scanner | | | | | | + +-------+ +--------+---+---+ +---+---+ | | | +---+---+ + + + +------+---+---+ | ondansetron (ZOFRAN ODT) | Dispense | 04/11/20 | 2 mg | | | | disintegrating tablet (ED | to Home | 17 9:59 | | | | | homepack) 2 mg 2 mg, Oral, ONCE, | | PM PST | | | | | 04/11/17 at 2130, For 1 dose, | | | | | | | Dissolve on tongue or swallow | | | | | | | 1/2 tablet (2 mg) every 8 hours | | | | | | | as needed for nausea and | | | | | | | vomiting., | | | | | | + + + +------+---+---+ +---+---+ | | | +---+---+ + +---------+ +---------+-------+---+ | promethazine (PHENERGAN) 12.5 | New Bag | 04/11/20 | 12.5 mg | 202 | | | mg in sodium chloride 0.9% 50 mL | | 17 7:17 | | mL/hr | | | IVPB 12.5 mg, Intravenous, | | PM PST | | | | | Administer over 15 Minutes, ONCE, | | | | | | | 04/11/17 at 1900, For 1 dose | | | | | | + +---------+ +---------+-------+---+ +---+---+ | | | +---+---+ + +---------+ +--------+-------+---+ | sodium chloride 0.9% (NS) bolus | New Bag | 04/11/20 | 1,000 | 1000 | | | 1,000 mL 1,000 mL, Intravenous, | | 17 7:09 | mLs | mL/hr | | | Administer over 1 Hours, ONCE, | | PM PST | | | | | 04/11/17 at 1900, For 1 dose | | | | | | + +---------+ +--------+-------+---+ +---+---+ | | | +---+---+ + +-------+ +-----+---+---+ | sucralfate (CARAFATE) tablet 1 | Given | 04/11/20 | 1 g | | | | g 1 g, Oral, ONCE, 04/11/17 | | 17 10:02 | | | | | at 2125, For 1 dose, ., | | PM PST | | | | + +-------+ +-----+---+---+ +---+---+ | | | +---+---+ documented in this encounter
--- OUTSIDE RECORDS SUMMARY | ~2019-12-06 | XMS | Encounter Summary ---
Demographics + + + | Address | [address] | | | [place] [address] | + + + | Home Phone [...] | [facility] | | | and [place] [...] Team Providers + +------+ + | Care Aligning Inspector Name | Role | Phone | [...] | | | | [address] [facility] | | | | | | [address] [place] | | | | | | [address] | | | | | | [phone] | | | +--------+ + + + [...]
--- OUTSIDE RECORDS SUMMARY | ~2019-12-06 | XMS | Encounter Summary ---
Demographics + + + | Address | [address] | | | [place] [address] | + + + | Home Phone [...] | Author | [facility] | | | and [place] | + + + | Organization | [facility] | | | and [...] Team Providers + +------+ + | Care Latrine Cleaner Name | Role | Phone | + +------+ + | Hari Garcia MD | PCP | | + +------+ + Reason for Visit + +--------+ + | Reason | Onset | Comments | | | Date | | + +--------+ + | Procedure | 06/13/ | surgery time | | | 2020 | | + +--------+ + Encounter Details +--------+ + + + + | Date | Type | Department | Care Team | Description | +--------+ + + + + | 06/13/ | Telephone | [facility] [place] | Matthias Wiley MD | Procedure (surgery | | 2020 | | OTOLARYNGOLOGY [address] | [address] | time ) | | | | [address] | [place] [place] | | | | | [place] | [place] [address] | | | | | [address] | [phone] | | | | | [phone] | | | +--------+ + + + [...] this encounter Miscellaneous Notes Telephone Encounter - Ilsa Mcdaniel, Counseling Program Leader - 06/13/2019 1:48 PM PSTCalled and spoke to patient to let her know that she will be checking in WednesdayJune 20 at 8:45 am. Nothing to eat or drink after midnight the night before. Patient states that she araiza s a someone picking her up and she is not taking any blood thinners. documented in this encounte r Plan of Treatment Not on filedocumented as of this encounter Visit Diagnoses Not on filedocumented in this encounter"
--- OUTSIDE RECORDS SUMMARY | ~2019-12-06 | XMS | Encounter Summary ---
Demographics + + + | Address | [address] | | | [place] [address] | + + + | Home Phone [...] | Organization | [facility] | | | and [...] Team Providers + +------+ + | Care Primary Substance Abuse Counselor Name | Role | Phone | + +------+ + | Hari Garcia MD | PCP | | + +------+ + Reason for Visit +---------+--------+ + | Reason | Onset | Comments | | | Date | | +---------+--------+ + | Results | 07/13/ | | | | 2019 | | +---------+--------+ + Encounter Details +--------+ + + + + | Date | Type | Department | Care Team | Description | +--------+ + + + + | 07/13/ | Telephone | [facility] | Hari Garcia MD | Results | | 2019 | | [facility]IC[facility] [place] | [address] | | | | | [address] | [place] [address] [place], | | | | | [place] | [place] [address] | | | | | [address] | [phone] | | | | | [phone] | | | +--------+ + + + [...] Telephone Encounter - Hari Garcia MD - 07/13/2018 3:19 PM PSTPatient needs FNA of 3x2x 1cm thyroid nodule. Ordered today. Hari Garcia 07/13/18 15:20 documented in this enc ounter Plan of Treatment Not on filedocumented as of this encounter Results US Guided Thyroid FNA (07/21/2018 3:31 PM PDT) + + | Specimen | + + | | + + + + + | Narrative | Performed At | + + + | EXAM: Ultrasound Guided FNA Thyroid Biopsy CLINICAL | [facility] | | INFORMATION: [id number] nodule on thyroid ultrasound PT TO CHECK IN AT | | | 1400 FOR CONSENT PRIOR TO TAKING MEDS & SHE WILL HAVE A DYE MIXER. | | | COMPARISON: Sonogram dated 07/13/2017. [...] guidance. The specimens were given to the fly finisher | | | present during the exam. [...] Biopsy | | | | CLINICAL INFORMATION: [id number] nodule on thyroid ultrasound | | PT TO CHECK IN AT 1400 FOR CONSENT PRIOR TO TAKING MEDS & SHE WILL HAVE A | | DYE MIXER. | | | | COMPARISON: Sonogram dated [...] | The specimens were given to the fly finisher present during the exam. After | | [...]
--- OUTSIDE RECORDS SUMMARY | ~2019-12-06 | XMS | Encounter Summary ---
Demographics + + + | Address | [address] | | | [place] [address] | + + + | Home Phone | | + + + | Preferred Language | Unknown | + + + | Marital Status | Single | + + + | Adventism Affiliation | 1013 | + + + | Race | Unknown | + + + | Ethnic Group | Unknown | + + + Author + + + | Author | [facility] | | | and [place] | + + + | Organization | [facility] | | [...] Team Providers + +------+ + | Care Custom Studio Coordinator Name | Role | Phone | + +------+ + | Colton Singer DO | PCP | | + +------+ + Encounter Details +--------+ + + + + | Date | Type | Department | Care Team | Description | +--------+ + + + + | 05/05/ | Episode | [facility] [place] | JoelleElsa, | | | 2016 | Changes | GASTROENTEROLOGY | RN | | | | | [address] [place] | | | | | | [address] [place] | | | | | | [address] | | | | | | [phone] | | | +--------+ + + + [...]
--- OUTSIDE RECORDS SUMMARY | ~2019-12-06 | XMS | Encounter Summary ---
Demographics + + + | Address | [address] | | | [place] [address] | + + + | Home Phone | | + + + | Preferred Language | Unknown | + + + | Marital Status | Single | + + + | Lutheran Affiliation | 1013 | + + + | Race | Unknown | + + + | Ethnic Group | Unknown | + + + Author + + + | Author | [facility] | | | and [place] | + + + | Organization | [facility] | | [...] Team Providers + +------+ + | Care Street Light Repairer Helper Name | Role | Phone | [...] Description | +--------+--------+ + + + | 11/27/ | Refill | [facility] [place] [facility] | Hari Garcia MD | Medication Refill | | 2020 | | [facility] [place] | [address] | | | | | [address] | [address] [place], | | | | | [place] | [place] [address] | | | | | [address] | [phone] | | | | | [phone] | | | +--------+--------+ + + + [...]
--- OUTSIDE RECORDS SUMMARY | ~2019-12-06 | XMS | Encounter Summary ---
Demographics + + + | Address | [address] | | | [place] [address] | + + + | Home Phone [...] Organization | [facility] | | [...] Team Providers + +------+ + | Care Reserve Officer Name | Role | Phone | + +------+ + | Hari Garcia MD | PCP | | + +------+ + Reason for Visit +---------+--------+ + | Reason | Onset | Comments | | | Date | | +---------+--------+ + | No Show | 07/18/ | | | | 2020 | | +---------+--------+ + Encounter Details +--------+ + + + + | Date | Type | Department | Care Team | Description | +--------+ + + + + | 07/18/ | Telephone | [facility] | Kourtney Sales MD | No Show | | 2020 | | SLEEP DISORDER [address] | [address] | | | | | [address] | [place] | | | | | [place] [address] | [phone] | | | | | [phone] | | | +--------+ + + + [...] this encounter Miscellaneous Notes Telephone Encounter - Adelina Mcintyre Medical Assistant - 08/16/2019 11:05 AM PDTCalled the pa ritu and could not leave a message her mailbox is full. This is my third attempt to reach t he patient. I will send this note to Dr. Sales. elephone Encounter - Adelina Mcintyre Medical Assistant - 07/27/2019 9:46 AM PDTCalled the patient and her mailbox is full. I will try back in a few days. elep ubaldo Encounter - Adelina Mcintyre Medical Assistant - 07/19/2019 2:57 PM PDTCalled the patient to schedule her no show 07/10/[address] Sales and could not leave a message her mailbox is full. I will try back in a few days. documented in this encounter Plan of Treatment Not on filedocumented as of this encounter Visit Diagnoses Not on filedocumented in this encounter"
--- OUTSIDE RECORDS SUMMARY | ~2019-12-06 | XMS | Encounter Summary ---
Demographics + + + | Address | [address] | | | [place] [address] | + + + | Home Phone | | + + + | Preferred Language | Unknown | + + + | Marital Status | Single | + + + | Taoism Affiliation | 1013 | + + + | Race | Unknown | + + + | Ethnic Group | Unknown | + + + Author + + + | Author | [facility] | | | and [place] | + + + | Organization | [facility] | | | and [place] [...] Team Providers + +------+ + | Care Watermaster Name | Role | Phone | + +------+ + | Hari Garcia MD | PCP | | + +------+ + Reason for Visit + +--------+ + | Reason | Onset | Comments | | | Date | | + +--------+ + | Lab Results | 08/01/ | | | | 2019 | | + +--------+ + Encounter Details +--------+ + + + + | Date | Type | Department | Care Team | Description | +--------+ + + + + | 08/01/ | Telephone | [facility] | Hari Garcia MD | Lab Results | | 2019 | | [facility] | [address] | | | | | [address] | [address] [place], | | | | | [place], [place] | [place] [address] | | | | | [address] | [phone] | | | | | [phone] | | | +--------+ + + + [...] Telephone Encounter - Alivia Alvarez LPN - 08/01/2018 4:14 PM PDTI spoke with Rashmimartha said Melody had already given her the good news about biopsy coming back benign.Tabithai aaron signed by Alivia Alvarez LPN at 08/01/2018 4:15 PM PDTTelephone Encounter - Alivia Lizarraga LPN - 08/01/2018 4:13 PM PDT----- Message from Hari Garcia MD sent at 2018 6:45 PDT ----- Please notify patient of the following results. Benign (not cancer) biopsy. We will continu e to monitor the lesion with a repeat ultrasound to see if it has increased in size in 6-12 months. I am happy to see her to go over results if she has questions. documented in this encounter Plan of Treatment Not on filedocumented as of this encounter Visit Diagnoses Not on filedocumented in this encounter"
--- OUTSIDE RECORDS SUMMARY | ~2019-12-06 | XMS | Encounter Summary ---
Demographics + + + | Address | [address] | | | [place] [address] | + + + | Home Phone [...] | Author | [facility] | | | and [place] | + + + | Organization | [facility] [...] Team Providers + +------+ + | Care Dairy Husbandry Teacher Name | Role | Phone | + +------+ + | Colton Singer DO | PCP | | + +------+ + Encounter Details +--------+---------+ + + + | Date | Type | Department | Care Team | Description | +--------+---------+ + + + | 04/16/ | Office | [facility] | Promise Cerna | Patient left after | | 2017 | Visit | CARE [address] | Chi Odonnell MD | triage (Primary Dx) | | | | [place], [place] | [address] | | | | | [address] | [place], [place] | | | | | [phone] | [address] | | | | | | | [...]
--- OUTSIDE RECORDS SUMMARY | ~2019-12-06 | XMS | Encounter Summary ---
Demographics + + + | Address | [address] | | | [place] [address] | + + + | Home Phone [...] Organization | [facility] | | | and [...] Team Providers + +------+ + | Care Patent Leather Sorter Name | Role | Phone | + +------+ + | Hari Garcia MD | PCP | | + +------+ + Encounter Details +--------+ + + + + | Date | Type | Department | Care Team | Description | +--------+ + + + + | 10/10/ | Anesthesia | [facility] | RenardMark ochoa | | | 2018 | Event | [facility] | MD Niki [address] | | | | | [address] | [address] [place] | | | | | [place] | [address] | | | | | [address] | | | | | | [phone] | | | +--------+ + + + + Anesthesia Record + + + + + | Procedure Name | Responsible | Anesthesia Start | Anesthesia Stop Time | | | Anesthesiologist | Time | | + + + + + | EGD (N/A Mouth) | Marktina Glynn, | 02/16/18 1528 | 02/16/18 1553 | | | MD | | | [...] 1627 by | | eral | Antecubital; [id number] | Adamaris Pavon RN | Adamaris Pavon [...] Postprocedure Evaluation - Mark Glynn MD - 02/16/2018 4:00 PM PDTForma tting of this note might be different from the original. ANESTHESIA POSTANESTHESIA EVALUATION Rashmi Holcomb 27 y.o. female 1990 [id number] Procedure(s) EGD (N/A Mouth) Cooperates? Yes Mental Status Performs simple tasks. Respiratory Satisfactory - Airway patent (self maintained). Cardiovascular Satisfactory - Blood pressure and heart rate acceptable Temperature Satisfactory Pain Satisfactory N/V Control Satisfactory Hydration Satisfactory - No signs of dehydration Complications None apparent Vitals: 02/16/18 1420 02/16/18 1550 BP: 114/61 103/49 Pulse: 71 78 Temp: 36.8 C (98.2 F) 36.4 C (97.5 F) Resp: 16 12 SpO2: 99% 96% Electronically signed by Mark Glynn MD 02/16/2018 16:00 [facility] Mark Glynn MD at 1 4:00 PM PDTAnesthesia Preprocedure Evaluation - Mark Glynn MD - 02/16/20 18 5:42 PM PDT ANESTHESIA PREANESTHESIA EVALUATION Rashmi Holcomb 27 y.o. female 1990 [id number] Procedure(s): EGD (N/A Mouth) Medical history, anesthesia, medications, allergy, NPO status verified histories reviewed. Review of Systems / Med History Anesthesia History No anesthesia complications. (-) PONV, malignant hyperthermia Cardiovascular (-) congenital heart disease, pulmonary hypertension , Exercise tolerance <4 METS Pulmonary (+) asthma, smoking history Neurology Negative except where noted below. Psychology (+) anxiety Renal Negative except where noted below. Gastrointestinal/Hepatic Negative except where noted below. Endocrine (+) obesity: morbid BMI 40+ Other Negative except where noted below. Cancer Negative except where noted below. Physical Exam Airway MP II, TM >3 FB, Mouth opening >2 FB. Neck: full ROM, extends >30 degrees. Jaw protrus ion normal. Dental Grossly normal except where noted below.; (+) Age appropriate dentition. CV Rhythm regular. Rate Normal. (-) murmur, carotid bruit, peripheral edema, JVD and weak pulses. Pulm Clear to auscultation bilaterally. (-) wheezing, rhonchi, decreased breath sounds, rales and stridor. Neuro Grossly normal. Anesthesia Plan ASA 3 Type: TIVA. Induction: Intravenous. Potential problems: None anticipated. Monitors: Standard ASA monitors. Consent statement:Anesthetic plan, alternatives, risks and benefits discussed with patient and family. Risks discussed included (but were not limited to): dental injury, pain, sore throat, infec tion, voice injury, muscle aches, nausea, respiratory events, . Consenting person understands and agrees to proceed. PARQ. Risks and benefits of TIVA anesthetic discussed with patient and available family members. They agree to proceed, answered all questions. Past Medical History: No date: Abdominal pain No date: Anxiety No date: Asthma No date: Heart murmur No date: Nausea and vomiting No date: Neutrophilic leukocytosis No date: PCOS (polycystic ovarian syndrome). Electronically Signed by: Mark Glynn MD ESig date/time: 02/16/2018 14:57 documented in this encounter Plan of Treatment [...] lidocaine (PF) 2% injection | Given | 02/17/20 | 60 mg | | | | Intravenous, PRN, Starting Wed | | 18 3:33 | | | | | 02/16/18 at 1533, Anesthesia | | PM PDT | | | | | Intra-op | | | | | | + +-------+ +-------+---+---+ +---+---+ | | | +---+---+ + +-------+ +--------+---+---+ | propofol (DIPRIVAN) injection | Given | 20 | 100 mg | | | | [...]
--- OUTSIDE RECORDS SUMMARY | ~2019-12-06 | XMS | Encounter Summary ---
Demographics + + + | Address | [address] | | | [place] [address] | + + + | Home Phone [...] + + + | Author | [facility] | | | and [place]til[place] | + + + | Organization | [facility] | | [...] Team Providers + +------+ + | Care Stewarding Supervisor Name | Role | Phone | [...] + + | Closed | Specialty | Sleep | Diagnoses | [place], | [facility] | | | Services | Medicine | Morbid | WAQAS Kasper | [facility] | | | Required | | obesity with | [address] | Disorder [address] | | | | | BMI of | [place]TA KIMA | [address] | | | | | 40.0-44.9, | [place], [place] | [place], | | | | | adult (HCC) | [address] | [place] [address] | | | | | Loud | Phone: | Phone: | | | | | snoring | [phone] | [phone] | | | | | Prediabetes | Fax: | Fax: | | | | | PCOS | [phone] | [phone] | | | | | (polycystic | | | | | | | ovarian | | | | | | | syndrome) | | | +--------+ + + + + + Reason for Visit + + + | Reason | Comments | + + + | Weight Management | Dr. Jose bowling here for weight management. 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, | | | | [address] | [place], [place] | adult (HCC) (Primary | | | | [place], [place] | [address] | Dx); Loud snoring; | | | | [address] | | Prediabetes; PCOS | | | | [phone] | | (polycystic ovarian | | | | | | syndrome) | +--------+---------+ + + + Social History [...] + + + | Blood Pressure | 112/76 | 03/27/2019 3:09 PM | | | | | PST | | + + + + + | Pulse | 70 | 03/27/2019 3:09 PM | | | | | PST | | + + + + + | Temperature | 36.9 C (98.5 F) | 03/27/2019 3:09 PM | | | | | PST | | + + + + + | Respiratory Rate | 16 | 03/27/2019 3:09 PM | | | | | PST | | + + + + + | Oxygen Saturation | 94% | 03/27/2019 3:09 PM | | | | | PST | | + + + + + | Inhaled Oxygen | - | - | | | Concentration | | | | + + + + + | Weight | 109.1 kg (240 lb 8.4 | 03/27/2019 3:09 PM | | | | oz) | PST | | + + + + + | Height | 162.6 cm (5' 4") | 03/27/2019 3:09 PM | | | | | PST | | + + + + + | Body Mass Index | 41.29 | 03/27/2019 3:09 PM | | | | | PST | | + + + + + documented in this encounter Patient Instructions Patient Instructions Sonia Reyna ARNP - 03/27/2019 3:00 PM PSTPatient education discu ssed and provided for weight management. Information included: Dietary Recommendations Including 5-7 servings of vegetables daily, Avoiding sugary drinks, Reducing portion sizes and Tracking food intake Exercise Recommendations 30-60 minutes of activity most days per week, Low-impact activities such as yoga and swimmi ng and Increasing exercise/activity as tolerated Discussed Keto diets and Bodies Back in Balance in detail again. New handout and BBB given. Read and re-read. Watch on [employer] a documentary called "The Magic Pill." Hint: it is not about a pill. Watch on [employer] Patrick Padron physicist "The mathematics of weight loss" Watch on YouTube Oral Simmons MD "Leptin and Insulin" interview. Talks about how these horm ones are affected by food causing either fat loss or fat storage. 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 This method of making healthy habit changes includes using documentation of current habit i n order to identify the problem or challenge to be changed. It is impossible to make change without knowing what is the real problem. For problems with losing weight: It could be eating mostly unhealthy foods, eating too much, not eating enough, eating too many times a day, stress eating of comfort foods or cravings for sweets. It could be binge e ating or drinking. The quality of the food and quantity of the food is important but if ther e are underlying reasons for a habit, one will need to address that problem as well. So it is important to start documenting in the journal your intake prior to making any morales ges in your habits in order to find the problem. Keep a food diary or journal and read nutrition labels. You have to know what the quality a nd quantity of your intake is before you start making changes so you can decide and prioriti ze what steps you need to take first. What and What not to eat: Avoid/eliminate sugars (fruit juice), bread and grain based foods (pancakes , waffles, cere al) whole grain or white. All grain-based foods cause virtually the same response where metabolism is concerned=Gluco se increase, followed by insulin spikes and increased triglyceride production by the liver followed by fat storing rather than fat burning. Bread whether bought or homemade is a processed food! Reviewed macronutrients protein, fat and carbohydrates and the metabolism processes of the digestion. The difference in fast carbs and slow carbs reviewed. We reviewed it is best to count grams of protein fat and carbohydrates and the amount of ea ch patient should set as goal for weight loss to occur and for triglycerides and glucose to decrease/normalize as follows depending on patient size and appetite: Eat this amount daily spread 3 or more meals at regular times if possible Protein: 60-100grams Fat: no less than 25 grams of fat but not more than 50 grams per day (we discussed healthy fats from nuts, seeds, avocados, etc) and Carbohydrates: get a minimum of 75-95 grams of from high fiber, raw and cooked vegetables a nd no more than 25-50 grams of carbohydrates from starchy foods like pasta, rice, corn meal products (chips), breads and baked goods. Eating more high fiber "slow" carbohydrates and adequate protein and fats will increase you r metabolism and keep you in fat burning status for longer periods. Try to avoid packaged foods of any kind (except frozen plain fruits/veg) and eat more fresh or frozen vegetables 5-7 servings and fresh/frozen fruit 2-3 servings and 3 servings of pro tein to equal at least 60g daily. Eat healthy fats like fatty fish like Tuna, halibut, isaac trout, sardines, cod, salmon and raw nuts/ seeds and avocado, raw virgin organic non-hydrogenated coconut oil ( personally e at 3 tablespoons daily of [employer] brand "Organics" because I have researched the purity and safety) and eggs. Eating healthy unprocessed fats actually helps you burn fat. Good [place]! This really does work if you apply the "rules." documented in this encounter Progress Notes Sonia Reyna ARNP - 03/27/2019 3:00 PM PSTFormatting of this note might be different f rom the original. Subjective: Patient ID: Rashmi Holcomb is a 28 y.o. female. Chief Complaint Patient presents with Weight Management Dr. Garcia patient here for weight management. HPI Patient referred by her PCP , Dr. Hari Garcia. She has history of PCOS, prediabetes and B DE over 40 kg/m2. She is taking metformin to help her body with glucose metabolism and use a s fuel, citalopram for depression and anxiety and asthma medications. She reports that when she was in high school she weighed about 130 lbs. She remembers how s he felt about herself then and hopes to achieve that weight again ultimately. She knows that she has a control problem with sweet foods but is motivated to do whatever i t takes to lose weight. She is motivated to treat PCOS to have a child and she wants to look and feel better. I reviewed her labs below. Currently, triglycerides, LDL are within normal range but HDL is not optimal and is lowering the total cholesterol count. She says she eats a lot of sweets and grain-based products. Her A1c is 5.5% so youth is on her side right now, compensating fo r her poor diet and lack of meaningful exercise activity. She she gets closer to 39 year age , things could change dramatically if she dose not address her lifestyle and eating habits. Daily eating habits include consumption of: Candy, sweets, soda (but tries to avoid them), [place], coffee. She skips breakfast often and eats whatever is available. She does not have regular meals often eating only once a day and then eating more junk when she is hungry or has cravings. She will eat all food groups but prefers fruits over vegetables or meats. Exercise is not a part of her daily routine at this time. She reports that she has exercise d at the gym in the past when she was thin. She is a smoker trying to quit. She does not currently drink alcohol. Her spouse drinks alcohol and she reports it is a pro blem for him. He also needs to lose weight She reports difficulty initiating sleep, but when while asleep has loud snoring. Her spouse has not told her she stops breathing but she says she often wakes up gasping or needs to ur inate. She reports her lifestyle does not include exercise because it is uncomfortable and she is self conscious. Appointment on 01/10/2019 Component Date Value Ref Range Status Triglycerides 01/10/2019 114 30 - 150 mg/dL Final Cholesterol 01/10/2019 131* 150 - 200 mg/dL Final HDL 01/10/2019 39* 40 - 60 mg/dL Final Chol/HDL Ratio 01/10/2019 3.4 Final LDL, Calculated 01/10/2019 69 <130 mg/dL Final Na 01/10/2019 140 136 - 145 mmol/L Final K 01/10/2019 3.9 3.5 - 5.1 mmol/L Final Cl 01/10/2019 103 98 - 107 mmol/L Final CO2 01/10/2019 25 21 - 32 mmol/L Final Anion Gap 01/10/2019 12 2 - 16 mmol/L Final Glucose 01/10/2019 92 74 - 106 mg/dL Final BUN 01/10/2019 7 7 - 18 mg/dL Final Creatinine 01/10/2019 0.77 0.55 - 1.02 mg/dL Final eGFR if not 01/10/2019 >60 >=60 mL/min/1.73m2 Final GLOMERULAR FILTRATION RATE,ESTIMATED mL/min/1.73m2 Less than 60 Chronic kidney disease,if found over a 3-month period. Less than 15 Kidney failure For Americans,multiply the calculated GFR by 1.21. Calcium 01/10/2019 9.0 8.5 - 10.1 mg/dL Final Albumin 01/10/2019 3.7 3.4 - 5.0 g/dL Final Bilirubin Total 01/10/2019 0.3 0.2 - 1.0 mg/dL Final Total Protein 01/10/2019 7.6 6.4 - 8.2 g/dL Final AST 01/10/2019 31 15 - 37 U/L Final ALT 01/10/2019 30 14 - 59 U/L Final Alkaline Phosphatase 01/10/2019 102 46 - 116 U/L Final Globulin 01/10/2019 3.9* 2.1 - 3.8 g/dL Final Albumin/Globulin Ratio 01/10/2019 0.9 0.8 - 2.0 Final BUN/Creatinine Ratio 01/10/2019 9.1 Final WBC 01/10/2019 11.4* 4.0 - 11.0 K/uL Final RBC 01/10/2019 4.68 3.70 - 5.20 M/uL Final Hemoglobin 01/10/2019 13.9 11.5 - 16.0 g/dL Final Hematocrit 01/10/2019 41.4 34.0 - 47.0 % Final MCV 01/10/2019 88.5 83.0 - 101.0 fL Final MCH 01/10/2019 29.7 28.0 - 35.0 pg Final MCHC 01/10/2019 33.6 32.0 - 36.0 g/dL Final RDW-CV 01/10/2019 12.2 <15.0 % Final RDW-SD 01/10/2019 40.2 35.1 - 46.3 fL Final Platelet Count 01/10/2019 332 140 - 440 K/uL Final MPV 01/10/2019 9.7 6.5 - 12.4 fL Final Hemoglobin A1c 01/10/2019 5.5 4.3 - 6.0 % Final Estimated Average Glucose 01/10/2019 111 mg/dL Final 0 Past Medical History: Diagnosis Date Abdominal pain Anxiety Asthma Heart murmur Nausea and vomiting Neutrophilic leukocytosis PCOS (polycystic ovarian syndrome) Past Surgical History: Procedure Laterality Date SECTION COLONOSCOPY N/A 05/19/2017 Procedure: COLONOSCOPY; Surgeon: Horace Carlos MD; Location: [facility] MEDICAL PROC[facility]URE UN[facility] THYROID FINE NEEDLE ASPIRATION 07/21/2018 Procedure: US GUIDED THYROID FNA - Location: [facility] ULTRASOUND TONSILLECTOMY UPPER GASTROINTESTINAL ENDOSCOPY N/A 05/19/2017 Procedure: EGD; Surgeon: Horace Carlos MD; Location: [facility] PROC[facility]URE [facility] UPPER GASTROINTESTINAL ENDOSCOPY N/A 02/16/2018 Procedure: EGD; Surgeon: Horace Carlos MD; Location: [facility] PROC[facility] Family History Problem Relation Age of Onset Depression Mother Mental illness Mother Substance abuse Mother Depression Father Mental illness Father Substance abuse Father Asthma Sister Colon cancer Other Depression Maternal Grandmother Asthma Maternal Grandmother Cancer Maternal Grandmother Cancer Paternal Grandfather Social History Socioeconomic History Marital status: Single Spouse name: Not on file Number of children: Not on file Years of education: Not on file Highest education level: Not on file Tobacco Use Smoking status: Current Every Day Smoker Packs/day: 0.50 Years: 14.00 Pack years: 7.00 Types: Cigarettes Start date: 04/25/2018 Smokeless tobacco: Never Used Substance and Sexual Activity Alcohol use: Yes Comment: 1-2 drinks every two weeks Drug use: Yes Types: Marijuana Current Outpatient Medications Medication Sig Dispense Refill [...] No current facility-administered medications for this visit. Allergies Allergen Reactions Banana Anaphylaxis Rashid (Phaseolus) Anaphylaxis All legumes (peanuts are OK) Bee Venom Anaphylaxis Blue Dyes (Parenteral) Hives,Itching Blue dye #3 Rich Hives,Itching Red Dye Hives,Itching Red Dye #40 Topamax (Topiramate) Other (See Comments),Headache Confused and unable to focus. Amoxicillin Hives,Nausea And Vomiting Codeine Hives,Nausea And Vomiting [place] Hives Intolerance No active intolerances/contraindications Review of Systems Constitutional: Negative for chills, diaphoresis, fever, malaise/fatigue and weight loss. HENT: Negative for congestion, ear discharge, ear pain, hearing loss, nosebleeds, sinus tyler n, sore throat and tinnitus. Eyes: Negative for blurred vision, double vision, photophobia, pain, discharge and redness. Respiratory: Negative for cough, hemoptysis, sputum production, shortness of breath, wheezi ng and stridor. Cardiovascular: Negative for chest pain, palpitations, orthopnea, claudication, leg swellin g and PND. Gastrointestinal: Negative for abdominal pain, blood in stool, constipation, diarrhea, hear tburn, melena, nausea and vomiting. Genitourinary: Negative for dysuria, flank pain, frequency, hematuria and urgency. Musculoskeletal: Negative for back pain, falls, joint pain, myalgias and neck pain. Skin: Negative for itching and rash. Neurological: Negative for dizziness, tingling, tremors, sensory change, speech change, foc al weakness, seizures, loss of consciousness, weakness and headaches. Endo/Heme/Allergies: Negative for environmental allergies and polydipsia. Does not bruise/b leed easily. Psychiatric/Behavioral: Positive for depression. Negative for hallucinations, memory loss, substance abuse and suicidal ideas. The patient is nervous/anxious and has insomnia. Objective: BP 112/76 | Pulse 70 | Temp 36.9 C (98.5 F) (Temporal) | Resp 16 | Ht 1.626 m (5' 4 ") | Wt 109.1 kg (240 lb 8.4 oz) | LMP 02/20/2019 (Exact Date) | SpO2 94% | Breastfeedin g No | BMI 41.29 kg/m Physical Exam Constitutional: She is oriented to person, place, and time and well-developed, well-nourish ed, and in no distress. HENT: Head: Normocephalic and atraumatic. Eyes: No scleral icterus. Pulmonary/Chest: Effort normal. No respiratory distress. Neurological: She is alert and oriented to person, place, and time. Psychiatric: Mood, memory, affect and judgment normal. Assessment/Plan: 1. Pre weight loss lifestyle patterns discussed including Dietary intake reviewed pre diet/ current intake as well as prior activity level and compared to sedentary and now lack of fish ningful activity because of discomfort after exercise and feeling self conscious. First goal is to wean off all the sugary beverages, candy and caffeine and introduce more v egetables and high fiber nutrient dense fruits. 2. We set up patient's BeyondCorePal/or other food tracking rani on their smart phone to tra ck food and beverage intake and activities. 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 3. Discussed macro nutrients and how metabolism works. How carbohydrates are either fast o r slow for digestion and triggering insulin, triglycerides and fat storage. 4. Reviewed Leptin and ghrelin hormones that help fat burning and how to eat enough to sti mulate the production of these fat burner and satisfaction hormones. 5. Discussed brain and body connection related to food satisfaction and feeling full. Also psychosocial aspects of celebrations and family night meals or eating out. 6. Discussed personalized meal plan with appropriate protein, fats and carbs to enhance we ight loss. 7. Reviewed resources and tips again. 8. Discussed grocery shopping, label reading, and meal planning tips for success. See AVS for details. 1. Morbid obesity with BMI of 40.0-44.9, adult (HCC) (Primary) - * [facility] Sleep Disorder - AMB Referral 2. Loud snoring - * [facility] - AMB Referral 3. Prediabetes - * [facility] - AMB Referral 4. 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 She would like a referral to have sleep consult and possible sleep study. Recommended weaning off high caffeine beverages to improve sleep quality and reduce sugar i ntake. Return in about 4 weeks (around 04/24/2019) for weight management. The patient was satisfied with the care received and voiced understanding of the issues dis cussed and the plan. Total time today 60 minutes of which at least 75 % was spent in patient education and couns eling and coordination of care. Return if symptoms worsen or fail to improve. Electronically signed by WAQAS Bermudez Portions of this report were transcribed using [employer] voice recognition soft martell. Although effort was made in correcting the errors; grammatical and sound alike errors may still be present. documented in this encounter Miscellaneous Notes Addendum Note - Sonia Reyna ARNP - 03/27/2019 3:00 PM PST Addended by: SONIA REYNA on: 03/28/2019 10:12 AM Modules accepted: Level of Service documented in thi s encounter Plan of Treatment + + +--------+ + + | Name | Type | Priori | Associated Diagnoses | Order Schedule | | | | ty | | | + + +--------+ + + | * [facility] | Outpatient | Routin | Morbid obesity | Ordered: 03/27/2019 | | Sleep Disorder - AMB | Referral | e | with BMI of | | | Referral | | | 40.0-44.9, adult | | | | | | ([facility]) Loud Snoring | | | | | | Prediabetes PCOS | | | | | | (polycystic ovarian | | | | | | syndrome) | | + + +--------+ + + documented as of this encounter Visit Diagnoses + + | Diagnosis | + + | Morbid obesity with BMI of 40.0-44.9, adult ([facility]) - Primary | + + | Loud snoring | + + | Prediabetes Other abnormal glucose | + + | PCOS (polycystic ovarian syndrome) Polycystic ovaries | + + documented in this encounter
--- OUTSIDE RECORDS SUMMARY | ~2019-12-06 | XMS | Encounter Summary ---
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
--- OUTSIDE RECORDS SUMMARY | ~2019-12-06 | XMS | Encounter Summary ---
Demographics + + + | Address | [address] | | | [place] [address] | + + + | Home Phone [...] | Organization | [facility] | | | and [...] Team Providers + +------+ + | Care Trailer Sections Assembler Name | Role | Phone | [...] + + | 01/31/ | Office | [facility] | Hari Garcia MD | Non-intractable | | 2018 | Visit | [facility] | [address] | cyclical vomiting | | | | [address] | [address] [place], | with nausea (Primary | | | | [place], [place] | [place] [address] | Dx); PCOS | | | | [address] | [phone] | (polycystic ovarian | | | | [phone] | | syndrome); | | | | | | Prediabetes; 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 Date Last Reviewed: 10/08/[id number] [employer]. [address] [place] [id number]. All righ ts reserved. This information is [...] following quitting smoking by a women's clinic . She had a negative Pap smear at [...] Vomiting Codeine Hives and Nausea And Vomiting [place] Hives Past Surgical History: Procedure Laterality Date SECTION COLONOSCOPY N/A 05/19/2017 Procedure: COLONOSCOPY; Surgeon: Horace Carlos MD; Location: [facility] MEDICAL PROCEDURE UNIT TONSILLECTOMY UPPER GASTROINTESTINAL ENDOSCOPY N/A 05/19/2017 Procedure: EGD; Surgeon: Horace Carlos MD; Location: [facility] Social History [...] were helpful when she went to the [facility] this month we will do a trial [...] above issue(s). This note was dictated using [employer] voice recognition software. It may contain some [...] + | [facility] | [address] | [place] | [phone] | | [facility] | | [address] | | | - LABORATORY | | [...] | 1.010, 1.015, | | | | [place], | | 1.020, 1.025 | | | [...]
--- OUTSIDE RECORDS SUMMARY | ~2019-12-06 | XMS | Encounter Summary ---
Demographics + + + | Address | [address] | | | [place] [address] | + + + | Home Phone [...] Organization | [facility] | | [...] Providers + +------+ + | Care Director Of Education Name | Role | Phone | + +------+ + | Colton Singer DO | PCP | | + +------+ + Encounter Details +--------+---------+ + + + | Date | Type | Department | Care Team | Description | +--------+---------+ + + + | 01/10/ | Surgery | [facility] | Horace Carlos MD | EGD | | 2018 | | MED CTR MP INTRA OP | [address] | | | | | [address] | [place], [place] | | | | | [place] | [address] | | | | | [address] | [phone] | | | | | [phone] | | | +--------+---------+ + + + [...] + + + | Blood Pressure | 121/66 | 05/19/2017 1:00 PM | | | | | PST | | + + + + + | Pulse | 77 | 05/19/2017 1:00 PM | | | | | PST [...] + | Oxygen Saturation | 97% | 05/19/2017 1:00 PM | | | | | PST [...] the physician who did your procedure at [phone] if you have any questions or experience any of the following: ? Increasing abdominal pain, nausea, or vomiting. ? Chills and fever over 101F. ? New abdominal swelling or bloating. ? Signs of rectal bleeding (black or red stool). If you cannot get a hold of your physician, then call the [facility] [phone] . If necessary, report to the Emergency Department at [facility]. Quit smoking: If you smoke [...] + documented as of this encounter H&P Horace Pugh MD - 05/19/2017 12:16 PM PSTPatient interviewed, history and physical, symp toms reviewed VS signs noted, no change from previous H&P or assessment and plan.Electronic ally signed by Horace Carlos MD at 05/19/2017 12:16 PM Horace Mendosa MD - 04/26/2017 9:00 AM PST Date of Office Visit: 04/26/17 Chief Complaint: Abdominal Pain History of Present Illness: Rashmi Holcomb is a 26 y.o. female the patient presents with co mplaints of persistent abdominal pain for the past 2 weeks. [facility] and [facility] a fairly extensive [...] blood a few weeks ago [facility] this illness however none since. She's [...] or twice a month but denies toba tobacco roller use and denies illicit drug use. The [...] Hives,Nausea And Vomiting Codeine Hives,Nausea And Vomiting Cherry Hives Intolerance No active intolerances/contraindications Medications: has [...] Wt 93 kg (205 lb) | LMP 03/11 | SpO2 98% | BMI 36.31 kg/m [...] Endoscopy Patient: Rashmi Holcomb : 1990 Acct: [id number] Exam Date: Friday, May 19, 2017 Doctor: [...] If unable to reach your physician, call [facility] Emergency Department at [address] Your doctor [...] Exams Patient: Rashmi Holcomb : 1990 Acct: [id number] Exam Date: Friday, May 19, 2017 Doctor: [...] If unable to reach your physician, call [facility] Emergency Department at [address] Your doctor [...] 05/19/2017 | PROVATION | | 11:47 AMMRN: [id number] #: [id number] of : | | | 1990Admit Type: AmbulatoryAge: 26Room: [facility] 02Gender: FemaleNote | | | Status: FinalizedAttending MD: Horace Carlos , [facility]: | | | Upper GI endoscopyIndications: Epigastric abdominal | | | pain, Generalized abdominal pain, | | | Suspected esophageal reflux, Exclusion of peptic ulcer, | | | Follow-up of peptic ulcerProviders: Horace | | | Maddie Carlos MD, Christine Anderson RN, Xena Glynn | | | Neftali, Account Planner, Caio Vora MD (Anesthesia | | | [...] | | | the anesthesiologist and the medical lab technician in the pre-procedure | | | [...] PMScope Out: 12:26:29 PM | | | [facility], [address] [place] [address] | | | [phone] | | | - Continue present medications. [...] |Scope Out: 12:26:29 PM | | | [facility], [address] [place] [address] | | | [address] | | + + -+ + +---------+ [...] 05/19/2017 | PROVATION | | 11:46 AMMRN: [id number] #: [id number] of : | | | 1990Admit Type: AmbulatoryAge: 26Room: [facility] 02Gender: FemaleNote | | | Status: FinalizedAttending MD: Horace Carlos MDProcedure: | | | ColonoscopyIndications: Abdominal pain, Chronic | | | diarrheaProviders: Horace Carlos MD, Christine Anderson RN, | | | Xena Lindsay, Account Planner, Caio | | | Sue Vora MD [...] the anesthesiologist and the | | | medical lab technician in the pre-procedure area in the [...] | | | PMScope Out: 12:43:[address] [facility], [address] | | [place] [address] | | | instructions were provided to [...] |Scope Out: 12:43:54 PM | | | [facility], [address] [place], [place] | | | [address] | | + + -+ + +---------+ [...] Clinical correlation is | | | requested. JVR:[facility]:C2NR GROSS DESCRIPTION: Received in five | [...] submitted, all in (E1). | | | ka:JVR:[facility] PERFORMING LABORATORY: Tissue processing and slide | | | preparation were performed by [facility], [address] | | | [address], [place] [address] ([employer]: Brandon Blackwell M.D. | | | CLIA#: [id number]). Professional interpretation was performed by | | | [facility], [facility], [address] | [address] [place] [address] ([employer]: Brandon Blackwell, | | | Aníbal; CLIA#: [id number]). Diagnostician: Brandon Blackwell MD | | | Pathologist Electronically Signed 05/20/2017 | | + + + + +---------+ + + | Performing | Address | City/State/[place] [facility] Centercode | Phone Number | | [...]
--- OUTSIDE RECORDS SUMMARY | ~2019-12-06 | XMS | Encounter Summary ---
Demographics + + + | Address | [address] | | | [place] [address] | + + + | Home Phone | | + + + | Preferred Language | Unknown | + + + | Marital Status | Single | + + + | Denominational Affiliation | 1013 | + + + | Race | Unknown | + + + | Ethnic Group | Unknown | + + + Author + + + | Author | [facility] | | | and Attilaana | + + + | Organization | [facility] | | | and tAtilaana | + + + | Address | [...] Providers + +------+ + | Care Supervisor Laboratory Name | Role | Phone | + [...] Description | +--------+--------+ + + + | 08/04/ | Refill | [facility] | Hari Garcia MD | Medication Refill | | 2019 | | MEDICINE [facility]IC | [address] | | | | | [address] | [address], | | | | | [place], [place] | [place] [address] | | | | | [address] | [phone] | | | | | [phone] | | | +--------+--------+ + + + [...]
--- OUTSIDE RECORDS SUMMARY | ~2019-12-06 | XMS | Encounter Summary ---
Demographics + + + | Address | [address] | | | [place] [address] | + + + | Home Phone [...] | Author | [facility] | | | and Attilaana | + + + | Organization | [facility] | | | and [...] Providers + +------+ + | Care Manager Machine Name | Role | Phone | + +------+ + | Hari Garcia MD | PCP | | + +------+ + Reason for Visit + +--------+ + | Reason | Onset | Comments | | | Date | | + +--------+ + | Vaginal Bleed (> 7 | 08/15/ | | | Years) | 2020 | | + +--------+ + Encounter Details +--------+ + + + + | Date | Type | Department | Care Team | Description | +--------+ + + + + | 08/15/ | Telephone | [facility] | Hari Garcia MD | Vaginal Bleed (> 7 | | 2020 | | [facility] [place] | [address] | Years) | | | | [address] | [address] [place], | | | | | [place] | [place] [address] | | | | | [address] | [phone] | | | | | [phone] | | | +--------+ + + + [...] Telephone Encounter - Kayleigh Pemberton RN - 08/16/2019 2:50 PM PDTPhone call to patient. Shelli bernal MD comments and recommendations. She will present to the ED and follow up here with Myla RODRIGUEZ as needed. elephone Encounter - Hari Garcia MD - 08/16/2019 2:38 PM PDTPatient needs an in person visit. M ay benefit from more urgent evaluation as well (UC/ED). If patient does not have a gynecolog ic provider, she could potentially be scheduled with one of my female colleagues this week. I'm concerned about anemia and the need for transfusion vs iron supplementation vs medicatio ns to stop her period. However, labs and evaluation are required to determine next step in m anagement. Please give the patient these options (UC/ED visit, scheduled with one of my female provide rs urgently, urgent eval by gynecology if she has already established with them).Alisona kendall signed by Hari Garcia MD at 08/16/2019 2:41 PM PDTTelephone Encounter - Romi Trejo RN - 08/16/2019 1:28 PM PDTPatient calls in and states she has been dealing with he r period on and off for the last two weeks. Last night she started to feel real tired and ju st out of it. She did take a bath last night and had feelings of "my head and face vibrating ." Patient woke up today and when she went to the bathroom felt a huge clot come out of her vagina. When patient tried to put a tampon in she had trouble getting the plastic applicator out due to the massive amount of blood. The patient is now laying down but still bleeding. She does have the tampon in and has not had to change it but it has only been in for one hour. Patient denies any abdominal cramping or new low back pain. She does feel light headed and fatigued even though she just woke up. She is not on control or any new medications. Has had her period on and off for two weeks. She has had increased stress. She has been lethargic and out of it. Routing message to high priority. Patient does live in [place]. documented in this encounter Plan of Treatment Not on filedocumented as of this encounter Visit Diagnoses Not on filedocumented in this encounter
--- OUTSIDE RECORDS SUMMARY | ~2019-12-06 | XMS | Encounter Summary ---
Demographics + + + | Address | [address] | | | [place] [address] | + + + | Home Phone [...] Author + + + | Author | [facility] | | | and Attilaana | + + + | Organization | [facility] | | | and Attilaana [...] Team Providers + +------+ + | Care Hardwood Faller Name | Role | Phone | + +------+ + | Hari Garcia MD | PCP | | + +------+ + Encounter Details +--------+ + + + + | Date | Type | Department | Care Team | Description | +--------+ + + + + | 07/21/ | Hospital | [facility] | Hari Garcia MD | Thyroid nodule | | 2019 | Encounter | MED CTR ULTRASOUND | [address] | | | | | [address] | [address], | | | | | [place], [place] | [place] [address] | | | | | [address] | [phone] | | | | | [phone] | | | | | | | Rad, [facility] | | +--------+ + + + [...] CLINICAL | [facility] | | INFORMATION: [id number] nodule on thyroid ultrasound PT TO CHECK IN AT | | | 1400 FOR CONSENT PRIOR TO TAKING MEDS & SHE WILL HAVE A SOFTWARE SUPPORT ENGINEER. | | | COMPARISON: Sonogram dated 07/13/2017. [...] guidance. The specimens were given to the micrographics services supervisor | | | present during the exam. [...] Biopsy | | | | CLINICAL INFORMATION: [id number] nodule on thyroid ultrasound | | PT TO CHECK IN AT 1400 FOR CONSENT PRIOR TO TAKING MEDS & SHE WILL HAVE A | | SOFTWARE SUPPORT ENGINEER. | | | | COMPARISON: Sonogram dated [...] | The specimens were given to the micrographics services supervisor present during the exam. After | | [...] ORDERING PHYSICIAN: Adam Dodd MD PATIENT NAME: FOSTER | [facility] | | ADAM MARSHALL GENDER: F : 1990 SPECIMEN(S): A NBX, | INCYTE | | RIGHT THYROID GROSS DESCRIPTION: 10 ML OF CLEAR, RED FLUID | | | CLINICAL HISTORY: NO CLINICAL DATA PROVIDED LABORATORY | | | PREPARATIONS: 1 MONOLAYER , 1 CYTOLOGY CELL BLOCK CYTOLOGIC | | | INTERPRETATION: Thyroid needle sampling: Benign - Other (may be used | | | for colloid or cystic material) ([place] category 2) SPECIMEN | | | ADEQUACY: Satisfactory for Evaluation PERFORMING LABORATORY: | | | Technical preparation was performed by [employer], [id number] | | [place] [address]. Professional interpretation | | | was performed by [email or web address] - "[facility] | | | [facility]" - [address] [place] [address] (Medical | | | Director: Brandon Blackwell M.D. Diagnostician: Javier Kirkland | | | CT([facility]) Tent Worker Diagnostician: Brandon Blackwell MD | | | [...]
--- OUTSIDE RECORDS SUMMARY | ~2019-12-06 | XMS | Encounter Summary ---
Demographics + + + | Address | [address] | | | [place] [address] | + + + | Home Phone | | + + + | Preferred Language | Unknown | + + + | Marital Status | Single | + + + | Synagogue Affiliation | 1013 | + + + | Race | Unknown | + + + | Ethnic Group | Unknown | + + + Author + + + | Author | [facility] | | | and Attilaana | + + + | Organization | [facility] [...] Team Providers + +------+ + | Care Child Care Attendant School Name | Role | Phone | + +------+ + | Hari Garcia MD | PCP | | + +------+ + Reason for Visit + +--------+ + | Reason | Onset | Comments | | | Date | | + +--------+ + | Procedure | 05/22/ | new surgery check in time | | | 2020 | | + +--------+ + | Cancel Surgery | 05/22/ | | | | 2020 | | + +--------+ + Encounter Details +--------+ + + + + | Date | Type | Department | Care Team | Description | +--------+ + + + + | 05/22/ | Telephone | [facility] | Matthias Wiley MD | Procedure (new | | 2019 | | OTOLARYNGOLOGY [address] | [address] | surgery check in | | | | [address] | [address] [place] | time); Nayan | | | | [place] | [place] [address] | Surgery | | | | [address] | [phone] | | | | | [phone] | | | +--------+ + + + [...] Miscellaneous Notes Telephone Encounter - Ilsa Mcdaniel, Veterans Adviser - 05/25/2019 10:46 AM PSTPatien t has been scheduled for surgery WednesdayJune 20. Post op has been made. Patient best hodge has her paperwork.Electronically signed by Ilsa Mcdaniel Veterans Adviser at 2019 10:47 AM PSTTelephone Encounter - Edgar Farrell - 05/23/2019 9:56 AM PSTNELSONLIE from [facility] DAY [facility] called and stated that Patient RASHMI HUTCHISON 05 [phone] [address] Wiley and stated that she would like to r/s Routing to clinical staff. elephone Encounter - Ilsa Cortes, Veterans Adviser - 2019 9:36 AM PSTI tried calling patient to let her know that her surgery checking in time has changed so she will be checking tomorrow at 1 0:00am. patient mailbox is full and can't leave any messages. documented in this encounter Plan of Treatment Not on filedocumented as of this encounter Visit Diagnoses Not on filedocumented in this encounter"
--- OUTSIDE RECORDS SUMMARY | ~2019-12-06 | XMS | Encounter Summary ---
Demographics + + + | Address | [address] | | | [place] [address] | + + + | Home Phone | | + + + | Preferred Language | Unknown | + + + | Marital Status | Single | + + + | Evangelical Affiliation | 1013 | + + + | Race | Unknown | + + + | Ethnic Group | Unknown | + + + Author + + + | Author | [facility] | | | and Attilaana | + + + | Organization | [facility] | [...] Team Providers + +------+ + | Care Clubhouse Manager Name | Role | Phone | [...] MED CTR MP INTRA OP | MD Myla [address] | | | | | [address] | [address] [place] | | | | | [place] | [address] | | | | | [address] | [phone] | | | | | [phone] | | | +--------+ + + + + Anesthesia Record + + + + + | Procedure Name | Responsible | Anesthesia Start | Anesthesia Stop Time | | | Anesthesiologist | Time | | + + + + + | EGD (N/A Mouth) | Caio Vora, | 05/19/17 1207 | 05/19/17 1254 | | | MD | | | [...] 1216 by | | eral | Antecubital; [id number] | Yu Law, | Alaina Spain, | [...] 05/19/17 1355 by | | eral | [id number] catheter system; | Alaina Spain, | Paige E | | IV | 20 gauge, 1 1/4 in length; | RN | ABHIJIT Weldon | | | distraction, intradermal | | [...] encounter OR Notes Anesthesia Postprocedure Evaluation - Caio Vora MD - 05/19/2017 1:51 PM PSTForm atting of this note might be different from the original. ANESTHESIA POSTANESTHESIA EVALUATION Rashmi Lay Aicha 26 y.o. female 1990 [id number] Procedure(s) EGD (N/A Mouth) COLONOSCOPY (N/A Rectum) Cooperates? Yes Mental Status Performs simple tasks. Respiratory Satisfactory - Airway patent (self maintained). Cardiovascular Satisfactory - Blood pressure and heart rate acceptable Temperature Satisfactory Pain Satisfactory N/V Control Satisfactory Hydration Satisfactory - No signs of dehydration Complications None apparent Vitals: 05/19/17 1252 05/19/17 1300 05/19/17 1315 BP: (!) 85/55 121/66 (!) 87/46 Pulse: 66 77 57 Temp: 36.7 C (98.1 F) Resp: 18 SpO2: 96% 97% 98% Electronically signed by Caio Vora MD 05/19/2017 13:51 [facility] nesthesia Preprocedure Evaluation - Caio Vora MD - 2017 9:44 PM PST ANESTHESIA PREANESTHESIA EVALUATION Rashmi Holcomb 26 y.o. female 1990 [id number] Procedure(s): EGD (N/A Mouth) COLONOSCOPY (N/A Rectum) Medical history, anesthesia, medications, allergy, NPO status verified histories reviewed. Review of Systems / Med History Anesthesia History No anesthesia complications. Cardiovascular Negative except where noted below. Pulmonary Negative except where noted below. (+) asthma Neurology Negative except where noted below. Psychology Negative except where noted below. (+) anxiety Renal Negative except where noted below. Gastrointestinal/Hepatic Negative except where noted below. Endocrine Negative except where noted below. (+) obesity: BMI (30-39) Physical Exam Airway MP II, TM >3 FB, Mouth opening >2 FB. Neck: full ROM, extends >30 degrees. Jaw protrus ion normal. Dental Grossly normal except where noted below.; CV cardiovascular normal Rhythm regular. Rate Normal. (-) murmur. Pulm Clear to auscultation bilaterally. Neuro Grossly normal. Anesthesia Plan ASA 2 Type: TIVA. Induction: Intravenous. Potential problems: None anticipated, none anticipated. Monitors: Standard ASA monitors. Consent statement:Anesthetic plan, alternatives, risks and benefits discussed with patient. Risks discussed included (but were not limited to): sore throat, pain, disability, perioper ative CV events, infection, muscle aches, voice injury, drug reaction, heart problems, nause a, respiratory events, . Consenting person understands and agrees to proceed. Patient Active Problem List: Abdominal pain, unspecified abdominal location Nausea Change in bowel habits Gastroesophageal reflux disease, esophagitis presence not specified Constipation, unspecified constipation type Anxiety Obesity, Class II, BMI 35-39.9 PCOS (polycystic ovarian syndrome) . Electronically Signed by: Caio Vora MD ESig date/time: 05/18/2017 21:44 documented in thi s encounter Plan of Treatment Not on filedocumented as of this encounter Visit Diagnoses Not on filedocumented in this encounter Administered Medications + +--------+ +--------+------+------+ | Medication Order | MAR | Action | Dose | Rate | Site | | | Action | Date | | | | + +--------+ +--------+------+------+ | glycopyrrolate (ROBINUL) | Given | 05/19/19 | 0.2 mg [...] | | | | | CONTINUOUS, Starting Wed05/19/17 | | AM PST | | | | | at 1230, Pre-op | | | | | | + +---------+ +---+---+---+ +---+---+ | | | +---+---+ + +-------+ +------+---+---+ | midazolam (VERSED) 1 mg/mL | Given | 05/19/19 | 2 mg | | | | injection Intravenous, PRN, | | 18 12:11 | | | | | Anxiety, Starting Wed05/19/17 at | | PM PST | | [...]
--- OUTSIDE RECORDS SUMMARY | ~2019-12-06 | XMS | Encounter Summary ---
Demographics + + + | Address | [address] | | | [place] [address] | + + + | Home Phone [...] + + + | Author | [facility] | | | and [place] | + + + | Organization | [facility] | | | and [...] Team Providers + +------+ + | Care Anodizing Line Operator Name | Role | Phone | + +------+ + | Hari Garcia MD | PCP | | + +------+ + Reason for Visit +--------+--------+ + | Reason | Onset | Comments | | | Date | | +--------+--------+ + | Other | 06/26/ | | | | 2020 | | +--------+--------+ + Encounter Details +--------+ + + + + | Date | Type | Department | Care Team | Description | +--------+ + + + + | 06/26/ | Telephone | [facility] [place] | Matthias Wiley MD | Other | | 2020 | | OTOLARYNGOLOGY [address] | [address] | | | | | [address] | [address] [place] | | | | | [place] | [place] [address] | | | | | [address] | [phone] | | | | | [phone] | | | +--------+ + + + [...] this encounter Miscellaneous Notes Telephone Encounter - Isla Mcdaniel Manager Store - 06/26/2019 1:27 PM PSTCalled and spoke to patient to give her the information from . Patient understands and mike l call if she has anymore questions. elephone Encounter - Matthias Wiley MD - 06/26/2019 11:35 AM PSTAs long as her wound is not red and inflamed there is nothing else to do but at the mery dy continue to heal. This will all clear up and get back to normal as she continues to heal . elephone Encounter - T Ilsa fox, Manager Store - 06/26/2019 9:50 AM PSTPatient called in because she is having a lot of pain and her neck is really tight. Patient is very worried about it and s he didn't think that is was going to be like this. Patient wasn't listening to anything I wa s saying and just wanted to know what wants her to do. Told her that I will pass th is along and call her back. documented in this encounter Plan of Treatment Not on filedocumented as of this encounter Visit Diagnoses Not on filedocumented in this encounter"
--- OUTSIDE RECORDS SUMMARY | ~2019-12-06 | XMS | Encounter Summary ---
Demographics + + + | Address | [address] | | | [place] [address] | + + + | Home Phone [...] + | Author | [facility] | | | and [place]til[place]ana | + + + | Organization | [facility] | [...] Team Providers + +------+ + | Care Straightening Machine Feeder Name | Role | Phone | [...] [place] | | | | | | [address] | | | | | | [phone] | | | +--------+ + + + [...]
--- OUTSIDE RECORDS SUMMARY | ~2019-12-06 | XMS | Encounter Summary ---
Demographics + + + | Address | [address] | | | [place] [address] | + + + | Home Phone [...] | Author | [facility] | | | and Attilaana | + + + | Organization | [facility] | [...] Providers + +------+ + | Care Senior Construction Project Manager Name | Role | Phone | [...] | 02/15/ | Office | [facility] | Hari Garcia MD | PCOS (polycystic | | 2018 | Visit | [facility] | [address] | ovarian syndrome) | | | | [address] | [address] [place], | (Primary Dx); | | | | [place] | [place] [address] | Non-intractable | | | | [address] | [phone] | cyclical vomiting | | | | [phone] | | with nausea; | | | [...] diabetes Not being physically active Being , Lat[place]ian, , , , or [facility] Islander Diagnosing prediabetes Prediabetes may have no [...] heal Have blurry vision Date Last Reviewed: 09/08/201519991149-7184 [employer]. [address] [place] [address], [place] [address]. All righ ts reserved. This information is [...] on board with trial of metformin. P afia has been trying pattie as well as [...] MD 02/16/2018 This note is dictated using [employer] voice recognition software. This note was dictated [...]
--- OUTSIDE RECORDS SUMMARY | ~2019-12-06 | XMS | Encounter Summary ---
Demographics + + + | Address | [address] | | | [place] [address] | + + + | Home Phone [...] | Author | [facility] | | | and [place] | + + + | Organization | [facility] | | [...] Team Providers + +------+ + | Care Infection Control Coordinator Name | Role | Phone | + +------+ + | Hari Garcia MD | PCP | | + +------+ + Reason for Visit + +--------+ + | Reason | Onset | Comments | | | Date | | + +--------+ + | Medication Question | 07/18/ | | | | 2019 | | + +--------+ + Encounter Details +--------+ + + + + | Date | Type | Department | Care Team | Description | +--------+ + + + + | 07/18/ | Telephone | [facility] | Hari Garcia MD | Medication Question | | 2019 | | [facility] [place] | [address] | | | | | [address] | [address] [place], | | | | | [place] | [place] [address] | | | | | [address] | [phone] | | | | | [phone] | | | +--------+ + + + [...] Telephone Encounter - Melody Trejo RN - 07/18/2018 4:27 PM PDTMedication has been zuly de la fuente in. Patient notified. 4: 31 PM PDTTelephone Encounter - Hari Garcia MD - 07/18/2018 4:16 PM PDTPlease phone in v alium per my "phone in" order I just placed. 5mg tab x1 for anxiety prn. Give #3 in case she needs repeat dose. ele phone Encounter - Melody Trejo RN - 07/18/2018 2:14 PM PDTCalled and spoke with mark ent. She reports she spoke with imaging and they recommending valium to take prior to the pr ocedure. Imaging states the procedure should be about an hour. Confirmed the patient has a r jan to and from the procedure. She has never taken Valium before. Patient is scheduled for her biopsy on 07/21/2018 at 3 PM. Send it to [facility] in [place]. Electronically signed by Melody Trejo RN at 2018 2:23 PM PDTTelephone Encounter - Ramya Argueta - 07/18/2018 12:20 PM PDTPatient zuly de la fuente to speak with the nurse. Patient stated she is needing a prescription for Valium sent to take before her biopsy procedure on . Please call patient to advise, . 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
--- OUTSIDE RECORDS SUMMARY | ~2019-12-06 | XMS | Encounter Summary ---
Demographics + + + | Address | [address] | | | [place] [address] | + + + | Home Phone [...] + | Organization | [facility] | | | and [place] | + + + | Address | Unknown | + + + | Phone | Unavailable | + + + Support + + +---------+ + | Name | Relationship | Address | Phone | + + +---------+ + | Karri Chapa | ECON | Unknown | | + + +---------+ + | Stephayn Jonesmann | ECON | Unknown | | + + +---------+ + Care Team Providers + +------+ + | Care Travel Writer Name | Role | Phone | + [...] + + | 04/12/ | Office | [facility] | Hari Garcia MD | Acute stress | | 2018 | Visit | [facility] [place] | [address] | disorder (Primary | | | | [address] | [address] [place], | Dx); Social anxiety | | | | [place] | [place] [address] | disorder; Chronic | | | | [address] | [phone] | post-traumatic | | | | [phone] | | stress disorder | | | [...] mountain, as you breathe. Date Last Reviewed: 09/07/201619992497-8625 [employer]. [address] [place] [address]. All righ ts reserved. This information is [...] 2 significant losses in her small social tulalip over the last month or 2. She [...] PHQ9 SCORE Office Visit from 03/30/2018 in [facility] Office Visit from 03/16/2018 in [facility] Office Visit from 01/31/2018 in [facility] PHQ-9 Total Score (Patient Health Questionnaire) 15 13 3 ANXIETY/STRESS SCORE Office Visit from 03/30/2018 in [facility] Office Visit from 03/16/2018 in [facility] Office Visit from 01/31/2018 in [facility] SAURABH-7 Score (General Anxiety Disorder) 17 12 [...] 1 tablet by Daily. 28 tablet 11 LORazepam (ATIVAN) 0.5 [...] Negative Negative Internal QC Acceptable Acceptable Specific [place], POC 1.010, 1.015, 1.020, 1.025 Lot Number [id number] Expiration Date 2019-07-19 Health Maintenance Topics with [...] a controller medication in addition to a when nec essary medicine for panic. We discussed the risks and benefits of lorazepam and that it is a short-term therapy until her SSRI can kick in. We also discussed the role of behavioral ealt counseling, but the patient believes that [...] MD 04/12/18 This note is dictated using [employer] voice recognition software. This note was dictated [...] 1.010, 1.015, | [facility] | | | [place], | | 1.020, 1.025 | [facility] | | | POC | | | CORE | | | | | | LABORATORY | | + + + + + + | Lot Number | [id number] | | [facility] | | | | | | [facility] | | | | | | CORE | | | | | | LABORATORY | | + + + + + + | Expiration | 02/16/19 | | [facility] | | | Date | | | [facility] | | [...] + + + + + | [facility] | [address] [place] [address] [place] | [place] [address] | [phone] | | [facility] CORE | | | [...]
--- OUTSIDE RECORDS SUMMARY | ~2019-12-06 | XMS | Encounter Summary ---
Demographics + + + | Address | [address] | | | [place] [address] | + + + | Home Phone [...] | [facility] | | | and [place] | + + + | Organization | [facility] | | | and [place] [...] Team Providers + +------+ + | Care Privacy Director Name | Role | Phone | + +------+ + | Hari Garcia MD | PCP | | + +------+ + Encounter Details +--------+ + + + + | Date | Type | Department | Care Team | Description | +--------+ + + + + | 07/13/ | Hospital | [facility] | Hari Garcia MD | Thyroid nodule | | 2019 | Encounter | [facility] | [address] | | | | | [address] | [address], | | | | | [place] | [place] [address] | | | | | [address] | [phone] | | | | | [phone] | | | +--------+ + + + [...] + + | Performing | Address | City/State[facility] | Phone Number | | Organization | | | | + +---------+ + + | [facility] | | | | + +---------+ + + documented in this encounter Visit Diagnoses + + | Diagnosis | + + | Thyroid nodule Nontoxic uninodular goiter | + + documented in this encounter"
--- OUTSIDE RECORDS SUMMARY | ~2019-12-06 | XMS | Encounter Summary ---
Demographics + + + | Address | [address] | | | [place] [address] | + + + | Home Phone [...] | Organization | [facility] | | | and [place] | + + + | Address | Unknown | + + + | Phone | Unavailable | + + + Support + + +---------+ + | Name | Relationship | Address | Phone | + + +---------+ + | Karri Chpaa | ECON | Unknown | | + + +---------+ + | Stephany Kenney | ECON | Unknown | | + + +---------+ + Care Team Providers + +------+ + | Care Proofer Apprentice Name | Role | Phone | + +------+ + | Hari Garcia MD | PCP | | + +------+ + Reason for Visit + +--------+ + | Reason | Onset | Comments | | | Date | | + +--------+ + | Records Request | 04/04/ | | | | 2018 | | + +--------+ + Encounter Details +--------+ + + + + | Date | Type | Department | Care Team | Description | +--------+ + + + + | 04/04/ | Telephone | [facility] | Hari Garcia MD | Records Request | | 2018 | | [facility] [place] | [address] | | | | | [address] | [address] [place], | | | | | [place] | [place] [address] | | | | | [address] | [phone] | | | | | [phone] | | | +--------+ + + + [...] this encounter Miscellaneous Notes Telephone Encounter - Denisse Mcpherson RN - 04/04/2018 11:44 AM PSTCalled patient and l et her know she would need to contact her last clinic in [place] or her [employer] and ask for record of her immunization Tdap. Rashmi states she will follow up with this elephone Encounter - Denisse Mcpherson RN - 04/04/2018 11:[address] Message from Hari Garcia MD sent at 03/20/2018 18:37 PST ----- Could you call the patient and have her retrieve the records? Hari Jefferson ----- Message ----- From: Densise Mcpherson RN Sent: 03/17/2018 14:18 To: Hari Garcia MD [place] DR. Bill Woodson am not able to get these records. The patient will need to contact [facility] for shot records. ----- Message ----- From: Hari Garcia MD Sent: 02/15/2018 13:58 To: Denisse Mcpherson, RN Can we check on immunizations from [place]? Patient likely had Tdap with in [facility]. Hari Jefferson documented in thi s encounter Plan of Treatment Not on filedocumented as of this encounter Visit Diagnoses Not on filedocumented in this encounter"
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
--- OUTSIDE RECORDS SUMMARY | ~2019-12-06 | XMS | Encounter Summary ---
Demographics + + + | Address | [address] | | | [place] [address] | + + + | Home Phone | | + + + | Preferred Language | Unknown | + + + | Marital Status | Single | + + + | Cheondoism Affiliation | 1013 | + + + | Race | Unknown | + + + | Ethnic Group | Unknown | + + + Author + + + | Author | [facility] | | | and [place] | + + + | Organization | [facility] | | [...] Team Providers + +------+ + | Care [employer] Compliance Internship Name | Role | Phone | + +------+ + | Hari Garcia MD | PCP | | + +------+ + Reason for Visit + +--------+ + | Reason | Onset | Comments | | | Date | | + +--------+ + | Procedure | 05/16/ | surgery time | | | 2020 | | + +--------+ + Encounter Details +--------+ + + + + | Date | Type | Department | Care Team | Description | +--------+ + + + + | 05/16/ | Telephone | [facility] [place] | Matthias Wiley MD | Procedure (surgery | | 2020 | | OTOLARYNGOLOGY [address] | [address] | time ) | | | | [address] | [address] | | | | | [place] | [place] [address] | | | | | [address] | [phone] | | | | | [phone] | | | +--------+ + + + [...] Miscellaneous Notes Telephone Encounter - Ilsa Mcdaniel, Ship Mate - 05/16/2019 2:26 PM PSTCalled and spoke to patient to let her know that she will be checking in WednesdayMay 23 at 8 :15 am. Nothing to eat or drink after midnight the night before. Make sure you have a friend or family member to pick you up after surgery and that you don't take any blood thinners. E lectronically signed by Ilsa Mcdaniel Ship Mate at 05/16/2019 2:30 PM PSTdocum ented in this encounter Plan of Treatment Not on filedocumented as of this encounter Visit Diagnoses Not on filedocumented in this encounter"
--- OUTSIDE RECORDS SUMMARY | ~2019-12-06 | XMS | Encounter Summary ---
Demographics + + + | Address | [address] | | | [place] [address] | + + + | Home Phone [...] | Author | [facility] | | | and [place] | + + + | Organization | [facility] | | | and [place] | [...] Team Providers + +------+ + | Care Respiratory Care Program Director Name | Role | Phone | + +------+ + | Hari Garcia MD | PCP | | + +------+ + Reason for Visit + +--------+ + | Reason | Onset | Comments | | | Date | | + +--------+ + | Procedure | 04/05/ | surgery date | | | 2019 | | + +--------+ + Encounter Details +--------+ + + + + | Date | Type | Department | Care Team | Description | +--------+ + + + + | 04/05/ | Telephone | [facility] [place] | Matthias Wiley MD | Procedure (surgery | | 2019 | | OTOLARYNGOLOGY [address] | [address] | date ) | | | | [address] | [address] | | | | | [place] | [place] [address] | | | | | [address] | [phone] | | | | | [phone] | | | +--------+ + + + [...] encounter Miscellaneous Notes Telephone Encounter - Ilsa Mcdaniel Insurance Biller - 04/05/2019 1:36 PM PSTPatien t has been scheduled for surgery WednesdayMay 23. Information has been sent. Electronic ally signed by Ilsa Mcdaniel Insurance Biller at 04/05/2019 1:36 PM PSTdocumented in this encounter Plan of Treatment Not on filedocumented as of this encounter Visit Diagnoses Not on filedocumented in this encounter"
--- OUTSIDE RECORDS SUMMARY | ~2019-12-06 | XMS | Encounter Summary ---
Demographics + + + | Address | [address] | | | [place] [address] | + + + | Home Phone | | + + + | Preferred Language | Unknown | + + + | Marital Status | Single | + + + | Latter-Day Affiliation | 1013 | + + + | Race | Unknown | + + + | Ethnic Group | Unknown | + + + Author + + + | Author | [facility] | | | and [place] | + + + | Organization | [facility] [...] Team Providers + +------+ + | Care Locomotive Engineer Name | Role | Phone | [...] [place] | | | | | | [address] | [address] | | | | | | Phone: | Phone: | | | | | | [phone] | [phone] | | | | | | Fax: | Fax: | | | | | | [phone] | [phone] | + + + + + + [...] + + | 02/24/ | Office | [facility] | Hari Garcia MD | Thyroid nodule | | 2019 | Visit | [facility] [place] | [address] | (Primary Dx); | | | | [address] | [address] [place] [address], | Migraine with aura | | | | [place], [place] | [place] [address] | and without status | | | | [address] | [phone] | migrainosus, not | | | | [phone] | | intractable; Chronic | | | [...] encounter Progress Notes Hari Garcia MD - 02/24/2019 11:30 AM PDT Chief Complaint: Referral Question (MRI ) and Medication Reaction (Topamax) History: HPI Patient here for follow-up regarding chronic tension headache and migraine history. Patien t took the Topamax but had a fairly significant negative reaction due to vomiting and overal l "not feeling like herself". She is continued to have headaches. Interested in other alte rnative options for headache treatment. They are occurring greater than 3 days/week and can last more than an hour when they come on. Has not responded to Tylenol ibuprofen in the pa st. Denies aura. Patient also here for follow-up related to thyroid nodule. Interval history from last eval uation requires a repeat ultrasound for surveillance. This is been ordered. Patient has questions about secondary amenorrhea history. Patient reports that she has not really had any kind of periods over the last year. She is interested in attempting to get and thus this has been bothersome for her. Has not seen gynecology regarding furth er work-up. Had previously been given metformin for treatment of PCOS and to help induce po tential fertility by myself earlier this year. No longer taking the metformin. Has not bee n helpful with weight loss. Patient's weight up 10 pounds from visit in August. Patient Active Problem List Diagnosis Abdominal pain, [...] Take 1 ta blet by mouth Daily. topiramate (TOPAMAX) 25 mg tablet Take 1 tablet by mouth 2 times daily. 60 tablet 0 triamcinolone (KENALOG) 0.1% ointment Apply thin film to affected area(s) two to four t imes daily as needed: avoid face and groin areas 80 g 0 No facility-administered medications prior to visit. Review of Systems Constitutional: Positive for activity change, appetite change and fatigue. Negative for chi lls and fever. HENT: Positive for sore throat. Negative for congestion, postnasal drip and tinnitus. Eyes: Negative for visual disturbance. Respiratory: Negative for cough and shortness of breath. Cardiovascular: Negative for chest pain. Gastrointestinal: Positive for abdominal pain, nausea and vomiting. Negative for diarrhea. Endocrine: Negative for polydipsia and polyphagia. Genitourinary: Positive for menstrual problem. Negative for dysuria. Musculoskeletal: Positive for myalgias. Negative for arthralgias and joint swelling. Skin: Negative for rash. Allergic/Immunologic: Positive for environmental allergies. Neurological: Positive for headaches. Negative for dizziness, tremors, seizures, weakness a nd numbness. Psychiatric/Behavioral: Positive for dysphoric mood and sleep disturbance. Negative for dec reased concentration. The patient is nervous/anxious. Results for orders placed or performed in visit on 01/10/19 Lipid Panel Result Value Ref Range Triglycerides 114 30 - 150 mg/dL Cholesterol 131 (L) 150 - 200 mg/dL HDL 39 (L) 40 - 60 mg/dL Chol/HDL Ratio 3.4 LDL, Calculated 69 <130 mg/dL Comprehensive Metabolic Panel Result Value Ref Range Na 140 136 - 145 mmol/L K 3.9 3.5 - 5.1 mmol/L Cl 103 98 - 107 mmol/L CO2 25 21 - 32 mmol/L Anion Gap 12 2 - 16 mmol/L Glucose 92 74 - 106 mg/dL BUN 7 7 - 18 mg/dL Creatinine 0.77 0.55 - 1.02 mg/dL eGFR if not >60 >=60 mL/min/1.73m2 Calcium 9.0 8.5 - 10.1 mg/dL Albumin 3.7 3.4 - 5.0 g/dL Bilirubin Total 0.3 0.2 - 1.0 mg/dL Total Protein 7.6 6.4 - 8.2 g/dL AST 31 15 - 37 U/L ALT 30 14 - 59 U/L Alkaline Phosphatase 102 46 - 116 U/L Globulin 3.9 (H) 2.1 - 3.8 g/dL Albumin/Globulin Ratio 0.9 0.8 - 2.0 BUN/Creatinine Ratio 9.1 CBC no Differential Result Value Ref Range WBC 11.4 (H) 4.0 - 11.0 K/uL RBC 4.68 3.70 - 5.20 M/uL Hemoglobin 13.9 11.5 - 16.0 g/dL Hematocrit 41.4 34.0 - 47.0 % MCV 88.5 83.0 - 101.0 fL MCH 29.7 28.0 - 35.0 pg MCHC 33.6 32.0 - 36.0 g/dL RDW-CV 12.2 <15.0 % RDW-SD 40.2 35.1 - 46.3 fL Platelet Count 332 140 - 440 K/uL MPV 9.7 6.5 - 12.4 fL Hemoglobin A1C Result Value Ref Range Hemoglobin A1c 5.5 4.3 - 6.0 % Estimated Average Glucose 111 mg/dL Health Maintenance Topics with due status: Overdue Topic Date Due Vaccine: Pneumococcal 19-64 (PPSV23 only) Medium Risk 2008 Adult Annual Wellness Visit 04/11/2017 Vaccine: Influenza 01/08/2019 Physical Examination: BP 114/72 | Pulse 66 | Temp 36.5 C (97.7 F) (Temporal) | Resp 16 | Wt 109.6 kg (241 lb 10 oz) | LMP 02/20/2019 (Exact Date) | SpO2 96% | BMI 41.47 kg/m Physical Exam Constitutional: She is oriented [...] mood and affect. Vitals reviewed. Assessment/Plan: 1. Thyroid nodule ENT evaluation related to thyroid nodule on follow-up ultrasound imaging of the previously noted thyroid nodules. Anticipate potential for biopsy. - * [facility] Otolaryngology - AMB Referral 2. Migraine with aura and without status migrainosus, not intractable Trial of Imitrex for migrainous component of headaches. Reviewed importance of regular str etching and strengthening of the neck and mid back as patient's posture and weight likely co mponent of chronic tension type headaches. - SUMAtriptan (IMITREX) 25 mg tablet; Take 1 tablet by mouth as needed for Migraine. Dispe nse: 30 tablet; Refill: 1 3. Chronic tension-type headache, not intractable 4. PCOS (polycystic ovarian syndrome) Discussed weight loss as primary intervention for PCOS and secondary amenorrhea. Encourage patient to follow-up with gynecology if wanting to move forward with options for fertility. Discussed establishing with 1 of my colleagues Sonia regarding weight loss counseling. Pat ient interested and warm handoff performed today. 5. Secondary amenorrhea Patient declined OCPs today. Follow-up: Return in about 1 month (around 03/27/2019) for Weight management w/ Sonia ayala NP. Hari Garcia MD 02/24/2019 Total time today is 25 minutes, >75% of which is in counseling and coordination of care reg arding the above issue(s). This note is dictated using [employer] voice recognition software. This note was dictated [...] | + +--------+ + + + | IMAGING REPORT - | | 08/22/2019 | | Results for this | | EXTERNAL SCAN | | 12:00 AM | | procedure are in the | | | | PDT | | results section. | + +--------+ + + + | LABS - EXTERNAL SCAN | | 08/18/2019 | | Results for this | | | | 12:00 AM | | procedure are in the | | | | PDT | | results section. | + +--------+ + + + documented in this encounter Results IMAGING REPORT - EXTERNAL SCAN (08/22/2019 12:00 AM PDT) + + + | Narrative | Performed At | + + + | Ordered by an | | | unspecified provider. | | + + + LABS - EXTERNAL SCAN (08/18/2019 12:00 AM PDT) + + + | [...] menstruation | + + documented in this encounter
--- OUTSIDE RECORDS SUMMARY | ~2019-12-06 | XMS | Encounter Summary ---
Demographics + + + | Address | [address] | | | [place] [address] | + + + | Home Phone [...] + | Organization | [facility] | | | and Attilaana | [...] Team Providers + +------+ + | Care Fire Prevention Inspector Name | Role | Phone | + +------+ + | Hari Garcia MD | PCP | | + +------+ + Reason for Visit + +--------+ + | Reason | Onset | Comments | | | Date | | + +--------+ + | Appointment | 07/15/ | Needle Biopsy | | | 2019 | | + +--------+ + Encounter Details +--------+ + + + + | Date | Type | Department | Care Team | Description | +--------+ + + + + | 07/15/ | Telephone | [facility] | Hari Garcia MD | Appointment (Needle | | 2019 | | [facility] | [address] | Biopsy) | | | | [address] | [address] [place], | | | | | [place] | [place] [address] | | | | | [address] | [phone] | | | | | [phone] | | | +--------+ + + + [...] Telephone Encounter - Alivia Alvarez LPN - 07/15/2018 9:00 AM PSTSpoke with Patient. She expressed understanding of the process of the biopsy. 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 I advised her to call diagnostics and ask to speak with someone who is familiar with the procedure, and I poly d her to make sure her appointment gets scheduled. I told her we would make a follow up rani ointment once the biopsy results were back. I let her know she could send a message through [employer] if there was anything she needed, and asked her to let me know when she has the bio psy scheduled. elep ubaldo Encounter - Alivia Alvarez LPN - 07/15/2018 9:00 AM PST----- Message from Hari clinton MD sent at 07/13/2018 15:19 PST ----- Will order an FNA (fine needle aspiration). In other words, we should get a biopsy of the n odule to know what we're working with. Someone will contact you regarding scheduling.Electro nically signed by Alivia Alvarez LPN at 07/15/2018 9:00 AM PSTdocumented in this encount er Plan of Treatment Not on filedocumented as of this encounter Visit Diagnoses Not on filedocumented in this encounter"
--- OUTSIDE RECORDS SUMMARY | ~2019-12-06 | XMS | Encounter Summary ---
Demographics + + + | Address | [address] | | | [place] [address] | + + + | Home Phone [...] | Organization | [facility] | | [...] Team Providers + +------+ + | Care Set Up Machinist Name | Role | Phone | + [...] + + | 03/30/ | Office | [facility] | Hari Garcia MD | Grief reaction | | 2018 | Visit | [facility] [place] | [address] | (Primary Dx); Acute | | | | [address] | [address] [place], | stress disorder; | | | | [place] | [place] [address] | Social anxiety | | | | [address] | [phone] | disorder; Chronic | | | | [phone] | | post-traumatic | | | | [...] up blood Severe pain Date Last Reviewed: 05/10/201619991173-2868 [employer]. [address] [place] [address], [place] [address]. All righ ts reserved. This information is not intended as a substitute for professional medical care. Always follow your healthcare professional's instructions. documented in this encounter Progress Notes Hari Garcia MD - 03/30/2018 1:00 PM PST Chief Complaint: Follow-up (Depression/anxiety) History: Rashmi Holcomb is a 27 y.o. female who is here for follow-up of anxiety and depression. rPince chaney was started on citalopram 2 weeks [...] suicidality. She has continued to go to [facility] and do what she needs to at [...] Negative Negative Internal QC Acceptable Acceptable Specific [facility], POC 1.010, 1.015, 1.020, 1.025 Lot Number [id number] Expiration Date 2019-07-19 Health Maintenance Topics with [...] for FP - Ok to schedule on day (f/ u depression). Hari Garcia MD 03/30/2018 I spent 25 minutes face to face with the patient, with over 50% spent in counseling and/or coordination of care regarding education on self-care, meditation, proper medication managem ent, short-term nature of benzodiazepine therapy and anticipatory guidance on appropriatenes s of administration and safety profile. This note is dictated using [employer] voice recognition software. This note was dictated [...]
--- OUTSIDE RECORDS SUMMARY | ~2019-12-06 | XMS | Encounter Summary ---
Demographics + + + | Address | [address] | | | [place] [address] | + + + | Home Phone [...] Organization | [facility] | | | and Attilaana [...] Team Providers + +------+ + | Care Logistics Planning Engineer Name | Role | Phone | + +------+ + | Hari Garcia MD | PCP | | + +------+ + Encounter Details +--------+ + + + + | Date | Type | Department | Care Team | Description | +--------+ + + + + | 02/09/ | Hospital | [facility] | Hari Garcia MD | Thyroid nodule | | 2019 | Encounter | MED CTR ULTRASOUND | [address] | | | | | [address] | [address] [place], | | | | | [place] | [place] [address] | | | | | [address] | [phone] | | | | | [phone] | | | +--------+ + + + [...] mouth Daily. | | | 19 | 0 | | fumarate-folic acid | | | [...]
--- OUTSIDE RECORDS SUMMARY | ~2019-12-06 | XMS | Encounter Summary ---
Demographics + + + | Address | [address] | | | [place] [address] | + + + | Home Phone [...] Team Providers + +------+ + | Care Lost Charge Card Clerk Name | Role | Phone | [...] with | AVE [address] | [address] [place] | | | | | body mass | [place], | [place], | | | | | index (BMI) | [place] | [place] [address] | | | | | of 40.0 to | [address] | Phone: | | | | | 44.9 in | Phone: | [phone] | | | | | adult, | [phone] | Fax: | | | | | unspecified | Fax: | [phone] | | | | | obesity | [phone] | | | | | | type, [...] + + | 12/13/ | Hospital | [facility] | Hari Garcia MD | Morbid obesity with | | 2019 | Encounter | MED CTR NUTRITION | [address] | BMI of 40.0-44.9, | | | | SERVICES [address] | [address] [place], | adult (HCC) (Primary | | | | [place], | [place] [address] | Dx) | | | | [place] [address] | [phone] | | | | | [phone] | | | | | | | [place] | | | | [...] 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 She is working on [employer] easing her smoking and increasing her activity. [...] tips from handouts when she is joselin ayesha for taking another step to take care [...] 233#. BMI: 40.15 Estimated needs (wt. 106.1kg) 9574-7263 kcals/day (MSJ - 20/kg) 54-84 gm pro/day [...]
--- OUTSIDE RECORDS SUMMARY | ~2019-12-06 | XMS | Encounter Summary ---
Demographics + + + | Address | [address] | | | [place] [address] | + + + | Home Phone [...] Organization | [facility] | [...] Team Providers + +------+ + | Care Diesel Engine I Pipe Fitter Name | Role | Phone | + +------+ + | Hari Garcia MD | PCP | | + +------+ + Reason for Visit + +--------+ + | Reason | Onset | Comments | | | Date | | + +--------+ + | Female Problem | 04/29/ | | | | 2017 | | + +--------+ + Encounter Details +--------+ + + + + | Date | Type | Department | Care Team | Description | +--------+ + + + + | 04/29/ | Telephone | [facility] | Hari Garcia MD | Female Problem | | 2018 | | MEDICINE [place] | [address] | | | | | [address] | [address] [place], | | | | | [place] | [place] [address] | | | | | [address] | [phone] | | | | | [phone] | | | +--------+ + + + [...] Telephone Encounter - Sadia Johnson RN - 04/29/2018 11:16 AM PSTReceived phone call from patient. Has a light-pink mucusy vaginal discharge. Started last night and still has it today. Austin r has not changed. She doesn't think she is . LMP about 04/11/18 and lasted 3 days. She is using julianna h control pills and also on Metformin for PCOS. Denies that she has been late taking any pil ls this past month. No change in the odor of the mucus. No vaginal irritation or itching. Last sexual activity was at least a week ago. Has mild cramping. Denies any other symptoms. States she has had a lot stress lately and wonders if that could cause this. Let her know t hat high stress can affect the period cycle. Advised to take a home test to make sure she is not . Advised that this doesn't sound worrisome at this time, but to call back if her symptoms ch kyree. She agrees to do this. documented in thi s encounter Plan of Treatment Not on filedocumented as of this encounter Visit Diagnoses Not on filedocumented in this encounter"
--- OUTSIDE RECORDS SUMMARY | ~2019-12-06 | XMS | Encounter Summary ---
Demographics + + + | Address | [address] | | | [place] [address] | + + + | Home Phone [...] | Organization | [facility] [...] Team Providers + +------+ + | Care Lance Crewmember/Mlrs Sergeant Name | Role | Phone | + +------+ + | Hari Garcia MD | PCP | | + +------+ + Reason for Visit + +--------+ + | Reason | Onset | Comments | | | Date | | + +--------+ + | Test | 09/21/ | positive | | | 2019 | | + +--------+ + Encounter Details +--------+ + + + + | Date | Type | Department | Care Team | Description | +--------+ + + + + | 09/21/ | Telephone | [facility] | Hari Garcia MD | Test | | 2019 | | MEDICINE [place] | [address] | (positive) | | | | [address] | [address] [place], | | | | | [place] | [place] [address] | | | | | [address] | [phone] | | | | | [phone] | | | +--------+ + + + [...] Telephone Encounter - Sadia Johnson RN - 09/29/2018 9:12 AM PDTPer new My Chart mes kvng from patient, [facility] and it was negative. Appointments have been cancelled. [facility] - 09/22/2018 1:15 PM PDTSo noted, sent my chart message to jessi lopes recommending she continue her citalopram.Electronically signed by Adamaris Pascal MD at 0 09/22/2018 1:15 PM PDTTelephone Encounter - Sadia Johnson RN - 09/22/2018 11:54 AM PD TCalled patient with message from Dr Pascal. She tried zoloft in the past and didn't like it. She is hesitant to stop the Citalopram because her moods can become quite variable. She sta mary she will think about it though. Let her know that it would appropriate for her to minh nue the Citalopram since her moods are not stable at this time. [facility] Maciel MD - 09/21/2018 5:30 PM PDTCall patient, tell her there is no anti-d epressant that would be category A or B, all would be category C with exception of Paxil whi ch is now a category D. However, If moods have been doing very well for at least the last 6-12 months, it's reasonable to try stopping the Citalopram during the First trimester, t hen can restart later in the if moods worsen. 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 She would lik e to stay on an antidepressant, but would like to know if there is one that ok to use during ? She has appointment scheduled to see Dr Garcia on Wednesday, 09/23, and can discuss this at t [facility] appointment, or if this can be addressed over the phone, then that appointment can be ca ncelled. Please advise. el ephone Encounter - Sadia Johnson RN - 09/21/2018 2:28 PM PDTCalled patient for more information. Had positive test on 09/17 and 09/19, and both were positive. She stopped control a couple months ago as they were seeking . This is 4th . She miscarried twice and has one child. She has been taking Vitamins for about a year. Med list updated. Citalopram is category C in . She would prefer to be changed to a different medica tion if possible. LMP 4/5 but was super light. EDC 05/20/2019 OB U/S 10/07 at 1000. Check in by 0945 with a full bladder. Drink 4 cups of water at 0900 an d hold it. Initial OB 6/[address] Pascal. She can come in at any time for appointments. elephone Encount Sakina Rodriguez - 09/21/2018 12:11 PM PDTPatient returned call, can be reached at [phone] elephone Encounter - Sadia Sauer RN - 09/21/2018 8:49 AM PDTReceived My Chart message from patient in se parate encounter. "I made an appointment for Wednesday, I took a test yesterday and it was positive . Would like to follow up with you and verify that I am ." Tried to call patient for more information. Left voicemail to call back. Also sent My Chart message to call back. documented in thi s encounter Plan of Treatment Not on filedocumented as of this encounter Visit Diagnoses + + | Diagnosis | + + | , unspecified gestational age - Primary | + + | Supervision of with history of abortive outcome, first trimester | + + documented in this encounter
--- OUTSIDE RECORDS SUMMARY | ~2019-12-06 | XMS | Encounter Summary ---
Demographics + + + | Address | [address] | | | [place] [address] | + + + | Home Phone [...] + + | Organization | [facility] | | | and [...] Team Providers + +------+ + | Care Spinning Lathe Operator Name | Role | Phone | + +------+ + | Hari Garcia MD | PCP | | + +------+ + Reason for Visit +---------+--------+ + | Reason | Onset | Comments | | | Date | | +---------+--------+ + | No Show | 09/13/ | 1st no show initial eval | | | 2019 | | +---------+--------+ + Encounter Details +--------+ + + + + | Date | Type | Department | Care Team | Description | +--------+ + + + + | 09/13/ | Telephone | [facility] [place] | Becca Dial, | No Show (1st no show | | 2018 | | [facility] | Aide | initial eval) | | | | THERAPY [address] | | | | | [address] [place], [place] | | | | | | [address] | | | | | | [phone] | | | +--------+ + + + [...] encounter Miscellaneous Notes Telephone Encounter - Becca Dial Aide - 09/13/2018 3:01 PM PDTCalled and left gt neri regarding no show for eval 3:0 2 PM PDTdocumented in this encounter Plan of Treatment Not on filedocumented as of this encounter Visit Diagnoses Not on filedocumented in this encounter"
--- OUTSIDE RECORDS SUMMARY | 2019-12-06 23:22 | XMS ---
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 Care History Medical/Surgical 03/22/2019 [facility] - CHW SPOKE WITH PATIENT- PATIENT STATED [...] AWARE OF PCP FOLLOW UP IMPORTANCE. 12/31/2017 [facility] - UPDATE PATIENT NO SHOWED TO APT TO ESTABLISH CARE WITH DR SMITH. - PATIENT CONTACT NUMBER IS NO LONGER IN SERVICE - CHW HELPED PATIENT ESTABLISH WITH PCP DR SMITH APT IS 01/04/2018 @ 11:30. - Patient is currently established with [facility]. If patient is seen in the ED during business hours. Please contact CHWs at [facility]. - Care Recommendation: This patient [...] providing care. E.D. VISIT COUNT (12 MO.) 1 [facility] H. 7 [facility] TOTAL 8 NOTE: Visits indicate total known visits. ED/UCC VISIT TRACKING (12 MO.) 12/06/2019 23:20 [facility] [place] TYPE: Emergency COMPLAINT: - BACK PAIN 10/28/2019 22:48 [facility] [place] TYPE: Emergency COMPLAINT: - SOB DIAGNOSES: - Procedure and treatment not carried out because of patient's 08/28/2019 22:23 [facility] [place] TYPE: Emergency COMPLAINT: - VAGINAL BLEEDING DIAGNOSES: - Nicotine dependence, unspecified, uncomplicated - Anxiety disorder, unspecified - Abnormal uterine and vaginal bleeding, unspecified - Allergy status to other antibiotic agents status - Other specified abnormal uterine and vaginal bleeding - Bee allergy status - Allergy status to narcotic agent status - 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 07/10/2019 12:52 [facility] [place] TYPE: Emergency COMPLAINT: - COUGH, VOMITING, MSE TO CLINIC DIAGNOSES: - Vomiting, unspecified - Cough 06/03/2019 20:26 [facility] [place] TYPE: Emergency COMPLAINT: - LOWER BACK PAIN DIAGNOSES: - Post-traumatic stress disorder, unspecified - Unspecified asthma, uncomplicated - Allergy to other foods - Bee allergy status - Allergy status to narcotic agent status - 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 - Anxiety disorder, unspecified - Nicotine dependence, unspecified, uncomplicated - 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 - Low back pain 03/21/2019 11:39 [facility] [place] TYPE: Emergency COMPLAINT: - COUGH, VOMITING BLOOD DIAGNOSES: - Allergy to other foods - Nicotine dependence, unspecified, uncomplicated - Bee allergy status - senior care (current) use of oral hypoglycemic drugs - Other senior living (current) drug therapy - Allergy status to [...] uncomplicated - Bee allergy status - 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 - Acute upper respiratory infection, unspecified - Dizziness and giddiness - Nicotine dependence, cigarettes, uncomplicated 02/10/2019 18:28 [facility] [place] TYPE: Emergency COMPLAINT: - BREATHING ISSUES DIAGNOSES: - Bee allergy status - Other specified respiratory disorders - Allergy to other foods - Anxiety disorder, unspecified - Unspecified asthma, uncomplicated - Other viral agents as the cause of diseases classified elsew - Nicotine dependence, unspecified, uncomplicated - Post-traumatic stress disorder, unspecified - Allergy status to narcotic agent status - 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
[2019-12-06] MEDS ORDERED: EUTHYROX75 MCG PO (23:36)
[2019-12-07] MEDS ORDERED: NORCO 5-325 TA1 EACH PO (00:44)
== END 2019-12-07 01:27 | disposition home or self-care (01) ==
LOC: ED 23:20
DX: M54.5 Low back pain (principal); J45.909 Unspecified asthma, uncomplicated; F41.9 Anxiety disorder, unspecified; F43.10 Post-traumatic stress disorder, unspecified; Z87.891 Personal history of nicotine dependence; Z91.018 Allergy to other foods; Z91.030 Bee allergy status; Z88.5 Allergy status to narcotic agent; Z88.8 Allergy status to other drugs, medicaments and biological substances; Z79.899 Other long term (current) drug therapy; Z79.84 Long term (current) use of oral hypoglycemic drugs
CPT/HCPCS: 96372; 99283; J1100; J1885

== ENCOUNTER 2019-12-29 20:07 | Emergency (ER) | payer MEDICARE, OTHER ==
[~2019-12-29] VITALS: Ht 160 cm; Wt 104.3 kg
[~2019-12-29 20:07] MED LIST changes: +EUTHYROX75 MCG PO
--- OUTSIDE RECORDS SUMMARY | 2019-12-29 20:10 | XMS ---
PreManage Notification: ADAM HUTCHISON Security Charge Manager Events No recent Security Events currently on file CRITERIA MET - [facility] - 2 Visits in 30 Days CARE PROVIDERS MEGGAN GUTIÉRREZ Nurse Practitioner: Family Current PHONE: [phone] SUSAN SMITH Family Medicine 12/31/2017-Current PHONE: [phone] ADONIS BRITTON Family Medicine: Sports Medicine Current PHONE: [phone] Gordon has no Care Guidelines for this patient. Care History Medical/Surgical 03/22/2019 [facility] - CHW SPOKE WITH PATIENT- PATIENT STATED SHE HAD TO WORK TODAY SO SHE WAS UNABLE TO CONTACT DR FLOR OFFICE. - CHW RECOMMENDED FOR PATIENT TO CONTACT DR FLOR STANLEY SOON POSSIBLE. - CHW STATED PATIENT PCP SHOULD RECEIVE ED RECORDS WITHIN 24 HOURS. IF PCP DOES NOT HAVE RECORDS CHW PROVIDED PATIENT WITH CONTACT # FOR CHW TO HELP PATIENT IF NEEDED. - PATIENT IS AWARE OF PCP FOLLOW UP IMPORTANCE. 12/31/2017 [facility] - UPDATE PATIENT NO SHOWED TO APT TO ESTABLISH CARE WITH DR SMITH. - PATIENT CONTACT NUMBER IS NO LONGER IN SERVICE - CHW HELPED PATIENT ESTABLISH WITH PCP DR SMITH APT IS 01/04/2018 @ 11:30. - Patient is currently established with [facility]. If patient is seen in the ED during business hours. Please contact CHWs at [facility]. - Care Recommendation: This patient has [...] care. E.D. VISIT COUNT ([address] [facility] H. 8 [facility]. TOTAL 9 NOTE: Visits indicate total known visits. 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 Filiberto CAMPOS TYPE: Emergency COMPLAINT: - SOB DIAGNOSES: - [...] status to narcotic agent status - Other chcf (current) drug therapy 07/10/2019 12:52 [facility] [place] TYPE: Emergency COMPLAINT: - COUGH, VOMITING, MSE TO CLINIC DIAGNOSES: - Vomiting, unspecified - Cough 06/03/2019 20:26 [facility] [place] TYPE: Emergency COMPLAINT: - LOWER BACK PAIN DIAGNOSES: - Post-traumatic stress disorder, unspecified - Unspecified asthma, uncomplicated - Allergy to other foods - Bee allergy status - Allergy status to narcotic agent status - Other chcf (current) drug therapy - Anxiety disorder, unspecified - Nicotine dependence, unspecified, uncomplicated - termite control representative (current) use of oral hypoglycemic drugs - Low back pain 03/21/2019 11:39 [facility] [place] TYPE: Emergency COMPLAINT: - COUGH, VOMITING BLOOD DIAGNOSES: - Allergy to other foods - Nicotine dependence, unspecified, uncomplicated - Bee allergy status - termite control representative (current) use of oral hypoglycemic drugs - Other supervisor intermediates (current) drug therapy - Allergy status to [...] uncomplicated - Bee allergy status - Other supervisor intermediates (current) drug therapy - Acute upper respiratory [...] Allergy status to narcotic agent status - care home (current) use of oral hypoglycemic drugs - Other supervisor intermediates (current) drug therapy - Cough INPATIENT VISIT TRACKING (12 MO.) No inpatient visits to display in this time frame [email or web address]
== END 2019-12-29 21:13 | disposition home or self-care (01) ==
LOC: ED 20:07
DX: T63.441A Toxic effect of venom of bees, accidental (unintentional), initial encounter (principal); J45.909 Unspecified asthma, uncomplicated; F41.9 Anxiety disorder, unspecified; F17.200 Nicotine dependence, unspecified, uncomplicated; Z88.5 Allergy status to narcotic agent; Z91.030 Bee allergy status; Z91.018 Allergy to other foods
CPT/HCPCS: 99283